=== PATIENT | male | born 1940 | race Caucasian/White ===

== ENCOUNTER → 2020-07-28 | Outpatient (CLI) | payer MEDICARE ==
--- NOTE | 2020-07-28 15:39 | CONS ---
CONSULTATION DATE OF SERVICE: 07/28/2020 This 79-year-old gentleman has been evaluated in [facility] for possible obstructive sleep apnea-hypopnea syndrome. HISTORY OF PRESENT ILLNESS/SLEEP-WAKE EVALUATION: Patient usual sleep schedule from 9 p.m. to 9 a.m. He has TV in bedroom, but usually no significant problems with falling asleep. He sleeps on the side position with snoring and multiple awakenings from sleep to 6 times and 5 episodes of nocturia at night. The patient wakes up with dry mouth and sweating. During the day, he feels sleepy, takes naps on afternoon. [place] Sleepiness Scale significantly increased to 14. No clear history of hypnagogic hallucinations, sleep paralysis or cataplexy. PAST MEDICAL HISTORY: Positive for stroke and TIAs, atrial fibrillation, hypertension, acid reflux, anxiety, depression, rhinitis problems. PAST SURGICAL HISTORY: Recent cardiac cath, which did not show significant coronary artery disease. MEDICATIONS: Atorvastatin 80 mg once a day, buspirone 5 mg once a day, valsartan 26 mg tablets, 5 mg once a day, furosemide 20 mg once a day, citalopram 20 mg once a day, metoprolol 50 mg once a day, pantoprazole 40 mg extended-release once a day, rivaroxaban 20 mg once a day, multivitamins. SOCIAL HISTORY: Positive for smoking in the past; quit 25 years ago. Alcohol consumption occasional. FAMILY HISTORY: Positive for bronchitis, lung problems. REVIEW OF SYSTEMS: Nocturia, sleepiness during the day. PHYSICAL EXAMINATION: GENERAL: A gentleman without distress, some times morning. VITAL SIGNS: BP 122/96, HR 84, RR 20, height 5 feet 7 inches, weight 175, temperature 96.7, oxygen saturation at room air 95%. HEENT: PERRLA, EOMI. Oropharynx low position of soft palate. NECK: Supple, no JVD. Thyroid is not palpable. LUNGS: Clear to percussion and to auscultation. Good air exchange. No wheezing or rhonchi. HEART: S1, S2. ABDOMEN: Soft and nontender. Bowel sounds are present. No organomegaly appreciated. EXTREMITIES: No clubbing or cyanosis. 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 Patient walks with very small steps. IMPRESSION: 1. Snoring, multiple awakenings from sleep with nocturia, low position of soft palate, obstructive sleep apnea-hypopnea syndrome. 2. Obesity. 3. Hypertension. 4. History of atrial fibrillation. 5. History of stroke and TIA. 6. Acid reflux. 7. History of anxiety. 8. History of depression. 9. Rhinitis. PLAN: 1. Polysomnography for evaluation of patient's breathing during sleep. 2. CPAP/BiPAP titration if sleep study confirms obstructive sleep apnea-hypopnea syndrome. 3. Preferable position during sleep on the side. 4. No driving if patient feels any sleepiness. 5. I will see patient for follow up visit to explain results of testing and following plan. Thank you very much for referring this patient for consultation. Sincerely, Navin Alexander MD, PhD, FAASM Diplomat of [employer] [facility] [place] MMODL / JOHANNY: [phone] /
== END ==
LOC: SLEEP 14:27
PROVIDERS: ATTEND Internal Medicine
DX: G47.33 Obstructive sleep apnea (adult) (pediatric) (principal); E66.9 Obesity, unspecified; I10 Essential (primary) hypertension; I48.91 Unspecified atrial fibrillation; K21.9 Gastro-esophageal reflux disease without esophagitis; F32.9 Major depressive disorder, single episode, unspecified; G45.9 Transient cerebral ischemic attack, unspecified; J31.0 Chronic rhinitis; F17.210 Nicotine dependence, cigarettes, uncomplicated
CPT/HCPCS: 99201

== ENCOUNTER 2020-09-26 10:54 | Inpatient (IN) | payer MEDICARE, OTHER ==
[2020-09-26] MEDS ORDERED: PANTOPRAZOLE 40 MG/10 ML VIAL IVP STA (11:24)
[2020-09-26 11:38] LABS: Basophils # (A) 0.1 k/uL (0-0.2); Basophils % (A) 1 %; Eosinophils # (A) 0.1 k/uL (0-0.7); Eosinophils % (A) 2 %; HCT 41.9 % (39.0-53.0); HGB 13.9 gm/dL (13.0-17.5); Lymphocytes # (A) 1.1 k/uL (1.0-4.8); Lymphocytes % (A) 14 %; MCH 29.5 pg (25.0-35.0); MCHC 33.1 g/dL (31.0-37.0); MCV 89.2 fL (80.0-100.0); Mean Platelet Volume 8.3; Monocytes # (A) 0.5 k/uL (0-1.0); Monocytes % (A) 6 %; Neutrophils % (A) 76 %; Platelet Count 133 k/uL (150-450); RBC 4.69 m/uL (4.30-5.90); RDW 14.9 % (11.5-15.5); WBC 7.9 k/uL (3.8-10.6)
[2020-09-26 11:46] LABS: Albumin 3.9 g/dL (3.5-5.0); Calcium 9.1 mg/dL (8.4-10.2); Potassium 4.3 mmol/L (3.5-5.1); Total Bilirubin 0.9 mg/dL (0.2-1.3)
--- NOTE | 2020-09-26 12:14 | ED ---
GI Bleed HPI - General Chief complaint: GI Bleed Stated complaint: GI Bleed Time Seen by Provider: 09/26/20 11:04 Source: patient, family Mode of arrival: wheelchair Limitations: no limitations - History of Present Illness Initial comments: 79-year-old male presenting today for chief complaint of dark stools. Patient states he had a loose stool that was very dark with some bright red blood in it. Patient is on a blood thinners are also for his atrial fibrillation. Patient denies abdominal pain chest pain shortness of breath he denies any weakness sensation deficit, nausea, vomiting or additional complaints pt on arrival is in good spirits no distress - Related Data Home Medications Medication Instructions Recorded Confirmed Atorvastatin Calcium [Lipitor] 40 mg PO HS 09/26/20 09/26/20 Colestipol HCl [Colestid] 2 gm PO W/LUNCH 09/26/20 09/26/20 Cyanocobalamin (Vitamin B-12) 1,000 mcg PO DAILY 09/26/20 09/26/20 [Vitamin B-12] Escitalopram [Lexapro] 20 mg PO DAILY 09/26/20 09/26/20 Fexofenadine HCl [Karolina Allergy] 180 mg PO DAILY PRN 09/26/20 09/26/20 Finasteride [Proscar] 5 mg PO DAILY 09/26/20 09/26/20 Furosemide [Lasix] 20 mg PO AC-BID PRN 09/26/20 09/26/20 Ipratropium [place] 0.06%Nasal 1 spray EA NOSTRIL TID PRN 09/26/20 09/26/20 [Atrovent Nasal 0.06%] Metoprolol Succinate (ER) [Toprol 25 mg PO DAILY 09/26/20 09/26/20 Xl] Pantoprazole Sodium [Protonix] 40 mg PO DAILY 09/26/20 09/26/20 Potassium Chloride [Klor-Con 10] 10 meq PO HS 09/26/20 09/26/20 Rivaroxaban [Xarelto] 20 mg PO HS 09/26/20 09/26/20 Sacubitril/Valsartan [Entresto 24 1 tab PO BID 09/26/20 09/26/20 mg-26 mg Tablet] Vit C/E/Zn/Coppr/Lutein/Zeaxan 1 cap PO BID 09/26/20 09/26/20 [Preservision Areds 2 Softgel] calcium polycarbophiL [Fibercon] 625 mg PO DAILY 09/26/20 09/26/20 Allergies Allergy/AdvReac Type Severity Reaction Status Date / Time trospium [From Sanctura] Allergy Unknown Verified 09/26/20 12:17 mirabegron [From Myrbetriq] AdvReac dark urine Verified 09/26/20 12:17 tamsulosin [From Flomax] AdvReac low blood Verified 09/26/20 12:17 pressure Review of Systems ROS Statement: Those systems with pertinent positive or pertinent negative responses have been documented in the HPI. ROS Other: All systems not noted in ROS Statement are negative. Past Medical History Past Medical History: Chest Pain / Angina, Heart Failure Additional Past Medical History / Comment(s): TIA History of Any Multi-Drug Resistant Organisms: None Reported Past Surgical History: Heart Catheterization Past Psychological History: Depression Smoking Status: Former smoker Past Alcohol Use History: Occasional Past Drug Use History: None Reported General Exam - General Exam Comments Initial Comments: General: The patient is awake and alert, in no distress, very hard of hearing Eye: Pupils are equal, round and reactive to light, extra-ocular movements are intact. No nystagmus. There is normal conjunctiva bilaterally. No signs of icterus. Ears, nose, mouth and throat: There are moist mucous membranes and no oral lesions. Neck: The neck is supple, there is no tenderness or JVD. Cardiovascular: There is a regular rate and rhythm. No murmur, rub or gallop is appreciated. Respiratory: Lungs are clear to auscultation, respirations are non-labored, breath sounds are equal. No wheezes, stridor, rales, or rhonchi. Gastrointestinal: Soft, non-distended, non-tender abdomen without masses or organomegaly noted. There is no rebound or guarding present. : dark stool per rectum no bright red bleeding. Musculoskeletal: Normal ROM, no tenderness. Strength 5/5. Sensation intact. radial pulses equal bilaterally 2+. Neurological: A&O x 3. CN II-XII intact grossly, There are no obvious motor or sensory deficits. Coordination appears grossly intact. Speech is normal. Skin: Skin is warm and dry and no rashes or lesions are noted. Psychiatric: Cooperative, appropriate mood & affect, normal judgment. Limitations: no limitations Course Vital Signs 09/26/20 09/26/20 10:55 12:06 Temperature 97.6 F Pulse Rate 78 106 H Respiratory 18 18 Rate Blood Pressure 110/67 132/90 O2 Sat by Pulse 97 97 Oximetry Medical Decision Making - Medical Decision Making Cr/BUn elevated. Hgb at this point stable. troponin mild elevation could be excretion with increased demand. pt denies chest pain. pt given protonix and will be admitted to Dr Valdez (who accepted admission) with GI on consults. Cardiology consult requested by Dr Valdez as well which was added. pt agreeable to admission, daughter bedside is agreeable to admission. - Lab Data Result diagrams: 09/26/20 11:23 09/26/20 11:25 Lab Results 09/26/20 09/26/20 09/26/20 Range/Units 11:23 11:25 11:25 WBC 7.9 (3.8-10.6) k/uL RBC 4.69 (4.30-5.90) m/uL Hgb 13.9 (13.0-17.5) gm/dL Hct 41.9 (39.0-53.0) % MCV 89.2 (80.0-100.0) fL MCH 29.5 (25.0-35.0) pg MCHC 33.1 (31.0-37.0) g/dL RDW 14.9 (11.5-15.5) % Plt Count 133 L (150-450) k/uL MPV 8.3 Neutrophils % 76 % Lymphocytes % 14 % Monocytes % 6 % Eosinophils % 2 % Basophils % 1 % Neutrophils # 6.0 (1.3-7.7) k/uL Lymphocytes # 1.1 (1.0-4.8) k/uL Monocytes # 0.5 (0-1.0) k/uL Eosinophils # 0.1 (0-0.7) k/uL Basophils # 0.1 (0-0.2) k/uL APTT 27.9 (22.0-30.0) sec Sodium (137-145) mmol/L Potassium (3.5-5.1) mmol/L Chloride (98-107) mmol/L Carbon Dioxide (22-30) mmol/L Anion Gap mmol/L BUN (9-20) mg/dL Creatinine (0.66-1.25) mg/dL Est GFR (CKD-EPI)AfAm (>60 ml/min/1.73 sqM) Est GFR (CKD-EPI)NonAf (>60 ml/min/1.73 sqM) Glucose (74-99) mg/dL Plasma Lactic Acid Jose Cruz (0.7-2.0) mmol/L Calcium (8.4-10.2) mg/dL Total Bilirubin (0.2-1.3) mg/dL AST (17-59) U/L ALT (4-49) U/L Alkaline Phosphatase (38-126) U/L Troponin I (0.000-0.034) ng/mL Total Protein (6.3-8.2) g/dL Albumin (3.5-5.0) g/dL Stool Occult Blood Positive (Negative) Blood Type Blood Type Recheck Bld Type Recheck Status Antibody Screen Spec Expiration Date 09/26/20 09/26/20 09/26/20 Range/Units 11:25 11:25 11:25 WBC (3.8-10.6) k/uL RBC (4.30-5.90) m/uL Hgb (13.0-17.5) gm/dL Hct (39.0-53.0) % MCV (80.0-100.0) fL MCH (25.0-35.0) pg MCHC (31.0-37.0) g/dL RDW (11.5-15.5) % Plt Count (150-450) k/uL MPV Neutrophils % % Lymphocytes % % Monocytes % % Eosinophils % % Basophils % % Neutrophils # (1.3-7.7) k/uL Lymphocytes # (1.0-4.8) k/uL Monocytes # (0-1.0) k/uL Eosinophils # (0-0.7) k/uL Basophils # (0-0.2) k/uL APTT (22.0-30.0) sec Sodium 145 (137-145) mmol/L Potassium 4.3 (3.5-5.1) mmol/L Chloride 111 H (98-107) mmol/L Carbon Dioxide 25 (22-30) mmol/L Anion Gap 9 mmol/L BUN 36 H (9-20) mg/dL Creatinine 1.32 H (0.66-1.25) mg/dL Est GFR (CKD-EPI)AfAm 58 (>60 ml/min/1.73 sqM) Est GFR (CKD-EPI)NonAf 51 (>60 ml/min/1.73 sqM) Glucose 92 (74-99) mg/dL Plasma Lactic Acid Jose Cruz 1.3 (0.7-2.0) mmol/L Calcium 9.1 (8.4-10.2) mg/dL Total Bilirubin 0.9 (0.2-1.3) mg/dL AST 22 (17-59) U/L ALT 25 (4-49) U/L Alkaline Phosphatase 91 (38-126) U/L Troponin I 0.039 H* (0.000-0.034) ng/mL Total Protein 6.0 L (6.3-8.2) g/dL Albumin 3.9 (3.5-5.0) g/dL Stool Occult Blood (Negative) Blood Type Blood Type Recheck Bld Type Recheck Status Antibody Screen Spec Expiration Date 09/26/20 Range/Units 11:25 WBC (3.8-10.6) k/uL RBC (4.30-5.90) m/uL Hgb (13.0-17.5) gm/dL Hct (39.0-53.0) % MCV (80.0-100.0) fL MCH (25.0-35.0) pg MCHC (31.0-37.0) g/dL RDW (11.5-15.5) % Plt Count (150-450) k/uL MPV Neutrophils % % Lymphocytes % % Monocytes % % Eosinophils % % Basophils % % Neutrophils # (1.3-7.7) k/uL Lymphocytes # (1.0-4.8) k/uL Monocytes # (0-1.0) k/uL Eosinophils # (0-0.7) k/uL Basophils # (0-0.2) k/uL APTT (22.0-30.0) sec Sodium (137-145) mmol/L Potassium (3.5-5.1) mmol/L Chloride (98-107) mmol/L Carbon Dioxide (22-30) mmol/L Anion Gap mmol/L BUN (9-20) mg/dL Creatinine (0.66-1.25) mg/dL Est GFR (CKD-EPI)AfAm (>60 ml/min/1.73 sqM) Est GFR (CKD-EPI)NonAf (>60 ml/min/1.73 sqM) Glucose (74-99) mg/dL Plasma Lactic Acid Jose Cruz (0.7-2.0) mmol/L Calcium (8.4-10.2) mg/dL Total Bilirubin (0.2-1.3) mg/dL AST (17-59) U/L ALT (4-49) U/L Alkaline Phosphatase (38-126) U/L Troponin I (0.000-0.034) ng/mL Total Protein (6.3-8.2) g/dL Albumin (3.5-5.0) g/dL Stool Occult Blood (Negative) Blood Type O Positive Blood Type Recheck No Previous Record Bld Type Recheck Status CABO Indicated Antibody Screen NEGATIVE Spec Expiration Date 09/29/20202324 Disposition Clinical Impression: GI bleed, Elevated troponin Disposition: ADMITTED IP TO THIS [facility] Condition: Stable Is patient prescribed a controlled substance at d/c from ED?: No Referrals: Rand Hilario MD [Primary Care Provider] - 1-2 days Time of Disposition: 12:37 Decision to Admit Reason: Admit from EC Decision Date: 09/26/20 Decision Time: 12:37
[2020-09-26] MEDS ORDERED: NALOXONE 0.4 MG/ML 1 ML VIAL IV PRN (12:30)
[2020-09-26] MEDS ORDERED: SODIUM CHLORIDE 0.9% 500 ML 500 ML IV ONE (12:37)
[2020-09-26] MEDS: SODIUM CHLORIDE 0.9% 1,000 ML IV SCH (13:00)
[2020-09-26] MEDS ORDERED: IPRATROPIUM BROMIDE 0.06% NASAL SPRAY (15 ML) EA NOSTRIL PRN (14:20)
[2020-09-26] MEDS ORDERED: FUROSEMIDE 20 MG TAB PO PRN (14:20)
[2020-09-26 15:34] LABS: Basophils # (A) 0.1 k/uL (0-0.2); Basophils % (A) 1 %; Eosinophils # (A) 0.1 k/uL (0-0.7); Eosinophils % (A) 2 %; HCT 37.4 % (39.0-53.0); HGB 12.6 gm/dL (13.0-17.5); Lymphocytes # (A) 0.9 k/uL (1.0-4.8); Lymphocytes % (A) 16 %; MCH 30.1 pg (25.0-35.0); MCHC 33.8 g/dL (31.0-37.0); MCV 89.3 fL (80.0-100.0); Mean Platelet Volume 8.5; Monocytes # (A) 0.3 k/uL (0-1.0); Monocytes % (A) 5 %; Neutrophils # (A) 4.4 k/uL (1.3-7.7); Neutrophils % (A) 75 %; Platelet Count 112 k/uL (150-450); RBC 4.19 m/uL (4.30-5.90); RDW 14.8 % (11.5-15.5); WBC 5.9 k/uL (3.8-10.6)
[2020-09-26] MEDS: ATORVASTATIN 40 MG TAB PO SCH (20:59)
[2020-09-26] MEDS: PANTOPRAZOLE 40 MG/10 ML VIAL IVP SCH (20:59)
--- NOTE | 2020-09-26 21:09 | P.HPIM ---
History of Present Illness This is a pleasant 79 years old male with past medical history of heart failure, TIA. Atrial fibrillation on Xarelto . [facility] because [place] from where he lives he follows also with [facility]. 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 Quiles. Also he follows up with power wood sawyer for sleep apnea presents because of possible GI bleed. Patient's poor historian and information obtained with the help of his daughter Olinda who lives with him. Patient presents because of lack her distal and blood-colored water in the toilet (daughter has a picture and her phone) Patient himself feels generally weak, patient was gradually getting weaker over the last 2 months however he denies abdominal pain, no nausea vomiting or diarrhea. He denies chest pain. No fever. No urinary complaints Patient has chronic dyspnea and uses CPAP. No smoking, alcohol or illicit tracts No signs or symptoms of depression On admission patient is tachycardic at 106, rest of vitals are unremarkable. CBC, BMP and liver enzymes were unremarkable except for slightly elevated creatinine at 1.3, unknown baseline Elevated troponin at 0.039. Cordarone virus not detected EKG showing atrial fibrillation with premature aberrantly conducted complexes. QTC is 464 Emergency room patient received Protonix 80 mg 1, normal sinus 75 mL/h besides bolus of 500 mL GI and cartilages services were consulted. Review of Systems CONSTITUTIONAL: No fever, no malaise, no fatigue. HEENT: No recent visual problems or hearing problems. Denied any sore throat. CARDIOVASCULAR: No orthopnea, PND, no palpitations, no syncope. PULMONARY: No shortness of breath, no cough, no hemoptysis. GASTROINTESTINAL: No diarrhea, no nausea, no vomiting, no abdominal pain. Normoactive bowel sounds. NEUROLOGICAL: No headaches, no weakness, no numbness. HEMATOLOGICAL: Denies any bleeding or petechiae. GENITOURINARY: Denies any burning micturition, frequency, or urgency. MUSCULOSKELETAL/RHEUMATOLOGICAL: Denies any joint pain, swelling, or any muscle pain. ENDOCRINE: Denies any polyuria or polydipsia. Past Medical History Past Medical History: Chest Pain / Angina, Heart Failure Additional Past Medical History / Comment(s): TIA History of Any Multi-Drug Resistant Organisms: None Reported Past Surgical History: Heart Catheterization Past Psychological History: Depression Smoking Status: Former smoker Past Alcohol Use History: Occasional Past Drug Use History: None Reported - Past Family History Father History Unknown: Yes Mother History Unknown: Yes Medications and Allergies Home Medications Medication Instructions Recorded Confirmed Type Atorvastatin Calcium [Lipitor] 40 mg PO HS 09/26/20 09/26/20 History Colestipol HCl [Colestid] 2 gm PO W/LUNCH 09/26/20 09/26/20 History Cyanocobalamin (Vitamin B-12) 1,000 mcg PO DAILY 09/26/20 09/26/20 History [Vitamin B-12] Escitalopram [Lexapro] 20 mg PO DAILY 09/26/20 09/26/20 History Fexofenadine HCl [Karolina Allergy] 180 mg PO DAILY PRN 09/26/20 09/26/20 History Finasteride [Proscar] 5 mg PO DAILY 09/26/20 09/26/20 History Furosemide [Lasix] 20 mg PO AC-BID PRN 09/26/20 09/26/20 History Ipratropium [place] 0.06%Nasal 1 spray EA NOSTRIL TID PRN 09/26/20 09/26/20 History [Atrovent Nasal 0.06%] Metoprolol Succinate (ER) [Toprol 25 mg PO DAILY 09/26/20 09/26/20 History Xl] Pantoprazole Sodium [Protonix] 40 mg PO DAILY 09/26/20 09/26/20 History Potassium Chloride [Klor-Con 10] 10 meq PO HS 09/26/20 09/26/20 History Rivaroxaban [Xarelto] 20 mg PO HS 09/26/20 09/26/20 History Sacubitril/Valsartan [Entresto 24 1 tab PO BID 09/26/20 09/26/20 History mg-26 mg Tablet] Vit C/E/Zn/Coppr/Lutein/Zeaxan 1 cap PO BID 09/26/20 09/26/20 History [Preservision Areds 2 Softgel] calcium polycarbophiL [Fibercon] 625 mg PO DAILY 09/26/20 09/26/20 History Allergies Allergy/AdvReac Type Severity Reaction Status Date / Time trospium [From Sanctura] Allergy Unknown Verified 09/26/20 12:17 mirabegron [From Myrbetriq] AdvReac dark urine Verified 09/26/20 12:17 tamsulosin [From Flomax] AdvReac low blood Verified 09/26/20 12:17 pressure Physical Exam Vitals: Vital Signs Temp Pulse Resp BP Pulse Ox 09/26/20 13:33 106 H 18 128/85 94 L 09/26/20 13:32 97.0 F L 09/26/20 12:06 106 H 18 132/90 97 09/26/20 10:55 97.6 F 78 18 110/67 97 Intake and Output 09/25/20 09/26/20 09/26/20 22:59 06:59 14:59 Other: Weight 80.286 kg -GENERAL: The patient is alert and oriented x3, drowsy, not in any acute distress. Generally weak HEENT: Pupils are round and equally reacting to light. EOMI. No scleral icterus. No conjunctival pallor. Normocephalic, atraumatic. No pharyngeal erythema. No thyromegaly. CARDIOVASCULAR: S1 and S2 present. No murmurs, rubs, or gallops. PULMONARY: Chest is clear to auscultation, no wheezing or crackles. ABDOMEN: Soft, nontender, nondistended, normoactive bowel sounds. No palpable organomegaly. MUSCULOSKELETAL: No joint swelling or deformity. EXTREMITIES: No cyanosis, clubbing, or pedal edema. NEUROLOGICAL: Gross neurological examination did not reveal any focal deficits. SKIN: No rashes. No petechiae Results CBC & Chem 7: 09/26/20 15:17 09/26/20 11:25 Labs: Abnormal Lab Results - Last 24 Hours (Table) 09/26/20 09/26/20 09/26/20 Range/Units 11:23 11:25 11:25 Plt Count 133 L (150-450) k/uL Chloride 111 H (98-107) mmol/L BUN 36 H (9-20) mg/dL Creatinine 1.32 H (0.66-1.25) mg/dL Troponin I 0.039 H* (0.000-0.034) ng/mL Total Protein 6.0 L (6.3-8.2) g/dL Assessment and Plan Assessment: Acute GI bleed Acute blood loss anemia Elevated troponin, rule out cardiac causes Acute kidney injury Possible metabolic encephalopathy paroxysmal A. fib on Xarelto with premature aberrantly conducted complexes. Hyperlipidemia History of depression Benign prostatic hypertrophy Plan: This is a pleasant 79 years old male who presents with acute GI bleed, elevated troponin with relation to A. fib and irregularly conducted complexes. Hold Xarelto. Continue with Protonix. Monitor hemoglobin. GI consult continue with telemetry, cardiology consult. Anticoagulation or aspirin cannot be given because of active GI bleed and risks more than benefits especially patient has symptoms mainly GI rather than cardiac Labs and medication were reviewed.. Continue same treatment. Continue with symptomatic treatment. Resume home medication. Monitor lytes and vitals. DVT and GI prophylaxis. Further recommendations depends on the clinical course of the patient DVT prophylaxis: No anticoagulation for GI bleed GI Prophylaxis: Ppi Prognosis is guarded
[2020-09-27] MEDS: SODIUM CHLORIDE 0.9% 1,000 ML IV SCH ×2 (03:28→20:39)
[2020-09-27 07:58] LABS: Basophils # (A) 0.1 k/uL (0-0.2); Basophils % (A) 1 %; Eosinophils # (A) 0.1 k/uL (0-0.7); Eosinophils % (A) 2 %; HCT 38.4 % (39.0-53.0); HGB 12.6 gm/dL (13.0-17.5); Lymphocytes % (A) 15 %; MCH 29.2 pg (25.0-35.0); MCHC 32.7 g/dL (31.0-37.0); MCV 89.2 fL (80.0-100.0); Mean Platelet Volume 8.5; Monocytes # (A) 0.4 k/uL (0-1.0); Monocytes % (A) 6 %; Neutrophils # (A) 4.7 k/uL (1.3-7.7); Neutrophils % (A) 75 %; Platelet Count 108 k/uL (150-450); RDW 14.7 % (11.5-15.5); WBC 6.3 k/uL (3.8-10.6)
[2020-09-27 08:00] LABS: Prothrombin Time 11.1 sec (9.0-12.0)
[2020-09-27 08:19] LABS: Albumin 3.2 g/dL (3.5-5.0); Calcium 8.3 mg/dL (8.4-10.2); Magnesium 2.1 mg/dL (1.6-2.3); Total Protein 5.3 g/dL (6.3-8.2)
[2020-09-27] MEDS: ESCITALOPRAM 20 MG TAB PO SCH (08:36)
[2020-09-27] MEDS: PANTOPRAZOLE 40 MG/10 ML VIAL IVP SCH ×2 (08:36→20:50)
[2020-09-27] MEDS: FINASTERIDE 5 MG TAB PO SCH (08:36)
[2020-09-27] MEDS ORDERED: METOPROLOL SUCCINATE (ER) 25 MG TAB.ER.24H PO SCH (09:00)
[2020-09-27] MEDS ORDERED: DRY MOUTH SPRAY 44.3 SPRAY/44.3 ML SPRAY MUCOUS MEM PRN (09:52)
[2020-09-27] MEDS: COLESTIPOL HCL 1 GM PO SCH (12:21)
--- NOTE | 2020-09-27 12:55 | P.PN ---
Subjective This is a pleasant 79 years old male with past medical history of heart failure, TIA. Atrial fibrillation on Xarelto . [facility] however because is far from where he lives he follows also with [facility]. His acid painter is Dr. Quiles. Also he follows up with babcock tester for sleep apnea presents because of possible GI bleed. Patient's poor historian and information obtained with the help of his daughter Olinda who lives with him. Patient presents because of lack her distal and blood-colored water in the toilet (daughter has a picture and her phone) Patient himself feels generally weak, patient was gradually getting weaker over the last 2 months however he denies abdominal pain, no nausea vomiting or diarrh ea. He denies chest pain. No fever. No urinary complaints Patient has chronic dyspnea and uses CPAP. No smoking, alcohol or illicit tracts No signs or symptoms of depression On admission patient is tachycardic at 106, rest of vitals are unremarkable. CBC, BMP and liver enzymes were unremarkable except for slightly elevated creatinine at 1.3, unknown baseline Elevated troponin at 0.039. Cordarone virus not detected EKG showing atrial fibrillation with premature aberrantly conducted complexes. QTC is 464 Emergency room patient received Protonix 80 mg 1, normal sinus 75 mL/h besides bolus of 500 mL GI and cartilages services were consulted. 09/27/2020 Patient today is more awake, sitting in bed, daughter at bedside. He is present with no complaint or distress. No more overt episodes of black stool. He is hemodynamically stable. Hemoglobin stable at 12.6 He is in normal sinus to milliliters per hour and IV Protonix His going to be evaluated by cardiology and GI team Objective - Vital Signs Vital signs: Vital Signs Temp 97.4 F L 09/27/20 08:32 Pulse 95 09/27/20 11:55 Resp 16 09/27/20 11:55 BP 151/106 09/27/20 11:55 Pulse Ox 98 09/27/20 11:55 Intake & Output 09/26/20 09/27/20 09/27/20 18:59 06:59 18:59 Intake Total 222 375 Output Total 200 500 125 Balance 22 -125 -125 Weight 80.286 kg Intake: Intake, IV Titration 375 Amount Sodium Chloride 0.9% 1, 375 000 ml @ 50 mls/hr IV . Q20H [facility] Rx#:[id number] Oral 222 Output: Urine 200 500 125 Other: Voiding Method Urinal Toilet Toilet Diaper Urinal Urinal # Voids 3 # Bowel Movements 1 - Exam GENERAL: The patient is alert and oriented x3, not in any acute distress. Well developed, well nourished. HEENT: Pupils are round and equally reacting to light. EOMI. No scleral icterus. No conjunctival pallor. Normocephalic, atraumatic. No pharyngeal erythema. No thyromegaly. CARDIOVASCULAR: S1 and S2 present. No murmurs, rubs, or gallops. PULMONARY: Chest is clear to auscultation, no wheezing or crackles. ABDOMEN: Soft, nontender, nondistended, normoactive bowel sounds. No palpable organomegaly. MUSCULOSKELETAL: No joint swelling or deformity. EXTREMITIES: No cyanosis, clubbing, or pedal edema. NEUROLOGICAL: Gross neurological examination did not reveal any focal deficits. SKIN: No rashes. no petechiae. - Labs CBC & Chem 7: 09/27/20 06:54 09/27/20 06:54 Labs: Abnormal Lab Results - Last 24 Hours (Table) 09/26/20 09/27/20 09/27/20 Range/Units 15:17 06:54 06:54 RBC 4.19 L (4.30-5.90) m/uL Hgb 12.6 L 12.6 L (13.0-17.5) gm/dL Hct 37.4 L 38.4 L (39.0-53.0) % Plt Count 112 L 108 L (150-450) k/uL Lymphocytes # 0.9 L (1.0-4.8) k/uL Chloride 112 H (98-107) mmol/L BUN 32 H (9-20) mg/dL Calcium 8.3 L (8.4-10.2) mg/dL Total Protein 5.3 L (6.3-8.2) g/dL Albumin 3.2 L (3.5-5.0) g/dL Assessment and Plan Assessment: Acute GI bleed Acute blood loss anemia Elevated troponin, rule out cardiac causes Acute kidney injury Possible metabolic encephalopathy paroxysmal A. fib on Xarelto with premature aberrantly conducted complexes. Hyperlipidemia History of depression Benign prostatic hypertrophy Plan: This is a pleasant 79 years old male who presents with acute GI bleed, elevated troponin with relation to A. fib and irregularly conducted complexes. Hold Xarelto. Continue with Protonix. Monitor hemoglobin. GI consult continue with telemetry, cardiology consult. Anticoagulation or aspirin cannot be given because of active GI bleed and risks more than benefits especially patient has symptoms mainly GI rather than cardiac Labs and medication were reviewed.. Continue same treatment. Continue with symptomatic treatment. Resume home medication. Monitor lytes and vitals. DVT and GI prophylaxis. Further recommendations depends on the clinical course of the patient DVT prophylaxis: No anticoagulation for GI bleed GI Prophylaxis: Ppi Prognosis is guarded
[2020-09-27] MEDS ORDERED: METOPROLOL SUCCINATE (ER) 25 MG TAB.ER.24H PO STA (13:08)
--- NOTE | 2020-09-27 13:14 | P.CRDCN ---
History of Present Illness History of present illness: HISTORY OF PRESENTING ILLNESS This is a pleasant 79-year-old male past medical history significant for coronary artery disease, chronic persistent atrial fibrillation on long-term anticoagulation, aortic stenosis, idiopathic non-ischemic cardiomyopathy, hypertension and dyslipidemia. He follows in the office with Dr. Quiles. We have been asked to see in consultation for elevated troponin and GI bleeding. He states yesterday he noticed bright red blood per rectum. He denies chest pain, shortness of breath, dizziness or palpitations. He states he feels tired and weak. Most recent echocardiogram obtained in the office April 2020 revealed preserved LV systolic function with ejection fraction 50-55%, severe LVH, mildly dilated right ventricle, severely dilated left atrium, moderately dilated right atrium, mild mitral regurgitation, mild to moderate aortic regurgitation, moderate aortic stenosis with a mean gradient of 24 mmHg and moderate tricuspid regurgitation. DIAGNOSTICS EKG reveals atrial fibrillation heart rate 95. Telemetry tracings indicate atrial fibrillation with non-sustained mono-morphic VT. Laboratory reviewed, WBC 6.3, hemoglobin 12.6, platelets 108, sodium 141, potassium 4.0, creatinine 1.22, magnesium 2.1, troponin 0.039 and stool positive for occult blood. Current cardiac medications include Lasix 20 mg twice a day as needed for lower extremity swelling, Toprol 25 mg daily, atorvastatin 40 mg daily, Xarelto 20 mg daily and entresto 24/26 mg BID. REVIEW OF SYSTEMS At the time of my exam: CONSTITUTIONAL: Complains of generalized weakness. Denies fever or chills. CARDIOVASCULAR: Denies chest pain, shortness of breath, orthopnea, PND or palpitations. RESPIRATORY: Denies cough. GASTROINTESTINAL: Denies abdominal pain, diarrhea, constipation, nausea or vomiting. MUSCULOSKELETAL: Denies myalgias. NEUROLOGIC: Denies numbness, tingling, headacbe or weakness. ENDOCRINE: Denies fatigue, weight change, polydipsia or polyurina. GENITOURINARY: Denies burning, hematuria or urgency with micturation. HEMATOLOGIC: Complains of bright red blood per rectum. PHYSICAL EXAMINATION Blood pressure 151/106 heart rate 95 afebrile and maintaining oxygen saturation on nasal cannula. CONSTITUTIONAL: No apparent distress. HEENT: Head is normocephalic. Pupils are equal, round. Sclerae anicteric. Mucous membranes of the mouth are moist. No JVD. No carotid bruit. CHEST EXAMINATION: Lungs are clear to auscultation. No chest wall tenderness is noted on palpation or with deep breathing. HEART EXAMINATION: Irregular rate and rhythm. S1, S2 heard. Systolic ejection murmur at the base, no gallops or rub. ABDOMEN: Soft, nontender. Positive bowel sounds. EXTREMITIES: 2+ peripheral pulses, no lower extremity edema and no calf tenderness. NEUROLOGIC EXAMINATION: Patient is awake, alert and oriented x3. ASSESSMENT Acute GI bleed Thrombocytopenia Chronic persistent atrial fibrillation on half-way anti-coagulation with xarelto Valvular heart disease, , MR and TR History of non-ischemic cardiomyopathy with improvement in LV function Hypertension Dyslipidemia PLAN Hold xarelto pending GI evaluation. Increase toprol to 50 mg daily. Continue entresto as previously ordered. Further recommendations to follow based on clinical course. Thank you kindly for this consultation. Nurse Practitioner note has been reviewed, I agree with a documented findings and plan of care. Patient was seen and examined. Past Medical History Past Medical History: Chest Pain / Angina, Heart Failure Additional Past Medical History / Comment(s): TIA History of Any Multi-Drug Resistant Organisms: None Reported Past Surgical History: Heart Catheterization Past Psychological History: Depression Smoking Status: Former smoker Past Alcohol Use History: Occasional Past Drug Use History: None Reported - Past Family History Father History Unknown: Yes Mother History Unknown: Yes Medications and Allergies Home Medications Medication Instructions Recorded Confirmed Type Atorvastatin Calcium [Lipitor] 40 mg PO HS 09/26/20 09/26/20 History Colestipol HCl [Colestid] 2 gm PO W/LUNCH 09/26/20 09/26/20 History Cyanocobalamin (Vitamin B-12) 1,000 mcg PO DAILY 09/26/20 09/26/20 History [Vitamin B-12] Escitalopram [Lexapro] 20 mg PO DAILY 09/26/20 09/26/20 History Fexofenadine HCl [Karolina Allergy] 180 mg PO DAILY PRN 09/26/20 09/26/20 History Finasteride [Proscar] 5 mg PO DAILY 09/26/20 09/26/20 History Furosemide [Lasix] 20 mg PO AC-BID PRN 09/26/20 09/26/20 History Ipratropium [place] 0.06%Nasal 1 spray EA NOSTRIL TID PRN 09/26/20 09/26/20 History [Atrovent Nasal 0.06%] Metoprolol Succinate (ER) [Toprol 25 mg PO DAILY 09/26/20 09/26/20 History Xl] Pantoprazole Sodium [Protonix] 40 mg PO DAILY 09/26/20 09/26/20 History Potassium Chloride [Klor-Con 10] 10 meq PO HS 09/26/20 09/26/20 History Rivaroxaban [Xarelto] 20 mg PO HS 09/26/20 09/26/20 History Sacubitril/Valsartan [Entresto 24 1 tab PO BID 09/26/20 09/26/20 History mg-26 mg Tablet] Vit C/E/Zn/Coppr/Lutein/Zeaxan 1 cap PO BID 09/26/20 09/26/20 History [Preservision Areds 2 Softgel] calcium polycarbophiL [Fibercon] 625 mg PO DAILY 09/26/20 09/26/20 History Allergies Allergy/AdvReac Type Severity Reaction Status Date / Time trospium [From Sanctura] Allergy Unknown Verified 09/26/20 12:17 mirabegron [From Myrbetriq] AdvReac dark urine Verified 09/26/20 12:17 tamsulosin [From Flomax] AdvReac low blood Verified 09/26/20 12:17 pressure Physical Exam Vitals: Vital Signs Temp Pulse Pulse Resp BP BP Pulse Ox 09/27/20 03:31 97.6 F 98 18 147/104 97 09/27/20 00:24 98 16 154/85 95 09/26/20 20:58 97.7 F 96 16 145/91 95 09/26/20 15:40 98.3 F 98 18 132/93 96 09/26/20 15:18 102 H 18 144/98 97 09/26/20 13:33 106 H 18 128/85 94 L 09/26/20 13:32 97.0 F L 09/26/20 12:06 106 H 18 132/90 97 09/26/20 10:55 97.6 F 78 18 110/67 97 Intake and Output 09/26/20 09/27/20 09/27/20 22:59 06:59 14:59 Intake Total 222 375 Output Total 200 500 Balance 22 -125 Intake: Intake, IV Titration 375 Amount Sodium Chloride 0.9% 1, 375 000 ml @ 75 mls/hr IV . [id number] [facility] Rx#:[id number] Oral 222 Output: Urine 200 500 Other: Voiding Method Toilet Urinal # Voids 3 # Bowel Movements 1 Weight 80.286 kg Results 09/27/20 06:54 09/27/20 06:54 Cardiac Enzymes 09/26/20 09/26/20 Range/Units 11:25 11:25 AST 22 (17-59) U/L Troponin I 0.039 H* (0.000-0.034) ng/mL Coagulation 09/26/20 09/27/20 Range/Units 11:25 06:54 PT 11.1 (9.0-12.0) sec APTT 27.9 (22.0-30.0) sec CBC 09/26/20 09/26/20 09/27/20 Range/Units 11:23 15:17 06:54 WBC 7.9 5.9 6.3 (3.8-10.6) k/uL RBC 4.69 4.19 L 4.30 (4.30-5.90) m/uL Hgb 13.9 12.6 L 12.6 L (13.0-17.5) gm/dL Hct 41.9 37.4 L 38.4 L (39.0-53.0) % Plt Count 133 L 112 L 108 L (150-450) k/uL Comprehensive Metabolic Panel 09/26/20 Range/Units 11:25 Sodium 145 (137-145) mmol/L Potassium 4.3 (3.5-5.1) mmol/L Chloride 111 H (98-107) mmol/L Carbon Dioxide 25 (22-30) mmol/L BUN 36 H (9-20) mg/dL Creatinine 1.32 H (0.66-1.25) mg/dL Glucose 92 (74-99) mg/dL Calcium 9.1 (8.4-10.2) mg/dL AST 22 (17-59) U/L ALT 25 (4-49) U/L Alkaline Phosphatase 91 (38-126) U/L Total Protein 6.0 L (6.3-8.2) g/dL Albumin 3.9 (3.5-5.0) g/dL Current Medications Generic Name Dose Route Start Last Admin Trade Name Freq PRN Reason Stop Dose Admin Atorvastatin Calcium 40 mg 09/26/20 21:00 09/26/20 20:59 Atorvastatin 40 Mg Tab PO 40 mg HS AMIE Administration Escitalopram Oxalate 20 mg 09/27/20 09:00 Escitalopram 20 Mg Tab PO DAILY AMIE Finasteride 5 mg 09/27/20 09:00 Finasteride 5 Mg Tab PO DAILY AMIE Furosemide 20 mg 09/26/20 14:20 Furosemide 20 Mg Tab PO AC-BID PRN Edema Sodium Chloride 1,000 mls @ 75 mls/hr 09/26/20 12:45 09/27/20 03:28 Saline 0.9% IV Not Given .[id number] [facility] Ipratropium [place] 1 spray 09/26/20 14:20 Ipratropium [place] 0.06% Nasal [place] (15 Ml) EA NOSTRIL TID PRN Congestion Metoprolol Succinate 25 mg 09/27/20 09:00 Metoprolol Succinate (Er) 25 Mg Tab.Er.24h PO DAILY [facility] Naloxone HCl 0.2 mg 09/26/20 12:30 Naloxone 0.4 Mg/Ml 1 Ml Vial IV Q2M PRN Opioid Reversal Non-Formulary Medication 2 gm 09/27/20 12:30 Colestipol Hcl [Colestid] PO W/LUNCH [facility] Pantoprazole Sodium 40 mg 09/26/20 21:00 09/26/20 20:59 Pantoprazole 40 Mg/10 Ml Vial IVP 40 mg BID AMIE Administration Intake and Output 09/26/20 09/27/20 09/27/20 22:59 06:59 14:59 Intake Total 222 375 Output Total 200 500 Balance 22 -125 Intake: Intake, IV Titration 375 Amount Sodium Chloride 0.9% 1, 375 000 ml @ 75 mls/hr IV . [id number] [facility] Rx#:[id number] Oral 222 Output: Urine 200 500 Other: Voiding Method Toilet Urinal # Voids 3 # Bowel Movements 1 Weight 80.286 kg 09/27/20 06:54 09/26/20 11:25
[2020-09-27] MEDS ORDERED: PEG 3350-NA SULF,BICARB,CL/KCL 4,000 ML BOTTLE PO ONE (15:41)
--- NOTE | 2020-09-27 17:19 | CONS ---
CONSULTATION DATE OF DICTATION: 09/27/2020 REASON FOR CONSULTATION: Acute GI bleed. HISTORY OF PRESENT ILLNESS: The patient is an 79-year-old pleasant white male with history of congestive heart failure, history of atrial fibrillation in the past, presently on Xarelto. Last dose was 2 days ago. He presented to the emergency room for acute GI bleed. Apparently his son noticed that he had some dark-colored stool with some maroon-colored stool on Saturday and became concerned and brought him to the emergency room. He had another episode of maroon-colored stool this morning. His initial hemoglobin was 13.5 g/dL and subsequently it dropped to 12.6 g/dL. The patient denies any abdominal pain. No nausea, no vomiting. He never had these symptoms in the past. He has a remote history of colonoscopy more than 10 years ago. He denies any recent NSAID use. He reports no prior history of peptic ulcer disease. PAST MEDICAL HISTORY: Significant for congestive heart failure, atrial fibrillation, TIA, CVA in the past and hypercholesterolemia. HOME MEDICATIONS: Lipitor, Colestid, vitamin B12, Lexapro, Karolina, Proscar, Lasix, Toprol, Protonix, K- Cheryl, Xarelto, Entresto, vitamin C and FiberCon. ALLERGIES: MYRBETRIQ, FLOMAX AND SANCTURA. SOCIAL HISTORY: No smoking. No alcohol use. FAMILY HISTORY: Unremarkable. PAST SURGICAL HISTORY: Cardiac catheterization. REVIEW OF SYSTEMS: CARDIOPULMONARY: He denies any chest pain. He denies any shortness of breath. GENITOURINARY: No dysuria or hematuria. MUSCULOSKELETAL: Some weakness. NEUROLOGY: Unremarkable. PSYCHIATRY: Unremarkable. ENT/VISION: Unremarkable. CONSTITUTIONAL: No recent weight loss. No fever, chills, night sweats. HEMATOLOGY: Mild anemia. ENT/VISION: Unremarkable. PHYSICAL EXAMINATION: He appears comfortable. No apparent distress. VITAL SIGNS: Stable. Blood pressure 151/106, 98, temperature 97.4. HEENT examination unremarkable. Conjunctivae pink. Sclerae anicteric. Oral cavity no lesions. NECK: No JVD or lymph node enlargement. CHEST: Clear to auscultation. HEART: Regular rate and rhythm. ABDOMEN: Soft. It was non-tender, non-distended. Bowel sounds are positive. No organomegaly. EXTREMITIES: No pedal edema. NEUROLOGIC: Alert and oriented x3. No focal deficits. LABS: WBC 7.9, hemoglobin 13.9. Today it is 12.6. BUN is 32, creatinine 1.22. Troponin 0.039. Stool occult blood is positive. IMPRESSION: 1. Acute gastrointestinal bleed. Patient presented with black tarry stools followed by maroon-colored stools for the last 2 days' duration. Hemoglobin stable at 12.9 g/dL. Yesterday it was 13.5 g/dL. He has been on Xarelto for atrial fibrillation, which is on hold for the last 2 days. Likely we are dealing with an upper GI source of bleeding, but possibility of colonic source cannot be excluded. 2. Mild elevation of troponin. Cardiology has been consulted. 3. History of atrial fibrillation, on Xarelto, currently on hold. 4. History of transient ischemic attack in the past. 5. History of congestive heart failure. RECOMMENDATIONS: 1. Continue with Protonix 40 mg daily. 2. Clear liquid diet. 3. Will proceed with EGD and colonoscopy tomorrow. 4. Continue to hold Xarelto. 5. Monitor CBC daily and we will follow with you closely. Thank you for this consultation. MMODL / IJN: [id number] /
[2020-09-27] MEDS: ATORVASTATIN 40 MG TAB PO SCH (20:50)
[2020-09-27] MEDS: SACUBITRIL/VALSARTAN 24 MG-26 MG TABLET PO SCH (20:50)
[2020-09-28 06:55] LABS: Basophils % (A) 1 %; Eosinophils # (A) 0.1 k/uL (0-0.7); Eosinophils % (A) 2 %; HCT 36.2 % (39.0-53.0); HGB 12.2 gm/dL (13.0-17.5); Lymphocytes # (A) 0.9 k/uL (1.0-4.8); Lymphocytes % (A) 14 %; MCH 29.9 pg (25.0-35.0); MCHC 33.8 g/dL (31.0-37.0); MCV 88.3 fL (80.0-100.0); Monocytes # (A) 0.4 k/uL (0-1.0); Monocytes % (A) 6 %; Neutrophils # (A) 4.8 k/uL (1.3-7.7); Neutrophils % (A) 77 %; Platelet Count 106 k/uL (150-450); RBC 4.09 m/uL (4.30-5.90); RDW 14.6 % (11.5-15.5); WBC 6.3 k/uL (3.8-10.6)
[2020-09-28] MEDS ORDERED: MAGNESIUM CITRATE 296 ML BOTTLE PO ONE (08:55)
[2020-09-28] MEDS: PANTOPRAZOLE 40 MG/10 ML VIAL IVP SCH ×2 (09:38→20:16)
[2020-09-28] MEDS: ESCITALOPRAM 20 MG TAB PO SCH (09:38)
[2020-09-28] MEDS: FINASTERIDE 5 MG TAB PO SCH (09:38)
[2020-09-28] MEDS: SACUBITRIL/VALSARTAN 24 MG-26 MG TABLET PO SCH ×2 (09:38→20:16)
[2020-09-28] MEDS: METOPROLOL SUCCINATE (ER) 50 MG TAB.ER.24H PO SCH (09:38)
--- NOTE | 2020-09-28 11:50 | P.PN ---
Subjective This is a pleasant 79 years old male with past medical history of heart failure, TIA. Atrial fibrillation on Xarelto . [facility] because is [place] from [place] he lives he follows also with [facility]. His forestry professor is Dr. Quiles. Also he follows up with tutoring clinician for sleep apnea presents because of possible GI bleed. Patient's poor historian and information obtained with the help of his daughter Olinda who lives with him. Patient presents because of lack her distal and blood-colored water in the toilet (daughter has a picture and her phone) Patient himself feels generally weak, patient was gradually getting weaker over the last 2 months however he denies abdominal pain, no nausea vomiting or diarrh ea. He denies chest pain. No fever. No urinary complaints Patient has chronic dyspnea and uses CPAP. No smoking, alcohol or illicit tracts No signs or symptoms of depression On admission patient is tachycardic at 106, rest of vitals are unremarkable. CBC, BMP and liver enzymes were unremarkable except for slightly elevated creatinine at 1.3, unknown baseline Elevated troponin at 0.039. Cordarone virus not detected EKG showing atrial fibrillation with premature aberrantly conducted complexes. QTC is 464 Emergency room patient received Protonix 80 mg 1, normal sinus 75 mL/h besides bolus of 500 mL GI and cartilages services were consulted. 09/27/2020 Patient today is more awake, sitting in bed, daughter at bedside. He is present with no complaint or distress. No more overt episodes of black stool. He is hemodynamically stable. Hemoglobin stable at 12.6 He is in normal sinus to milliliters per hour and IV Protonix His going to be evaluated by cardiology and GI team 09/28/2020 This is a pleasant 79 years old male who presents with possible GI bleed and elevated troponin and chronic kidney disease. He was on Xarelto for A. fib which is held on admission. Today was sitting in chair comfortable, no specific complaints. He is breathing quietly. He is hemodynamically stable. His been evaluated by forestry professor recommended to continue with same treatment with adjustment of Toprol only, while GI team are planning to do EGD/colonoscopy this morning. Hemodynamically and vitals are stable. Hemoglobin is stable at 12.6. Platelets slightly low at 106K. Objective - Vital Signs Vital signs: Vital Signs Temp 97.8 F 09/27/20 19:50 Pulse 97 09/28/20 04:00 Resp 18 09/28/20 04:00 BP 166/91 09/28/20 04:00 Pulse Ox 96 09/28/20 04:00 Intake & Output 09/27/20 09/28/20 09/28/20 18:59 06:59 18:59 Intake Total 1000 Output Total 125 400 Balance 875 -400 Intake: Intake, IV Titration 400 Amount Sodium Chloride 0.9% 1, 400 000 ml @ 50 mls/hr IV . Q20H [facility] Rx#:[id number] Oral 600 Output: Urine 125 400 Other: Voiding Method Toilet Toilet Urinal Urinal # Voids 1 # Bowel Movements 1 - Exam GENERAL: The patient is alert and oriented x3, not in any acute distress. Well developed, well nourished. HEENT: Pupils are round and equally reacting to light. EOMI. No scleral icterus. No conjunctival pallor. Normocephalic, atraumatic. No pharyngeal erythema. No thyromegaly. CARDIOVASCULAR: S1 and S2 present. No murmurs, rubs, or gallops. PULMONARY: Chest is clear to auscultation, no wheezing or crackles. ABDOMEN: Soft, nontender, nondistended, normoactive bowel sounds. No palpable organomegaly. MUSCULOSKELETAL: No joint swelling or deformity. EXTREMITIES: No cyanosis, clubbing, or pedal edema. NEUROLOGICAL: Gross neurological examination did not reveal any focal deficits. SKIN: No rashes. no petechiae. - Labs CBC & Chem 7: 09/28/20 06:18 09/27/20 06:54 Labs: Abnormal Lab Results - Last 24 Hours (Table) 09/28/20 Range/Units 06:18 RBC 4.09 L (4.30-5.90) m/uL Hgb 12.2 L (13.0-17.5) gm/dL Hct 36.2 L (39.0-53.0) % Plt Count 106 L (150-450) k/uL Lymphocytes # 0.9 L (1.0-4.8) k/uL Assessment and Plan Assessment: Acute GI bleed Acute blood loss anemia Elevated troponin, rule out cardiac causes Acute kidney injury Possible metabolic encephalopathy paroxysmal A. fib on Xarelto with premature aberrantly conducted complexes. Hyperlipidemia History of depression Benign prostatic hypertrophy Plan: This is a pleasant 79 years old male who presents with acute GI bleed, elevated troponin with relation to A. fib and irregularly conducted complexes. Hold Xarelto. Continue with Protonix. Monitor hemoglobin. GI consult continue with telemetry, cardiology consult. Anticoagulation or aspirin cannot be given because of active GI bleed and risks more than benefits especially patient has symptoms mainly GI rather than cardiac Labs and medication were reviewed.. Continue same treatment. Continue with symptomatic treatment. Resume home medication. Monitor lytes and vitals. DVT and GI prophylaxis. Further recommendations depends on the clinical course of the patient DVT prophylaxis: No anticoagulation for GI bleed GI Prophylaxis: Ppi Prognosis is guarded
[2020-09-28] MEDS ORDERED: PROPOFOL 10 MG/ML 20 ML VIAL IV ONE (12:26)
[2020-09-28] MEDS ORDERED: IV FLUID CONTINUATION 1,000 ML IV ONE (12:31)
[2020-09-28] MEDS ORDERED: SODIUM CHLORIDE 0.9% 500 ML 500 ML IV ONE (12:57)
--- NOTE | 2020-09-28 12:58 | P.PCN ---
Date of Procedure: 09/28/20 Procedure(s) Performed: Brief history: Patient is a pleasant 79-year-old white male with history of A. fib on Xarelto admitted hospital with acute GI bleed. He had multiple episodes of black tarry stools/maroon-colored stools for 2 days' duration. Hemoglobin is 11 g/dL. Xarelto has been on hold for the last 2 days. He is scheduled for an upper endoscopy as well as colonoscopy today. Procedure performed: Esophagogastroduodenoscopy with biopsy Colonoscopy with snare polypectomy Preoperative diagnosis: Acute GI bleeding Anesthesia: MAC Procedure: After informed consent was obtained from the patient was brought into the endoscopy unit and IV sedation was administered by anesthesia under continuous monitoring. Initially upper endoscopy was done. The Olympus GF 160 video endoscope was inserted inserted into the mouth and esophagus intubated without any difficulty and was gradually advanced into the stomach and duodenum and carefully examined. The bulb and second part of the duodenum appeared normal. The scope was then withdrawn into the stomach adequately insufflated with air and upon careful examination the antrum had mild diffuse gastritis and biopsies were done from this area. No was no active bleeding noted. No ulcerations noted. The body, cardia and fundus appeared normal. The scope was then withdrawn into the esophagus. The GE junction was located at 40 cm to the incisors. Small sliding type hiatal hernia noted It appeared regular with no erythema erosions or ulcerations. Rest of the esophagus appeared normal. Patient tolerated the procedure well. At this time the patient continued to remain sedation. Initial digital rectal examination was normal. Olympus CF 160 video colonoscope was then inserted into the rectum and gradually advanced to the cecum without any difficulty. Careful examination was performed as the scope was gradually being withdrawn. The prep was excellent. The cecum, a 1 cm polyp that was removed by snare polypectomy. Mucosa of the ascending ascending colon, transverse colon, descending colon, appeared normal. There was some old blood noted in the sigmoid colon and moderate sigmoid diverticulosis which appears to be the source of bleeding but no active bleeding currently. In the rectum appeared normal. Retroflexion was performed in the rectum and no lesions were noted. Patient tolerated the procedure well. Impression: 1. Upper endoscopy revealed mild diffuse gastritis and small hiatal hernia 2. Colonoscopy revealed1 cm cecal polyp that was snare polypectomy and left sided diverticulosis with some old blood suggestive of recent diverticular bleed Recommendations: Findings of this examination were discussed with the patient as well as his family. He was advised to follow with the biopsy results. We'll resume clear liquids for today. If no further bleeding tomorrow and can be advanced to soft diet.
--- NOTE | 2020-09-28 13:43 | P.PN ---
Subjective HISTORY OF PRESENTING ILLNESS This is a pleasant 79-year-old male past medical history significant for coronary artery disease, chronic persistent atrial fibrillation on long-term anticoagulation, aortic stenosis, idiopathic non-ischemic cardiomyopathy, hypertension and dyslipidemia. He follows in the office with Dr. Quiles. We have been asked to see in consultation for elevated troponin and GI bleeding. He states yesterday he noticed bright red blood per rectum. He denies chest pain, shortness of breath, dizziness or palpitations. He states he feels tired and weak. Most recent echocardiogram obtained in the office April 2020 revealed preserved LV systolic function with ejection fraction 50-55%, severe LVH, mildly dilated right ventricle, severely dilated left atrium, moderately dilated right atrium, mild mitral regurgitation, mild to moderate aortic regurgitation, moderate aortic stenosis with a mean gradient of 24 mmHg and moderate tricuspid regurgitation. 09/28/2020 Patient seen and examined sitting up on the commode in no acute distress. He has no symptoms of chest discomfort or shortness of breath. He is scheduled to undergo EGD colonoscopy today. Blood pressure 166/91 heart rate 97 afebrile maintaining oxygen saturation on room air. Laboratory data reviewed, WBC 6.3, hemoglobin 12.2 and platelets 106. PHYSICAL EXAMINATION CONSTITUTIONAL: No apparent distress. HEENT: Head is normocephalic. Pupils are equal, round. Sclerae anicteric. Mucous membranes of the mouth are moist. No JVD. No carotid bruit. CHEST EXAMINATION: Lungs are clear to auscultation. No chest wall tenderness is noted on palpation or with deep breathing. HEART EXAMINATION: Irregular rate and rhythm. S1, S2 heard. Systolic ejection murmur at the base, no gallops or rub. EXTREMITIES: 2+ peripheral pulses, no lower extremity edema and no calf tenderness. ASSESSMENT Acute GI bleed Thrombocytopenia Chronic persistent atrial fibrillation on jail anti-coagulation with xarelto Valvular heart disease, , MR and TR History of non-ischemic cardiomyopathy with improvement in LV function Hypertension Dyslipidemia PLAN Continue to hold Xarelto pending GI recommendations. Please resume if no active bleeding. Nurse Practitioner note has been reviewed, I agree with a documented findings and plan of care. Patient was seen and examined. Objective - Vital Signs Vital signs: Vital Signs Temp 97.8 F 09/27/20 19:50 Pulse 97 09/28/20 04:00 Resp 18 09/28/20 04:00 BP 166/91 05/26/21 04:00 Pulse Ox 96 09/28/20 04:00 Intake & Output 09/27/20 09/28/20 09/28/20 18:59 06:59 18:59 Intake Total 1000 Output Total 125 400 Balance 875 -400 Intake: Intake, IV Titration 400 Amount Sodium Chloride 0.9% 1, 400 000 ml @ 50 mls/hr IV . Q20H [facility] Rx#:[id number] Oral 600 Output: Urine 125 400 Other: Voiding Method Toilet Toilet Urinal Urinal # Voids 1 # Bowel Movements 1 - Labs CBC & Chem 7: 09/28/20 06:18 09/27/20 06:54 Labs: Abnormal Lab Results - Last 24 Hours (Table) 09/28/20 Range/Units 06:18 RBC 4.09 L (4.30-5.90) m/uL Hgb 12.2 L (13.0-17.5) gm/dL Hct 36.2 L (39.0-53.0) % Plt Count 106 L (150-450) k/uL Lymphocytes # 0.9 L (1.0-4.8) k/uL
[2020-09-28] MEDS: COLESTIPOL HCL 1 GM PO SCH (16:13)
--- NOTE | 2020-09-28 16:13 | P.PN ---
Subjective Progress Note Date: 09/28/20 Patient may be discharged home from a gastroenterology standpoint, recommend holding Xarelto for 72-[address] Debbie Roberts I agree with the dictator's note, documented as a scribe by Belinda Alonso NP- C. Objective - Vital Signs Vital signs: Vital Signs Temp 97.6 F 09/28/20 08:35 Pulse 110 H 09/28/20 12:15 Resp 18 09/28/20 12:15 BP 134/88 09/28/20 12:15 Pulse Ox 95 09/28/20 12:15 Intake & Output 09/27/20 09/28/20 09/28/20 18:59 06:59 18:59 Intake Total 1000 0 Output Total 125 400 Balance 875 -400 0 Intake: IV 0 Intake, IV Titration 400 Amount Sodium Chloride 0.9% 1, 400 000 ml @ 50 mls/hr IV . Q20H [facility] Rx#:[id number] Oral 600 Output: Urine 125 400 Other: Voiding Method Toilet Toilet Toilet Urinal Urinal Urinal # Voids 1 # Bowel Movements 1 - Labs CBC & Chem 7: 09/28/20 06:18 09/27/20 06:54 Labs: Abnormal Lab Results - Last 24 Hours (Table) 09/28/20 Range/Units 06:18 RBC 4.09 L (4.30-5.90) m/uL Hgb 12.2 L (13.0-17.5) gm/dL Hct 36.2 L (39.0-53.0) % Plt Count 106 L (150-450) k/uL Lymphocytes # 0.9 L (1.0-4.8) k/uL
[2020-09-28] MEDS: SODIUM CHLORIDE 0.9% 1,000 ML IV SCH (16:30)
[2020-09-28] MEDS: ATORVASTATIN 40 MG TAB PO SCH (20:16)
[2020-09-29 04:44] LABS: HCT 36.3 % (39.0-53.0); HGB 11.8 gm/dL (13.0-17.5); MCHC 32.3 g/dL (31.0-37.0); MCV 89.7 fL (80.0-100.0); Mean Platelet Volume 8.4; Platelet Count 117 k/uL (150-450); RBC 4.05 m/uL (4.30-5.90); RDW 15.1 % (11.5-15.5); WBC 5.6 k/uL (3.8-10.6)
--- NOTE | 2020-09-29 08:33 | P.PN ---
Subjective Progress Note Date: 09/29/20 Principal diagnosis: Lower GI bleed 79-year-old patient with history of atrial fibrillation on Xarelto, which is currently on hold. He presented to the emergency room for an acute GI bleed. He initially noticed some dark stool was maroon colored stool. Yesterday he underwent a colonoscopy and upper endoscopy. Upper endoscopy revealed mild diffuse gastritis and a small hiatal hernia. Colonoscopy revealed 1 cm cecal polyp that was is status post snare polypectomy and left-sided diverticulosis with some old blood suggestive of recent diverticular bleed. Yesterday evening he had 2 episodes of blood in his stool. He denies any abdominal pain, nausea, or vomiting. Objective - Vital Signs Vital signs: Vital Signs Temp 97.5 F L 09/29/20 08:00 Pulse 83 09/29/20 08:00 Resp 16 09/29/20 08:00 BP 144/99 09/29/20 08:00 Pulse Ox 98 09/29/20 08:00 Intake & Output 09/28/20 09/29/20 09/29/20 18:59 06:59 18:59 Intake Total 0 100 Output Total 177 351 100 Balance -177 -251 -100 Weight 73.5 kg Intake: IV 0 Intake, IV Titration 100 Amount Sodium Chloride 0.9% 1, 100 000 ml @ 50 mls/hr IV . Q20H [facility] Rx#:[id number] Output: Urine 175 350 Stool 2 1 Urine/Stool Mix 100 Other: Voiding Method Toilet Toilet Urinal Urinal # Bowel Movements 1 - Exam General appearance: The patient is alert, oriented, appears in no acute distress. HET: Head is normocephalic and atraumatic. Conjunctiva pink. Sclera anicteric. Neck: Supple without lymphadenopathy. Abdomen: Soft, nontender, nondistended with bowel sounds. No guarding or rigidity. Extremities: Normal skin color and turgor. No pedal edema Skin: No rashes, no jaundice Neurological: No focal deficits. Alert and oriented 3. - Labs CBC & Chem 7: 09/29/20 04:15 09/27/20 06:54 Labs: Abnormal Lab Results - Last 24 Hours (Table) 09/29/20 Range/Units 04:15 RBC 4.05 L (4.30-5.90) m/uL Hgb 11.8 L (13.0-17.5) gm/dL Hct 36.3 L (39.0-53.0) % Plt Count 117 L (150-450) k/uL Assessment and Plan (1) GI bleed Narrative/Plan: Acute gastrointestinal bleed. Patient presented with black tarry stools followed by maroon-colored stools for last 2-3 days duration. Initial hemoglobin was 13.5, which had dropped to 12.9. He had been on Xarelto atrial fibrillation. Likely dealing with an upper GI source of bleeding, the p ossibility of colonic source cannot be excluded therefore patient was scheduled for EGD and colonoscopy. The patient underwent an EGD and colonoscopy yesterday, EGD showed diffuse mild gastritis and is small hiatal hernia. Colonoscopy revealed a cecal polyp with snare polypectomy no left-sided div erticulosis with some old blood suggestive of recent diverticular bleed. Current Visit: Yes Status: Acute Code(s): K92.2 - GASTROINTESTINAL HEMORRHAGE, UNSPECIFIED SNOMED Code(s): 54256114 (2) Diverticulosis Current Visit: Yes Status: Acute Code(s): K57.90 - DVRTCLOS OF INTEST, PART UNSP, W/O PERF OR ABSCESS W/O BLEED SNOMED Code(s): 249999318 (3) History of atrial fibrillation Narrative/Plan: Patient was on Xarelto, currently on hold. Recommend holding 72-96 hours after colonoscopy Current Visit: Yes Status: Acute Code(s): Z86.79 - PERSONAL HISTORY OF OTHER DISEASES OF THE CIRCULATORY SYSTEM SNOMED Code(s): 196322459 Plan: 1. CBC was ordered 2. Clear liquid diet, advance if no further bleeding 3. Continue to holdXarelto for 72-96 hours 4. Patient is status post EGD and colonoscopy 5. No plans for further endoscopic evaluation Thank you for this consultation, patient may be discharged home from a gastroenterology standpoint if no further bleeding Dr. Castanon I agree with the dictator's note, documented as a scribe by Belinda Solis.
[2020-09-29] MEDS: SACUBITRIL/VALSARTAN 24 MG-26 MG TABLET PO SCH ×2 (09:44→20:36)
[2020-09-29] MEDS: PANTOPRAZOLE 40 MG/10 ML VIAL IVP SCH ×2 (09:45→20:36)
[2020-09-29] MEDS: ESCITALOPRAM 20 MG TAB PO SCH (09:45)
[2020-09-29] MEDS: SODIUM CHLORIDE 0.9% 1,000 ML IV SCH (09:45)
[2020-09-29] MEDS: FINASTERIDE 5 MG TAB PO SCH (09:45)
[2020-09-29] MEDS: METOPROLOL SUCCINATE (ER) 50 MG TAB.ER.24H PO SCH (09:49)
--- NOTE | 2020-09-29 11:33 | P.PN ---
Subjective HISTORY OF PRESENTING ILLNESS This is a pleasant 79-year-old male past medical history significant for coronary artery disease, chronic persistent atrial fibrillation on long-term anticoagulation, aortic stenosis, idiopathic non-ischemic cardiomyopathy, hypertension and dyslipidemia. He follows in the office with Dr. Quiles. We have been asked to see in consultation for elevated troponin and GI bleeding. He states yesterday he noticed bright red blood per rectum. He denies chest pain, shortness of breath, dizziness or palpitations. He states he feels tired and weak. Most recent echocardiogram obtained in the office April 2020 revealed preserved LV systolic function with ejection fraction 50-55%, severe LVH, mildly dilated right ventricle, severely dilated left atrium, moderately dilated right atrium, mild mitral regurgitation, mild to moderate aortic regurgitation, moderate aortic stenosis with a mean gradient of 24 mmHg and moderate tricuspid regurgitation. 09/29/2020 Pt underwent EGD colonoscopy yesterday revealing diffuse gastritis, small hiatal hernia, cecal polyp status post polypectomy and left-sided diverticulosis and some old blood suggestive of recent diverticular bleed. He had 2 more episodes of bright red blood per rectum overnight. Xarelto continues to be on hold per GI. Blood pressure 144/99 heart rate 93 afebrile maintaining oxygen saturation on room air. Laboratory data reviewed, WBC 5.6, hemoglobin 11.8, plt 117. PHYSICAL EXAMINATION CONSTITUTIONAL: No apparent distress. HEENT: Head is normocephalic. Pupils are equal, round. Sclerae anicteric. Mucous membranes of the mouth are moist. No JVD. No carotid bruit. CHEST EXAMINATION: Lungs are clear to auscultation. No chest wall tenderness is noted on palpation or with deep breathing. HEART EXAMINATION: Irregular rate and rhythm. S1, S2 heard. Systolic ejection murmur at the base, no gallops or rub. EXTREMITIES: 2+ peripheral pulses, no lower extremity edema and no calf tenderness. 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 Nurse Practitioner note has been reviewed, I agree with a documented findings and plan of care. Patient was seen and examined. Objective - Vital Signs Vital signs: Vital Signs Temp 97.5 F L 09/29/20 08:00 Pulse 83 09/29/20 08:00 Resp 16 09/29/20 08:00 BP 144/99 09/29/20 08:00 Pulse Ox 98 09/29/20 08:00 Intake & Output 09/28/20 09/29/20 09/29/20 18:59 06:59 18:59 Intake Total 0 100 240 Output Total 177 351 100 Balance -177 -251 140 Weight 73.5 kg Intake: IV 0 Intake, IV Titration 100 Amount Sodium Chloride 0.9% 1, 100 000 ml @ 50 mls/hr IV . Q20H [facility] Rx#:[id number] Oral 240 Output: Urine 175 350 Stool 2 1 Urine/Stool Mix 100 Other: Voiding Method Toilet Toilet Urinal Urinal # Bowel Movements 1 - Labs CBC & Chem 7: 09/29/20 04:15 09/27/20 06:54 Labs: Abnormal Lab Results - Last 24 Hours (Table) 09/29/20 Range/Units 04:15 RBC 4.05 L (4.30-5.90) m/uL Hgb 11.8 L (13.0-17.5) gm/dL Hct 36.3 L (39.0-53.0) % Plt Count 117 L (150-450) k/uL
[2020-09-29] MEDS: COLESTIPOL HCL 1 GM PO SCH (12:57)
--- NOTE | 2020-09-29 14:39 | P.PN ---
Subjective This is a pleasant 79 years old male with past medical history of heart failure, TIA. Atrial fibrillation on Xarelto . [facility] because [place] where he lives he follows also with [facility] clements. His dishcloth folder is Dr. Quiles. Also he follows up with supervisor sanding for sleep apnea presents because of possible GI bleed. Patient's poor historian and information obtained with the help of his daughter Olinda who lives with him. Patient presents because of lack her distal and blood-colored water in the toilet (daughter has a picture and her phone) Patient himself feels generally weak, patient was gradually getting weaker over the last 2 months however he denies abdominal pain, no nausea vomiting or diarrh ea. He denies chest pain. No fever. No urinary complaints Patient has chronic dyspnea and uses CPAP. No smoking, alcohol or illicit tracts No signs or symptoms of depression On admission patient is tachycardic at 106, rest of vitals are unremarkable. CBC, BMP and liver enzymes were unremarkable except for slightly elevated creatinine at 1.3, unknown baseline Elevated troponin at 0.039. Cordarone virus not detected EKG showing atrial fibrillation with premature aberrantly conducted complexes. QTC is 464 Emergency room patient received Protonix 80 mg 1, normal sinus 75 mL/h besides bolus of 500 mL GI and cartilages services were consulted. 09/27/2020 Patient today is more awake, sitting in bed, daughter at bedside. He is present with no complaint or distress. No more overt episodes of black stool. He is hemodynamically stable. Hemoglobin stable at 12.6 He is in normal sinus to milliliters per hour and IV Protonix His going to be evaluated by cardiology and GI team 09/28/2020 This is a pleasant 79 years old male who presents with possible GI bleed and elevated troponin and chronic kidney disease. He was on Xarelto for A. fib which is held on admission. Today was sitting in chair comfortable, no specific complaints. He is breathing quietly. He is hemodynamically stable. His been evaluated by dishcloth folder recommended to continue with same treatment with adjustment of Toprol only, while GI team are planning to do EGD/colonoscopy this morning. Hemodynamically and vitals are stable. Hemoglobin is stable at 12.6. Platelets slightly low at 106K. 09/29/2020 Clinically looks the same of yesterday. No new complaints. Hemodynamically stable. That showing improved platelets 117K, hemoglobin is 11.9. Creatinine improved yesterday to 1.2 Xarelto remains on hold per GI team recommendation for 72-96 hours. No need for endoscopy to be repeated now. GI team Keep monitoring Objective - Vital Signs Vital signs: Vital Signs Temp 97.5 F L 09/29/20 08:00 Pulse 72 09/29/20 12:00 Resp 16 09/29/20 12:00 BP 128/86 09/29/20 12:00 Pulse Ox 97 09/29/20 12:00 Intake & Output 09/28/20 09/29/20 09/29/20 18:59 06:59 18:59 Intake Total 0 100 480 Output Total 177 351 100 Balance -177 -251 380 Weight 73.5 kg Intake: IV 0 Intake, IV Titration 100 Amount Sodium Chloride 0.9% 1, 100 000 ml @ 50 mls/hr IV . Q20H [facility] Rx#:[id number] Oral 480 Output: Urine 175 350 Stool 2 1 Urine/Stool Mix 100 Other: Voiding Method Toilet Toilet Urinal Urinal # Bowel Movements 1 - Exam GENERAL: The patient is alert and oriented x3, not in any acute distress. Well developed, well nourished. HEENT: Pupils are round and equally reacting to light. EOMI. No scleral icterus. No conjunctival pallor. Normocephalic, atraumatic. No pharyngeal erythema. No thyromegaly. CARDIOVASCULAR: S1 and S2 present. No murmurs, rubs, or gallops. PULMONARY: Chest is clear to auscultation, no wheezing or crackles. ABDOMEN: Soft, nontender, nondistended, normoactive bowel sounds. No palpable organomegaly. MUSCULOSKELETAL: No joint swelling or deformity. EXTREMITIES: No cyanosis, clubbing, or pedal edema. NEUROLOGICAL: Gross neurological examination did not reveal any focal deficits. SKIN: No rashes. no petechiae. - Labs CBC & Chem 7: 09/29/20 04:15 09/27/20 06:54 Labs: Abnormal Lab Results - Last 24 Hours (Table) 09/29/20 Range/Units 04:15 RBC 4.05 L (4.30-5.90) m/uL Hgb 11.8 L (13.0-17.5) gm/dL Hct 36.3 L (39.0-53.0) % Plt Count 117 L (150-450) k/uL Assessment and Plan Assessment: Acute GI bleed Acute blood loss anemia Elevated troponin, rule out cardiac causes Acute kidney injury Possible metabolic encephalopathy paroxysmal A. fib on Xarelto with premature aberrantly conducted complexes. Hyperlipidemia History of depression Benign prostatic hypertrophy Plan: This is a pleasant 79 years old male who presents with acute GI bleed, elevated troponin with relation to A. fib and irregularly conducted complexes. Hold Xarelto. Continue with Protonix. Monitor hemoglobin. GI consult continue with telemetry, cardiology consult. Anticoagulation or aspirin cannot be given because of active GI bleed and risks more than benefits especially patient has symptoms mainly GI rather than cardiac Labs and medication were reviewed.. Continue same treatment. Continue with symptomatic treatment. Resume home medication. Monitor lytes and vitals. DVT and GI prophylaxis. Further recommendations depends on the clinical course of the patient DVT prophylaxis: No anticoagulation for GI bleed GI Prophylaxis: Ppi Prognosis is guarded
[2020-09-29] MEDS: ATORVASTATIN 40 MG TAB PO SCH (20:36)
[2020-09-30] MEDS: SODIUM CHLORIDE 0.9% 1,000 ML IV SCH (03:25)
[2020-09-30 05:09] VITALS: RESP 18
[2020-09-30] MEDS: ESCITALOPRAM 20 MG TAB PO SCH (07:44)
[2020-09-30] MEDS: FINASTERIDE 5 MG TAB PO SCH (07:44)
[2020-09-30] MEDS: METOPROLOL SUCCINATE (ER) 50 MG TAB.ER.24H PO SCH (07:44)
[2020-09-30] MEDS: SACUBITRIL/VALSARTAN 24 MG-26 MG TABLET PO SCH (07:45)
[2020-09-30] MEDS: PANTOPRAZOLE 40 MG/10 ML VIAL IVP SCH (07:45)
[2020-09-30 08:09] LABS: Basophils % (A) 1 %; Eosinophils # (A) 0.1 k/uL (0-0.7); Eosinophils % (A) 3 %; HCT 33.2 % (39.0-53.0); HGB 11.5 gm/dL (13.0-17.5); Lymphocytes # (A) 0.7 k/uL (1.0-4.8); Lymphocytes % (A) 16 %; MCH 30.6 pg (25.0-35.0); MCHC 34.6 g/dL (31.0-37.0); MCV 88.5 fL (80.0-100.0); Mean Platelet Volume 8.5; Monocytes # (A) 0.3 k/uL (0-1.0); Monocytes % (A) 6 %; Neutrophils # (A) 3.4 k/uL (1.3-7.7); Neutrophils % (A) 73 %; Platelet Count 106 k/uL (150-450); RBC 3.75 m/uL (4.30-5.90); RDW 14.7 % (11.5-15.5); WBC 4.7 k/uL (3.8-10.6)
[2020-09-30] MEDS: COLESTIPOL HCL 1 GM PO SCH (11:27)
[2020-09-30 11:30] VITALS: BP 143/81; PULSE 85; TEMP 97.4
--- NOTE | 2020-09-30 12:22 | P.CONS ---
History of Present Illness - Chief Complaint Medical debility - History of Present Illness I had the opportunity to see patient for inpatient rehab consultation with regard to medical debility. Patient admitted to [facility] September 26 with GI bleed, black tarry stools. Seen by cardiology known for CHF, CAD, atrial fibrillation and ischemic cardiomyopathy. Seen by Dr. Debbie Roberts who did perform upper and lower endoscopy. Has started therapy. PT reports minimal assistance functional mobility and gait 40 feet with roller walker. OT reports moderate assistance for upper dressing. Total Assistance for lower dressing max assistance for bathing and toileting and minimal moderate assistance functional mobility. Functional history as elicited from patient: Patient poor historian history elicited from chart inpatient, 79-year-old right-handed white male who is lives in daughter's home. Daughter does cooking, laundry, driving. Patient describes it is independent with his own bathing. PCP Dr. Rand santos. Review of Systems Review of systems: Lean from exam and review of chart. ENT: Denies sneezes or discharge. Eyes: Denies discharge or photophobia. Cardiac: Denies chest pain or palpitation. Pulmonary: Denies cough or shortness of breath. Breast: Denies discharge or lumps. Gastrointestinal: Denies nausea, emesis, constipation, diarrhea. Genitourinary: Denies discharge or frequency. Musculoskeletal: Denies muscle or bone aches. Neurologic: Confusion and generalized weakness. Endocrine: Denies shakes or sweats. Oncology: Denies cancers. Dermatologic: Denies rash, itching, pruritus. ALLERGY/immunology: Denies sneezes, rashes. Past Medical History Past Medical History: Chest Pain / Angina, Heart Failure Additional Past Medical History / Comment(s): TIA History of Any Multi-Drug Resistant Organisms: None Reported Past Surgical History: Heart Catheterization Past Psychological History: Depression Smoking Status: Former smoker Past Alcohol Use History: Occasional Past Drug Use History: None Reported - Past Family History Father History Unknown: Yes Mother History Unknown: Yes Medications and Allergies Home Medications Medication Instructions Recorded Confirmed Type Atorvastatin Calcium [Lipitor] 40 mg PO HS 09/26/20 09/26/20 History Colestipol HCl [Colestid] 2 gm PO W/LUNCH 09/26/20 09/26/20 History Cyanocobalamin (Vitamin B-12) 1,000 mcg PO DAILY 09/26/20 09/26/20 History [Vitamin B-12] Escitalopram [Lexapro] 20 mg PO DAILY 09/26/20 09/26/20 History Fexofenadine HCl [Karolina Allergy] 180 mg PO DAILY PRN 09/26/20 09/26/20 History Finasteride [Proscar] 5 mg PO DAILY 09/26/20 09/26/20 History Furosemide [Lasix] 20 mg PO AC-BID PRN 09/26/20 09/26/20 History Ipratropium [place] 0.06%Nasal 1 spray EA NOSTRIL TID PRN 09/26/20 09/26/20 History [Atrovent Nasal 0.06%] Metoprolol Succinate (ER) [Toprol 25 mg PO DAILY 09/26/20 09/26/20 History Xl] Pantoprazole Sodium [Protonix] 40 mg PO DAILY 09/26/20 09/26/20 History Potassium Chloride [Klor-Con 10] 10 meq PO HS 09/26/20 09/26/20 History Rivaroxaban [Xarelto] 20 mg PO HS 09/26/20 09/26/20 History Sacubitril/Valsartan [Entresto 24 1 tab PO BID 09/26/20 09/26/20 History mg-26 mg Tablet] Vit C/E/Zn/Coppr/Lutein/Zeaxan 1 cap PO BID 09/26/20 09/26/20 History [Preservision Areds 2 Softgel] calcium polycarbophiL [Fibercon] 625 mg PO DAILY 09/26/20 09/26/20 History Allergies Allergy/AdvReac Type Severity Reaction Status Date / Time trospium [From Sanctura] Allergy Unknown Verified 09/26/20 12:17 mirabegron [From Myrbetriq] AdvReac dark urine Verified 09/26/20 12:17 tamsulosin [From Flomax] AdvReac low blood Verified 09/26/20 12:17 pressure Physical Exam Vitals: Vital Signs Temp Pulse Resp BP Pulse Ox 09/30/20 11:27 97.4 F L 85 18 143/81 97 09/30/20 07:41 97.6 F 89 18 163/90 98 09/30/20 04:00 97.5 F L 100 18 148/96 95 09/29/20 23:00 98 F 86 17 144/86 97 09/29/20 19:40 97.5 F L 77 18 145/86 95 09/29/20 16:00 70 16 143/93 98 Intake and Output 09/29/20 09/30/20 09/30/20 22:59 06:59 14:59 Intake Total 200 Output Total 700 700 51 Balance -500 -700 -51 Intake: Oral 200 Output: Urine 200 700 Stool 51 Urine/Stool Mix 500 Other: Voiding Method Toilet Toilet Toilet Urinal Urinal Urinal # Voids 4 Skin: Atrophic, intact. General: Medium build and comfortable appearance. Head: Normocephalic, atraumatic. Eyes: Symmetric. Pupils equal round. Ears: Symmetric. Hearing within normal limits. Mouth: Clear. Neck: Supple. Carotid without bruit. Cardiac: Regular rate and rhythm. Lungs: Clear anteriorly and posteriorly. Abdomen: Soft active nontender. Extremities: Normal tone. Neurological: Mental status: Alert, cooperative, pleasant. Cranial nerves: Symmetric facial tone and trapezius. Motor: Active movement all 4 limbs. Sensation: Intact throughout. DTRs: Symmetric and equal throughout. Mobility: Requires physical assist for bed mobility. Results CBC & Chem 7: 09/30/20 07:45 09/27/20 06:54 Labs: Abnormal Lab Results - Last 24 Hours (Table) 09/30/20 Range/Units 07:45 RBC 3.75 L (4.30-5.90) m/uL Hgb 11.5 L (13.0-17.5) gm/dL Hct 33.2 L (39.0-53.0) % Plt Count 106 L (150-450) k/uL Lymphocytes # 0.7 L (1.0-4.8) k/uL Assessment and Plan (1) Diverticulosis Current Visit: Yes Status: Acute Code(s): K57.90 - DVRTCLOS OF INTEST, PART UNSP, W/O PERF OR ABSCESS W/O BLEED SNOMED Code(s): 720549441 (2) Elevated troponin Current Visit: Yes Status: Acute Code(s): R77.8 - OTHER SPECIFIED ABNORMALITIES OF PLASMA PROTEINS SNOMED Code(s): 586320896 (3) GI bleed Current Visit: Yes Status: Acute Code(s): K92.2 - GASTROINTESTINAL HEMORRHAGE, UNSPECIFIED SNOMED Code(s): 87531233 (4) History of atrial fibrillation Current Visit: Yes Status: Acute Code(s): Z86.79 - PERSONAL HISTORY OF OTHER DISEASES OF THE CIRCULATORY SYSTEM SNOMED Code(s): 535740132 Plan: Impression: 1. Medical debility due to GI bleed, diverticulosis with resultant encephalopathy. 2. Cardiac disease with CHF, CAD, atrial fibrillation and ischemic cardiomyopathy and history of angina. 3. Hypertension. 4. Dyslipidemia. Comments and plan: At this time PT and OT are going. Patient lives with daughter who is determined to take patient home. At this time patient demonstrated safety concerns with the ability tolerate minimum therapies and would except for inpatient rehab.
--- NOTE | 2020-09-30 12:54 | P.PN ---
Subjective HISTORY OF PRESENTING ILLNESS This is a pleasant 79-year-old male past medical history significant for coronary artery disease, chronic persistent atrial fibrillation on long-term anticoagulation, aortic stenosis, idiopathic non-ischemic cardiomyopathy, hypertension and dyslipidemia. He follows in the office with Dr. Quiles. We have been asked to see in consultation for elevated troponin and GI bleeding. He states yesterday he noticed bright red blood per rectum. He denies chest pain, shortness of breath, dizziness or palpitations. He states he feels tired and weak. Most recent echocardiogram obtained in the office April 2020 revealed preserved LV systolic function with ejection fraction 50-55%, severe LVH, mildly dilated right ventricle, severely dilated left atrium, moderately dilated right atrium, mild mitral regurgitation, mild to moderate aortic regurgitation, moderate aortic stenosis with a mean gradient of 24 mmHg and moderate tricuspid regurgitation. 09/30/2020 Patient is seeking examined resting comfortably laying flat in bed with daughter at the bedside. He has no symptoms of chest discomfort or shortness of breath. According to the daughter he had 2 episodes of bright red blood in the stool last evening. Xarelto continues to be on hold. Blood pressure 163/90 heart rate 89 afebrile maintaining oxygen saturation on room air. Laboratory data reviewed, WBC 4.7, hemoglobin 11.5 and platelets 106. GI is recommending holding Xarelto for 72-96 hours post discharge. PHYSICAL EXAMINATION CONSTITUTIONAL: No apparent distress. HEENT: Head is normocephalic. Pupils are equal, round. Sclerae anicteric. Mucous membranes of the mouth are moist. No JVD. No carotid bruit. CHEST EXAMINATION: Lungs are clear to auscultation. No chest wall tenderness is noted on palpation or with deep breathing. HEART EXAMINATION: Irregular rate and rhythm. S1, S2 heard. Systolic ejection murmur at the base, no gallops or rub. EXTREMITIES: 2+ peripheral pulses, no lower extremity edema and no calf tenderness. ASSESSMENT Acute GI bleed Thrombocytopenia Chronic persistent atrial fibrillation on residential anti-coagulation with xarelto Valvular heart disease, , MR and TR History of non-ischemic cardiomyopathy with improvement in LV function Hypertension Dyslipidemia PLAN Continue to hold Xarelto pending GI recommendations. We will follow along as needed. Follow-up with Dr. Quiles in the office in one to 2 weeks. Nurse Practitioner note has been reviewed, I agree with a documented findings and plan of care. Patient was seen and examined. Objective - Vital Signs Vital signs: Vital Signs Temp 97.6 F 09/30/20 07:41 Pulse 89 09/30/20 07:41 Resp 18 09/30/20 07:41 BP 163/90 09/30/20 07:41 Pulse Ox 98 09/30/20 07:41 Intake & Output 09/29/20 09/30/20 09/30/20 18:59 06:59 18:59 Intake Total 680 Output Total 800 700 51 Balance -120 -700 -51 Intake: Oral 680 Output: Urine 200 700 Stool 51 Urine/Stool Mix 600 Other: Voiding Method Toilet Toilet Urinal Urinal # Voids 4 - Labs CBC & Chem 7: 09/30/20 07:45 09/27/20 06:54 Labs: Abnormal Lab Results - Last 24 Hours (Table) 09/30/20 Range/Units 07:45 RBC 3.75 L (4.30-5.90) m/uL Hgb 11.5 L (13.0-17.5) gm/dL Hct 33.2 L (39.0-53.0) % Plt Count 106 L (150-450) k/uL Lymphocytes # 0.7 L (1.0-4.8) k/uL
--- NOTE | 2020-09-30 13:40 | P.DS ---
Providers Date of admission: 09/27/20 14:43 Attending physician: Filiberto Valdez MD Consults: 09/26/20 12:34 Consult Physician Routine Consulting Provider: Juancarlos Sandoval Consult Reason/Comments: elevated trop in GI bleed (per Dr Valdez) Do you want consulting provider notified?: Yes, Notify in am 09/30/20 11:08 Consult Physician Routine Consulting Provider: Drew Camarillo Consult Reason/Comments: [facility] inpatient rehab Do you want consulting provider notified?: Already Contacted Primary care physician: Rand Hilario Hospital Course: Diagnoses: Acute GI bleed, cleared by GI team for discharge. Resume Xarelto on Saturday with no bleeding and hemoglobin is stable Acute blood loss anemia, hemoglobin stable over the last 4-5 days Elevated troponin, rule out cardiac causes Acute kidney injury Possible metabolic encephalopathy paroxysmal A. fib on Xarelto with premature aberrantly conducted complexes. Cleared by rat trapper for discharge. Xarelto on hold till Saturday Hyperlipidemia History of depression Benign prostatic hypertrophy Hospital course: This is a pleasant 79 years old male with past medical history of heart failure, TIA. Atrial fibrillation on Xarelto . [facility] because [facility] he lives he follows also with Rand clements. His rat trapper is Dr. Quiles. Also he follows up with [facility] magistrate for sleep apnea presents because of acute GI bleed. Patient's poor historian and information obtained with the help of his daughter Olinda who lives with him. Patient presents because of black stool and blood-colored water in the toilet (daughter has a picture and her phone) Patient himself feels generally weak, patient was gradually getting weaker over the last 2 months however he denies abdominal pain, no nausea vomiting or diarrhea.He denies chest pain. No fever. No urinary complaints. Patient has chronic dyspnea and uses CPAP. Hemoglobin dropped to 12.6 but remained stable 11.5-12.6 over the last for 5 days. GI team evaluated the patient. He is status post EGD and colonoscopy on 09/28:The patient underwent an EGD and colonoscopy yesterday, EGD showed diffuse mild gastritis and is small hiatal hernia. Colonoscopy revealed a cecal polyp with snare polypectomy no left-sided diverticulosis with some old blood suggestive of recent diverticular bleed. Biopsy showing mild chronic gastritis and tubular adenoma Today patient has some blood in his stool however his hemoglobin and vitals remained stable. His hemoglobin today is 11.5, compared to 11.8 yesterday GI team still clear the patient be discharged with close outpatient follow-up. And the recommend to keep holding Xarelto till Saturday Patient is going to [facility] for inpatient rehab we Recommend check hemoglobin on Saturday and if no contraindication and then Xarelto can be started with close monitoring of vitals and hemoglobin as well Patient also evaluated by rat trapper for mildly elevated troponin, secondary to A. fib. His cleared by rat trapper team for discharge as well and follow-up with Dr. Quiles as an outpatient in 2 weeks Problems and management plan were discussed with the patient and he verbalized understanding and acceptance Patient was found stable and can be discharged home however he needs follow-up as an outpatient. Patient was instructed to follow up with PCP Dr. Rand clements within one week and patient agrees. Also patient was instructed to follow up with rat trapper Dr. Quiles in [address] Roberts N3 to 4 weeks\ Physical exam -Gen: patient is a alert and awake, no distress, generally weak CVS: S1-S2, RRR, no murmur Lungs: B/L CTA, no wheezing Abdomen: soft, no distention, no tenderness, positive bowel sounds Extremity: no leg edema or induration Time spent more than 35 minutes Patient Condition at Discharge: Stable Plan - Discharge Summary Discharge Rx Participant: Yes New Discharge Prescriptions: No Action Pantoprazole Sodium [Protonix] 40 mg PO DAILY Colestipol HCl [Colestid] 2 gm PO W/LUNCH Atorvastatin Calcium [Lipitor] 40 mg PO HS Ipratropium [place] 0.06%Nasal [Atrovent Nasal 0.06%] 1 spray EA NOSTRIL TID PRN PRN Reason: Congestion Sacubitril/Valsartan [Entresto 24 mg-26 mg Tablet] 1 tab PO BID Cyanocobalamin (Vitamin B-12) [Vitamin B-12] 1,000 mcg PO DAILY Vit C/E/Zn/Coppr/Lutein/Zeaxan [Preservision Areds 2 Softgel] 1 cap PO BID Potassium Chloride [Klor-Con 10] 10 meq PO HS Finasteride [Proscar] 5 mg PO DAILY Fexofenadine HCl [Karolina Allergy] 180 mg PO DAILY PRN PRN Reason: Allergy Symptoms Metoprolol Succinate (ER) [Toprol Xl] 25 mg PO DAILY Escitalopram [Lexapro] 20 mg PO DAILY calcium polycarbophiL [Fibercon] 625 mg PO DAILY Furosemide [Lasix] 20 mg PO AC-BID PRN PRN Reason: Edema Rivaroxaban [Xarelto] 20 mg PO HS Discharge Medication List Atorvastatin Calcium [Lipitor] 40 mg PO HS 09/26/20 [History] Colestipol HCl [Colestid] 2 gm PO W/LUNCH 09/26/20 [History] Cyanocobalamin (Vitamin B-12) [Vitamin B-12] 1,000 mcg PO DAILY 09/26/20 [History] Escitalopram [Lexapro] 20 mg PO DAILY 09/26/20 [History] Fexofenadine HCl [Karolina Allergy] 180 mg PO DAILY PRN 09/26/20 [History] Finasteride [Proscar] 5 mg PO DAILY 09/26/20 [History] Furosemide [Lasix] 20 mg PO AC-BID PRN 09/26/20 [History] Ipratropium [place] 0.06%Nasal [Atrovent Nasal 0.06%] 1 spray EA NOSTRIL TID PRN 09/26/20 [History] Metoprolol Succinate (ER) [Toprol Xl] 25 mg PO DAILY 09/26/20 [History] Pantoprazole Sodium [Protonix] 40 mg PO DAILY 09/26/20 [History] Potassium Chloride [Klor-Con 10] 10 meq PO HS 09/26/20 [History] Rivaroxaban [Xarelto] 20 mg PO HS 09/26/20 [History] Sacubitril/Valsartan [Entresto 24 mg-26 mg Tablet] 1 tab PO BID 09/26/20 [History] Vit C/E/Zn/Coppr/Lutein/Zeaxan [Preservision Areds 2 Softgel] 1 cap PO BID 09/26/20 [History] calcium polycarbophiL [Fibercon] 625 mg PO DAILY 09/26/20 [History] Follow up Appointment(s)/Referral(s): Mark Quiles MD [STAFF PHYSICIAN] - 2 Weeks Rand Hilario MD [Primary Care Provider] - 1-2 days [facility] Visiting Nurse, [NON-STAFF] -
[2020-10-01] MEDS ORDERED: DOCUSATE 100 MG CAP PO PRN (09:00)
--- NOTE | 2020-10-28 09:19 | CDI ---
Documentation Clarification Form Date: 10/28/20 From: Claire Colmenares Admit Date: 09/27/2020 02:43:00 PM Patient Name: Bogdan Javed Visit Number: [id number] Discharge Date: 09/30/2020 03:17:00 PM ATTENTION: The Clinical Documentation Specialists (CDI) and [facility] Coding Staff appreciate your assistance in clarifying documentation. Please respond to the clarification below the line at the bottom and electronically sign. The CDI & [facility] Coding staff will review the response and follow-up if needed. Please note: Queries are made part of the Legal Health Record. If you have any questions, please contact the author of this message via ITS. Dr. De Los Santos E Sheet, Your patient has the documented diagnosis of unspecified CHF in your H&P, PNs and DS.. Additional information regarding the [type, acuity] of CHF is requested. History/Risk Factors: HTN, CAD, non-ischemic cardiomyopathy, other persistent atrial fibrillation Clinical Indicators: History of CHF on medications. VS/Pulse OX: T-97.4, P-87, R-16, BP-151/106, O2 sat-98 BNP: none available 04/24 Echocardiogram Results: Preserved LV systolic function with ejection fraction 50-55%, Chest X Ray: none available Treatment: Lasix 20 mg AC-BID PRN, Entresto 2 mg-26mg one PO BID In your professional opinion, can you please clarify the [acuity and type] of CHF if known? [ ] Chronic Diastolic Heart Failure (preserved EF) [ ] Other, please specify [ ] Unable to determine Unable to determine MTDD
== END 2020-09-30 15:17 | DRG 377 ==
LOC: EC 10:54 → INTOOBSV 12:31 → 3SCARD 12:31 → OBSVTOIN 09-27 14:43
PROVIDERS: ADMIT Internal Medicine; ATTEND Internal Medicine
PROC: 0DB78ZX Excision of Stomach, Pylorus, Via Natural or Artificial Opening Endoscopic, Diagnostic (ICD-10-PCS; principal; 2020-09-28 07:30)
PROC: 0DBH8ZX Excision of Cecum, Via Natural or Artificial Opening Endoscopic, Diagnostic (ICD-10-PCS; principal; 2020-09-28 07:30)
DX: K57.31 Diverticulosis of large intestine without perforation or abscess with bleeding (principal); G93.41 Metabolic encephalopathy; D62 Acute posthemorrhagic anemia; N17.9 Acute kidney failure, unspecified; I42.8 Other cardiomyopathies; I48.19 Other persistent atrial fibrillation; D69.6 Thrombocytopenia, unspecified; I11.0 Hypertensive heart disease with heart failure; Z20.822 Contact with and (suspected) exposure to COVID-19; K29.50 Unspecified chronic gastritis without bleeding; D12.0 Benign neoplasm of cecum; K44.9 Diaphragmatic hernia without obstruction or gangrene; G47.30 Sleep apnea, unspecified; I08.3 Combined rheumatic disorders of mitral, aortic and tricuspid valves; I25.10 Atherosclerotic heart disease of native coronary artery without angina pectoris; F32.9 Major depressive disorder, single episode, unspecified; E78.5 Hyperlipidemia, unspecified; E78.00 Pure hypercholesterolemia, unspecified; N40.0 Benign prostatic hyperplasia without lower urinary tract symptoms; H91.90 Unspecified hearing loss, unspecified ear; Z79.01 Long term (current) use of anticoagulants; Z79.899 Other long term (current) drug therapy; Z86.73 Personal history of transient ischemic attack (TIA), and cerebral infarction without residual deficits; Z87.891 Personal history of nicotine dependence; Z88.8 Allergy status to other drugs, medicaments and biological substances; I50.9 Heart failure, unspecified
CPT/HCPCS: 36415; 43239; 45385; 80053; 82272; 83605; 83735; 84484; 85025; 85027; 85610; 85730; 86850; 86900; 86901; 87635; 88305; 93005; 96374; 99285

== ENCOUNTER 2020-10-13 14:59 | Inpatient (IN) | payer MEDICARE ==
--- NOTE | 2020-10-13 15:31 | ED ---
General Adult HPI - General Stated complaint: Seizures Time Seen by Provider: 10/13/20 15:06 Source: patient, EMS, RN notes reviewed, old records reviewed Mode of arrival: EMS - History of Present Illness Initial comments: 79-year-old male presenting with suspected seizure. Patient does not have known seizure history. He had 2 separate 1 minute episodes of generalized seizure activity [facility]. Patient has history of atrial fibrillation, recent be treated for diverticulitis. There is no reported fever. No vomiting. Patient does have some dysarthria which is at baseline according to EMS. History limited from the patient. - Related Data Home Medications Medication Instructions Recorded Confirmed Atorvastatin Calcium [Lipitor] 40 mg PO HS 09/26/20 09/26/20 Colestipol HCl [Colestid] 2 gm PO W/LUNCH 09/26/20 09/26/20 Cyanocobalamin (Vitamin B-12) 1,000 mcg PO DAILY 09/26/20 09/26/20 [Vitamin B-12] Escitalopram [Lexapro] 20 mg PO DAILY 09/26/20 09/26/20 Finasteride [Proscar] 5 mg PO DAILY 09/26/20 09/26/20 Furosemide [Lasix] 20 mg PO AC-BID PRN 09/26/20 09/26/20 Ipratropium [place] 0.06%Nasal 1 spray EA NOSTRIL TID PRN 09/26/20 09/26/20 [Atrovent Nasal 0.06%] Sacubitril/Valsartan [Entresto 24 1 tab PO BID 09/26/20 09/26/20 mg-26 mg Tablet] Previous Rx's Medication Instructions Recorded Docusate [Colace] 100 mg PO DAILY PRN cap 09/30/20 Metoprolol Succinate (ER) [Toprol 50 mg PO DAILY tab.er.24h 09/30/20 XL] Pantoprazole Sodium [Protonix] 40 mg PO BID #60 09/30/20 Allergies Allergy/AdvReac Type Severity Reaction Status Date / Time trospium [From [place]] Allergy Unknown Verified 10/13/20 16:16 mirabegron [From Myrbetriq] AdvReac dark urine Verified 10/13/20 16:16 tamsulosin [From Flomax] AdvReac low blood Verified 10/13/20 16:16 pressure Review of Systems ROS Statement: Those systems with pertinent positive or pertinent negative responses have been documented in the HPI. ROS Other: All systems not noted in ROS Statement are negative. Past Medical History Past Medical History: Atrial Fibrillation, Chest Pain / Angina, Heart Failure Additional Past Medical History / Comment(s): TIA History of Any Multi-Drug Resistant Organisms: None Reported Past Surgical History: Heart Catheterization Past Psychological History: Depression Smoking Status: Former smoker Past Alcohol Use History: Occasional Past Drug Use History: None Reported - Past Family History Father History Unknown: Yes Mother History Unknown: Yes General Exam General appearance: alert, in no apparent distress Head exam: Present: atraumatic, normocephalic Eye exam: Present: normal appearance, PERRL ENT exam: Present: mucous membranes dry Neck exam: Present: normal inspection. Absent: tenderness, meningismus Respiratory exam: Present: normal lung sounds bilaterally. Absent: respiratory distress, wheezes Cardiovascular Exam: Present: regular rate, irregular rhythm GI/Abdominal exam: Present: soft. Absent: distended, tenderness, guarding Extremities exam: Present: normal inspection, normal capillary refill. Absent: pedal edema Neurological exam: Present: alert, oriented X3 (Oriented but slow to respond) Skin exam: Present: warm, dry, intact. Absent: cyanosis, diaphoretic Course Vital Signs 10/13/20 15:05 Temperature 97.7 F Pulse Rate 70 Respiratory 16 Rate Blood Pressure 107/89 O2 Sat by Pulse 98 Oximetry - Reevaluation(s) Reevaluation #1: 10/13/20 16:[address] Roach who will admit. EKG Findings - EKG Comments: EKG Findings:: EKG: Atrial fibrillation, baseline artifact. Atrial fibrillation, rate of 88, QRS duration 98, QTC [address] segment elevation. Medical Decision Making - Medical Decision Making 79-year-old male with present with suspected seizure, no previous history of seizure. I did discuss the case at length with the patient's daughter who is present, and this did sound very suspicious for tonic-clonic seizure activity lasting approximately [address] is negative for scleral hemorrhage or mass effect. Patient has anemia which will be monitored. He has normal electrolytes. EKG showing atrial fibrillation. He is admitted to internal medicine with neurology on consult. - Lab Data Result diagrams: 10/13/20 15:21 10/13/20 15:21 Lab Results 10/13/20 10/13/20 10/13/20 Range/Units 15:21 15:21 15:21 WBC 7.1 (3.8-10.6) k/uL RBC 3.42 L (4.30-5.90) m/uL Hgb 9.9 L D (13.0-17.5) gm/dL Hct 29.1 L (39.0-53.0) % MCV 85.3 (80.0-100.0) fL MCH 29.0 (25.0-35.0) pg MCHC 34.0 (31.0-37.0) g/dL RDW 13.8 (11.5-15.5) % Plt Count 162 D (150-450) k/uL MPV 7.7 Neutrophils % 80 % Lymphocytes % 10 % Monocytes % 6 % Eosinophils % 2 % Basophils % 1 % Neutrophils # 5.7 (1.3-7.7) k/uL Lymphocytes # 0.7 L (1.0-4.8) k/uL Monocytes # 0.4 (0-1.0) k/uL Eosinophils # 0.2 (0-0.7) k/uL Basophils # 0.0 (0-0.2) k/uL Poikilocytosis Slight PT 11.6 (9.0-12.0) sec INR 1.1 (<1.2) APTT 29.3 (22.0-30.0) sec Sodium 141 (137-145) mmol/L Potassium 3.8 (3.5-5.1) mmol/L Chloride 106 (98-107) mmol/L Carbon Dioxide 28 (22-30) mmol/L Anion Gap 7 mmol/L BUN 21 H (9-20) mg/dL Creatinine 1.28 H (0.66-1.25) mg/dL Est GFR (CKD-EPI)AfAm 60 (>60 ml/min/1.73 sqM) Est GFR (CKD-EPI)NonAf 52 (>60 ml/min/1.73 sqM) Glucose 100 H (74-99) mg/dL Plasma Lactic Acid [place] (0.7-2.0) mmol/L Calcium 8.3 L (8.4-10.2) mg/dL Magnesium 2.0 (1.6-2.3) mg/dL Total Bilirubin 1.0 (0.2-1.3) mg/dL AST 19 (17-59) U/L ALT 8 (4-49) U/L Alkaline Phosphatase 86 (38-126) U/L Total Protein 5.3 L (6.3-8.2) g/dL Albumin 3.0 L (3.5-5.0) g/dL 10/13/20 Range/Units 15:21 WBC (3.8-10.6) k/uL RBC (4.30-5.90) m/uL Hgb (13.0-17.5) gm/dL Hct (39.0-53.0) % MCV (80.0-100.0) fL MCH (25.0-35.0) pg MCHC (31.0-37.0) g/dL RDW (11.5-15.5) % Plt Count (150-450) k/uL MPV Neutrophils % % Lymphocytes % % Monocytes % % Eosinophils % % Basophils % % Neutrophils # (1.3-7.7) k/uL Lymphocytes # (1.0-4.8) k/uL Monocytes # (0-1.0) k/uL Eosinophils # (0-0.7) k/uL Basophils # (0-0.2) k/uL Poikilocytosis PT (9.0-12.0) sec INR (<1.2) APTT (22.0-30.0) sec Sodium (137-145) mmol/L Potassium (3.5-5.1) mmol/L Chloride (98-107) mmol/L Carbon Dioxide (22-30) mmol/L Anion Gap mmol/L BUN (9-20) mg/dL Creatinine (0.66-1.25) mg/dL Est GFR (CKD-EPI)AfAm (>60 ml/min/1.73 sqM) Est GFR (CKD-EPI)NonAf (>60 ml/min/1.73 sqM) Glucose (74-99) mg/dL Plasma Lactic Acid [place] 1.0 (0.7-2.0) mmol/L Calcium (8.4-10.2) mg/dL Magnesium (1.6-2.3) mg/dL Total Bilirubin (0.2-1.3) mg/dL AST (17-59) U/L ALT (4-49) U/L Alkaline Phosphatase (38-126) U/L Total Protein (6.3-8.2) g/dL Albumin (3.5-5.0) g/dL Disposition Clinical Impression: New onset seizure, History of atrial fibrillation Disposition: ADMITTED IP TO THIS [facility] Condition: Stable Instructions (If sedation given, give patient instructions): Seizure/Epilepsy Discharge Instructions & Follow-Up Is patient prescribed a controlled substance at d/c from ED?: No Referrals: Rand Hilario MD [Primary Care Provider] - 1-2 days Decision to Admit Reason: Admit from EC Decision Date: 10/13/20 Decision Time: 16:25
[2020-10-13 15:32] LABS: Basophils % (A) 1 %; Eosinophils # (A) 0.2 k/uL (0-0.7); Eosinophils % (A) 2 %; HCT 29.1 % (39.0-53.0); Lymphocytes # (A) 0.7 k/uL (1.0-4.8); Lymphocytes % (A) 10 %; MCV 85.3 fL (80.0-100.0); Mean Platelet Volume 7.7; Monocytes # (A) 0.4 k/uL (0-1.0); Monocytes % (A) 6 %; Neutrophils # (A) 5.7 k/uL (1.3-7.7); Neutrophils % (A) 80 %; Platelet Count 162 k/uL (150-450); Poikilocytosis Slight; RBC 3.42 m/uL (4.30-5.90); RDW 13.8 % (11.5-15.5); WBC 7.1 k/uL (3.8-10.6)
[2020-10-13 15:33] LABS: HGB 9.9 gm/dL (13.0-17.5)
[2020-10-13 15:41] LABS: INR 1.1 (<1.2); Partial Thromboplastin Time 29.3 sec (22.0-30.0); Prothrombin Time 11.6 sec (9.0-12.0)
[2020-10-13 15:42] LABS: Calcium 8.3 mg/dL (8.4-10.2); Potassium 3.8 mmol/L (3.5-5.1); Total Protein 5.3 g/dL (6.3-8.2)
--- NOTE | 2020-10-13 16:09 | CT ---
EXAMINATION TYPE: CT brain wo con DATE OF EXAM: 10/13/2020 COMPARISON: INDICATION: slurred speech and sezuire activity DLP: 1100.4 mGycm, Automated exposure control for dose reduction was used. CONTRAST: None CT of the brain is performed utilizing 3 mm thick sections through the posterior fossa and 3 mm thick sections through the remaining calvarium. Study is performed within 24 hours of arrival to the hosp ital. No abnormal hyperdensity is present to suggest an acute intracranial hemorrhage. No mass lesion is evident. No acute infarcts are evident. Periventricular white matter hypodensity is present, likely on the bas is of chronic white matter ischemic changes. Ventricles and sulci are prominent for the patient age. Paranasal sinuses and mastoid air cells within the [id number] are clear. IMPRESSIONS: 1. Atrophy with chronic appearing periventricular white matter ischemic changes. 2. No acute intracranial process radiographically apparent
[2020-10-13] MEDS ORDERED: NALOXONE 0.4 MG/ML 1 ML VIAL IV PRN (16:24)
[2020-10-13] MEDS ORDERED: ACETAMINOPHEN TAB 325 MG TAB PO PRN (16:24)
[2020-10-13] MEDS ORDERED: IPRATROPIUM BROMIDE 0.06% NASAL SPRAY (15 ML) EA NOSTRIL PRN (16:38)
[2020-10-13] MEDS ORDERED: bisacodyL 10 MG SUPP RECTAL PRN (16:38)
[2020-10-13] MEDS ORDERED: LORATADINE 10 MG TAB PO PRN (16:38)
[2020-10-13] MEDS ORDERED: MAGNESIUM HYDROXIDE 2,400 MG/10 ML CUP PO PRN (16:38)
[2020-10-13] MEDS ORDERED: NA PHOS,M-B/NA PHOS,DI-BA 133 ML ENEMA RECTAL PRN (16:38)
[2020-10-13] MEDS: SODIUM CHLORIDE 0.9% 1,000 ML IV SCH (16:40)
[2020-10-13] MEDS: SACUBITRIL/VALSARTAN 24 MG-26 MG TABLET PO SCH (17:49)
[2020-10-13] MEDS: METOPROLOL TARTRATE 25 MG TAB PO SCH (17:49)
[2020-10-13] MEDS: VIT A,C & E-LUTEIN-MINERALS 1 EACH TAB PO SCH (17:50)
--- NOTE | 2020-10-13 19:36 | HP ---
HISTORY AND PHYSICAL DATE OF SERVICE: 10/13/2020. CHIEF COMPLAINT: Seizure disorder. HISTORY OF PRESENT ILLNESS: This 79-year-old gentleman with a past medical history of multiple medical problems including atrial fibrillation, history of CHF, TIA was recently living in [place]. The patient recently moved here and the daughter brought him up here. The patient admitted to [facility] with complaints of acute gastrointestinal bleed and Xarelto was resumed and the patient was sent to inpatient rehab at [facility] and subsequently because of lack of improvement the patient apparently was in [facility]. In [facility] after 1 day the patient developed episodes of what appears to be a generalized tonic seizures with the arching backwards and change in mental status. Patient taken to [facility] and was admitted to the hospital for further evaluation and treatment. On questioning, the daughter also said the patient apparently also had some sort of and as well as some weakness of the right upper limb also on several occasions consistently previously. This was thought to be secondary to lacunar stroke at that time. There is no history of any fever, rigors or chills at this time. Patient unable to give a coherent history. Most of the history taken from my discussion with staff, ER physician as well as discussion with daughter at bedside. PAST MEDICAL HISTORY: Atrial fibrillation, CHF, TIA, history of lacunar stroke, history of depression. MEDICATIONS: Home medications are: Milk of magnesia, loratadine, Atrovent, Bisacodyl, Fleet enema, Tylenol, vitamins, thiamine, Entresto, Xarelto, Seroquel, Protonix, Proscar, Lexapro, FiberCon, vitamin, BuSpar, Lipitor. ALLERGIES: SANCTURA. MYRBETRIQ, FLOMAX. FAMILY HISTORY: No family history of heart disease or strokes in the family. SOCIAL HISTORY: Previous history of smoking. REVIEW OF SYSTEMS: Review of systems could not be taken, the patient is having change in mental status. PHYSICAL EXAMINATION: Pulse is 70. Blood pressure 107/89, respirations 16, temperature 97.7. Pulse ox 98 percent on room air. HEENT: Conjunctivae normal. NECK: No JVD. CARDIOVASCULAR: S1, S2 muffled. RESPIRATION: Breath sounds diminished in the bases. A few scattered rhonchi. ABDOMEN: Soft, nontender. No mass palpable. LEGS: No edema. No swelling. NERVOUS SYSTEM: Higher functions as mentioned earlier. Diffusely weak. LYMPHATICS: No lymph nodes palpable in the neck, axillae or groin. SKIN: No ulcer, no rash and no bleeding. JOINTS: No active deforming arthropathy. LABS: At this time, WBC 7.3, hemoglobin 9.9, creatinine is 1.28. ASSESSMENT: 1. Seizure disorder possibly tonic seizure disorder for further evaluation. 2. History of possible focal seizures previously. 3. History of recent gastrointestinal bleed. 4. Increased creatinine with possibly chronic kidney disease stage 3. 5. Gait dysfunction. 6. Anemia, normocytic of chronic gastrointestinal bleed. 7. History of atrial fibrillation. 8. On blood thinners. 9. History of congestive heart failure. 10.History of chest pain. 11.History of transient ischemic attack. 12.History of cardiac catheterization. 13.History of depression. 14.History of remote history of nicotine dependence. 15.FULL CODE. CONDITION: In this 79-year-old gentleman who presented with multiple complex medical issues, we will monitor the patient closely. Continue the current medications, management and symptomatic treatment. Neurology consultation. Complete neurovascular evaluation and COVID-19 testing is also requested. Otherwise, resume the home medications. The patient will need further extensive workup, which I discussed at length with . Further recommendations to follow and once the patient is stabilized, the patient will be discharged back to [facility]. Recommend to follow up with Dr. Neri and Dr. Rand Hilario in the outpatient setting. A copy of this dictation is being forwarded to Dr. Rand Hilario and Dr. Neri. [id number] / IJN: [id number] / [facility]ITAL[facility]ari
--- NOTE | 2020-10-13 19:47 | P.CNNES ---
History of Present Illness Consult date: 10/13/20 Requesting physician: Cuco Ledesma Reason for Consult: new onset seizure History of Present Illness: This is an 79-year-old gentleman with medical history of atrial fibrillation on Xarelto, GI bleed, heart failure, sleep apnea, diverticulitis who presented to emergency department on 10/13/2020 with new onset seizure likely activity. History is obtained from the patient daughter (Lorin) who is at bedside and her brother (Oz) via phone and some from medical records. Per the daughter, her father was at nursing rehab ([facility]) then and was sitting down then all sudden his arms extended out. His eyes were closed during the episode. He was not foaming around the mouth. So she left scene. She was told by the staff that seems that that he had a seizure-like activity. Per the ED note the patient had 2 separate seizure seizures. Lasting 1 minute of generalized tonic-clonic seizure activity reported by staff at the retirement facility where he resides. Some of the patient home medication includes: Xarelto 25 mg daily at bedtime, vitamin B12 1000 g daily, BuSpar 5 mg daily, Lipitor 40 mg daily at bedtime, folic acid 1 mg daily, Seroquel 25 mg daily at bedtime, thiamine 100 mg daily, metoprolol, loratadine, magnesium hydroxide, Protonix, finasteride, Lexapro. Per family members they stated that the patient had an episode about a year and half ago where he was screaming that he was falling repeatedly and as a result EMS had to come and he had to be be taken to the hospital and there was told that he had a transischemic attack. 2 weeks after the episode that patient had weakness in the bilateral quadriceps and the patient had workup and the he was told that the he had polymyalgia rheumatica but was not the typical polymyalgia rheumatica and the was given steroids which improved his condition. At that time and was seen by collection card clerk and he stated that since his condition imp roved with the steroids is seeing the that he had polymyalgia rheumatica but was atypical ([employer] was out of state and was in [place]). Patient had similar episodes down the line where he would scream he is about to fall. Family noticed that he's been shuffling gait for the last 6-8 weeks and is progressively worsening and he's been having difficulty making turns. Patient does not have any resting tremor. Patient's family noticed that the patient has been having some raspy voice since March 2020. He has been using a walker or cane prolonged period of time. Patient daughter denies that the patient has any drooping of the eyes towards the end of the day or after prolonged activity. She denies noticing his voice becoming the more worse at the end of the day. But she stated that after some time he has generalized weakness. In the past the patient had blurry vision s lurred speech and the date and he was told that he had the lacunar stroke. It seems that the patient was seen by collection card clerk here in [place] and she notified his daughter he does not have polymalgia rheumatica and was stopped off steroid in 04/2020 or 05/2020. Per daughter since moving back with her in [place] in March 2020, she felt he was been declining in the last 2-3 month. Of note the patient had a GI bleed about 3-4 weeks ago Xarelto was stopped and he had a colonoscopy. Xarelto was held for 7 days then the was restarted then after that he was said taken to rehab afterwards. Seems that the patient had a sleep study in the past and was told he has sleep apnea but per daughter he does not uses lately. Patient does have a hard time hearing of both ears. Some other workup in the hospital consisted of: Initial vital signs: Blood pressure of 107/89, heart rate of 70, respiratory of 16, temperature of 97.7 Fahrenheit oral and pulse ox of 98% at room air. CT of the head is reported as atrophy with chronic appearing periventricular white matter ischemic changes. No acute intracranial process radiographically apparent. White blood cells 7.1 which is normal. Hemoglobin is 9.9 which is low. Creatinine is 1.28 which is slightly elevated. Plasma lactic acid is 1.0 which is normal and with somebody that had 2 seizure- like activity he would expect a lactic acid vein will be elevated. AST of 19 and ALT of 8 which are normal. Sodium of 141, initial serum glucose is 100 and it's unremarkable. Past Medical History Past Medical History: Atrial Fibrillation, Chest Pain / Angina, Heart Failure Additional Past Medical History / Comment(s): TIA History of Any Multi-Drug Resistant Organisms: None Reported Past Surgical History: Heart Catheterization Past Psychological History: Depression Smoking Status: Former smoker Past Alcohol Use History: Occasional Past Drug Use History: None Reported - Past Family History Father History Unknown: Yes Mother History Unknown: Yes Medications and Allergies Home Medications Medication Instructions Recorded Confirmed Type Atorvastatin Calcium [Lipitor] 40 mg PO HS@2100 09/26/20 10/13/20 History Colestipol HCl [Colestid] 2 gm PO DAILY@1200 09/26/20 10/13/20 History Cyanocobalamin (Vitamin B-12) 1,000 mcg PO DAILY@0800 09/26/20 10/13/20 History [Vitamin B-12] Escitalopram [Lexapro] 20 mg PO DAILY@0800 09/26/20 10/13/20 History Finasteride [Proscar] 5 mg PO DAILY@0800 09/26/20 10/13/20 History Ipratropium [place]afferty 0.06%Nasal 2 spray EA NOSTRIL TID PRN 09/26/20 10/13/20 History [Atrovent Nasal 0.06%] Sacubitril/Valsartan [Entresto 24 1 tab PO BID@0800,1700 09/26/20 10/13/20 History mg-26 mg Tablet] Acetaminophen Tab [Tylenol] 650 mg PO Q4H PRN 10/13/20 10/13/20 History Calcium Polycarbophil [Fibercon] 625 mg PO DAILY@0800 10/13/20 10/13/20 History Folic Acid 1 mg PO DAILY@0800 10/13/20 10/13/20 History Loratadine 10 mg PO DAILY PRN 10/13/20 10/13/20 History Magnesium Hydroxide [Milk of 7,200 mg PO DAILY PRN 10/13/20 10/13/20 History Magnesia Concentrate] Metoprolol Tartrate 25 mg PO BID@0800,1700 10/13/20 10/13/20 History Na Phos,M-B/Na Phos,Di-Ba [Fleet 133 ml RECTAL ONCE PRN 10/13/20 10/13/20 History Adult] Pantoprazole Sodium [Protonix] 40 mg PO DAILY@0800 10/13/20 10/13/20 History QUEtiapine [SEROquel] 25 mg PO HS@2100 10/13/20 10/13/20 History Rivaroxaban [Xarelto] 15 mg PO HS@2100 10/13/20 10/13/20 History Thiamine [Vitamin B-1] 100 mg PO DAILY@0800 10/13/20 10/13/20 History Vit C/E/Zn/Coppr/Lutein/Zeaxan 1 cap PO BID@0800,1700 10/13/20 10/13/20 History [Preservision Areds 2 Softgel] bisacodyL [Bisacodyl] 10 mg RECTAL DAILY PRN 10/13/20 10/13/20 History busPIRone HCl [Buspar] 5 mg PO DAILY@0800 10/13/20 10/13/20 History Allergies Allergy/AdvReac Type Severity Reaction Status Date / Time trospium [From Sanctura] Allergy Unknown Verified 10/13/20 16:16 mirabegron [From Myrbetriq] AdvReac dark urine Verified 10/13/20 16:16 tamsulosin [From Flomax] AdvReac low blood Verified 10/13/20 16:16 pressure Physical Examination - Vital Signs Vital Signs: Vital Signs Temp Pulse Resp BP Pulse Ox 10/13/20 16:35 99 18 124/90 95 10/13/20 15:05 97.7 F 70 16 107/89 98 Intake and Output 10/13/20 10/13/20 10/13/20 06:59 14:59 22:59 Other: Weight 85.275 kg GENERAL: The patient is lying in bed and does not seem is not in acute distress. CHEST: The heart rate is regular rate rhythm. No murmurs to auscultation. LUNG: Clear to auscultation bilaterally no wheezing noted throughout. Not labored breathing. ABDOMEN/GI: Bowel sounds present in all 4 quadrants. No tenderness to palpation throughout. NEUROLOGICAL: Higher mental function: The patient is awake, alert, oriented to self and time. He stated he is in the hospital rehab. Patient stated the correct name of current U.[place]. President. Patient is following simple commands. No aphasia from limited language. No neglect. Cranial nerves: The pupils are round, equal and reactive to light. Visual infante are hard to assess because of cooperation. Extraocular movement is intact no nystagmus is noted. I felt the he had proptosis of right eye. Facial sensation is normal to touch throughout. The facial strength is normal throughout. Hearing is severely decreased bilaterally. Tongue is midline and moved [id number] without any difficulty. Moderate dysarthria is noted. [place] patient has ?inappropriate laughter at times. Shoulder shrug is normal bilaterally. Motor: The strength is 5 over 5 throughout uppers While lowers is able to raise above gravity (limited because of pain). Normal tone and bulk. Cerebellum: Normal finger to nose bilaterally. Sensation: Sensation is normal to touch throughout. Reflexes (right/left): 2+ in uppers while 1+ in lowers. Plantars are mute bilaterally. Results Coagulation study: PT of 11.6, INR 1.1, PTT of 29.3 Hunt virus PCR was not detected - Laboratory Findings CBC and BMP: 10/13/20 15:21 10/13/20 15:21 Abnormal Lab Findings: Abnormal Labs 10/13/20 10/13/20 15:21 15:21 RBC 3.42 L Hgb 9.9 L D Hct 29.1 L Lymphocytes # 0.7 L BUN 21 H Creatinine 1.28 H Glucose 100 H Calcium 8.3 L Total Protein 5.3 L Albumin 3.0 L Assessment and Plan Assessment: * Questionable new onset seizure (reported at [facility] facility [facility] lasting 1 minutes and 2 episode) but per daughter he was asleep then had arm extended with eyes closed. Lactic acid and wbc are normal which in some seizure it would be elevated as reactive process. * Shuffling gait, dysarthria: Possible atypical Parkinson's disease * History of lacunar stroke * Chronic dysarthria * Acute on chronic anemia * Acute on chronic kidney insufficiency * Hard of hearing bilaterally * Atrial fibrillation on Xarelto * ?Polymalgia Rheumatica * Heart failure * Diverticulitis * Sleep apnea and per daughter not using CPAP machine Plan: CT of the head is reported as atrophy with chronic appearing periventricular white matter ischemic changes. No acute intracranial process radiographically apparent. AST of 19 and ALT of 8 which are normal. Sodium of 141, initial serum glucose is 100 and it's unremarkable. I ordered a routine EEG. Regarding these reported seizure like episodes at nursing rehab facility, the patient's daughter wants to hold on starting anti- epileptic drug for now. Family wants to hold off on MRI of the brain for now and I don't think the patient will lie still for the MRI. Patient is on seizure precaution as well as seizure pads. I started the patient on trial of Sinement of 25-100 1 tab bid (low dose) and will see how he responds. Ordered vitamin B12, folate, TSH level. Consulted physical therapy, occupational therapy and speech therapy. Started the patient on Melatonin 5mg daily. Patient is continued on his Lipitor for motor daily at bedtime. Patient is on Xarelto 50 mg daily at bedtime. Will defer the rest of medical management to the primary team. I notified the patient's family members that patient needs to follow-up with a neurologist as an outpatient for further workup: MRI of the brain, recommend EMG with nerve conduction study to rule out possible motor neuron disease especially, ?inaproppriate laughter on exam, dysarthria.Recommend a repeat sleep study to rule out REM behavioral sleep disorder. The plan is discussed in lenght with the patient Daughter (Lorin) who is at bedside and her brother (Oz) via phone. Thank you for the consultation. Gus Demarco MD Neuro-Hospitalist Time with Patient: Greater than 30
--- NOTE | 2020-10-13 20:18 | XR ---
EXAMINATION: XR chest 1V portable DATE AND TIME: 10/13/2020 5:56 PM CLINICAL INDICATION: PHH; chf TECHNIQUE: AP upright portable COMPARISON: None FINDINGS: The lungs are clear. The pleural spaces are negative. The cardiac silhouette is mildly enlarged. The remainder of the mediastinal silhouette is unremarkable. The skeletal structures and soft tissues are negative for acute findings. IMPRESSION: No definite acute radiographic process.
[2020-10-13] MEDS: RIVAROXABAN 15 MG TAB PO SCH (20:39)
[2020-10-13] MEDS: ATORVASTATIN 40 MG TAB PO SCH (20:39)
[2020-10-13] MEDS: QUEtiapine 25 MG TAB PO SCH (20:39)
[2020-10-13] MEDS: MELATONIN 5 MG TABLET PO SCH (20:39)
[2020-10-13] MEDS: CARBIDOPA-LEVODOPA 25-100 MG 1 EACH TAB PO SCH (21:43)
[2020-10-14 03:19] LABS: Hemoglobin A1C 5.4 % (4.0-6.0)
[2020-10-14 07:12] LABS: Basophils # (A) 0.1 k/uL (0-0.2); Basophils % (A) 1 %; Eosinophils # (A) 0.1 k/uL (0-0.7); Eosinophils % (A) 2 %; HCT 28.6 % (39.0-53.0); HGB 9.5 gm/dL (13.0-17.5); Hypochromasia Slight; Lymphocytes # (A) 0.8 k/uL (1.0-4.8); Lymphocytes % (A) 15 %; MCH 28.5 pg (25.0-35.0); MCHC 33.1 g/dL (31.0-37.0); Mean Platelet Volume 7.4; Monocytes # (A) 0.3 k/uL (0-1.0); Monocytes % (A) 6 %; Neutrophils # (A) 4.1 k/uL (1.3-7.7); Neutrophils % (A) 75 %; Platelet Count 155 k/uL (150-450); Poikilocytosis Slight; RBC 3.32 m/uL (4.30-5.90); RDW 13.8 % (11.5-15.5); WBC 5.5 k/uL (3.8-10.6)
[2020-10-14 08:10] LABS: Folate, Serum >24.0 ng/mL
[2020-10-14] MEDS: busPIRone HCl 5 MG TAB PO SCH (08:59)
[2020-10-14] MEDS: METOPROLOL TARTRATE 25 MG TAB PO SCH ×2 (09:00→18:43)
[2020-10-14] MEDS: FINASTERIDE 5 MG TAB PO SCH (09:00)
[2020-10-14] MEDS: CARBIDOPA-LEVODOPA 25-100 MG 1 EACH TAB PO SCH ×2 (09:00→20:21)
[2020-10-14] MEDS: VIT A,C & E-LUTEIN-MINERALS 1 EACH TAB PO SCH ×2 (09:00→18:43)
[2020-10-14] MEDS: PANTOPRAZOLE 40 MG TABLET PO SCH (09:00)
[2020-10-14] MEDS: ESCITALOPRAM 20 MG TAB PO SCH (09:00)
[2020-10-14] MEDS: CYANOCOBALAMIN 500 MCG TAB PO SCH (09:00)
[2020-10-14] MEDS: THIAMINE 100 MG TAB PO SCH (09:00)
[2020-10-14] MEDS: SACUBITRIL/VALSARTAN 24 MG-26 MG TABLET PO SCH ×2 (09:01→18:43)
[2020-10-14] MEDS: FOLIC ACID 1 MG TAB PO SCH (09:01)
[2020-10-14 12:25] LABS: African American GFR (CKD) 72.6 (60.0-200.0); Anion Gap 6.2 mmol/L (4.00-12.00); BUN/Creat Ratio 18.18 Ratio (12.00-20.00); Calcium 8.1 mg/dL (8.7-10.3); Carbon Dioxide 27.8 mmol/L (21.6-31.8); Non-African American GFR(CKD) 62.6 (60.0-200.0); Potassium 3.4 mmol/L (3.5-5.5)
[2020-10-14] MEDS: COLESTIPOL HCL 1 GM PO SCH (14:34)
--- NOTE | 2020-10-14 14:52 | P.PN ---
Subjective Progress Note Date: 10/14/20 Patient seen at bedside and he is about the same today compared to yesterday. Per the nurse he had an episode where he was reaching out of the bed hands with arms extended and stated he is going to fall but no jerking of any extremities, no foaming around the mouth, no rolling of eyes or gaze deviation. He was awake. Per the patient daughter she felt no further events. Per the patient's daughter, patient father had history of Parkinson's disease. Objective - Vital Signs Vital signs: Vital Signs Temp 98 F 10/14/20 07:45 Pulse 69 10/14/20 07:45 Resp 16 10/14/20 07:45 BP 140/91 10/14/20 07:45 Pulse Ox 94 L 10/14/20 07:45 Intake & Output 10/13/20 10/14/20 10/14/20 18:59 06:59 18:59 Intake Total 480 118 Balance 480 118 Weight 85.275 kg 85.275 kg Intake: Oral 480 118 Other: # Voids 2 - Exam GENERAL: The patient is lying in bed and does not seem is not in acute distress. NEUROLOGICAL: Higher mental function: The patient is awake, alert, oriented to self and time. He stated he is in the hospital rehab. Patient stated the correct name of current U.[place]. President. Patient is following simple commands. No aphasia from limited language. No neglect. Cranial nerves: The pupils are round, equal and reactive to light. Visual f ields are hard to assess because of cooperation. Extraocular movement is intact no nystagmus is noted. I felt the he had proptosis of right eye. Facial sensation is normal to touch throughout. The facial strength is normal throughout. Hearing is severely decreased bilaterally. Tongue is midline and moved [id number] without any difficulty. Moderate dysarthria is noted. [place] patient has ?inappropriate laughter at times. Shoulder shrug is normal bilaterally. Motor: The strength is 5 over 5 throughout uppers While lowers is able to raise above gravity (limited because of pain). Normal tone and bulk. Cerebellum: Normal finger to nose bilaterally. Sensation: Sensation is normal to touch throughout. Reflexes (right/left): 2+ in uppers while 1+ in lowers. Plantars are mute bilaterally. - Labs CBC & Chem 7: 10/14/20 06:21 10/14/20 06:21 Labs: Abnormal Lab Results - Last 24 Hours (Table) 10/13/20 10/13/20 10/14/20 Range/Units 15:21 15:21 06:21 RBC 3.42 L 3.32 L (4.30-5.90) m/uL Hgb 9.9 L D 9.5 L (13.0-17.5) gm/dL Hct 29.1 L 28.6 L (39.0-53.0) % Lymphocytes # 0.7 L 0.8 L (1.0-4.8) k/uL Potassium (3.5-5.5) mmol/L Chloride (96-109) mmol/L BUN 21 H (9-20) mg/dL Creatinine 1.28 H (0.66-1.25) mg/dL Glucose 100 H (74-99) mg/dL Calcium 8.3 L (8.4-10.2) mg/dL Total Protein 5.3 L (6.3-8.2) g/dL Albumin 3.0 L (3.5-5.0) g/dL 10/14/20 Range/Units 06:21 RBC (4.30-5.90) m/uL Hgb (13.0-17.5) gm/dL Hct (39.0-53.0) % Lymphocytes # (1.0-4.8) k/uL Potassium 3.4 L (3.5-5.5) mmol/L Chloride 110 H (96-109) mmol/L BUN (9-20) mg/dL Creatinine (0.66-1.25) mg/dL Glucose (74-99) mg/dL Calcium 8.1 L (8.4-10.2) mg/dL Total Protein (6.3-8.2) g/dL Albumin (3.5-5.0) g/dL Assessment and Plan Assessment: * Questionable new onset seizure (reported at [facility] facility [facility] lasting 1 minutes and 2 episode) but per daughter he was asleep then had arm extended with eyes closed. Lactic acid and wbc are normal which in some seizure it would be elevated as reactive process. Per nurse he had episode today with arms extended and stated he is about to fall. Does not seem seizure. * Shuffling gait, dysarthria: Possible atypical Parkinson's disease (Patient's father had Parkinson's disease per daughter). * History of lacunar stroke * Chronic dysarthria * Acute on chronic anemia * Acute on chronic kidney insufficiency * Hard of hearing bilaterally * Atrial fibrillation on Xarelto * ?Polymalgia Rheumatica * Heart failure * Diverticulitis * Sleep apnea and per daughter not using CPAP machine (since not fitting). Plan: * CT of the head is reported as atrophy with chronic appearing periventricular white matter ischemic changes. No acute intracranial process radiographically apparent. * AST of 19 and ALT of 8 which are normal. Sodium of 141, initial serum glucose is 100 and it's unremarkable. * Hemoglobin A1c is 5.4, TSH is 1.320 and both are within normal limits. * Serum Folate is more than 24.0 which is considered within normal limits. * Routine EEG today (preliminary report): The background slowing is suggestive of mild to moderate encephalopathy. There are no focal slowing, epileptiform discharges or seizure on the EEG. * Regarding these reported seizure like episodes at nursing rehab facility, the patient's daughter wants to hold on starting anti-epileptic drug for now. * Daughter want to pursue with MRI Brain. If he cannot tolerate it will abort it. * Patient is on seizure precaution as well as seizure pads. * I started the patient on trial of Sinement of 25-100 1 tab bid (low dose) and will see how he responds on 10/13/2020. * Pending vitamin B12 * Physical therapy, occupational therapy and speech therapy are consulted. * Continue Melatonin 5mg daily. * Consider Seroquel 25mg qhs if patient get agitated. * Patient is continued on his Lipitor for motor daily at bedtime. * Patient is on Xarelto 50 mg daily at bedtime. * Will defer the rest of medical management to the primary team. * I notified the patient's family members that patient needs to follow-up with a neurologist as an outpatient for further workup: Recommend EMG with nerve conduction study to rule out possible motor neuron disease especially, ?inaproppriate laughter on exam, dysarthria.Recommend a repeat sleep study to sleep disorder (unlikely). The plan is discussed in length with the patient Daughter (Lorin) who is at bedside and his nurse. Gus Demarco MD Neuro-Hospitalist Time with Patient: Less than 30
--- NOTE | 2020-10-14 17:31 | EEG ---
ELECTROENCEPHALOGRAM REPORT DATE OF SERVICE: 10/14/2020. CLINICAL HISTORY: This is an 79-year-old gentleman who presented to the emergency department because of two seizure-like activity at the rehab facility. The video EEG is evaluated to evaluate for seizure and epileptiform activity. RELEVANT MEDICATION: The patient is not on any antiepileptic drugs. EEG TYPE: The EEG type is a routine 21 channel EEG is performed with video using the 10/20 electrode placement system. DESCRIPTION: Wakefulness and drowsiness are obtained. During wakefulness, there is a posterior dominant rhythm of low to moderate voltage of 6 to 6.5 hertz activity that is well modulated, well sustained. During drowsiness there is slowing attenuation of the background activity. There is no physiological stage 2 sleep. There is no focal slowing. Interictal and ictal are none. ACTIVATION PROCEDURE: Photic stimulation did not evoke a posterior driving response. There is no abnormality during the photic stimulation. Hyperventilation is not performed. CLINICAL INTERPRETATION: This is an abnormal routine EEG. The generalized background slowing is suggestive of mild to moderate encephalopathy. There are no focal slowing, epileptiform discharges or seizure on the EEG. Clinical correlation is recommended. MMNERY / IJN: [id number] / MTDD
[2020-10-14] MEDS: SODIUM CHLORIDE 0.9% 1,000 ML IV SCH (19:28)
[2020-10-14] MEDS: MELATONIN 5 MG TABLET PO SCH (20:21)
[2020-10-14] MEDS: ATORVASTATIN 40 MG TAB PO SCH (20:21)
[2020-10-14] MEDS: RIVAROXABAN 15 MG TAB PO SCH (20:22)
[2020-10-14] MEDS: QUEtiapine 25 MG TAB PO SCH (20:22)
[2020-10-15] MEDS: ESCITALOPRAM 20 MG TAB PO SCH (08:52)
[2020-10-15] MEDS: PANTOPRAZOLE 40 MG TABLET PO SCH (08:52)
[2020-10-15] MEDS: CYANOCOBALAMIN 500 MCG TAB PO SCH (08:52)
[2020-10-15] MEDS: METOPROLOL TARTRATE 25 MG TAB PO SCH (08:52)
[2020-10-15] MEDS: FOLIC ACID 1 MG TAB PO SCH (08:53)
[2020-10-15] MEDS: busPIRone HCl 5 MG TAB PO SCH (08:53)
[2020-10-15] MEDS: FINASTERIDE 5 MG TAB PO SCH (08:53)
[2020-10-15] MEDS: CARBIDOPA-LEVODOPA 25-100 MG 1 EACH TAB PO SCH ×2 (08:54→19:57)
[2020-10-15] MEDS: SACUBITRIL/VALSARTAN 24 MG-26 MG TABLET PO SCH ×2 (08:54→16:26)
[2020-10-15] MEDS: THIAMINE 100 MG TAB PO SCH (08:54)
[2020-10-15] MEDS: VIT A,C & E-LUTEIN-MINERALS 1 EACH TAB PO SCH ×2 (08:54→16:25)
--- NOTE | 2020-10-15 09:20 | MR ---
EXAMINATION TYPE: MR brain wo con DATE OF EXAM: 10/15/2020 COMPARISON: CT 10/13/2020 HISTORY: 79-year-old male Dysarthria, ?seizure. TECHNIQUE: Multiplanar, multisequence images of the brain and brainstem were acquired without IV con trast. Diffusion weighted imaging is performed. Fast brain protocol was utilized. FINDINGS: No evidence for acute infarction, hemorrhage, mass, mass effect, midline shift, herniation, effacemen t of basal cisterns, or extra-axial fluid collection. There is moderate generalized atrophy. Mild ventriculomegaly secondary to central cerebral atrophy. E van's ratio of 0.38. Major intracranial flow voids are intact. T2/FLAIR weighted sequences show patchy confluent white matter bright signal change. Incidental small hippocampal sulcal remnant cysts on the right. No abnormal bright signal within the mesial temporal lobe on either side. Midline structures demonstrate normal morphology. The craniocervical junction is normal. The visualized sinuses are clear and the globes are intact. IMPRESSION: 1. Moderate generalized atrophy. There is mild hydrocephalus probably in part due to central cerebral atrophy. Imer's ratio is 0.38. Correlate to exclude a component of NPH. 2. Moderate confluent changes of chronic small vessel ischemic disease. 3. No acute intracranial abnormality seen.
--- NOTE | 2020-10-15 14:37 | ECHOF ---
Referral Reason:nsvt MEASUREMENTS -------- HEIGHT: 175.3 cm WEIGHT: 85.3 kg BP: IVSd: 1.3 cm (0.6 - 1.1) LVIDd: 4.1 cm (3.9 - 5.3) LVPWd: 1.0 cm (0.6 - 1.1) IVSs: 1.5 cm LVIDs: 3.6 cm LVPWs: 1.5 cm LAESV Index (A-L): 61.16 ml/m Ao Diam: 3.3 cm (2.0 - 3.7) AV Cusp: 0.7 cm (1.5 - 2.6) MV EXCURSION: 18.742 mm (> 18.000) MV EF SLOPE: 75 mm/s (70 - 150) EPSS: 0.2 cm AV maxP.10 mmHg AV meanP.92 mmHg AR PHT: 522 ms RAP: 5.00 mmHg RVSP: 25.51 mmHg FINDINGS -------- Atrial fibrillation. This was a technically good study. The left ventricular size is normal. There is mild concentric left ventricular hypertrophy. Overa ll left ventricular systolic function is mild-moderately impaired with, an EF between 40 - 45 %. The right ventricle is normal in size. LA is severely dilated >40 ml/m2 The right atrial size is normal. There is mild aortic regurgitation. There is [id number] aortic stenosis present. Peak/ashly n gradient across the Aortic Valve is 40.10mmHg / 25.92mmHg. Mild mitral annular calcification present. Mild mitral regurgitation is present. Mild tricuspid regurgitation present. Right ventricular systolic pressure is normal at < 35 mmHg. Trace/mild (physiologic) pulmonic regurgitation. The aortic root size is normal. There is no pericardial effusion. CONCLUSIONS -------- 1. The left ventricular size is normal. 2. There is mild concentric left ventricular hypertrophy. 3. Overall left ventricular systolic function is mild-moderately impaired with, an EF between 40 - 45 %. 4. The right ventricle is normal in size. 5. LA is severely dilated >40 ml/m2 6. The right atrial size is normal. 7. There is mild aortic regurgitation. 8. There is [id number] aortic stenosis present. 9. Peak/mean gradient across the Aortic Valve is 40.10mmHg / 25.92mmHg. 10. Mild mitral annular calcification present. 11. Mild mitral regurgitation is present. 12. Mild tricuspid regurgitation present. 13. Trace/mild (physiologic) pulmonic regurgitation. 14. The aortic root size is normal. 15. There is no pericardial effusion. OPEN CUT EXAMINER: Farzaneh Vaughan RDCS
[2020-10-15] MEDS: COLESTIPOL HCL 1 GM PO SCH (15:08)
[2020-10-15] MEDS: SODIUM CHLORIDE 0.9% 1,000 ML IV SCH (16:25)
--- NOTE | 2020-10-15 17:29 | P.PN ---
Subjective Progress Note Date: 10/15/20 The patient is an 79-year-old male who is seen in neurologic follow-up on October 15, 2020, via teleneurology. The patient states that he is sleepy today. He says that he slept very poorly last night. He is alone in the room at the time of the evaluation. Chart is reviewed. Recent imaging and labs are reviewed. Objective - Vital Signs Vital signs: Vital Signs Temp 97.9 F 10/15/20 05:00 Pulse 100 10/15/20 05:00 Resp 20 10/15/20 05:00 BP 150/97 10/15/20 05:00 Pulse Ox 96 10/15/20 05:00 Intake & Output 10/14/20 10/15/20 10/15/20 18:59 06:59 18:59 Intake Total 590 Balance 590 Intake: Oral 590 Other: # Voids 2 1 # Bowel Movements 1 1 - Exam Gen.: The patient is reclining in the bed. He is in no acute distress. He is very hard of hearing. HEENT: Head is atraumatic, normocephalic. Fundus not visualized. There is no scleral icterus. Neurological examination Mental status: The patient is awake and oriented to his name, date of , location and state of residence. He incorrectly reports his age to be 80. He says "I just had a birthday". Speech is dysarthric. Cranial nerves: Pupils are equal, round and reactive to light. Visual infante are not assessed. There is no obvious facial asymmetry. Hearing is diminished. Uvula and palate are midline. Tongue protrudes midline. Coordination: There is an essential tremor of the upper extremities, L>R. The patient is able to perform finger to nose testing. There is mild bradykinesia. - Labs CBC & Chem 7: 10/14/20 06:21 10/14/20 06:21 Labs: Abnormal Lab Results - Last 24 Hours (Table) 10/14/20 Range/Units 06:21 Potassium 3.4 L (3.5-5.5) mmol/L Chloride 110 H (96-109) mmol/L Calcium 8.1 L (8.7-10.3) mg/dL Assessment and Plan Assessment: 1. Reported possible seizure 2. 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 History of dysarthria Plan: 1. MRI of the brain has been reviewed. There is no sign of acute hemorrhage or infarct. 2. Continue current medications 3. Follow up with neurology as an outpatient for further workup regarding Parkinson's disease 4. The patient is neurologically stable for discharge
[2020-10-15] MEDS: MELATONIN 5 MG TABLET PO SCH (19:57)
[2020-10-15] MEDS: RIVAROXABAN 15 MG TAB PO SCH (19:57)
[2020-10-15] MEDS: QUEtiapine 25 MG TAB PO SCH (19:57)
[2020-10-15] MEDS: ATORVASTATIN 40 MG TAB PO SCH (19:57)
[2020-10-16] MEDS: busPIRone HCl 5 MG TAB PO SCH (08:48)
[2020-10-16] MEDS: FINASTERIDE 5 MG TAB PO SCH (08:49)
[2020-10-16] MEDS: FOLIC ACID 1 MG TAB PO SCH (08:49)
[2020-10-16] MEDS: CYANOCOBALAMIN 500 MCG TAB PO SCH (08:49)
[2020-10-16] MEDS: SACUBITRIL/VALSARTAN 24 MG-26 MG TABLET PO SCH ×2 (08:49→17:21)
[2020-10-16] MEDS: PANTOPRAZOLE 40 MG TABLET PO SCH (08:49)
[2020-10-16] MEDS: ESCITALOPRAM 20 MG TAB PO SCH (08:49)
[2020-10-16] MEDS: THIAMINE 100 MG TAB PO SCH (08:50)
[2020-10-16] MEDS: VIT A,C & E-LUTEIN-MINERALS 1 EACH TAB PO SCH ×2 (08:51→17:21)
[2020-10-16] MEDS: CARBIDOPA-LEVODOPA 25-100 MG 1 EACH TAB PO SCH ×2 (08:52→20:05)
[2020-10-16] MEDS: METOPROLOL SUCCINATE (ER) 50 MG TAB.ER.24H PO SCH (08:52)
--- NOTE | 2020-10-16 09:35 | P.PN ---
Subjective Progress Note Date: 10/16/20 Principal diagnosis: Nonsustained ventricular tachycardia This is a very pleasant 79-year-old gentleman with known permanent atrial fibrillation as well as cardiomyopathy who was admitted to the hospital from an extended care facility with a change in mental status and we consulted to see the patient for 1 episode of nonsustained ventricular tachycardia yesterday. At that point the patient was started on Toprol-XL. He was on metoprolol tartrate before. Also I obtain an echocardiogram which revealed mildly impaired LV function was EF around 40-45% with aortic stenosis. The patient was seen today as a follow-up. He continues to have a change in mental status. 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 At the same time his potassium came in to be low. I recommended continue the current medical regimen including the current dose of Toprol-XL and replace his potassium. No need for any further cardiac workup at this point. We'll follow-up with the patient on when necessary case Objective - Vital Signs Vital signs: Vital Signs Temp 98.3 F 10/16/20 05:00 Pulse 96 10/16/20 05:00 Resp 20 10/16/20 05:00 BP 179/90 10/16/20 05:00 Pulse Ox 97 10/16/20 05:00 Intake & Output 10/15/20 10/16/20 10/16/20 18:59 06:59 18:59 Intake Total 240 200 Balance 240 200 Intake: Oral 240 200 Other: # Voids 3 3 # Bowel Movements 1 - Constitutional General appearance: Present: no acute distress - Respiratory Respiratory: bilateral: diminished - Cardiovascular Rhythm: irregularly irregular Heart sounds: normal: S1, S2 Abnormal Heart Sounds: Present: systolic murmur - Labs CBC & Chem 7: 10/14/20 06:21 10/14/20 06:21 Assessment and Plan Assessment: Assessment #1 permanent atrial fibrillation was controlled heart rate #2 nonsustained ventricular tachycardia #3 multiple episodes of sinus pauses in the oil lease 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
[2020-10-16] MEDS: COLESTIPOL HCL 1 GM PO SCH (12:26)
--- NOTE | 2020-10-16 13:23 | P.PN ---
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 79-year-old male patient with history of atrial fibrillation, CHF/cardiomyopathy transferred to ER from [facility] facility after patient developed an episode of what appeared to be a generalized tonic seizure followed by change in mental status; family also reported weakness of right upper extremity consistent with history of lacunar infarct previously; patient was admitted to the hospital for further neurological evaluation 10/14/2020 Patient is seen and evaluated in room at bedside; per nursing staff patient had an episode of almost fall while he was reaching out of bed with arms extended but no reports of any seizure activity; patient did have an episode of nonsustained V. tach while sleeping; no further episodes on the monitor Vital signs are stable with a temperature of 98, pulse 69, respirations 16 and blood pressure 140/91 with SpO2 of 94% Lab review shows WBC of 5.5, hemoglobin of 9.5, hematocrit 98.6 platelet count o f 155; sodium 144, potassium 3.4, BUN of 20 with creatinine of 1.1 Neurology on board and recommending an EEG for questionable onset seizures Patient is started on a trial of Sinemet 18743 one tablet twice a day PT/OT recommendations are pending Objective - Vital Signs Vital signs: Vital Signs Temp 98 F 10/14/20 07:45 Pulse 69 10/14/20 07:45 Resp 16 10/14/20 07:45 BP 140/91 10/14/20 07:45 Pulse Ox 94 L 10/14/20 07:45 Intake & Output 10/13/20 10/14/20 10/14/20 18:59 06:59 18:59 Intake Total 480 118 Balance 480 118 Weight 85.275 kg 85.275 kg Intake: Oral 480 118 Other: # Voids 2 - Exam General appearance: Present: average body habitus, cooperative, no acute distress Neck: Present: normal ROM. Absent: lymphadenopathy, rigidity, thyromegaly Carotids: negative: bruit present Thyroid: bilateral: normal size, negative: enlarged, nodule Respiratory: bilateral: CTA, negative: rales, rhonchi, wheezing Cardiovascular : regular; normal: S1, S2 General gastrointestinal: Present: normal bowel sounds, soft. Absent: distended, organomegaly, tenderness Integumentary: Present: normal turgor. Absent: jaundiced, rash, ulcer Neurologic: Present: CNII-XII intact. Absent: focal deficits Musculoskeletal: Present: gait normal, strength equal bilaterally - Labs CBC & Chem 7: 10/14/20 06:21 10/14/20 06:21 Labs: Abnormal Lab Results - Last 24 Hours (Table) 10/13/20 10/13/20 10/14/20 Range/Units 15:21 15:21 06:21 RBC 3.42 L 3.32 L (4.30-5.90) m/uL Hgb 9.9 L D 9.5 L (13.0-17.5) gm/dL Hct 29.1 L 28.6 L (39.0-53.0) % Lymphocytes # 0.7 L 0.8 L (1.0-4.8) k/uL Potassium (3.5-5.5) mmol/L Chloride (96-109) mmol/L BUN 21 H (9-20) mg/dL Creatinine 1.28 H (0.66-1.25) mg/dL Glucose 100 H (74-99) mg/dL Calcium 8.3 L (8.4-10.2) mg/dL Total Protein 5.3 L (6.3-8.2) g/dL Albumin 3.0 L (3.5-5.0) g/dL 10/14/20 Range/Units 06:21 RBC (4.30-5.90) m/uL Hgb (13.0-17.5) gm/dL Hct (39.0-53.0) % Lymphocytes # (1.0-4.8) k/uL Potassium 3.4 L (3.5-5.5) mmol/L Chloride 110 H (96-109) mmol/L BUN (9-20) mg/dL Creatinine (0.66-1.25) mg/dL Glucose (74-99) mg/dL Calcium 8.1 L (8.4-10.2) mg/dL Total Protein (6.3-8.2) g/dL Albumin (3.5-5.0) g/dL Assessment and Plan Assessment: 1. Possible new onset seizure activity - Neurology is following and patient an event EEG which revealed background slowing suggestive of mild to moderate encephalopathy; no focal slowing or epileptiform discharges or seizures noted; family requesting to hold off on antiseizure medications at this time; MRI of the brain is ordered for further evaluation - Patient will remain on seizure precautions 2. Atypical Parkinson's disease; patient has been started on Sinemet 48621 one tablet twice a day with recommendations to escalate therapy after close monitoring as needed 3. Sleep disorder/agitation; patient has been started on melatonin 5 mg daily along with Seroquel 25 mg daily at bedtime; continue to monitor 4. Chronic atrial fibrillation; patient remains rate controlled on beta joe therapy; continue with anticoagulation with Xarelto 5. Acute on chronic kidney disease; patient remains on slow IV fluid hydration; we will monitor strict EDWARD's, daily weights, renal function and electrolytes; avoid nephrotoxic agents 6. Hyperlipidemia; continue with Lipitor 40 mg by mouth daily at bedtime 7. Hypertension; stable on metoprolol; Entresto 2426 one twice a day 8. BPH/urinary retention; Proscar 5 mg daily DVT prophylaxis; SCDs/Xarelto CODE STATUS; full code
--- NOTE | 2020-10-16 13:26 | P.PN ---
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 79-year-old male patient with history of atrial fibrillation, CHF/cardiomyopathy transferred to ER from [facility] facility after patient developed an episode of what appeared to be a generalized tonic seizure followed by change in mental status; family also reported weakness of right upper extremity consistent with history of lacunar infarct previously; patient was admitted to the hospital for further neurological evaluation 10/14/2020 Patient is seen and evaluated in room at bedside; per nursing staff patient had an episode of almost fall while he was reaching out of bed with arms extended but no reports of any seizure activity; patient did have an episode of nonsustained V. tach while sleeping; no further episodes on the monitor Vital signs are stable with a temperature of 98, pulse 69, respirations 16 and blood pressure 140/91 with SpO2 of 94% Lab review shows WBC of 5.5, hemoglobin of 9.5, hematocrit 98.6 platelet count of 155; sodium 144, potassium 3.4, BUN of 20 with creatinine of 1.1 Neurology on board and recommending an EEG for questionable onset seizures Patient is started on a trial of Sinemet 88330 one tablet twice a day PT/OT recommendations are pending 10/15/2020 Patient is seen and evaluated with daughter at bedside who had numerous questio ns about patient's workup and prognosis; all of family's questions were answered to their satisfaction; patient had an episode of nonsustained V. tach Vital signs are stable with a temperature of 97.9, pulse 100, respiration 20, blood pressure 150/97 and O2 saturation of 96% Patient evaluated by cardiology for nonsustained V. tach; echo reveals EF of 40- 45%; cardiology recommending to switch metoprolol tartrate to Toprol-XL and supplement potassium; continue with telemetry monitoring; no further workup is recommended Per patient's family, patient seems to have functional improvement with Sinemet; we will continue with current dose; MRI of the brain is unremarkable; patient is recommended EMG/nerve conduction study for further workup on motor neuron disease; this was discussed with patient's family at bedside Objective - Vital Signs Vital signs: Vital Signs Temp 97.9 F 10/15/20 05:00 Pulse 76 10/15/20 08:40 Resp 20 10/15/20 08:40 BP 150/97 10/15/20 05:00 Pulse Ox 96 10/15/20 05:00 Intake & Output 10/14/20 10/15/20 10/15/20 18:59 06:59 18:59 Intake Total 590 Balance 590 Intake: Oral 590 Other: # Voids 2 1 # Bowel Movements 1 1 - Exam General appearance: Present: average body habitus, cooperative, no acute distress Neck: Present: normal ROM. Absent: lymphadenopathy, rigidity, thyromegaly Carotids: negative: bruit present Thyroid: bilateral: normal size, negative: enlarged, nodule Respiratory: bilateral: CTA, negative: rales, rhonchi, wheezing Cardiovascular : regular; normal: S1, S2 General gastrointestinal: Present: normal bowel sounds, soft. Absent: distended, organomegaly, tenderness Integumentary: Present: normal turgor. Absent: jaundiced, rash, ulcer Neurologic: Present: CNII-XII intact. Absent: focal deficits Musculoskeletal: Present: gait normal, strength equal bilaterally - Labs CBC & Chem 7: 10/14/20 06:21 10/14/20 06:21 Assessment and Plan Assessment: 1. Possible new onset seizure activity - Neurology is following and patient an event EEG which revealed background slowing suggestive of mild to moderate encephalopathy; no focal slowing or epileptiform discharges or seizures noted; family requesting to hold off on antiseizure medications at this time; MRI of the brain is ordered for further evaluation - Patient will remain on seizure precautions 2. Atypical Parkinson's disease; patient has been started on Sinemet 16145 one tablet twice a day with recommendations to escalate therapy after close monitoring as needed 3. Sleep disorder/agitation; patient has been started on melatonin 5 mg daily along with Seroquel 25 mg daily at bedtime; continue to monitor 4. Chronic atrial fibrillation; patient remains rate controlled on beta joe therapy; continue with anticoagulation with Xarelto 5. Acute on chronic kidney disease; patient remains on slow IV fluid hydration; we will monitor strict EDWARD's, daily weights, renal function and electrolytes; avoid nephrotoxic agents 6. Hyperlipidemia; continue with Lipitor 40 mg by mouth daily at bedtime 7. Hypertension; stable on metoprolol; Entresto 2426 one twice a day 8. BPH/urinary retention; Proscar 5 mg daily DVT prophylaxis; SCDs/Xarelto CODE STATUS; full code
[2020-10-16 14:50] LABS: African American GFR (CKD) 80 (>60 ml/min/1.73 sqM); Anion Gap 7 mmol/L; Blood Urea Nitrogen 17 mg/dL (9-20); Calcium 8.6 mg/dL (8.4-10.2); Carbon Dioxide 29 mmol/L (22-30); Chloride 105 mmol/L (98-107); Glucose 90 mg/dL (74-99); Non-African American GFR(CKD) 70 (>60 ml/min/1.73 sqM); Potassium 3.6 mmol/L (3.5-5.1); Sodium 141 mmol/L (137-145)
[2020-10-16] MEDS: QUEtiapine 25 MG TAB PO SCH (17:21)
[2020-10-16] MEDS: MELATONIN 5 MG TABLET PO SCH (17:21)
[2020-10-16] MEDS: SODIUM CHLORIDE 0.9% 1,000 ML IV SCH (17:21)
[2020-10-16] MEDS: RIVAROXABAN 15 MG TAB PO SCH (20:05)
[2020-10-16] MEDS: ATORVASTATIN 40 MG TAB PO SCH (20:05)
--- NOTE | 2020-10-17 04:21 | P.PN ---
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 79-year-old male patient with history of atrial fibrillation, CHF/cardiomyopathy transferred to ER from [facility] facility after patient developed an episode of what appeared to be a generalized tonic seizure followed by change in mental status; family also reported weakness of right upper extremity consistent with history of lacunar infarct previously; patient was admitted to the hospital for further neurological evaluation 10/14/2020 Patient is seen and evaluated in room at bedside; per nursing staff patient had an episode of almost fall while he was reaching out of bed with arms extended but no reports of any seizure activity; patient did have an episode of nonsustained V. tach while sleeping; no further episodes on the monitor Vital signs are stable with a temperature of 98, pulse 69, respirations 16 and blood pressure 140/91 with SpO2 of 94% Lab review shows WBC of 5.5, hemoglobin of 9.5, hematocrit 98.6 platelet count of 155; sodium 144, potassium 3.4, BUN of 20 with creatinine of 1.1 Neurology on board and recommending an EEG for questionable onset seizures Patient is started on a trial of Sinemet 82099 one tablet twice a day PT/OT recommendations are pending 10/15/2020 Patient is seen and evaluated with daughter at bedside who had numerous questio ns about patient's workup and prognosis; all of family's questions were answered to their satisfaction; patient had an episode of nonsustained V. tach Vital signs are stable with a temperature of 97.9, pulse 100, respiration 20, blood pressure 150/97 and O2 saturation of 96% Patient evaluated by cardiology for nonsustained V. tach; echo reveals EF of 40- 45%; cardiology recommending to switch metoprolol tartrate to Toprol-XL and supplement potassium; continue with telemetry monitoring; no further workup is recommended Per patient's family, patient seems to have functional improvement with Sinemet; we will continue with current dose; MRI of the brain is unremarkable; patient is recommended EMG/nerve conduction study for further workup on motor neuron disease; this was discussed with patient's family at bedside 10/16/2020 The patient was seen and evaluated in room for follow-up. He continues to have a change in mental status. 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 Lab review reveals low potassium, which is supplemented. Cardiology aware and recommended to continue current medical regimen including the current dose of Toprol-XL and replace his potassium. No need for any further cardiac workup at this point. Patient has been cleared by Neurology for dc with out patient follow up. Objective - Vital Signs Vital signs: Vital Signs Temp 98.3 F 10/16/20 05:00 Pulse 96 10/16/20 05:00 Resp 20 10/16/20 05:00 BP 179/90 10/16/20 05:00 Pulse Ox 97 10/16/20 05:00 Intake & Output 10/15/20 10/16/20 10/16/20 18:59 06:59 18:59 Intake Total 240 200 Output Total 300 Balance 240 200 -300 Intake: Oral 240 200 Output: Urine 300 Other: # Voids 3 3 1 # Bowel Movements 1 1 - Exam General appearance: Present: average body habitus, cooperative, no acute distress Neck: Present: normal ROM. Absent: lymphadenopathy, rigidity, thyromegaly Carotids: negative: bruit present Thyroid: bilateral: normal size, negative: enlarged, nodule Respiratory: bilateral: CTA, negative: rales, rhonchi, wheezing Cardiovascular : regular; normal: S1, S2 General gastrointestinal: Present: normal bowel sounds, soft. Absent: distended, organomegaly, tenderness Integumentary: Present: normal turgor. Absent: jaundiced, rash, ulcer Neurologic: Present: CNII-XII intact. Absent: focal deficits Musculoskeletal: Present: gait normal, strength equal bilaterally - Labs CBC & Chem 7: 10/14/20 06:21 10/16/20 14:06 Assessment and Plan Assessment: 1. Possible new onset seizure activity - Neurology is following and patient an event EEG which revealed background slowing suggestive of mild to moderate encephalopathy; no focal slowing or epileptiform discharges or seizures noted; family requesting to hold off on antiseizure medications at this time; MRI of the brain is ordered for further evaluation - Patient will remain on seizure precautions 2. Atypical Parkinson's disease; patient has been started on Sinemet 58673 one tablet twice a day with recommendations to escalate therapy after close monitoring as needed 3. Sleep disorder/agitation; patient has been started on melatonin 5 mg daily along with Seroquel 25 mg daily at bedtime; continue to monitor 4. Chronic atrial fibrillation; patient remains rate controlled on beta joe therapy; continue with anticoagulation with Xarelto 5. Acute on chronic kidney disease; patient remains on slow IV fluid hydration; we will monitor strict EDWARD's, daily weights, renal function and electrolytes; avoid nephrotoxic agents 6. Hyperlipidemia; continue with Lipitor 40 mg by mouth daily at bedtime 7. Hypertension; stable on metoprolol; Entresto 2426 one twice a day 8. BPH/urinary retention; Proscar 5 mg daily DVT prophylaxis; SCDs/Xarelto CODE STATUS; full code
[2020-10-17 04:54] VITALS: BP 127/77; RESP 14; TEMP 97.7
[2020-10-17 06:05] LABS: Basophils # (A) 0.1 k/uL (0-0.2); Basophils % (A) 1 %; Eosinophils # (A) 0.1 k/uL (0-0.7); Eosinophils % (A) 2 %; HCT 30.4 % (39.0-53.0); HGB 9.8 gm/dL (13.0-17.5); Hypochromasia Moderate; Lymphocytes # (A) 0.9 k/uL (1.0-4.8); Lymphocytes % (A) 14 %; MCH 27.6 pg (25.0-35.0); MCHC 32.1 g/dL (31.0-37.0); MCV 85.9 fL (80.0-100.0); Mean Platelet Volume 7.6; Monocytes # (A) 0.3 k/uL (0-1.0); Monocytes % (A) 5 %; Neutrophils # (A) 4.9 k/uL (1.3-7.7); Neutrophils % (A) 77 %; Platelet Count 187 k/uL (150-450); Poikilocytosis Slight; RBC 3.54 m/uL (4.30-5.90); WBC 6.4 k/uL (3.8-10.6)
[2020-10-17] MEDS: busPIRone HCl 5 MG TAB PO SCH (08:21)
[2020-10-17] MEDS: FINASTERIDE 5 MG TAB PO SCH (08:21)
[2020-10-17] MEDS: THIAMINE 100 MG TAB PO SCH (08:21)
[2020-10-17] MEDS: METOPROLOL SUCCINATE (ER) 50 MG TAB.ER.24H PO SCH (08:22)
[2020-10-17] MEDS: VIT A,C & E-LUTEIN-MINERALS 1 EACH TAB PO SCH ×2 (08:22→17:43)
[2020-10-17] MEDS: ESCITALOPRAM 20 MG TAB PO SCH (08:22)
[2020-10-17] MEDS: PANTOPRAZOLE 40 MG TABLET PO SCH (08:22)
[2020-10-17] MEDS: CYANOCOBALAMIN 500 MCG TAB PO SCH (08:22)
[2020-10-17] MEDS: CARBIDOPA-LEVODOPA 25-100 MG 1 EACH TAB PO SCH (08:23)
[2020-10-17] MEDS: FOLIC ACID 1 MG TAB PO SCH (08:23)
[2020-10-17] MEDS: SACUBITRIL/VALSARTAN 24 MG-26 MG TABLET PO SCH ×2 (08:23→17:43)
[2020-10-17 09:25] LABS: African American GFR (CKD) 72.6 (60.0-200.0); Anion Gap 7.9 mmol/L (4.00-12.00); BUN/Creat Ratio 17.27 Ratio (12.00-20.00); Calcium 7.7 mg/dL (8.7-10.3); Carbon Dioxide 28.1 mmol/L (21.6-31.8); Non-African American GFR(CKD) 62.6 (60.0-200.0); Potassium 3.4 mmol/L (3.5-5.5)
[2020-10-17 11:09] VITALS: PULSE 87
[2020-10-17] MEDS ORDERED: POTASSIUM CHLORIDE ER 20 MEQ TAB.ER PO STA (11:40)
[2020-10-17] MEDS: COLESTIPOL HCL 1 GM PO SCH (11:55)
--- NOTE | 2020-10-17 13:39 | P.DS ---
Providers Date of admission: 10/13/20 16:24 Expected date of discharge: 10/17/20 Attending physician: Fitz Roach Consults: 10/13/20 16:25 Consult Physician Routine Consulting Provider: Gus Demarco Consult Reason/Comments: new onset seizure Do you want consulting provider notified?: Yes Primary care physician: Rand Hilario Hospital Course: Final diagnosis Nonsustained ventricular tachycardia Chronic atrial fibrillation Sleep disorder uses a CPAP Chronic right knee pain Possible New-onset seizure activity ruled out Possible atypical Parkinson's disease Acute on chronic kidney disease Hyperlipidemia Hypertension Benign prostatic hypertrophy/urinary retention DVT prophylaxis Full code Discharge disposition Patient is being discharged in a stable condition with guarded prognosis to [facility] for continued PT/OT therapy. Patient will follow-up with Dr. Neri in the outpatient setting upon discharge. Patient will also follow-up with primary care provider once discharged from [facility] with Dr. Rand hilario. Patient to follow up with neurology outpatient. Total time taken is greater than 35 minutes. Hospital course This is an 79-year-old male who was recently admitted with a possible episode of generalized tonic seizure along with change in mental status and weakness of the right upper extremity and was being closely monitored. Patient was seen and evaluated by neurology recommending outpatient neurological follow-up as needed. Patient underwent CT of the brain which was negative along with MRI of the brain showing moderate generalized atrophy, moderate confluent changes of chronic small vessel ischemic disease, and no acute intracranial abnormalities seen. Patient was also seen and evaluated by cardiology for an episode of non- sustained V. tach while sleeping and was asymptomatic and changes to metoprolol have been made and will continue current medications. Patient continues to be weak and needs continued PT/OT therapy. Patient continues to have generalized aches and pains secondary to osteoarthritis along with right knee pain and an x- ray was done which was negative for fractures. Patient is requesting to return home with daughter at the bedside. Currently no reports of chest pain, shortness of breath, or palpitations. Patient is afebrile. No reports of nausea or vomiting and patient is tolerating diet. Patient will be going to [facility] today. On exam vital signs are stable. Cardio S1, S2 are muffled. Respiratory system shows diminished breath sounds at the bases with no wheezing or rhonchi noted. Abdomen is soft and nontender. Nervous system shows diffuse weakness. Please refer to medication reconciliation sheet for a list of medications. Patient Condition at Discharge: Stable Plan - Discharge Summary Discharge Rx Participant: No New Discharge Prescriptions: New Carbidopa-Levodopa 25-100 mg [Sinemet 25-100 mg] 1 each PO BID tab Metoprolol Succinate (ER) [Toprol XL] 50 mg PO DAILY tab.er.24h Melatonin 5 mg PO DAILY@1800 tablet Continue Colestipol HCl [Colestid] 2 gm PO DAILY@1200 Atorvastatin Calcium [Lipitor] 40 mg PO HS@2100 Ipratropium [place] 0.06%Nasal [Atrovent Nasal 0.06%] 2 spray EA NOSTRIL TID PRN PRN Reason: Congestion Sacubitril/Valsartan [Entresto 24 mg-26 mg Tablet] 1 tab PO BID@0800,1700 Cyanocobalamin (Vitamin B-12) [Vitamin B-12] 1,000 mcg PO DAILY@0800 Na Phos,M-B/Na Phos,Di-Ba [Fleet Adult] 133 ml RECTAL ONCE PRN PRN Reason: Constipation Vit C/E/Zn/Coppr/Lutein/Zeaxan [Preservision Areds 2 Softgel] 1 cap PO BID@0800,1700 Thiamine [Vitamin B-1] 100 mg PO DAILY@0800 Folic Acid 1 mg PO DAILY@0800 Calcium Polycarbophil [Fibercon] 625 mg PO DAILY@0800 Finasteride [Proscar] 5 mg PO DAILY@0800 Escitalopram [Lexapro] 20 mg PO DAILY@0800 Loratadine 10 mg PO DAILY PRN PRN Reason: SNEEZING bisacodyL [Bisacodyl] 10 mg RECTAL DAILY PRN PRN Reason: Constipation Acetaminophen Tab [Tylenol] 650 mg PO Q4H PRN PRN Reason: Pain Or Fever > 100.5 Rivaroxaban [Xarelto] 15 mg PO HS@2100 QUEtiapine [SEROquel] 25 mg PO HS@2100 Pantoprazole Sodium [Protonix] 40 mg PO DAILY@0800 busPIRone HCl [Buspar] 5 mg PO DAILY@0800 Magnesium Hydroxide [Milk of Magnesia Concentrate] 7,200 mg PO DAILY PRN PRN Reason: Constipation Discontinued Metoprolol Tartrate 25 mg PO BID@0800,1700 Discharge Medication List Atorvastatin Calcium [Lipitor] 40 mg PO HS@2100 05/24/21 [History] Colestipol HCl [Colestid] 2 gm PO DAILY@1200 09/26/20 [History] Cyanocobalamin (Vitamin B-12) [Vitamin B-12] 1,000 mcg PO DAILY@0809/26/20 [History] Escitalopram [Lexapro] 20 mg PO DAILY@79909/26/20 [History] Finasteride [Proscar] 5 mg PO DAILY@79909/26/20 [History] Ipratropium [place] 0.06%Nasal [Atrovent Nasal 0.06%] 2 spray EA NOSTRIL TID PRN 09/26/20 [History] Sacubitril/Valsartan [Entresto 24 mg-26 mg Tablet] 1 tab PO BID@0800,1700 09/26/20 [History] Acetaminophen Tab [Tylenol] 650 mg PO Q4H PRN 10/13/20 [History] Calcium Polycarbophil [Fibercon] 625 mg PO DAILY@79910/13/20 [History] Folic Acid 1 mg PO DAILY@79910/13/20 [History] Loratadine 10 mg PO DAILY PRN 10/13/20 [History] Magnesium Hydroxide [Milk of Magnesia Concentrate] 7,200 mg PO DAILY PRN 10/13/20 [History] Na Phos,M-B/Na Phos,Di-Ba [Fleet Adult] 133 ml RECTAL ONCE PRN 10/13/20 [History] Pantoprazole Sodium [Protonix] 40 mg PO DAILY@79910/13/20 [History] QUEtiapine [SEROquel] 25 mg PO HS@209910/13/20 [History] Rivaroxaban [Xarelto] 15 mg PO HS@209910/13/20 [History] Thiamine [Vitamin B-1] 100 mg PO DAILY@79910/13/20 [History] Vit C/E/Zn/Coppr/Lutein/Zeaxan [Preservision Areds 2 Softgel] 1 cap PO BID@0800,1700 10/13/20 [History] bisacodyL [Bisacodyl] 10 mg RECTAL DAILY PRN 10/13/20 [History] busPIRone HCl [Buspar] 5 mg PO DAILY@0821 [History] Carbidopa-Levodopa 25-100 mg [Sinemet 25-100 mg] 1 each PO BID tab 10/17/20 [Rx] Melatonin 5 mg PO DAILY@1800 tablet 10/17/20 [Rx] Metoprolol Succinate (ER) [Toprol XL] 50 mg PO DAILY tab.er.24h 10/17/20 [Rx] Follow up Appointment(s)/Referral(s): Ene Roman MD [REFERRING] - 2 Weeks Rand Hilario MD [Primary Care Provider] - 1-2 days Patient Instructions/Handouts: Seizure/Epilepsy Discharge Instructions & Follow-Up Activity/Diet/Wound Care/Special Instructions: Patient is going to [facility] Continue with dysphagia 3 chopped diet and may have breads Activity as tolerated Follow-up with primary care provider upon discharge Follow-up neurology outpatient Continue medications as prescribed Discharge Disposition: TRANSFER TO SNF/ECF
--- NOTE | 2020-10-17 13:43 | XR ---
EXAMINATION TYPE: XR knee limited RT DATE OF EXAM: 10/17/2020 CLINICAL HISTORY: Pain. TECHNIQUE: Portable frontal and crosstable lateral views of the right knee are obtained. COMPARISON: None. FINDINGS: There is no acute fracture/dislocation evident in the right knee. Mild tricompartment join t space loss. Posterior arterial vascular calcification. Increased density suprapatellar bursa suspic ious for moderate to large joint effusion. IMPRESSION: As above.
[2020-10-17] MEDS ORDERED: traMADol 50 MG TAB PO STA (14:33)
[2020-10-17] MEDS: SODIUM CHLORIDE 0.9% 1,000 ML IV SCH (17:30)
[2020-10-17] MEDS: MELATONIN 5 MG TABLET PO SCH (17:43)
[2020-10-17] MEDS: QUEtiapine 25 MG TAB PO SCH (17:44)
== END 2020-10-17 19:00 | DRG 309 ==
LOC: EC 14:59 → 5NMEDONC 16:24
PROVIDERS: ADMIT Hospitalist; ATTEND Hospitalist
DX: I47.2 Ventricular tachycardia (principal); N17.9 Acute kidney failure, unspecified; I42.9 Cardiomyopathy, unspecified; I13.0 Hypertensive heart and chronic kidney disease with heart failure and stage 1 through stage 4 chronic kidney disease, or unspecified chronic kidney disease; G93.40 Encephalopathy, unspecified; I69.351 Hemiplegia and hemiparesis following cerebral infarction affecting right dominant side; D62 Acute posthemorrhagic anemia; I48.20 Chronic atrial fibrillation, unspecified; N18.30 Chronic kidney disease, stage 3 unspecified; G89.29 Other chronic pain; Z20.822 Contact with and (suspected) exposure to COVID-19; M35.3 Polymyalgia rheumatica; G20 Parkinson's disease; I49.5 Sick sinus syndrome; R47.1 Dysarthria and anarthria; N40.1 Benign prostatic hyperplasia with lower urinary tract symptoms; R33.8 Other retention of urine; E78.5 Hyperlipidemia, unspecified; G47.30 Sleep apnea, unspecified; H91.93 Unspecified hearing loss, bilateral; G31.89 Other specified degenerative diseases of nervous system; M25.561 Pain in right knee; I48.21 Permanent atrial fibrillation; I35.0 Nonrheumatic aortic (valve) stenosis; I50.9 Heart failure, unspecified; M19.90 Unspecified osteoarthritis, unspecified site; Z87.891 Personal history of nicotine dependence; Z79.01 Long term (current) use of anticoagulants; Z88.8 Allergy status to other drugs, medicaments and biological substances; W19.XXXA Unspecified fall, initial encounter; Z79.899 Other long term (current) drug therapy; Z87.19 Personal history of other diseases of the digestive system
CPT/HCPCS: 36415; 70450; 70551; 71045; 80048; 80053; 82607; 82746; 83036; 83605; 83735; 84443; 85025; 85610; 85730; 87635; 93005; 93306; 94760; 95819; 99285

== ENCOUNTER 2020-11-17 06:20 | Inpatient (IN) | payer OTHER, MEDICARE ==
[2020-11-17 06:50] LABS: Basophils % (A) 1 %; Eosinophils # (A) 0.1 k/uL (0-0.7); Eosinophils % (A) 2 %; HCT 30.7 % (39.0-53.0); HGB 10.4 gm/dL (13.0-17.5); Hypochromasia Slight; Lymphocytes # (A) 0.7 k/uL (1.0-4.8); Lymphocytes % (A) 12 %; MCH 26.5 pg (25.0-35.0); MCHC 33.7 g/dL (31.0-37.0); Mean Platelet Volume 7.9; Monocytes # (A) 0.3 k/uL (0-1.0); Monocytes % (A) 5 %; Neutrophils # (A) 4.7 k/uL (1.3-7.7); Neutrophils % (A) 80 %; Platelet Count 170 k/uL (150-450); Poikilocytosis Slight; RDW 14.3 % (11.5-15.5); WBC 5.9 k/uL (3.8-10.6)
--- NOTE | 2020-11-17 06:52 | ED ---
Fall HPI - General Chief Complaint: Fall Stated Complaint: Fall Time Seen by Provider: 11/17/20 06:21 Source: patient, EMS Mode of arrival: EMS - History of Present Illness Initial Comments: Patient is an 79-year-old male presenting to the emergency department via EMS from [facility] after an unwitnessed fall. Staff states they found him on the bathroom floor. Patient states he did not lose consciousness, he spends a lot of time walking around and has a very unsteady gait. He states he did hit his head a little bit. He is on blood thinners, Xarelto clear to A. fib. He is complaining of some left hip pain. No belly pain, no chest pain or shortness of breath. He does not feel dizzy or lightheaded. He denies any neck pain. He has no further complaints at this time. Upon arrival to the ER his vitals are stable. - Related Data Home Medications Medication Instructions Recorded Confirmed Atorvastatin Calcium [Lipitor] 40 mg PO HS@2100 09/26/20 10/13/20 Colestipol HCl [Colestid] 2 gm PO DAILY@1200 09/26/20 10/13/20 Cyanocobalamin (Vitamin B-12) 1,000 mcg PO DAILY@0800 09/26/20 10/13/20 [Vitamin B-12] Escitalopram [Lexapro] 20 mg PO DAILY@0800 09/26/20 10/13/20 Finasteride [Proscar] 5 mg PO DAILY@0800 09/26/20 10/13/20 Ipratropium [place] 0.06%Nasal 2 spray EA NOSTRIL TID PRN 09/26/20 10/13/20 [Atrovent Nasal 0.06%] Sacubitril/Valsartan [Entresto 24 1 tab PO BID@0800,1700 09/26/20 10/13/20 mg-26 mg Tablet] Acetaminophen Tab [Tylenol] 650 mg PO Q4H PRN 10/13/20 10/13/20 Calcium Polycarbophil [Fibercon] 625 mg PO DAILY@0800 10/13/20 10/13/20 Folic Acid 1 mg PO DAILY@0800 10/13/20 10/13/20 Loratadine 10 mg PO DAILY PRN 10/13/20 10/13/20 Magnesium Hydroxide [Milk of 7,200 mg PO DAILY PRN 10/13/20 10/13/20 Magnesia Concentrate] Na Phos,M-B/Na Phos,Di-Ba [Fleet 133 ml RECTAL ONCE PRN 10/13/20 10/13/20 Adult] Pantoprazole Sodium [Protonix] 40 mg PO DAILY@0800 10/13/20 10/13/20 QUEtiapine [SEROquel] 25 mg PO HS@209910/13/20 10/13/20 Rivaroxaban [Xarelto] 15 mg PO HS@2100 10/13/20 10/13/20 Thiamine [Vitamin B-1] 100 mg PO DAILY@0800 10/13/20 10/13/20 Vit C/E/Zn/Coppr/Lutein/Zeaxan 1 cap PO BID@0800,1700 10/13/20 10/13/20 [Preservision Areds 2 Softgel] bisacodyL [Bisacodyl] 10 mg RECTAL DAILY PRN 10/13/20 10/13/20 busPIRone HCl [Buspar] 5 mg PO DAILY@0800 10/13/20 10/13/20 Previous Rx's Medication Instructions Recorded Carbidopa-Levodopa 25-100 mg 1 each PO BID tab 10/17/20 [Sinemet 25-100 mg] Melatonin 5 mg PO DAILY@1800 tablet 10/17/20 Metoprolol Succinate (ER) [Toprol 50 mg PO DAILY tab.er.24h 10/17/20 XL] traMADol HCl [Ultram] 50 mg PO BID 3 Days #12 tab 10/17/20 Allergies Allergy/AdvReac Type Severity Reaction Status Date / Time trospium [From [place]] Allergy Unknown Verified 11/17/20 09:54 [email or web address] [From Myrbetriq] AdvReac dark urine Verified 11/17/20 09:54 tamsulosin [From Flomax] AdvReac low blood Verified 11/17/20 09:54 pressure Review of Systems ROS Statement: Those systems with pertinent positive or pertinent negative responses have been documented in the HPI. ROS Other: All systems not noted in ROS Statement are negative. Past Medical History Past Medical History: Atrial Fibrillation, Chest Pain / Angina, Heart Failure, Dementia Additional Past Medical History / Comment(s): TIA History of Any Multi-Drug Resistant Organisms: None Reported Past Surgical History: Heart Catheterization Past Psychological History: Depression Smoking Status: Former smoker Past Alcohol Use History: Occasional Past Drug Use History: None Reported - Past Family History Father History Unknown: Yes Mother History Unknown: Yes General Exam - General Exam Comments Initial Comments: GENERAL: Patient is well-developed and well-nourished. Patient is nontoxic and in no acute distress. HEAD: Atraumatic, normocephalic. There are no hematomas. EYES: Pupils equal round and reactive to light, extraocular movements intact, sclera anicteric, conjunctiva are normal. Eyelids were unremarkable. ENT: TMs normal, nares patent, oropharynx clear without exudates. Moist mucous membranes. NECK: Normal range of motion, supple without lymphadenopathy or JVD. He has no midline tenderness. LUNGS: Unlabored respirations. Breath sounds clear to auscultation bilaterally and equal. No wheezes rales or rhonchi. HEART: Regular rate and rhythm without murmurs, rubs or gallops. ABDOMEN: Soft, nontender, normoactive bowel sounds. No guarding, no rebound. No masses appreciated. : Deferred MUSCULOSKELETAL: Patient seems to have some discomfort with left hip range of motion. I see no obvious deformity, no leg length discrepancy, he is neurovascular intact bilateral lower extremity. No clubbing or cyanosis. NEUROLOGICAL: Patient is alert and oriented x 3. Motor and sensory are also intact. Cranial nerves II through XII grossly intact. Symmetrical smile. Normal speech. PSYCH: Normal mood, normal affect. SKIN: Warm, Dry, normal turgor, no rashes or lesions noted. Limitations: no limitations Course Vital Signs 11/17/20 11/17/20 06:22 07:53 Temperature 98.0 F Pulse Rate 85 83 Respiratory 20 16 Rate Blood Pressure 144/102 139/106 O2 Sat by Pulse 95 98 Oximetry Medical Decision Making - Medical Decision Making Patient is a 79-year-old male here via EMS from [facility] after an unwitnessed fall the bathroom. He denies loss of consciousness. He is complaining of left hip pain and he did hit his head. He is on xarlto. Initial vitals are within normal limits. Labs are within normal limits except for potassium was low at 2.9. Did give patient oral potassium here. CT of the brain, C-spine showed no acute fractures or intracranial hemorrhage. CT of the left hip is compatible with a subtle nondisplaced subcapital fracture. I did speak with CHIDI Dumas, who is agreeable to admission with surgery possibly tomorrow. I will order preop labs, chest x-ray EKG. I will put on Dr. Rosario for preop clearance and medical management. Patient's family is in agreement with this plan of care. Case discussed with Dr. Ledesma. - Lab Data Result diagrams: 11/17/20 06:38 11/17/20 06:38 Lab Results 11/17/20 11/17/20 Range/Units 06:38 06:38 WBC 5.9 (3.8-10.6) k/uL RBC 3.90 L (4.30-5.90) m/uL Hgb 10.4 L (13.0-17.5) gm/dL Hct 30.7 L (39.0-53.0) % MCV 78.8 L D (80.0-100.0) fL MCH 26.5 (25.0-35.0) pg MCHC 33.7 (31.0-37.0) g/dL RDW 14.3 (11.5-15.5) % Plt Count 170 (150-450) k/uL MPV 7.9 Neutrophils % 80 % Lymphocytes % 12 % Monocytes % 5 % Eosinophils % 2 % Basophils % 1 % Neutrophils # 4.7 (1.3-7.7) k/uL Lymphocytes # 0.7 L (1.0-4.8) k/uL Monocytes # 0.3 (0-1.0) k/uL Eosinophils # 0.1 (0-0.7) k/uL Basophils # 0.0 (0-0.2) k/uL Hypochromasia Slight Poikilocytosis Slight Sodium 140 (137-145) mmol/L Potassium 2.9 L (3.5-5.1) mmol/L Chloride 105 (98-107) mmol/L Carbon Dioxide 31 H (22-30) mmol/L Anion Gap 4 mmol/L BUN 18 (9-20) mg/dL Creatinine 0.99 (0.66-1.25) mg/dL Est GFR (CKD-EPI)AfAm 82 (>60 ml/min/1.73 sqM) Est GFR (CKD-EPI)NonAf 71 (>60 ml/min/1.73 sqM) Glucose 88 (74-99) mg/dL Calcium 7.9 L (8.4-10.2) mg/dL Total Bilirubin 0.9 (0.2-1.3) mg/dL AST 15 L (17-59) U/L ALT <6 (4-49) U/L Alkaline Phosphatase 97 (38-126) U/L Total Protein 5.1 L (6.3-8.2) g/dL Albumin 2.8 L (3.5-5.0) g/dL Disposition Clinical Impression: Fall, Subcapital fracture of left hip, Hypokalemia Disposition: ADMITTED IP TO THIS [facility] Condition: Stable Is patient prescribed a controlled substance at d/c from ED?: No Referrals: Rand Hilario MD [REFERRING] - 1-2 days Decision Date: 11/17/20 Decision Time: 10:05
[2020-11-17 06:54] LABS: MCV 78.8 fL (80.0-100.0)
[2020-11-17 07:01] LABS: ALT <6 U/L (4-49); AST 15 U/L (17-59); African American GFR (CKD) 82 (>60 ml/min/1.73 sqM); Albumin 2.8 g/dL (3.5-5.0); Alkaline Phosphatase 97 U/L (38-126); Anion Gap 4 mmol/L; Blood Urea Nitrogen 18 mg/dL (9-20); Calcium 7.9 mg/dL (8.4-10.2); Carbon Dioxide 31 mmol/L (22-30); Chloride 105 mmol/L (98-107); Glucose 88 mg/dL (74-99); Non-African American GFR(CKD) 71 (>60 ml/min/1.73 sqM); Potassium 2.9 mmol/L (3.5-5.1); Sodium 140 mmol/L (137-145); Total Bilirubin 0.9 mg/dL (0.2-1.3); Total Protein 5.1 g/dL (6.3-8.2)
--- NOTE | 2020-11-17 07:25 | CT ---
EXAMINATION TYPE: CT brain nette gardner con DATE OF EXAM: 11/17/2020 COMPARISON: 10/13/2020 HISTORY: Fall on thinners CT DLP: 1648.6 mGycm Automated exposure control for dose reduction was used. TECHNIQUE: CT scan of the head and cervical spine are performed without contrast. FINDINGS: There is no acute intracranial hemorrhage, mass effect, or midline shift identified. The ventricles and sulci are prominent, most consistent with age-related cortical atrophy. There is whit e matter hypodensity which is most consistent with chronic small vessel ischemic disease but is nonsp ecific. The globes are intact and the visualized sinuses are clear. There is reversal of the normal cervical lordosis with noninstrumented fusion of C5-6. Multilevel end plate sclerosis and osteophytosis is seen. Multilevel uncovertebral and facet arthropathy changes are noted. IMPRESSION: 1. There is no acute fracture or dislocation evident in the cervical spine. 2. No acute intracranial hemorrhage, mass effect, or midline shift is seen. 3. Chronic changes, as described.
--- NOTE | 2020-11-17 07:28 | XR ---
EXAMINATION TYPE: XR Hip LT and AP Pelvis DATE OF EXAM: 11/17/2020 COMPARISON: NONE HISTORY: Left hip pain status post fall TECHNIQUE: A single AP view of the pelvis is obtained. Two views of the left hip are obtained. FINDINGS: There is no acute fracture/dislocation evident in the pelvis. The hip and sacroiliac join ts appear symmetric and unremarkable. The overlying soft tissue appears unremarkable. Two views of left hip show no acute fracture or dislocation. Degenerative changes are seen in both hi ps. Vascular calcifications are seen. IMPRESSION: There is no acute fracture or dislocation in the pelvis or left hip. MRI or bone scan is more sensitive for fracture.
[2020-11-17] MEDS ORDERED: POTASSIUM CHLORIDE ER 20 MEQ TAB.ER PO STA (07:44)
--- NOTE | 2020-11-17 09:00 | CT ---
EXAMINATION TYPE: CT hip LT wo con DATE OF EXAM: 11/17/2020 COMPARISON: 11/17/2020 x-ray HISTORY: Fall, pain with movement CT DLP: 477 mGycm Automated exposure control for dose reduction was used. Contrast: None Technique: Axial images 3 mm thick sections. Reconstructed images in the coronal and sagittal planes. FINDINGS: There appears to be a very subtle subcapital fracture through the left femoral neck. Femoral head art iculates with the acetabulum. Joint space is moderately narrowed. Acetabular and femoral head spurrin g is noted. IMPRESSION: 1. FINDINGS CAN BE COMPATIBLE WITH SUBTLE NONDISPLACED SUBCAPITAL FRACTURE LEFT HIP
[2020-11-17] MEDS ORDERED: MORPHINE SULFATE 2 MG/ML SYRINGE IVP STA (09:06)
[2020-11-17] MEDS ORDERED: traMADol 50 MG TAB PO PRN (09:59)
[2020-11-17] MEDS ORDERED: NALOXONE 0.4 MG/ML 1 ML VIAL IV PRN (09:59)
[2020-11-17] MEDS ORDERED: SODIUM CHLORIDE 0.9% 1,000 ML IV SCH (10:00)
--- NOTE | 2020-11-17 11:09 | XR ---
EXAMINATION TYPE: XR chest 1V portable DATE OF EXAM: 11/17/2020 COMPARISON: 10/13/2020 HISTORY: Preoperative TECHNIQUE: Single frontal view of the chest is obtained. FINDINGS: There is no focal air space opacity, pleural effusion, or pneumothorax seen. The cardiac silhouette size is enlarged, unchanged. The osseous structures are intact. IMPRESSION: No acute process.
[2020-11-17 11:52] LABS: Appearance,Urine Clear (Clear); Bilirubin,Urine Negative (Negative); Blood,Urine Negative (Negative); Color,Urine Yellow; Glucose,Urine (UA) Negative (Negative); Ketones,Urine 1+ (Negative); Leukocyte Esterase,Urine Trace (Negative); Mucus,Urine Rare /hpf; Nitrite,Urine Negative (Negative); PH, Urine 5.5 (5.0-8.0); Protein,Urine 1+ (Negative); Specific Gravity,Urine 1.016 (1.001-1.035); Urobilinogen,Urine <2.0 mg/dL (<2.0); WBC,Urine 1 /hpf (0-5)
[2020-11-17 13:03] LABS: INR 1.2 (<1.2); Partial Thromboplastin Time 31.7 sec (22.0-30.0); Prothrombin Time 12.5 sec (9.0-12.0)
[2020-11-17] MEDS: MORPHINE SULFATE 4 MG/ML SYRINGE IV PRN (17:34)
[2020-11-17] MEDS ORDERED: bisacodyL 10 MG SUPP RECTAL PRN (18:37)
[2020-11-17] MEDS ORDERED: MAGNESIUM HYDROXIDE 2,400 MG/10 ML CUP PO PRN (18:37)
[2020-11-17] MEDS ORDERED: ACETAMINOPHEN TAB 325 MG TAB PO PRN (18:37)
[2020-11-17] MEDS ORDERED: IPRATROPIUM BROMIDE 0.06% NASAL SPRAY (15 ML) EA NOSTRIL PRN (18:37)
[2020-11-17] MEDS ORDERED: Potassium Replacement Protocol 1 EACH MISC MISCELLANE PRN (19:11)
[2020-11-17] MEDS ORDERED: Magnesium Replacement Protocol 1 EACH MISC MISCELLANE PRN (19:11)
[2020-11-17] MEDS ORDERED: SODIUM CHLORIDE 0.9% 1,000 ML with POTASSIUM CHLORIDE 20 MEQ IV SCH ×2 (19:51)
[2020-11-17] MEDS ORDERED: METOPROLOL SUCCINATE (ER) 50 MG TAB.ER.24H PO STA (20:13)
[2020-11-17 20:29] LABS: Potassium 3.3 mmol/L (3.5-5.1)
[2020-11-17] MEDS: ATORVASTATIN 40 MG TAB PO SCH (20:55)
[2020-11-17] MEDS: ALPRAZolam 0.25 MG TAB PO SCH (20:56)
[2020-11-17] MEDS: MELATONIN 5 MG TABLET PO SCH (20:56)
[2020-11-17] MEDS: 0.9% NACL WITH KCL 20 MEQ/L 1,000 ML IV SCH (22:15)
--- NOTE | 2020-11-17 22:25 | CONS ---
CONSULTATION REASON FOR CONSULTATION: Advice regarding atrial ablation and other medical issues, requested by Orthopedic surgery. HISTORY OF PRESENT ILLNESS: This 79-year-old gentleman with the past medical history of depression, history of CHF, history of dementia, TIA being followed Dr. Rand Hliario in the outpatient setting, is currently in [facility]. The patient also seen Dr. Bhavana Roman for evaluation of apparent normal-pressure hydrocephalus. The patient apparently had a fall and basically nondisplaced subcapital fracture of the left hip and the patient admitted for evaluation and treatment. The patient is mildly confused. Patient also had hypokalemia. There is no history of chest pain. No history of palpitations, headache, loss of conscious or seizures. An EKG done on admission showed atrial fibrillation with controlled ventricular rate. The patient was taking Xarelto also previously. The patient also has history of congestive heart failure with chronic systolic dysfunction ejection fraction 40-45 percent. PAST MEDICAL HISTORY: History of atrial fibrillation, history of CHF, dementia, TIA. MEDICATIONS: Medications prior to admission include home medications are: sprays, bisacodyl, loratadine, Tylenol, vitamin C, Entresto, Atrovent, carbidopa, L-dopa, BuSpar, Toprol- XL. Xanax, vitamin B1, Xarelto, Protonix, melatonin, folic acid, Proscar, FiberCon, Lexapro, vitamin B12, Colestid, and Lipitor. Doses are reviewed. ALLERGIES: SANCTURA, MYRBETRIQ. FLOMAX. FAMILY HISTORY: No history of heart disease or strokes in the family. SOCIAL HISTORY: Previous history of smoking. REVIEW OF SYSTEMS: Could not be taken, the patient is mildly confused. PHYSICAL EXAMINATION: Pulse is 99, blood pressure 154/85, respiration 20, temperature 98.2, pulse ox 98% on room air. HEENT: Conjunctivae normal. Oral mucosa moist. NECK is no jugular venous distention. No carotid bruit. No lymph node enlargement. CARDIOVASCULAR systems are S1, S2 irregular. Ejection systolic murmur. RESPIRATIONS: Breath sounds diminished in the bases. A few scattered rhonchi. No crackles. ABDOMEN: Soft, nontender. No mass palpable. LEGS: No edema. No swelling. NERVOUS SYSTEM: Higher functions as mentioned earlier. Moves all 4 limbs. No focal motor or sensory deficits. LYMPHATICS: No lymph nodes palpable in the neck, axillae or groin. SKIN: No ulcer, rashes or bleeding. JOINTS: No active deforming arthropathy. LABS: Hemoglobin 10.4, potassium 2.9. ASSESSMENT: 1. Status post left subcapital fracture of the hip, nondisplaced. 2. Hypokalemia. 3. Anemia microcytic of chronic in nature. 4. Moderate to severe aortic stenosis. 5. Mild lymphopenia. 6. History atrial fibrillation, controlled ventricular rate. 7. History of congestive heart failure. 8. History of dementia. 9. History of transient ischemic attack. 10.History of depression. 11.History of Parkinson's. 12.History of suspected seizures previously. 13.Gait dysfunction. 14.History of cardiac catheterization. 15.Remote history of nicotine dependence. 16.FULL CODE. RECOMMENDATIONS AND DISCUSSION: This 79-year-old gentleman who presented with multiple complex medical issues, at this time I recommend to continue the current medications, symptomatic treatment. Hold anticoagulants. Otherwise currently the patient is stable. Reviewed the EKG and chest x-ray also showed no evidence of CHF at this time. Lab-reza, the potassium is 2.9. I would recommend replacement of the potassium. Check magnesium and the patient is cleared for surgery with some added risk because of the above mentioned multiple medical issues and cardiology consultation also will be sought for continued followup. A 2D echo done last month revealed ejection fraction 40 to 45%. Prognosis guarded, but currently the patient is stable. Discussed with the daughter at the bedside, understands and agrees. Further recommendations to follow. MMODL / IJN: [id number] / KIM
[2020-11-18] MEDS ORDERED: HYDROmorphone 0.5 MG/0.5 ML SYRINGE IVP PRN ×2 (07:03→14:19)
[2020-11-18] MEDS ORDERED: ONDANSETRON 4 MG/2 ML VIAL IVP ONE ×2 (07:03→11:26)
[2020-11-18] MEDS ORDERED: TRANEXAMIC ACID 1,000 MG in SODIUM CHLORIDE 0.9% 100 ML IVPB PRN (09:06)
[2020-11-18] MEDS ORDERED: ceFAZolin 2 GM in SODIUM CHLORIDE 0.9% 100 ML IVPB ONE (09:06)
--- NOTE | 2020-11-18 09:06 | P.HPOR ---
History of Present Illness H&P Date: 11/18/20 Chief Complaint: Left hip pain Patient is an 79-year-old male presenting to the emergency department via EMS from [facility] after an unwitnessed fall. Staff states they found him on the bathroom floor. Patient stated in the ER he did not lose consciousness, he spends a lot of time walking around and has a very unsteady gait. He stated he did hit his head a little bit. He is on blood thinners, Xarelto clear to A. fib. He is complaining of some left hip pain. No belly pain, no chest pain or shortness of breath. He does not feel dizzy or lightheaded. He denies any neck pain. He has no further complaints at this time. Upon arrival to the ER his vitals are stable. The patient exam and this morning, he is sedated and unable to converse with me this morning. He is arousable but does not stay awake. I am unable to obtain history from him at this time. Past Medical History Past Medical History: Atrial Fibrillation, Chest Pain / Angina, Heart Failure, Dementia Additional Past Medical History / Comment(s): TIA History of Any Multi-Drug Resistant Organisms: None Reported Past Surgical History: Heart Catheterization Past Anesthesia/Blood Transfusion Reactions: No Reported Reaction Past Psychological History: Depression Smoking Status: Former smoker Past Alcohol Use History: Occasional Past Drug Use History: None Reported - Past Family History Father History Unknown: Yes Mother History Unknown: Yes Medications and Allergies Home Medications Medication Instructions Recorded Confirmed Type Atorvastatin Calcium [Lipitor] 40 mg PO HS@2100 09/26/20 11/17/20 History Colestipol HCl [Colestid] 2 gm PO DAILY@1200 09/26/20 11/17/20 History Cyanocobalamin (Vitamin B-12) 1,000 mcg PO DAILY@0800 09/26/20 11/17/20 History [Vitamin B-12] Escitalopram [Lexapro] 20 mg PO DAILY@0800 09/26/20 11/17/20 History Finasteride [Proscar] 5 mg PO DAILY@0800 09/26/20 11/17/20 History Ipratropium [place] 0.06%Nasal 2 spray EA NOSTRIL BID@0800,1700 09/26/20 11/17/20 History [Atrovent Nasal 0.06%] Sacubitril/Valsartan [Entresto 24 1 tab PO BID@0800,1700 09/26/20 11/17/20 H istory mg-26 mg Tablet] Acetaminophen Tab [Tylenol] 650 mg PO Q4H PRN 10/13/20 11/17/20 History Calcium Polycarbophil [Fibercon] 625 mg PO DAILY@0800 10/13/20 11/17/20 History Folic Acid 1 mg PO DAILY@0800 10/13/20 11/17/20 History Loratadine 10 mg PO DAILY PRN 10/13/20 11/17/20 History Magnesium Hydroxide [Milk of 7,200 mg PO DAILY PRN 10/13/20 11/17/20 History Magnesia Concentrate] Na Phos,M-B/Na Phos,Di-Ba [Fleet 133 ml RECTAL ONCE PRN 10/13/20 11/17/20 History Adult] Pantoprazole Sodium [Protonix] 40 mg PO DAILY@0800 10/13/20 11/17/20 History Rivaroxaban [Xarelto] 15 mg PO HS@209910/13/20 11/17/20 History Thiamine [Vitamin B-1] 100 mg PO DAILY@0800 10/13/20 11/17/20 History Vit C/E/Zn/Coppr/Lutein/Zeaxan 1 cap PO BID@0800,1700 10/13/20 11/17/20 History [Preservision Areds 2 Softgel] bisacodyL [Bisacodyl] 10 mg RECTAL DAILY PRN 10/13/20 11/17/20 History ALPRAZolam [Xanax] 0.25 mg PO HS 11/17/20 11/17/20 History Carbidopa-Levodopa 25-100 mg 1 tab PO BID@0800,1700 11/17/20 11/17/20 History [Sinemet 25-100 mg] Ipratropium [place] 0.06%Nasal 2 spray EA NOSTRIL TID PRN 11/17/20 11/17/20 History [Atrovent Nasal 0.06%] Melatonin 5 mg PO DAILY@2100 11/17/20 11/17/20 History Metoprolol Succinate (ER) [Toprol 50 mg PO DAILY@0811/17/20 11/17/20 History XL] Mupirocin 2% Oint [Bactroban 2% 1 applic TOPICAL DAILY 11/17/20 11/17/20 History Oint] busPIRone HCl [Buspar] 10 mg PO BID@0800,1700 11/17/20 11/17/20 History Allergies Allergy/AdvReac Type Severity Reaction Status Date / Time trospium [From Sanctura] Allergy Unknown Verified 11/17/20 09:54 mirabegron [From Myrbetriq] AdvReac dark urine Verified 11/17/20 09:54 tamsulosin [From Flomax] AdvReac low blood Verified 11/17/20 09:54 pressure Physical Examination This is an 79-year-old male who is sleeping soundly and appears to be sedated with pain medication. He is arousable but unable to stay awake for exam. Exam of the head neck. No obvious deformity. Exam of the upper extremities is unremarkable. He has multiple small bruises with very thin skin. No open wounds noted. No areas of swelling or deformity. Exam the lower extremities reveals shortening and external rotation to the left lower extremity. Pedal pulses are +2/4. Capillary refill is less than 3 seco nds. Results Pelvis and hip x-ray as well as computed tomography scan reveal a minimally displaced femoral neck fracture of the left hip. No other fractures identified. - Labs Labs: Abnormal Lab Results - Last 24 Hours (Table) 11/17/20 11/17/20 11/17/20 Range/Units 06:38 10:16 19:36 PT 12.5 H (9.0-12.0) sec INR 1.2 H (<1.2) APTT 31.7 H (22.0-30.0) sec Potassium 3.3 L (3.5-5.1) mmol/L Carbon Dioxide 34 H (22-30) mmol/L Urine Protein 1+ H (Negative) Urine Ketones 1+ H (Negative) Ur Leukocyte Esterase Trace H (Negative) Urine Mucus Rare H (None) /hpf H & H 11/17/20 Range/Units 06:38 Hgb 10.4 L (13.0-17.5) gm/dL Hct 30.7 L (39.0-53.0) % Coagulation 11/17/20 Range/Units 10:16 INR 1.2 H (<1.2) Result Diagrams: 11/17/20 06:38 11/17/20 19:36 Assessment and Plan (1) Fall Current Visit: Yes Status: Acute Code(s): W19.XXXA - UNSPECIFIED FALL, INITIAL ENCOUNTER SNOMED Code(s): 1703617 (2) Subcapital fracture of left hip Current Visit: Yes Status: Acute Code(s): S72.012A - UNSP INTRACAPSULAR FRACTURE OF LEFT FEMUR, INIT FOR CLOS FX SNOMED Code(s): 939076964 (3) History of atrial fibrillation Current Visit: No Status: Acute Code(s): Z86.79 - PERSONAL HISTORY OF OTHER DISEASES OF THE CIRCULATORY SYSTEM SNOMED Code(s): 104147638 Plan: The clinical and x-ray findings are discussed with the nursing staff. It is rec ommended he undergo cemented hemiarthroplasty of the left hip. The patient has been cleared by cardiology and internal medicine for surgery today. He will most likely remain inpatient for the weekend and return back to [facility] early next week.
[2020-11-18 09:29] LABS: Basophils # (A) 0.04 X 10*3/uL (0.00-0.10); Basophils % (A) 0.6 %; Eosinophils # (A) 0.04 X 10*3/uL (0.04-0.35); Eosinophils % (A) 0.6 %; HCT 31.2 % (39.6-50.0); HGB 9.3 g/dL (13.0-17.0); Lymphocytes # (A) 0.93 X 10*3/uL (0.90-5.00); Lymphocytes % (A) 14.6 %; MCH 24.9 pg (27.0-32.0); MCHC 29.8 g/dL (32.0-37.0); MCV 83.4 fL (80.0-97.0); Monocytes % (A) 9.4 %; Neutrophils # (A) 4.74 X 10*3/uL (1.80-7.70); Neutrophils % (A) 74.5 %; Platelet Count 185 X 10*3/uL (140-440); RBC 3.74 X 10*6/uL (4.40-5.60); RDW 14.6 % (11.5-14.5); WBC 6.37 X 10*3/uL (4.50-10.00)
[2020-11-18] MEDS: busPIRone HCl 10 MG TAB PO SCH ×2 (09:42→18:38)
[2020-11-18] MEDS: METOPROLOL SUCCINATE (ER) 50 MG TAB.ER.24H PO SCH (09:43)
[2020-11-18] MEDS: ESCITALOPRAM 20 MG TAB PO SCH (09:43)
[2020-11-18] MEDS: THIAMINE 100 MG TAB PO SCH (09:44)
--- NOTE | 2020-11-18 09:59 | P.CRDCN ---
History of Present Illness History of present illness: HISTORY OF PRESENTING ILLNESS This is a pleasant 79-year-old male past medical history significant for chronic persistent atrial fibrillation on long-term anticoagulation, ischemic cardiomyopathy, valvular heart disease, hypertension and dyslipidemia. He follows in the office with Dr. Quiles. We have been asked to see in consultation for preoperative evaluation. He was sent from [facility] where he was found on the bathroom floor. According to the patient he lost his balance and fell. There was no loss of consciousness that he can recall. He is seen and examined resting comfortably laying flat in bed in no acute distress. He denies symptoms of chest pain or shortness of breath. Diagnostic imaging reveals he suffered a left subcapital fracture and is scheduled to undergo surgical repair. DIAGNOSTICS EKG reveals atrial fibrillation heart rate of 104, PVC and nonspecific ST abnormalities. Chest xray negative for an acute cardiopulmonary process. Laboratory reviewed, WBC 6, hemoglobin 9.3, platelets 185, sodium 140, potassium on admission 2. 9 repeat yesterday after supplementation 3.3, creatinine 0.99. Current cardiac medications include atorvastatin 40 mg daily, Xarelto 50 mg daily, Toprol 50 mg daily and entresto 24/26 mg twice a day. Most recent echocardiogram obtained in the office April 2020 revealed preserved LV systolic function with ejection fraction 50%, moderate aortic stenosis, mild aortic regurgitation, mild mitral regurgitation and moderate tricuspid regurgitation. Most recent cardiac catheterization performed December 2019 revealed a lesion in the mid LAD 30%, proximal diagonal branch 80%, mid circumflex 15%, moderate aortic stenosis with a mean gradient of 22 mmHg. REVIEW OF SYSTEMS At the time of my exam: CONSTITUTIONAL: Denies fever or chills. CARDIOVASCULAR: Denies chest pain, shortness of breath, orthopnea, PND or palpitations. RESPIRATORY: Denies cough. GASTROINTESTINAL: Denies abdominal pain, diarrhea, constipation, nausea or vomiting. MUSCULOSKELETAL: Denies myalgias. NEUROLOGIC: Denies numbness, tingling, headacbe or weakness. ENDOCRINE: Denies fatigue, weight change, polydipsia or polyurina. GENITOURINARY: Denies burning, hematuria or urgency with micturation. HEMATOLOGIC: Denies history of anemia or bleeding. PHYSICAL EXAMINATION Blood pressure 149/106 heart rate 93 afebrile and maintaining oxygen saturation on room air. CONSTITUTIONAL: No apparent distress. Frail. HEENT: Head is normocephalic. Pupils are equal, round. Sclerae anicteric. Mucous membranes of the mouth are moist. No JVD. No carotid bruit. CHEST EXAMINATION: Lungs are clear to auscultation. No chest wall tenderness is noted on palpation or with deep breathing. HEART EXAMINATION: Regular rate and rhythm. S1, S2 heard. Systolic ejection murmur at the base, no gallops or rub. ABDOMEN: Soft, nontender. Positive bowel sounds. EXTREMITIES: 2+ peripheral pulses, no lower extremity edema and no calf tenderness. NEUROLOGIC EXAMINATION: Patient is awake, alert and oriented x3. ASSESSMENT Fall Left hip fracture Chronic persistent atrial fibrillation on xarelto Muli-vessel coronary artery disease Aortic stenosis, moderate Hypertension Dyslipidemia Chronic systolic heart failure, clinically euvolemic PLAN Clinically the patient has no symptoms of angina and is not in acute heart failure. Xarelto has been held, last dose was yesterday. Recommend cautious fluid administration and optimal blood pressure control intraoperatively. Given his risk factor profile he is at an increased risk however there are no absolute contraindications to undergo surgical intervention. Resume Xarelto after surgery. Continue entresto and toprol as previously ordered. Thank you kindly for this consultation. Nurse Practitioner note has been reviewed, I agree with a documented findings and plan of care. Patient was seen and examined. Past Medical History Past Medical History: Atrial Fibrillation, Chest Pain / Angina, Heart Failure, Dementia Additional Past Medical History / Comment(s): TIA History of Any Multi-Drug Resistant Organisms: None Reported Past Surgical History: Heart Catheterization Past Anesthesia/Blood Transfusion Reactions: No Reported Reaction Past Psychological History: Depression Smoking Status: Former smoker Past Alcohol Use History: Occasional Past Drug Use History: None Reported - Past Family History Father History Unknown: Yes Mother History Unknown: Yes Medications and Allergies Home Medications Medication Instructions Recorded Confirmed Type Atorvastatin Calcium [Lipitor] 40 mg PO HS@2100 09/26/20 11/17/20 History Colestipol HCl [Colestid] 2 gm PO DAILY@1200 09/26/20 11/17/20 History Cyanocobalamin (Vitamin B-12) 1,000 mcg PO DAILY@0809/26/20 11/17/20 History [Vitamin B-12] Escitalopram [Lexapro] 20 mg PO DAILY@0809/26/20 11/17/20 History Finasteride [Proscar] 5 mg PO DAILY@0800 09/26/20 11/17/20 History Ipratropium [place] 0.06%Nasal 2 spray EA NOSTRIL BID@0800,1700 09/26/20 11/17/20 History [Atrovent Nasal 0.06%] Sacubitril/Valsartan [Entresto 24 1 tab PO BID@0800,1700 09/26/20 11/17/20 History mg-26 mg Tablet] Acetaminophen Tab [Tylenol] 650 mg PO Q4H PRN 10/13/20 11/17/20 History Calcium Polycarbophil [Fibercon] 625 mg PO DAILY@0800 10/13/20 11/17/20 History Folic Acid 1 mg PO DAILY@0800 10/13/20 11/17/20 History Loratadine 10 mg PO DAILY PRN 10/13/20 11/17/20 History Magnesium Hydroxide [Milk of 7,200 mg PO DAILY PRN 10/13/20 11/17/20 History Magnesia Concentrate] Na Phos,M-B/Na Phos,Di-Ba [Fleet 133 ml RECTAL ONCE PRN 10/13/20 11/17/20 History Adult] Pantoprazole Sodium [Protonix] 40 mg PO DAILY@0800 10/13/20 11/17/20 History Rivaroxaban [Xarelto] 15 mg PO HS@2100 10/13/20 11/17/20 History Thiamine [Vitamin B-1] 100 mg PO DAILY@0800 10/13/20 11/17/20 History Vit C/E/Zn/Coppr/Lutein/Zeaxan 1 cap PO BID@0800,1700 10/13/20 11/17/20 History [Preservision Areds 2 Softgel] bisacodyL [Bisacodyl] 10 mg RECTAL DAILY PRN 10/13/20 11/17/20 History ALPRAZolam [Xanax] 0.25 mg PO HS 11/17/20 11/17/20 History Carbidopa-Levodopa 25-100 mg 1 tab PO BID@0800,1700 11/17/20 11/17/20 History [Sinemet 25-100 mg] Ipratropium [place] 0.06%Nasal 2 spray EA NOSTRIL TID PRN 11/17/20 11/17/20 History [Atrovent Nasal 0.06%] Melatonin 5 mg PO DAILY@2100 11/17/20 11/17/20 History Metoprolol Succinate (ER) [Toprol 50 mg PO DAILY@0800 11/17/20 11/17/20 History XL] Mupirocin 2% Oint [Bactroban 2% 1 applic TOPICAL DAILY 11/17/20 11/17/20 History Oint] busPIRone HCl [Buspar] 10 mg PO BID@0800,1700 11/17/20 11/17/20 History Allergies Allergy/AdvReac Type Severity Reaction Status Date / Time trospium [From Sanctura] Allergy Unknown Verified 11/17/20 09:54 mirabegron [From Myrbetriq] AdvReac dark urine Verified 11/17/20 09:54 tamsulosin [From Flomax] AdvReac low blood Verified 11/17/20 09:54 pressure Physical Exam Vitals: Vital Signs Temp Pulse Pulse Resp BP BP Pulse Ox 11/18/20 08:00 97.7 F 93 16 149/106 99 11/18/20 02:00 97.8 F 103 H 18 150/95 95 11/17/20 20:00 97.7 F 100 16 138/82 96 11/17/20 16:08 98.5 F 99 20 154/85 93 L 11/17/20 15:26 98.0 F 95 16 136/92 94 L 11/17/20 12:41 95 16 139/87 94 L Intake and Output 11/17/20 11/18/20 11/18/20 22:59 06:59 14:59 Intake Total 200 Output Total 200 400 200 Balance 0 -400 -200 Intake: Oral 200 Output: Urine 200 400 200 Uretheral (Fuentes) 200 Other: Voiding Method Indwelling Catheter Weight 81.647 kg Results 11/18/20 05:48 11/17/20 19:36 Coagulation 11/17/20 Range/Units 10:16 PT 12.5 H (9.0-12.0) sec APTT 31.7 H (22.0-30.0) sec CBC 11/18/20 Range/Units 05:48 WBC 6.37 (4.50-10.00) X 10*3/uL RBC 3.74 L (4.40-5.60) X 10*6/uL Hgb 9.3 L (13.0-17.0) g/dL Hct 31.2 L (39.6-50.0) % Plt Count 185 (140-440) X 10*3/uL Comprehensive Metabolic Panel 11/17/20 Range/Units 19:36 Sodium 140 (137-145) mmol/L Potassium 3.3 L (3.5-5.1) mmol/L Chloride 103 (98-107) mmol/L Carbon Dioxide 34 H (22-30) mmol/L Current Medications Generic Name Dose Route Start Last Admin Trade Name Freq PRN Reason Stop Dose Admin Acetaminophen 650 mg 11/17/20 09:59 Acetaminophen Tab 325 Mg Tab PO Q6HR PRN Mild Pain or Fever > 100.5 Acetaminophen 650 mg 11/17/20 18:37 Acetaminophen Tab 325 Mg Tab PO Q4H PRN Pain or Fever > 100.5 Alprazolam 0.25 mg 11/17/20 21:00 11/17/20 20:56 Alprazolam 0.25 Mg Tab PO 0.25 mg HS AMIE Administration Atorvastatin Calcium 40 mg 11/17/20 21:00 11/17/20 20:55 Atorvastatin 40 Mg Tab PO 40 mg HS@2100 AMIE Administration Bisacodyl 10 mg 11/17/20 18:37 Bisacodyl 10 Mg Supp RECTAL DAILY PRN Constipation Buspirone HCl 10 mg 11/18/20 08:00 11/18/20 09:42 Buspirone Hcl 10 Mg Tab PO 10 mg BID@0800,1700 [facility] Administration Calcium Polycarbophil 625 mg 11/18/20 08:00 Calcium Polycarbophil 625 Mg Tab PO DAILY@0800 [facility] Carbidopa/Levodopa 1 each 11/18/20 08:00 Carbidopa-Levodopa 25-100 Mg 1 Each Tab PO BID@0800,1700 [facility] Cyanocobalamin 1,000 mcg 11/18/20 08:00 Cyanocobalamin 500 Mcg Tab PO DAILY@0800 [facility] Escitalopram Oxalate 20 mg 11/18/20 08:00 11/18/20 09:43 Escitalopram 20 Mg Tab PO 20 mg DAILY@0800 [facility] Administration Finasteride 5 mg 11/18/20 08:00 Finasteride 5 Mg Tab PO DAILY@0800 [facility] Folic Acid 1 mg 11/18/20 08:00 Folic Acid 1 Mg Tab PO DAILY@0800 AMIE Hydromorphone HCl 0.5 mg 11/18/20 07:03 Hydromorphone 0.5 Mg/0.5 Ml Syringe IVP 11/18/20 20:00 Q5M PRN Pain Control Potassium Chloride/Sodium Chloride 1,000 mls @ 50 mls/hr 11/17/20 20:00 0709/23 22:15 Ns-Kcl 20 Meq/L Iv Solution IV 50 mls/hr .Q20H AMIE Administration Lactated Ringer's 1,000 mls @ 20 mls/hr 11/18/20 07:03 Lactated Ringers IV .Q24H AMIE Cefazolin Sodium 2 gm/ Sodium 100 mls @ 100 mls/hr 11/18/20 09:06 Chloride IVPB 11/18/20 10:05 ONCE ONE Tranexamic Acid 1,000 mg/ 110 mls @ 200 mls/hr 11/18/20 09:06 Sodium Chloride IVPB 11/18/20 21:00 Q2HR PRN Bleeding Protocol Ipratropium [place] 2 spray 11/18/20 08:00 Ipratropium [place] 0.06% Nasal [place] (15 Ml) EA NOSTRIL BID@0800,1700 [facility] Ipratropium [place] 2 spray 11/17/20 18:37 Ipratropium [place] 0.06% Nasal [place] (15 Ml) EA NOSTRIL TID PRN rhinitis Magnesium Hydroxide 2,400 mg 11/17/20 18:37 Magnesium Hydroxide 2,400 Mg/10 Ml Cup PO DAILY PRN Constipation Melatonin 5 mg 11/17/20 21:00 11/17/20 20:56 Melatonin 5 Mg Tablet PO 5 mg DAILY@2100 [facility] Administration Metoprolol Succinate 50 mg 11/18/20 08:00 11/18/20 09:43 Metoprolol Succinate (Er) 50 Mg Tab.Er.24h PO 50 mg DAILY@0800 [facility] Administration Miscellaneous Information 1 each 11/17/20 19:11 Magnesium Replacement Protocol 1 Each Misc MISCELLANE DAILY PRN Per Protocol Protocol Miscellaneous Information 1 each 11/17/20 19:11 Potassium Replacement Protocol 1 Each Misc MISCELLANE DAILY PRN Per Protocol Protocol Morphine Sulfate 4 mg 11/17/20 09:59 11/17/20 17:34 Morphine Sulfate 4 Mg/Ml Syringe IV 4 mg Q4HR PRN Administration Severe Pain Naloxone HCl 0.2 mg 11/17/20 09:59 Naloxone 0.4 Mg/Ml 1 Ml Vial IV Q2M PRN Opioid Reversal Colestipol Hcl [ 2 gm 11/18/20 12:00 Colestid] 1 Gm PO Tablet DAILY@1200 [facility] Pantoprazole Sodium 40 mg 11/18/20 08:00 Pantoprazole 40 Mg Tablet PO DAILY@0800 [facility] Sacubitril/Valsartan 1 each 11/18/20 08:00 Sacubitril/Valsartan 24 Mg-26 Mg Tablet PO BID@0800,1700 [facility] Thiamine HCl 100 mg 11/18/20 08:00 11/18/20 09:44 Thiamine 100 Mg Tab PO Not Given DAILY@0800 [facility] Tramadol HCl 50 mg 11/17/20 09:59 Tramadol 50 Mg Tab PO Q6H PRN Moderate Pain Intake and Output 11/17/20 11/18/20 11/18/20 22:59 06:59 14:59 Intake Total 200 Output Total 200 400 200 Balance 0 -400 -200 Intake: Oral 200 Output: Urine 200 400 200 Uretheral (Fuentes) 200 Other: Voiding Method Indwelling Catheter Weight 81.647 kg 11/18/20 05:48 11/17/20 19:36
[2020-11-18 10:02] LABS: African American GFR (CKD) 92.5 (60.0-200.0); Calcium 7.8 mg/dL (8.7-10.3); Magnesium 1.6 mg/dL (1.5-2.4); Non-African American GFR(CKD) 79.8 (60.0-200.0); Potassium 3.5 mmol/L (3.5-5.5)
[2020-11-18] MEDS: CYANOCOBALAMIN 500 MCG TAB PO SCH (11:09)
[2020-11-18] MEDS: FOLIC ACID 1 MG TAB PO SCH (11:10)
[2020-11-18] MEDS: LACTATED RINGERS 1,000 ML IV SCH (11:12)
[2020-11-18] MEDS: CARBIDOPA-LEVODOPA 25-100 MG 1 EACH TAB PO SCH ×2 (11:17→18:39)
[2020-11-18] MEDS: Colestipol Hcl [Colestid] 1 GM Tablet PO SCH (11:56)
[2020-11-18] MEDS ORDERED: TRANEXAMIC ACID 1,000 MG/10 ML VIAL ONE (12:29)
[2020-11-18] MEDS ORDERED: fentaNYL (PF) 50 MCG/ML 2 ML AMP ONE (12:29)
[2020-11-18] MEDS ORDERED: SUCCINYLCHOLINE CHLORIDE 100 MG/5 ML SYR IV ONE (12:29)
[2020-11-18] MEDS ORDERED: ePHEDrine SULFATE/0.9% NACL/PF 50 MG/5 ML SYRINGE IV ONE (12:29)
[2020-11-18] MEDS ORDERED: SODIUM CHLORIDE 0.9% 100 ML BAG ONE (12:29)
[2020-11-18] MEDS ORDERED: PHENYLEPHRINE-0.9% NACL SYG 1,000 MCG/10 ML SYRINGE ONE (12:29)
[2020-11-18] MEDS ORDERED: ETOMIDATE 2 MG/ML 10 ML VIAL ONE (12:29)
[2020-11-18] MEDS ORDERED: ceFAZolin 3,000 MG in SODIUM CHLORIDE 0.9% IRRIGATIO 3,000 ML IRRIGATION ONE (13:15)
--- NOTE | 2020-11-18 13:55 | P.OP ---
Date of Procedure: 11/18/20 Procedure(s) Performed: PREOPERATIVE DIAGNOSIS: Left hip femoral neck fracture POSTOPERATIVE DIAGNOSIS: Left hip femoral neck fracture OPERATION: Left hip cemented unipolar hemiarthroplasty. ANESTHESIA: Spinal ESTIMATED BLOOD LOSS: 100 ml. ASSISTANT CROSS COUNTRY COACH: Noelle De Jesus PA-C (assistance with: patient positioning, retraction, exposure, hemostasis, leg positioning, implantation, irrigation, closure, dressing) COMPLICATIONS: None apparent. COMPONENTS IMPLANTED: Dimitry LDFx cemented femoral stem; unipolar femoral head; neck extension augments as needed. INDICATIONS: Mr. Javed is an 79-year-old male with a history of falling and sustaining a femoral neck fracture. I have recommended surgical treatment with a cemented unipolar hemiarthroplasty. I have discussed this procedure in detail and explained the potential risks and complications as being inclusive of, but not limited to: Bleeding, infection, scarring, discomfort, blood vessel and/or nerve damage, limb length inequality, gait disturbance, blood clot, pulmonary embolism, , and other risks. The consent form has been signed. PROCEDURE: After appropriate consent was obtained, the patient was taken to the operating room and placed in supine position. General anesthetic was administered and after confirmation of adequate anesthesia, the patient was placed into the lateral decubitus position with the affected side up. Care was taken to make sure that all pressure points were adequately padded and a Emmanuel hip positioner was utilized for positioning. The hip was prepped and draped in the usual aseptic fashion using a combination of Chloraprep and alcohol. [place] drape was used for the case and the patient received intravenous antibiotics and 1 gram intravenous tranexamic acid prior to the incision. The incision was created directly over the greater trochanter and carried slightly posteriorly for a posterior approach to the hip. The incision was then deepened down to subcutaneous tissue and fascia ronal. Fascia ronal was split in line with the incision and split proximally along the fibers of the gluteus maxi mus. The underlying fibers of the muscle were teased apart using finger dissection and bleeding vessels were picked up and coagulated. Retractor was then placed posteriorly consisting of a blunt Ting. The short external rotators and capsule were exposed and good visualization of the attachment of the external rotators to the femur was established. The short external rotators and capsule were released using electrocautery from their femoral attachments. A hockey stick shaped incision was created in the capsule. Joint fluid and hemarthrosis was evacuated and the patient's hip was internally rotated to expose the fracture site. The femoral neck cut was created approximately 1 cm superior to the lesser trochanter using a reciprocating saw. The femoral head and neck fragment was removed and visualization and palpation of the acetabular vault showed intact hyaline cartilage with no bone exposure or significant degeneration. Attention was then directed back to the proximal femur. Retractors were placed around the proximal femur and box osteotome was used followed by canal finder and trochanteric reamer. Cylindrical reaming was performed. Progressive broaching was then performed starting with a #10 broach and progressing final size, in a position of 10-15 degrees anteversion. [place] anteversion was within 5 degrees of stem position. The final size broach had excellent fit and fill of the patient's metaphysis and diaphysis. Calcar planing was performed. Trial reduction was then performed starting with appropriately sized femoral head and various neck extensions to evaluate stability, limb length equality, and soft tissue tension. Once these parameters were satisfactory, the corresponding final components were then called for. Trial components were removed. The femoral canal was sized for the centralizer and cement plug. Once the cement plug had been inserted distal to the planned length of the femoral component, the canal was pulse lavaged and brushed to remove any unstable bone. It was then dried with a lap sponge. Cement was mixed under vacuum conditions to decrease porosity and inserted into a cement gun. Distal centralizer was placed onto the femoral component with a bit of cement. The cement was allowed to reach a slightly doughy consistency and then the canal was filled retrograde with the cement gun. Thumb pressurization was performed three times. The femoral component was then inserted with the previously determined degree of anteversion. Excess cement was removed before it hardened completely. The femoral head was then impacted onto the Dhillon taper. Blood and debris were removed from the acetabular socket and the hip was then reduced and checked for stability, limb length and soft tissue tension. These parameters were found to be satisfactory; the wound was then thoroughly irrigated with normal saline. Final hemostasis was obtained using electrocautery and IV tranexamic acid, 1 g given at the time of prepping and draping, and another 1 g given at the time of closure. Closure of the capsule was performed meticulously using #3 Vicryl suture. Four [id number] sutures were placed in the posterior capsule along with repair of the external rotators. The fascia ronal was then repaired using combination of #3 Vicryl suture in interrupted fashion and Quill and running fashion. 2-0 Vicryl suture was used for the subcutaneous tissues and 3-0 Quill for the skin. Dermabond or Steri-Strips were then applied. The patient tolerated the procedure well. There were no complications and the wound bed was dry and there was no need for drain placement. Sterile dressing was then applied and the patient was carefully removed from the operating room table, placed on the stretcher and was taken to the recovery room in stable condition. Sponge and needle counts were correct.
[2020-11-18] MEDS ORDERED: NALOXONE 0.4 MG/ML 1 ML VIAL IV PRN (14:19)
[2020-11-18] MEDS ORDERED: ONDANSETRON 4 MG/2 ML VIAL IVP PRN (14:19)
[2020-11-18] MEDS ORDERED: TEMAZEPAM 15 MG CAP PO PRN (14:19)
[2020-11-18] MEDS: LABETALOL SYRINGE 5 MG/ML IVP ONE ×2 (14:58→15:09)
--- NOTE | 2020-11-18 14:58 | XR ---
EXAMINATION TYPE: XR Hip Limited LT DATE OF EXAM: 11/18/2020 CLINICAL HISTORY: Left hip pain and osteoarthritis. TECHNIQUE: Single AP portable view of left hip is obtained immediately postoperatively. COMPARISON: None. FINDINGS: Metallic hardware from left hip hemiarthroplasty is seen and appears satisfactory in alignm ent and position. There is evidence of recent surgery with subcutaneous gas noted laterally. IMPRESSION: Metallic hardware from left hip arthroplasty is satisfactory in position.
[2020-11-18] MEDS: 0.9% NACL WITH KCL 20 MEQ/L 1,000 ML IV SCH (15:49)
[2020-11-18] MEDS: PANTOPRAZOLE 40 MG TABLET PO SCH (16:47)
[2020-11-18] MEDS: IPRATROPIUM BROMIDE 0.06% NASAL SPRAY (15 ML) EA NOSTRIL SCH (16:47)
[2020-11-18] MEDS: FINASTERIDE 5 MG TAB PO SCH (16:47)
[2020-11-18] MEDS: SACUBITRIL/VALSARTAN 24 MG-26 MG TABLET PO SCH ×2 (16:48→18:39)
[2020-11-18] MEDS ORDERED: AMIODARONE 360 MG in DEXTROSE 5% IN WATER 200 ML IV ONE ×2 (18:30)
[2020-11-18] MEDS ORDERED: Magnesium Replacement Protocol 1 EACH MISC MISCELLANE PRN ×2 (18:43→19:47)
[2020-11-18] MEDS ORDERED: Potassium Replacement Protocol 1 EACH MISC MISCELLANE PRN (19:47)
[2020-11-18] MEDS: MAGNESIUM SULFATE-D5W PMX 1 GM in DEXTROSE/WATER 1 100ML.BAG IVPB SCH ×2 (20:22→21:25)
[2020-11-18] MEDS: MELATONIN 5 MG TABLET PO SCH (20:23)
[2020-11-18] MEDS: ALPRAZolam 0.25 MG TAB PO SCH (20:23)
[2020-11-18] MEDS: SENNOSIDES-DOCUSATE SODIUM 1 EACH TAB PO SCH (20:23)
[2020-11-18] MEDS: ATORVASTATIN 40 MG TAB PO SCH (20:23)
[2020-11-18] MEDS ORDERED: METOPROLOL TARTRATE 25 MG TAB PO SCH (21:00)
[2020-11-18] MEDS: HYDROmorphone 0.5 MG/0.5 ML SYRINGE IVP PRN (21:36)
--- NOTE | 2020-11-18 21:36 | PN ---
PROGRESS NOTE DATE OF SERVICE: 11/18/2020. This 79-year-old gentleman who was admitted with left hip fracture underwent left hip cemented unipolar hemiarthroplasty by Dr. Zelaya. Postop the patient is suspected to have atrial fibrillation with fast ventricular rate. Patient monitored on telemetry. Heart rate is anywhere between 100-109. At this time, the patient monitored closely. The patient is sedated after surgery. PAST MEDICAL HISTORY: Could not be taken. CURRENT MEDICATIONS: Reviewed and include: Tylenol, Emerson 5 Lipitor, Dulcolax, BuSpar, Fibercon, Sinemet, Cefazolin, doses and other medications noted. PHYSICAL EXAMINATION: The patient is drowsy after surgery. Pulse 109 irregular. Blood pressure 127/66, respirations 18, temperature is normal. Pulse ox 97% on 3 L. HEENT: Conjunctivae normal. NECK: No JVD. CARDIOVASCULAR: S1, S2 irregular. RESPIRATIONS: Breath sounds diminished in the bases. ABDOMEN: Soft. LEGS status post surgery. NERVOUS SYSTEM: No focal deficits. LABS: WBC 6.37, hemoglobin 9.3, sodium 143, potassium 3.5. Other labs are noted. ASSESSMENT: 1. Status post left subcapital fracture of the hip, nondisplaced and status post left hip cemented unipolar hemiarthroplasty. 2. Hypokalemia, improved. 3. Anemia, normocytic anemia of chronic disease. 4. Atrial fibrillation. 5. Moderate to severe aortic stenosis in the 2D echo. 6. Mild lymphopenia. 7. History of atrial fibrillation. 8. History of congestive heart failure. 9. History of dementia. 10.History of transient ischemic attack. 11.History of depression. 12.History of Parkinson's. 13.History of suspected seizures previously. 14.Gait dysfunction. 15.History of cardiac catheterization. 16.Remote history of nicotine dependence. 17.FULL CODE. RECOMMENDATIONS AND DISCUSSION: I recommend to continue current medications, symptomatic treatment. Otherwise at this time I recommend continue the telemetry. Repeat labs. Continue rest of medications. DVT prophylaxis. Prognosis guarded. Further recommendations to follow. We will continue to monitor with orthopedic surgery. MMODL / IJN: [id number] /
[2020-11-19] MEDS: HYDROmorphone 0.5 MG/0.5 ML SYRINGE IVP PRN ×4 (04:39→21:24)
[2020-11-19] MEDS: LACTATED RINGERS 1,000 ML IV SCH (06:08)
--- NOTE | 2020-11-19 08:33 | P.PN ---
Subjective Progress Note Date: 11/19/20 This is a 79-year-old male who is status post left hip hemiarthroplasty. This is postoperative day #1 and patient is seen and evaluated at bedside today. Patient was transferred to for management of atrial fibrillation. Per nursing, the patient is doing well this morning, but is confused. Objective - Vital Signs Vital signs: Vital Signs Temp 97.8 F 11/18/20 15:30 Pulse 94 11/19/20 04:00 Resp 18 11/19/20 04:00 BP 142/78 11/19/20 04:00 Pulse Ox 94 L 11/19/20 04:00 Intake & Output 11/18/20 11/19/20 11/19/20 18:59 06:59 18:59 Intake Total 1001 Output Total 400 Balance 601 Weight 81.647 kg 81 kg Intake: IV 1001 Output: Urine 300 Uretheral (Fuentes) 200 Stool 0 Estimated Blood Loss 100 Other: Voiding Method Indwelling Catheter Indwelling Catheter # Voids 0 100 # Bowel Movements 0 - Exam Vital signs are stable. Patient is lying comfortably in bed in no acute distress. Calf is soft and nontender to palpation. Dressing is clean, dry, and intact. Patient has full foot and ankle motion without pain or difficulty. Sensation intact. Neurovascular status and circulatory status are intact. - Labs CBC & Chem 7: 11/18/20 05:48 11/18/20 05:48 Labs: Abnormal Lab Results - Last 24 Hours (Table) 11/18/20 11/18/20 Range/Units 05:48 05:48 RBC 3.74 L (4.40-5.60) X 10*6/uL Hgb 9.3 L (13.0-17.0) g/dL Hct 31.2 L (39.6-50.0) % MCH 24.9 L (27.0-32.0) pg MCHC 29.8 L (32.0-37.0) g/dL RDW 14.6 H (11.5-14.5) % Calcium 7.8 L (8.7-10.3) mg/dL Assessment and Plan (1) S/P hip hemiarthroplasty Current Visit: Yes Status: Acute Code(s): Z96.649 - PRESENCE OF UNSPECIFIED ARTIFICIAL HIP JOINT SNOMED Code(s): 250102162 (2) Atrial fibrillation Current Visit: Yes Status: Acute Code(s): I48.91 - UNSPECIFIED ATRIAL FIBRILLATION SNOMED Code(s): 02070254 (3) Fall Current Visit: Yes Status: Acute Code(s): W19.XXXA - UNSPECIFIED FALL, INITIAL ENCOUNTER SNOMED Code(s): 5547234 (4) Subcapital fracture of left hip Current Visit: Yes Status: Acute Code(s): S72.012A - UNSP INTRACAPSULAR FRACTURE OF LEFT FEMUR, INIT FOR CLOS FX SNOMED Code(s): 920542310 Plan: Continue routine postop care and pain control. Continue anticoagulation per medicine. Weightbearing as tolerated with a walker. Leave dressing in place for 10 days. Appreciate input from medicine. Anticipate discharge to rehab in the next 24-48 hours.
[2020-11-19 08:41] LABS: Magnesium 2.3 mg/dL (1.6-2.3); Potassium 4.6 mmol/L (3.5-5.1)
[2020-11-19 08:47] LABS: Basophils % (A) 0 %; Eosinophils % (A) 0 %; HCT 28.2 % (39.0-53.0); Hypochromasia Marked; Lymphocytes # (A) 0.6 k/uL (1.0-4.8); Lymphocytes % (A) 6 %; MCH 26.1 pg (25.0-35.0); MCHC 31.8 g/dL (31.0-37.0); MCV 82.1 fL (80.0-100.0); Mean Platelet Volume 8.2; Monocytes # (A) 0.4 k/uL (0-1.0); Monocytes % (A) 5 %; Neutrophils # (A) 8.2 k/uL (1.3-7.7); Neutrophils % (A) 88 %; Platelet Count 168 k/uL (150-450); Poikilocytosis Slight; RBC 3.44 m/uL (4.30-5.90); RDW 14.2 % (11.5-15.5); WBC 9.3 k/uL (3.8-10.6)
[2020-11-19] MEDS ORDERED: RIVAROXABAN 10 MG TAB PO SCH (09:00)
[2020-11-19] MEDS: FOLIC ACID 1 MG TAB PO SCH (09:20)
[2020-11-19] MEDS: METOPROLOL SUCCINATE (ER) 50 MG TAB.ER.24H PO SCH (09:20)
[2020-11-19] MEDS: CYANOCOBALAMIN 500 MCG TAB PO SCH (09:20)
[2020-11-19] MEDS: CARBIDOPA-LEVODOPA 25-100 MG 1 EACH TAB PO SCH ×2 (09:20→17:55)
[2020-11-19] MEDS: IPRATROPIUM BROMIDE 0.06% NASAL SPRAY (15 ML) EA NOSTRIL SCH ×3 (09:21→18:09)
[2020-11-19] MEDS: ESCITALOPRAM 20 MG TAB PO SCH (09:21)
[2020-11-19] MEDS: FINASTERIDE 5 MG TAB PO SCH (09:21)
[2020-11-19] MEDS: PANTOPRAZOLE 40 MG TABLET PO SCH (09:21)
[2020-11-19] MEDS: HYDROcodone/APAP 5-325MG 1 EACH TAB PO PRN ×2 (09:21→20:24)
[2020-11-19] MEDS: THIAMINE 100 MG TAB PO SCH (09:21)
[2020-11-19] MEDS: busPIRone HCl 10 MG TAB PO SCH ×2 (09:22→17:54)
[2020-11-19] MEDS: SACUBITRIL/VALSARTAN 24 MG-26 MG TABLET PO SCH ×2 (09:24→17:54)
[2020-11-19] MEDS: Colestipol Hcl [Colestid] 1 GM Tablet PO SCH (11:09)
[2020-11-19] MEDS: 0.9% NACL WITH KCL 20 MEQ/L 1,000 ML IV SCH (11:47)
--- NOTE | 2020-11-19 13:08 | P.PN ---
Subjective Progress Note Date: 11/19/20 HISTORY OF PRESENT ILLNESS: This is a pleasant 79-year-old male past medical history significant for chronic persistent atrial fibrillation on long-term anticoagulation, i schemic cardiomyopathy, valvular heart disease, hypertension and dyslipidemia. He follows in the office with Dr. Quiles. We have been asked to see in consultation for preoperative evaluation. He was sent from [facility] where he was found on the bathroom floor. According to the patient he lost his balance and fell. There was no loss of consciousness that he can recall. He is seen and examined resting comfortably laying flat in bed in no acute distress. He denies symptoms of chest pain or shortness of breath. Diagnostic imaging reveals he suffered a left subcapital fracture and is scheduled to undergo surgical repair. DIAGNOSTICS EKG reveals atrial fibrillation heart rate of 104, PVC and nonspecific ST abnormalities. Chest xray negative for an acute cardiopulmonary process. Laboratory reviewed, WBC 6, hemoglobin 9.3, platelets 185, sodium 140, potassium on admission 2. 9 repeat yesterday after supplementation 3.3, creatinine 0.99. Current cardiac medications include atorvastatin 40 mg daily, Xarelto 50 mg daily, Toprol 50 mg daily and entresto 24/26 mg twice a day. Most recent echocardiogram obtained in the office April 2020 revealed preserved LV systolic function with ejection fraction 50%, moderate aortic stenosis, mild aortic regurgitation, mild mitral regurgitation and moderate tricuspid regurgitation. Most recent cardiac catheterization performed December 2019 revealed a lesion in the mid LAD 30%, proximal diagonal branch 80%, mid circumflex 15%, moderate aortic stenosis with a mean gradient of 22 mmHg. 11/19/2020 Patient examined this morning at the bedside. Patient is status post left hip hemiarthroplasty. Postoperative day #1. Patient complains of pain at the surgical site. He denies chest pain or pressure. He denies shortness of breath. He denies palpitations. Telemetry reveals atrial fib ablation with controlled ventricular rate. PHYSICAL EXAM: VITAL SIGNS: Reviewed. GENERAL: Well-developed in no acute distress. NECK: Supple. No JVD or thyromegaly LUNGS: Respirations even and unlabored. Lungs essentially clear to auscultation bilaterally. HEART: Regular rate and rhythm. S1 and S2 heard. EXTREMITIES: Normal range of motion. No clubbing or cyanosis. Peripheral pulses intact. No lower extremity edema ASSESSMENT: Fall Left hip fracture Chronic persistent atrial fibrillation on xarelto Muli-vessel coronary artery disease Aortic stenosis, moderate Hypertension Dyslipidemia Chronic systolic heart failure, clinically euvolemic PLAN: Resume Xarelto tonight Continue telemetry monitoring Continue current dose of metoprolol No further inpatient recommendations from a cardiac standpoint We will sign off. Please reconsult if needed. Nurse practitioner note has been reviewed by physician. Signing provider agrees with the documented findings, assessment, and plan of care. Objective - Vital Signs Vital signs: Vital Signs Temp 98.1 F 11/19/20 08:25 Pulse 76 11/19/20 11:45 Resp 18 11/19/20 11:45 BP 129/79 11/19/20 11:45 Pulse Ox 94 L 11/19/20 11:45 Intake & Output 11/18/20 11/19/20 11/19/20 18:59 06:59 18:59 Intake Total 1001 240 Output Total 400 0 Balance 601 240 Weight 81.647 kg 81 kg Intake: IV 1001 Oral 240 Output: Urine 300 Uretheral (Fuentes) 200 Stool 0 0 Estimated Blood Loss 100 Other: Voiding Method Indwelling Catheter Indwelling Catheter Indwelling Catheter # Voids 0 100 # Bowel Movements 0 - Labs CBC & Chem 7: 11/19/20 08:04 11/19/20 08:04 Labs: Abnormal Lab Results - Last 24 Hours (Table) 11/19/20 11/19/20 Range/Units 08:04 08:04 RBC 3.44 L (4.30-5.90) m/uL Hgb 9.0 L (13.0-17.5) gm/dL Hct 28.2 L (39.0-53.0) % Neutrophils # 8.2 H (1.3-7.7) k/uL Lymphocytes # 0.6 L (1.0-4.8) k/uL Carbon Dioxide 31 H (22-30) mmol/L Glucose 111 H (74-99) mg/dL Calcium 8.0 L (8.4-10.2) mg/dL
[2020-11-19] MEDS: RIVAROXABAN 15 MG TAB PO SCH (17:54)
[2020-11-19] MEDS: ALPRAZolam 0.25 MG TAB PO SCH (20:24)
[2020-11-19] MEDS: MELATONIN 5 MG TABLET PO SCH (20:24)
[2020-11-19] MEDS: SENNOSIDES-DOCUSATE SODIUM 1 EACH TAB PO SCH (20:24)
[2020-11-19] MEDS: ATORVASTATIN 40 MG TAB PO SCH (20:25)
[2020-11-19] MEDS: risperiDONE 0.25 MG TAB PO PRN (20:25)
--- NOTE | 2020-11-19 22:18 | PN ---
PROGRESS NOTE DATE OF SERVICE: 11/19/2020. This 79-year-old gentleman who was admitted with left subcapital hip fracture, had hemiarthroplasty. The patient was much more alert this morning, but subsequently patient had progressive confusion and restlessness suggestive of acute delirium. Patient being closely monitored at this time. Orthopedics is following the patient closely. The patient is actually a resident of [facility]. PAST MEDICAL HISTORY: Reviewed. REVIEW OF SYSTEMS: Could not be taken. CURRENT MEDICATIONS: Reviewed and include: Tylenol, [place], Xanax, Lipitor, BuSpar, FiberCon, vitamin B12, Lexapro, Proscar, folic acid. Doses reviewed. PHYSICAL EXAMINATION: Patient is conscious, confused. Pulse 83, blood pressure 118/83, respirations 16, temperature 97.6, pulse ox 93% on 3 L. HEENT: Conjunctivae normal. Neck no JVD. Cardiovascular: S1, S2 muffled. Respirations: Breath sounds diminished in the bases. A few scattered rhonchi. Abdomen: Soft, nontender. Legs: No edema. Nervous system: No focal deficits. LAB STUDIES: WBC 9.3, hemoglobin is 9, sodium 141, potassium 4.6. ASSESSMENT: 1. Status post subcapital fracture of the hip, nondisplaced, status post left hip cemented unipolar hemiarthroplasty. 2. Hypokalemia, improved. 3. Change in mental status acute delirium, postoperative. 4. Anemia, normocytic anemia of chronic disease. 5. Atrial fibrillation. 6. Moderate to severe aortic stenosis in the 2D echo. 7. Mild lymphopenia. 8. History of atrial fibrillation. 9. History of congestive heart failure. 10.History of dementia. 11.History of transient ischemic attack. 12.History of depression. 13.History of Parkinson's. 14.History of suspected seizures previously. 15.Gait dysfunction. 16.History of cardiac catheterization. 17.Remote history of nicotine dependence. RECOMMENDATIONS AND DISCUSSION: Recommend to continue current medications, management and symptomatic treatment. Continue with delirium prevention protocols. See orders for details. Prognosis guarded. Further recommendations to follow. MMODL / IJN: [id number] /
[2020-11-19] MEDS: MORPHINE SULFATE 4 MG/ML SYRINGE IV PRN (22:30)
[2020-11-20] MEDS: LACTATED RINGERS 1,000 ML IV SCH (06:08)
[2020-11-20] MEDS: FOLIC ACID 1 MG TAB PO SCH (09:00)
[2020-11-20] MEDS: FINASTERIDE 5 MG TAB PO SCH (09:00)
[2020-11-20] MEDS: THIAMINE 100 MG TAB PO SCH (09:00)
[2020-11-20] MEDS: ESCITALOPRAM 20 MG TAB PO SCH (09:00)
[2020-11-20] MEDS: PANTOPRAZOLE 40 MG TABLET PO SCH (09:00)
[2020-11-20] MEDS: METOPROLOL SUCCINATE (ER) 50 MG TAB.ER.24H PO SCH (09:00)
[2020-11-20] MEDS: busPIRone HCl 10 MG TAB PO SCH ×2 (09:00→17:08)
[2020-11-20] MEDS: SACUBITRIL/VALSARTAN 24 MG-26 MG TABLET PO SCH ×2 (09:00→17:07)
[2020-11-20] MEDS: CARBIDOPA-LEVODOPA 25-100 MG 1 EACH TAB PO SCH ×2 (09:00→17:07)
[2020-11-20] MEDS: HYDROcodone/APAP 5-325MG 1 EACH TAB PO PRN (09:01)
[2020-11-20] MEDS: CYANOCOBALAMIN 500 MCG TAB PO SCH (09:04)
--- NOTE | 2020-11-20 09:27 | P.PN ---
Subjective Progress Note Date: 11/20/20 This is a 79-year-old male who is status post left hip hemiarthroplasty. This is postoperative day #2 and patient is seen and evaluated at bedside today. The patient is a poor historian and is confused this morning secondary to dementia. Objective - Vital Signs Vital signs: Vital Signs Temp 98.9 F 11/20/20 08:36 Pulse 95 11/20/20 08:36 Resp 16 11/20/20 08:36 BP 126/78 11/20/20 08:36 Pulse Ox 100 11/20/20 08:36 Intake & Output 11/19/20 11/20/20 11/20/20 18:59 06:59 18:59 Intake Total 660 100 Output Total 400 Balance 260 100 Weight 84.5 kg Intake: Oral 660 100 Output: Urine 400 Stool 0 Other: Voiding Method Indwelling Catheter Indwelling Catheter - Exam Vital signs are stable. Patient is lying comfortably in bed in no acute distress. Calf is soft and nontender to palpation. Dressing is clean, dry, and intact. Patient has full foot and ankle motion without pain or difficulty. Sensation intact. Neurovascular status and circulatory status are intact. - Labs CBC & Chem 7: 11/19/20 08:04 11/19/20 08:04 Assessment and Plan (1) S/P hip hemiarthroplasty Current Visit: Yes Status: Acute Code(s): Z96.649 - PRESENCE OF UNSPECIFIED ARTIFICIAL HIP JOINT SNOMED Code(s): 080740251 (2) Atrial fibrillation Current Visit: Yes Status: Acute Code(s): I48.91 - UNSPECIFIED ATRIAL FIBRILLATION SNOMED Code(s): 53094843 (3) Fall Current Visit: Yes Status: Acute Code(s): W19.XXXA - UNSPECIFIED FALL, INITIAL ENCOUNTER SNOMED Code(s): 6965474 (4) Subcapital fracture of left hip Current Visit: Yes Status: Acute Code(s): S72.012A - UNSP INTRACAPSULAR FRACTURE OF LEFT FEMUR, INIT FOR CLOS FX SNOMED Code(s): 195448400 Plan: Continue routine postop care and pain control. Continue anticoagulation per medicine. Weightbearing as tolerated with a walker. Leave dressing in place for 10 days. Appreciate input from medicine. Anticipate discharge to rehab in the next 24-48 hours.
[2020-11-20] MEDS: MORPHINE SULFATE 4 MG/ML SYRINGE IV PRN ×3 (09:45→19:51)
[2020-11-20] MEDS: 0.9% NACL WITH KCL 20 MEQ/L 1,000 ML IV SCH (09:45)
[2020-11-20] MEDS: IPRATROPIUM BROMIDE 0.06% NASAL SPRAY (15 ML) EA NOSTRIL SCH ×2 (09:49→16:51)
[2020-11-20] MEDS: Colestipol Hcl [Colestid] 1 GM Tablet PO SCH (11:17)
[2020-11-20] MEDS: KETOROLAC 15 MG/ML 1 ML VIAL IVP SCH ×2 (11:43→17:08)
[2020-11-20] MEDS: RIVAROXABAN 15 MG TAB PO SCH (17:07)
[2020-11-20] MEDS: ATORVASTATIN 40 MG TAB PO SCH (19:52)
[2020-11-20] MEDS: SENNOSIDES-DOCUSATE SODIUM 1 EACH TAB PO SCH (19:52)
[2020-11-20] MEDS: ALPRAZolam 0.25 MG TAB PO SCH (19:52)
[2020-11-20] MEDS: MELATONIN 5 MG TABLET PO SCH (19:52)
[2020-11-20] MEDS: DRY MOUTH SPRAY 44.3 SPRAY/44.3 ML SPRAY MUCOUS MEM PRN (19:53)
--- NOTE | 2020-11-20 20:45 | PN ---
PROGRESS NOTE DATE OF SERVICE: 11/20/2020 This 79-year-old gentleman who was admitted after left subcapital fracture, was confused. Patient has features of acute delirium, improving significantly. No chest pain, no palpitation. EXAM: The patient is confused. Pulse is 102, blood pressure 120/50, respiration 18, temperature 98.8, pulse ox 100 percent on room air. HEENT: Normal conjunctivae. NECK: No JVD. CARDIOVASCULAR: S1, S2 muffled. RESPIRATORY SYSTEM: Breath sounds diminished at the bases. No rhonchi. No crackles. ABDOMEN: Soft, nontender. LEGS: Status post left hip fracture. NERVOUS SYSTEM: Nonfocal. LABS: Hemoglobin is 9. Other labs are noted. ASSESSMENT: 1. Status post left subcapital fracture of the left hip, nondisplaced, status post left hip cemented unipolar hemiarthroplasty. 2. Hypokalemia, improved. 3. Change in mental status, acute delirium, postoperative. 4. Anemia, normocytic anemia of chronic disease. 5. Atrial fibrillation, chronic. 6. Moderate to severe aortic stenosis in the 2D echo. 7. Mild lymphopenia. 8. History atrial fibrillation. 9. History of CHF, ejection fraction unknown. 10.Dementia. 11.History of TIA. 12.History of depression. 13.History of Parkinson's. 14.Suspected seizures previously. 15.History of gait dysfunction. 16.History of cardiac catheterization. 17.Remote history of nicotine dependence. RECOMMENDATIONS AND DISCUSSION: Continue current medications, monitor symptomatic treatment at this time. Closely monitor the patient's delirium. Closely follow with orthopedic surgery. Further recommendations to follow. MMODL / IJN: [id number] /
[2020-11-21] MEDS: KETOROLAC 15 MG/ML 1 ML VIAL IVP SCH ×4 (00:05→18:32)
[2020-11-21] MEDS: 0.9% NACL WITH KCL 20 MEQ/L 1,000 ML IV SCH (04:15)
[2020-11-21] MEDS: LACTATED RINGERS 1,000 ML IV SCH (04:17)
[2020-11-21] MEDS: MORPHINE SULFATE 4 MG/ML SYRINGE IV PRN (04:18)
[2020-11-21 07:42] LABS: Basophils % (A) 0 %; Eosinophils # (A) 0.2 k/uL (0-0.7); Eosinophils % (A) 3 %; HCT 30.6 % (39.0-53.0); HGB 9.1 gm/dL (13.0-17.5); Hypochromasia Marked; Lymphocytes # (A) 0.6 k/uL (1.0-4.8); Lymphocytes % (A) 7 %; MCHC 29.9 g/dL (31.0-37.0); MCV 83.7 fL (80.0-100.0); Mean Platelet Volume 8.2; Monocytes # (A) 0.4 k/uL (0-1.0); Monocytes % (A) 5 %; Neutrophils # (A) 7.4 k/uL (1.3-7.7); Neutrophils % (A) 83 %; Platelet Count 193 k/uL (150-450); Poikilocytosis Slight; RBC 3.65 m/uL (4.30-5.90); RDW 14.4 % (11.5-15.5)
[2020-11-21] MEDS: IPRATROPIUM BROMIDE 0.06% NASAL SPRAY (15 ML) EA NOSTRIL SCH ×2 (08:00→18:32)
--- NOTE | 2020-11-21 09:11 | P.DS ---
Providers Date of admission: 11/17/20 09:23 Expected date of discharge: 11/21/20 Attending physician: Ronnie Zelaya Consults: 11/17/20 18:50 Consult Physician Urgent Consulting Provider: Fitz Roach Consult Reason/Comments: medical clearance for hip surgery (leobardo was dr only in [facility] ) Do you want consulting provider notified?: Yes Primary care physician: James Rosario - Discharge Diagnosis(es) (1) S/P hip hemiarthroplasty Current Visit: Yes Status: Acute (2) Atrial fibrillation Current Visit: Yes Status: Acute (3) Fall Current Visit: Yes Status: Acute (4) Subcapital fracture of left hip Current Visit: Yes Status: Acute Hospital Course: This is an 79-year-old male who sustained a fracture of the left hip after a fall. Patient was found down on 11/17/2020 at his care home. The patient presented for evaluation in the emergency room. After discussion and consideration left hip hemiarthroplasty is scheduled. The patient is seen preoperatively by Dr. Zelaya and medically cleared for surgery by internal medicine. Patient is admitted to [facility] on 11/17/2020 and left hip hemiarthroplasty is performed on 11/18/2020. The procedure is performed without complication or sequelae. The patient is doing well postoperatively. Labs and vital signs are stable on day of discharge. On day of discharge patient's hip incision is healing well. There is minimal erythema. There is no drainage noted at this time. There is minimal soft tissue swelling to the hip and thigh. Patient has full foot and ankle motion without difficulty or pain. Calf is soft and nontender to palpation. Neurovascular status to the left lower extremity is intact. Patient is disc harged to rehab in good condition. Please see med rec for accurate list of home medications. Patient Condition at Discharge: Stable Plan - Discharge Summary Discharge Rx Participant: No New Discharge Prescriptions: New HYDROcodone/APAP 5-325MG [[place] 5-325] 1 - 2 tab PO Q6HR PRN #30 tab PRN Reason: Pain Sennosides [Senokot] 2 tab PO DAILY PRN #60 tablet PRN Reason: Constipation No Action Colestipol HCl [Colestid] 2 gm PO DAILY@1200 Atorvastatin Calcium [Lipitor] 40 mg PO HS@2100 Ipratropium [place] 0.06%Nasal [Atrovent Nasal 0.06%] 2 spray EA NOSTRIL BID@0800,1700 Sacubitril/Valsartan [Entresto 24 mg-26 mg Tablet] 1 tab PO BID@0800,1700 Cyanocobalamin (Vitamin B-12) [Vitamin B-12] 1,000 mcg PO DAILY@0800 Na Phos,M-B/Na Phos,Di-Ba [Fleet Adult] 133 ml RECTAL ONCE PRN PRN Reason: Constipation Vit C/E/Zn/Coppr/Lutein/Zeaxan [Preservision Areds 2 Softgel] 1 cap PO BID@0800,1700 Thiamine [Vitamin B-1] 100 mg PO DAILY@0800 Folic Acid 1 mg PO DAILY@0800 Calcium Polycarbophil [Fibercon] 625 mg PO DAILY@0800 Carbidopa-Levodopa 25-100 mg [Sinemet 25-100 mg] 1 tab PO BID@0800,1700 Metoprolol Succinate (ER) [Toprol XL] 50 mg PO DAILY@0800 Mupirocin 2% Oint [Bactroban 2% Oint] 1 applic TOPICAL DAILY Ipratropium [place] 0.06%Nasal [Atrovent Nasal 0.06%] 2 spray EA NOSTRIL TID PRN PRN Reason: rhinitis Finasteride [Proscar] 5 mg PO DAILY@0800 Escitalopram [Lexapro] 20 mg PO DAILY@0800 Loratadine 10 mg PO DAILY PRN PRN Reason: SNEEZING bisacodyL [Bisacodyl] 10 mg RECTAL DAILY PRN PRN Reason: Constipation Acetaminophen Tab [Tylenol] 650 mg PO Q4H PRN PRN Reason: Pain Or Fever > 100.5 Rivaroxaban [Xarelto] 15 mg PO HS@2100 Pantoprazole Sodium [Protonix] 40 mg PO DAILY@0800 Magnesium Hydroxide [Milk of Magnesia Concentrate] 7,200 mg PO DAILY PRN PRN Reason: Constipation busPIRone HCl [Buspar] 10 mg PO BID@0800,1700 ALPRAZolam [Xanax] 0.25 mg PO HS Melatonin 5 mg PO DAILY@2100 Discharge Medication List Atorvastatin Calcium [Lipitor] 40 mg PO HS@2100 09/26/20 [History] Colestipol HCl [Colestid] 2 gm PO DAILY@1200 09/26/20 [History] Cyanocobalamin (Vitamin B-12) [Vitamin B-12] 1,000 mcg PO DAILY@0800 09/26/20 [History] Escitalopram [Lexapro] 20 mg PO DAILY@0800 09/26/20 [History] Finasteride [Proscar] 5 mg PO DAILY@0800 09/26/20 [History] Ipratropium [place] 0.06%Nasal [Atrovent Nasal 0.06%] 2 spray EA NOSTRIL BID@0800,1700 09/26/20 [History] Sacubitril/Valsartan [Entresto 24 mg-26 mg Tablet] 1 tab PO BID@0800,1700 09/26/20 [History] Acetaminophen Tab [Tylenol] 650 mg PO Q4H PRN 10/13/20 [History] Calcium Polycarbophil [Fibercon] 625 mg PO DAILY@0800 10/13/20 [History] Folic Acid 1 mg PO DAILY@0800 10/13/20 [History] Loratadine 10 mg PO DAILY PRN 10/13/20 [History] Magnesium Hydroxide [Milk of Magnesia Concentrate] 7,200 mg PO DAILY PRN 10/13/20 [History] Na Phos,M-B/Na Phos,Di-Ba [Fleet Adult] 133 ml RECTAL ONCE PRN 10/13/20 [History] Pantoprazole Sodium [Protonix] 40 mg PO DAILY@0800 10/13/20 [History] Rivaroxaban [Xarelto] 15 mg PO HS@2100 10/13/20 [History] Thiamine [Vitamin B-1] 100 mg PO DAILY@0810/13/20 [History] Vit C/E/Zn/Coppr/Lutein/Zeaxan [Preservision Areds 2 Softgel] 1 cap PO BID@0800,1700 10/13/20 [History] bisacodyL [Bisacodyl] 10 mg RECTAL DAILY PRN 10/13/20 [History] ALPRAZolam [Xanax] 0.25 mg PO HS 11/17/20 [History] Carbidopa-Levodopa 25-100 mg [Sinemet 25-100 mg] 1 tab PO BID@0800,1700 11/17/20 [History] Ipratropium [place] 0.06%Nasal [Atrovent Nasal 0.06%] 2 spray EA NOSTRIL TID PRN 11/17/20 [History] Melatonin 5 mg PO DAILY@2100 11/17/20 [History] Metoprolol Succinate (ER) [Toprol XL] 50 mg PO DAILY@0800 11/17/20 [History] Mupirocin 2% Oint [Bactroban 2% Oint] 1 applic TOPICAL DAILY 11/17/20 [History] busPIRone HCl [Buspar] 10 mg PO BID@0800,1700 11/17/20 [History] HYDROcodone/APAP 5-325MG [[place] 5-325] 1 - 2 tab PO Q6HR PRN #30 tab 11/21/20 [Rx] Sennosides [Senokot] 2 tab PO DAILY PRN #60 tablet 11/21/20 [Rx] Follow up Appointment(s)/Referral(s): Noelle Virk PAC [PHYSICIAN COMMUNITY PHARMACIST] - 3 Weeks Mark Quiles MD [STAFF PHYSICIAN] - 2 Weeks Rand Hilario MD [REFERRING] - 1-2 days Activity/Diet/Wound Care/Special Instructions: May bear wt as tolerated w walker. May shower. Leave Optifoam dressing intact 10 days. Medical to manage Xarelto. Discharge Disposition: TRANSFER TO SNF/ECF
[2020-11-21] MEDS: busPIRone HCl 10 MG TAB PO SCH (10:18)
[2020-11-21] MEDS: CARBIDOPA-LEVODOPA 25-100 MG 1 EACH TAB PO SCH ×2 (10:19→18:32)
[2020-11-21] MEDS: CYANOCOBALAMIN 500 MCG TAB PO SCH (10:20)
[2020-11-21] MEDS: ESCITALOPRAM 20 MG TAB PO SCH (10:20)
[2020-11-21] MEDS: METOPROLOL SUCCINATE (ER) 50 MG TAB.ER.24H PO SCH (10:21)
[2020-11-21] MEDS: FOLIC ACID 1 MG TAB PO SCH (10:21)
[2020-11-21] MEDS: FINASTERIDE 5 MG TAB PO SCH (10:21)
[2020-11-21] MEDS: PANTOPRAZOLE 40 MG TABLET PO SCH (10:22)
[2020-11-21] MEDS: SACUBITRIL/VALSARTAN 24 MG-26 MG TABLET PO SCH ×2 (10:23→18:33)
[2020-11-21] MEDS: THIAMINE 100 MG TAB PO SCH (10:23)
[2020-11-21] MEDS ORDERED: busPIRone HCl 10 MG TAB PO PRN (14:05)
--- NOTE | 2020-11-21 15:17 | P.PN ---
Subjective Progress Note Date: 11/21/20 This is an 79-year-old male who was recently admitted with a subcapital fracture of the left hip and is being closely monitored. Patient is status post left hip cemented unipolar hemiarthroplasty. Following closely along with orthopedic surgery. Patient is extremely lethargic and obtunded today and difficult to arouse with verbal stimuli. Patient per nursing staff was being assisted with eating breakfast and not swallowing and holding all of his food in his mouth. Speech consulted for swallow eval and medication adjustments have been made as TUB CHUCKER agents and narcotics will be when necessary as patient is quite sedated. Reveiw of systems: Unable to obtain as patient is confused and sedated Active Medications Acetaminophen (Acetaminophen Tab 325 Mg Tab) 650 mg PO Q6HR PRN PRN Reason: Mild Pain or Fever > 100.5 Acetaminophen (Acetaminophen Tab 325 Mg Tab) 650 mg PO Q4H PRN PRN Reason: Pain or Fever > 100.5 Hydrocodone Bitart/Acetaminophen (Hydrocodone/Apap 5-325mg 1 Each Tab) 1 each PO Q6HR PRN PRN Reason: Pain Last Admin: 11/20/20 09:01 Dose: 1 each Documented by: Alprazolam (Alprazolam 0.25 Mg Tab) 0.25 mg PO HS [facility] Last Admin: 11/20/20 19:52 Dose: 0.25 mg Documented by: Atorvastatin Calcium (Atorvastatin 40 Mg Tab) 40 mg PO HS@2100 [facility] Last Admin: 11/20/20 19:52 Dose: 40 mg Documented by: Bisacodyl (Bisacodyl 10 Mg Supp) 10 mg RECTAL DAILY PRN PRN Reason: Constipation Buspirone HCl (Buspirone Hcl 10 Mg Tab) 10 mg PO BID PRN PRN Reason: Anxiety Calcium Polycarbophil (Calcium Polycarbophil 625 Mg Tab) 625 mg PO DAILY@0800 [facility] Last Admin: 11/21/20 10:19 Dose: Not Given Documented by: Carbidopa/Levodopa (Carbidopa-Levodopa 25-100 Mg 1 Each Tab) 1 each PO BID@0800,1700 [facility] Last Admin: 11/21/20 10:19 Dose: Not Given Documented by: Cyanocobalamin (Cyanocobalamin 500 Mcg Tab) 1,000 mcg PO DAILY@0800 [facility] Last Admin: 11/21/20 10:20 Dose: Not Given Documented by: Escitalopram Oxalate (Escitalopram 20 Mg Tab) 20 mg PO DAILY@0800 [facility] Last Admin: 11/21/20 10:20 Dose: Not Given Documented by: Finasteride (Finasteride 5 Mg Tab) 5 mg PO DAILY@0800 [facility] Last Admin: 11/21/20 10:21 Dose: Not Given Documented by: Folic Acid (Folic Acid 1 Mg Tab) 1 mg PO DAILY@0800 [facility] Last Admin: 11/21/20 10:21 Dose: Not Given Documented by: Hydromorphone HCl (Hydromorphone 0.5 Mg/0.5 Ml Syringe) 0.125 mg IVP Q3HR PRN PRN Reason: Pain Scale 1 to 3 Hydromorphone HCl (Hydromorphone 0.5 Mg/0.5 Ml Syringe) 0.5 mg IVP Q3HR PRN PRN Reason: Pain Scale 7 to 10 Last Admin: 11/19/20 21:24 Dose: 0.5 mg Documented by: Potassium Chloride/Sodium Chloride (Ns-Kcl 20 Meq/L Iv Solution) 1,000 mls @ 50 mls/hr IV .Q20H [facility] Last Admin: 11/21/20 04:15 Dose: 50 mls/hr Documented by: Lactated Ringer's (Lactated Ringers) 1,000 mls @ 20 mls/hr IV .Q24H [facility] Last Admin: 11/21/20 04:17 Dose: Not Given Documented by: Ipratropium Gatzke (Ipratropium Gatzke 0.06% Nasal Larue (15 Ml)) 2 spray EA NOSTRIL BID@0800,1700 [facility] Last Admin: 11/20/20 16:51 Dose: Not Given Documented by: Ipratropium Gatzke (Ipratropium Gatzke 0.06% Nasal Larue (15 Ml)) 2 spray EA NOSTRIL TID PRN PRN Reason: rhinitis Ketorolac Tromethamine (Ketorolac 15 Mg/Ml 1 Ml Vial) 15 mg IVP Q6HR [facility] Stop: 11/23/20 11:26 Last Admin: 11/21/20 06:46 Dose: 15 mg Documented by: Magnesium Hydroxide (Magnesium Hydroxide 2,400 Mg/10 Ml Cup) 2,400 mg PO DAILY PRN PRN Reason: Constipation Melatonin (Melatonin 5 Mg Tablet) 5 mg PO DAILY@2100 [facility] Last Admin: 11/20/20 19:52 Dose: 5 mg Documented by: Metoprolol Succinate (Metoprolol Succinate (Er) 50 Mg Tab.Er.24h) 50 mg PO DAILY@0800 [facility] Last Admin: 11/21/20 10:21 Dose: Not Given Documented by: Miscellaneous Information (Magnesium Replacement Protocol 1 Each Misc) 1 each MISCELLANE DAILY PRN; Protocol PRN Reason: Per Protocol Miscellaneous Information (Potassium Replacement Protocol 1 Each Misc) 1 each MISCELLANE DAILY PRN; Protocol PRN Reason: Per Protocol Miscellaneous Information (Magnesium Replacement Protocol 1 Each Misc) 1 each MISCELLANE DAILY PRN; Protocol PRN Reason: Per Protocol Miscellaneous Information (Magnesium Replacement Protocol 1 Each Misc) 1 each MISCELLANE DAILY PRN; Protocol PRN Reason: Per Protocol Miscellaneous Information (Potassium Replacement Protocol 1 Each Misc) 1 each MISCELLANE DAILY PRN; Protocol PRN Reason: Per Protocol Morphine Sulfate (Morphine Sulfate 4 Mg/Ml Syringe) 4 mg IV Q4HR PRN PRN Reason: Severe Pain Last Admin: 11/21/20 04:18 Dose: 4 mg Documented by: Naloxone HCl (Naloxone 0.4 Mg/Ml 1 Ml Vial) 0.2 mg IV Q2M PRN PRN Reason: Opioid Reversal Colestipol Hcl [ Colestid] 1 Gm Tablet 2 gm PO DAILY@1200 [facility] Last Admin: 11/20/20 11:17 Dose: Not Given Documented by: Ondansetron HCl (Ondansetron 4 Mg/2 Ml Vial) 4 mg IVP Q6HR PRN PRN Reason: Nausea And Vomiting Pantoprazole Sodium (Pantoprazole 40 Mg Tablet) 40 mg PO DAILY@0800 [facility] Last Admin: 11/21/20 10:22 Dose: Not Given Documented by: Risperidone (Risperidone 0.25 Mg Tab) 0.25 mg PO HS PRN PRN Reason: Agitation or Acute Anxiety Last Admin: 11/19/20 20:25 Dose: 0.25 mg Documented by: Rivaroxaban (Rivaroxaban 15 Mg Tab) 15 mg PO W/SUPPER [facility]; Protocol Last Admin: 11/20/20 17:07 Dose: 15 mg Documented by: Sacubitril/Valsartan (Sacubitril/Valsartan 24 Mg-26 Mg Tablet) 1 each PO BID@0800,1700 [facility] Last Admin: 11/21/20 10:23 Dose: Not Given Documented by: Saliva Substitute (Dry Mouth Larue 44.3 Larue/44.3 Ml Larue) 1 spray MUCOUS MEM TID PRN PRN Reason: Dry Mouth Last Admin: 11/20/20 19:53 Dose: 1 spray Documented by: Senna/Docusate Sodium (Sennosides-Docusate Sodium 1 Each Tab) 2 each PO HS [facility] Last Admin: 11/20/20 19:52 Dose: 2 each Documented by: Temazepam (Temazepam 15 Mg Cap) 15 mg PO HS PRN PRN Reason: Insomnia Thiamine HCl (Thiamine 100 Mg Tab) 100 mg PO DAILY@0800 [facility] Last Admin: 11/21/20 10:23 Dose: Not Given Documented by: Tramadol HCl (Tramadol 50 Mg Tab) 50 mg PO Q6H PRN PRN Reason: Moderate Pain Objective - Vital Signs Vital signs: Vital Signs Temp 98.1 F 11/20/20 20:00 Pulse 104 H 11/21/20 04:00 Resp 20 11/21/20 04:00 BP 123/89 11/21/20 04:00 Pulse Ox 91 L 11/21/20 04:00 Intake & Output 11/20/20 11/21/20 11/21/20 18:59 06:59 18:59 Intake Total 120 300 Output Total 200 0 Balance -80 300 Weight 83 kg Intake: Intake, IV Titration 150 Amount Lactated Ringers 1,000 ml 150 @ 20 mls/hr IV .Q24H [facility] Rx#:[id number] Oral 120 150 Output: Urine 200 Stool 0 0 Other: Voiding Method Indwelling Catheter Indwelling Catheter - Exam Gen: This is a 79-year-old male lethargic, confused, difficult to arouse. Temp is 98 axillary, pulse is 98, respirations are 20, blood pressure is 127/86, oxygen saturation is 94% on 2 L via nasal cannula. HEENT: Head is atraumatic, normocephalic. Pupils equal, round. Sclerae is anicteric. NECK: Supple. No JVD. No lymphadenopathy. No thyromegaly. LUNGS: Diminished breath sounds bilaterally with no wheezing or rhonchi noted. No intercostal retractions. HEART: S1, S2 are muffled. ABDOMEN: Soft. Bowel sounds are present. No masses. No tenderness. EXTREMITIES: No pedal edema. No calf tenderness. Status post left hip fracture NEUROLOGICAL: Patient is lethargic, infused, diffusely weak. - Labs CBC & Chem 7: 11/21/20 07:10 11/19/20 08:04 Labs: Abnormal Lab Results - Last 24 Hours (Table) 11/21/20 Range/Units 07:10 RBC 3.65 L (4.30-5.90) m/uL Hgb 9.1 L (13.0-17.5) gm/dL Hct 30.6 L (39.0-53.0) % MCHC 29.9 L (31.0-37.0) g/dL Lymphocytes # 0.6 L (1.0-4.8) k/uL Assessment and Plan Assessment: Status post left subcapital fracture of the left hip, nondisplaced, status post left hip cemented unipolar hemiarthroplasty Hypokalemia, improved Change in mental status, acute delirium, postoperative Anemia, normocytic anemia of chronic disease atrial fibrillation, chronic Moderate to severe aortic stenosis and the 2-D echo Mild lymphopenia History of CHF, ejection fraction unknown Dementia history of TIA history of depression history of Parkinson's Suspected seizures previously History of Parkinson's Gait dysfunction history History of cardiac catheterization Remote history of nicotine dependence Full code Recommendations and discussion: Recommend to continue with current medications, management, and symptomatic treatment. Will continue to follow along closely during hospitalization with orthopedic surgery. Patient is quite lethargic and difficult to arouse and unable to follow simple commands or answer questions appropriately. Will hold TUB CHUCKER a narcotic agents and use as needed once mentation improves. Per nursing staff patient was holding all of his food in his mouth and unable to swallow and will have speech evaluate swallow and appreciate further recommendations. Patient is to return to [facility] as he is a resident there once more stable. Due to multiple complex medical issues, prognosis is guarded. Further recommendations to follow.
--- NOTE | 2020-11-21 16:19 | CDI ---
Documentation Clarification Form Date: 11/21/2020 04:09:15 PM From: Kenia CevallosCOSME ferrari, CCDS Admit Date: 11/17/2020 09:23:00 AM Patient Name: Bogdan Javed Visit Number: [id number] Discharge Date: ATTENTION: The Clinical Documentation Specialists (CDI) and [facility] Coding Staff appreciate your assistance in clarifying documentation. Please respond to the clarification below the line at the bottom and electronically sign. The CDI & [facility] Coding staff will review the response and follow-up if needed. Please note: Queries are made part of the Legal Health Record. If you have any questions, please contact the author of this message via ITS. Dr. Fitz Roach: Per the 11/19 Medical Management Progress Note and subsequent Progress Notes, the following is documented: Change in mental status, acute delirium, postoperative. Also documented confusion beginning in the 11/17 Medical Management Consult. Additional clarification regarding the patient's confusion and mental status changes requested. History/Risk Factors per the 11/18 Orthopedic/Attending H/P: Atrial Fibrillation, Chest Pain/Angina, CHF, Dementia, TIA. Clinical Indicators: Presented to the ED on 11/17 via EMS from a [facility] after an unwitnessed fall, patient was found on the bathroom floor. The patient did hit his head. Has an unsteady gait, on blood thinner (Xarelto) secondary to Atrial Fibrillation. ED Clinical Impression: Fall, Subcapital Fracture of Left Hip, Hypokalemia 11/17 VS: T 98.0, P 85, R 20, BP 144/102, PO 95 RA, BMI: 27.0 11/17 LAB: Hgb 10.4, Lymph 0.7, PT 12.5, INR 1.2, APTT 31.7, K 2.9, CO2 31, Calcium 7.9, AST 15, Total Protein 5.1, Albumin 2.8 11/17 UA: clear, 1+ Protein, 1+ Ketones, Negative Nitrite, Trace Esterase 11/17 CT Brain: No acute hemorrhage or mass of midline shift. Treatment 11/17: po Kcl, IV Morphine, IV fl Na Cl 1,000 mls @ 75 mls/hr q13Hr 11/18 Procedure: Left hip cemented unipolar hemiarthroplasty. Please clarify if the following diagnosis if known & if present on admission: [ ] Metabolic Encephalopathy [ ] Toxic Encephalopathy [ ] Other, please specify [ ] Unable to determine (Template Last Revised: July 2020) Metabolic Encephalopathy MTDD
[2020-11-21] MEDS: Colestipol Hcl [Colestid] 1 GM Tablet PO SCH (16:35)
[2020-11-21] MEDS: RIVAROXABAN 15 MG TAB PO SCH (18:33)
[2020-11-21] MEDS: MELATONIN 5 MG TABLET PO SCH (20:20)
[2020-11-21] MEDS: SENNOSIDES-DOCUSATE SODIUM 1 EACH TAB PO SCH (20:20)
[2020-11-21] MEDS: ATORVASTATIN 40 MG TAB PO SCH (20:20)
[2020-11-22] MEDS: DRY MOUTH SPRAY 44.3 SPRAY/44.3 ML SPRAY MUCOUS MEM PRN (00:21)
[2020-11-22] MEDS: KETOROLAC 15 MG/ML 1 ML VIAL IVP SCH ×4 (00:22→11:43)
[2020-11-22] MEDS: LACTATED RINGERS 1,000 ML IV SCH (05:06)
[2020-11-22 08:02] LABS: Calcium 7.9 mg/dL (8.4-10.2); Potassium 4.8 mmol/L (3.5-5.1)
[2020-11-22 08:14] LABS: Basophils % (A) 1 %; Eosinophils # (A) 0.1 k/uL (0-0.7); Eosinophils % (A) 3 %; HCT 28.6 % (39.0-53.0); HGB 8.5 gm/dL (13.0-17.5); Hypochromasia Marked; Lymphocytes # (A) 0.6 k/uL (1.0-4.8); Lymphocytes % (A) 13 %; MCH 24.5 pg (25.0-35.0); MCHC 29.7 g/dL (31.0-37.0); MCV 82.7 fL (80.0-100.0); Mean Platelet Volume 7.8; Monocytes # (A) 0.2 k/uL (0-1.0); Monocytes % (A) 5 %; Neutrophils # (A) 3.5 k/uL (1.3-7.7); Neutrophils % (A) 76 %; Platelet Count 200 k/uL (150-450); Poikilocytosis Slight; RBC 3.46 m/uL (4.30-5.90); RDW 14.4 % (11.5-15.5); WBC 4.6 k/uL (3.8-10.6)
[2020-11-22] MEDS: METOPROLOL SUCCINATE (ER) 50 MG TAB.ER.24H PO SCH (08:47)
[2020-11-22] MEDS: ESCITALOPRAM 20 MG TAB PO SCH (08:47)
[2020-11-22] MEDS: CARBIDOPA-LEVODOPA 25-100 MG 1 EACH TAB PO SCH ×2 (08:47→16:42)
[2020-11-22] MEDS: FOLIC ACID 1 MG TAB PO SCH (08:47)
[2020-11-22] MEDS: FINASTERIDE 5 MG TAB PO SCH (08:47)
[2020-11-22] MEDS: SACUBITRIL/VALSARTAN 24 MG-26 MG TABLET PO SCH ×2 (08:47→16:41)
[2020-11-22] MEDS: THIAMINE 100 MG TAB PO SCH (08:47)
[2020-11-22] MEDS: PANTOPRAZOLE 40 MG TABLET PO SCH (08:47)
[2020-11-22] MEDS: IPRATROPIUM BROMIDE 0.06% NASAL SPRAY (15 ML) EA NOSTRIL SCH ×2 (08:48→16:42)
[2020-11-22] MEDS: CYANOCOBALAMIN 500 MCG TAB PO SCH (08:50)
--- NOTE | 2020-11-22 08:57 | P.PN ---
Subjective Progress Note Date: 11/22/20 This is a 79-year-old male who is status post left hip hemiarthroplasty. This is postoperative day #4 and patient is seen and evaluated at bedside today. The patient is a poor historian and is confused this morning secondary to dementia. Patient's discharge was postponed for swallow study. Objective - Vital Signs Vital signs: Vital Signs Temp 98.0 F 11/22/20 08:19 Pulse 128 H 11/22/20 08:19 Resp 16 11/22/20 08:19 BP 139/92 11/22/20 08:19 Pulse Ox 98 11/22/20 08:19 Intake & Output 11/21/20 11/22/20 11/22/20 18:59 06:59 18:59 Output Total 450 400 Balance -450 -400 Weight 85 kg Output: Urine 450 400 Uretheral (Fuentes) 400 Other: Voiding Method Indwelling Catheter # Bowel Movements 1 - Exam Vital signs are stable. Patient is lying comfortably in bed in no acute distress. Calf is soft and nontender to palpation. Dressing is clean, dry, and intact. Patient has full foot and ankle motion without pain or difficulty. Sensation intact. Neurovascular status and circulatory status are intact. - Labs CBC & Chem 7: 11/22/20 07:22 11/22/20 07:22 Labs: Abnormal Lab Results - Last 24 Hours (Table) 11/22/20 11/22/20 Range/Units 07: 07:22 RBC 3.46 L (4.30-5.90) m/uL Hgb 8.5 L (13.0-17.5) gm/dL Hct 28.6 L (39.0-53.0) % MCH 24.5 L (25.0-35.0) pg MCHC 29.7 L (31.0-37.0) g/dL Lymphocytes # 0.6 L (1.0-4.8) k/uL Chloride 113 H (98-107) mmol/L BUN 32 H (9-20) mg/dL Calcium 7.9 L (8.4-10.2) mg/dL Assessment and Plan (1) S/P hip hemiarthroplasty Current Visit: Yes Status: Acute Code(s): Z96.649 - PRESENCE OF UNSPECIFIED ARTIFICIAL HIP JOINT SNOMED Code(s): 266437682 (2) Atrial fibrillation Current Visit: Yes Status: Acute Code(s): I48.91 - UNSPECIFIED ATRIAL FIBRILLATION SNOMED Code(s): 71269528 (3) Fall Current Visit: Yes Status: Acute Code(s): W19.XXXA - UNSPECIFIED FALL, I NITIAL ENCOUNTER SNOMED Code(s): 9158271 (4) Subcapital fracture of left hip Current Visit: Yes Status: Acute Code(s): S72.012A - UNSP INTRACAPSULAR FRACTURE OF LEFT FEMUR, INIT FOR CLOS FX SNOMED Code(s): 981905330 Plan: Continue routine postop care and pain control. Continue anticoagulation per medicine. Weightbearing as tolerated with a walker. Leave dressing in place for 10 days. Appreciate input from medicine. Anticipate discharge to rehab when cleared medically.
[2020-11-22] MEDS: QUEtiapine 25 MG TAB PO PRN (09:35)
[2020-11-22] MEDS: Colestipol Hcl [Colestid] 1 GM Tablet PO SCH (11:06)
--- NOTE | 2020-11-22 13:05 | P.PN ---
Subjective This is a pleasant 79 years old male with past medical history of dementia, TIA, heart failure, atrial fibrillation. He presents on 11/17 after he was found in the bathroom floor and hit his head while he is on blood thinner as an unwitnessed fall. Patient had left hip fracture status post left hip cemented hemiarthroplasty. Yesterday patient was brought to be discharged but he was found so confused and sleepy, Secondary to medication . His sedatives and narcotics were held. Today morning patient was awake and alert however he was still confused and just chart and help patient denies any pain. We did not provide any further information he does not look in distress. I talked to his daughter Olinda over the phone and she confirmed to me by baseline is more awake and alert although he is delusional and has dementia. CT of the head is negative for acute process. CT of the cervical spine showing no fracture. Also patient is tachycardic with heart rate 103-128. Esophagitis looks stable and he is afebrile. His CBC and BMP are not concerning. Patient also has been evaluated by private duty nurse for his moderate aortic stenosis and they recommended monitoring only for now. Patient also had a swallowing evaluation today and he is currently on a pured diet with the liquids Objective - Vital Signs Vital signs: Vital Signs Temp 98.7 F 11/22/20 12:10 Pulse 103 H 11/22/20 12:10 Resp 18 11/22/20 12:10 BP 136/75 11/22/20 12:10 Pulse Ox 97 11/22/20 12:10 Intake & Output 11/21/20 11/22/20 11/22/20 18:59 06:59 18:59 Output Total 450 1300 Balance -450 -1300 Weight 85 kg Output: Urine 450 1300 Uretheral (Fuentes) 850 Other: Voiding Method Indwelling Catheter Indwelling Catheter # Bowel Movements 1 - Exam -GENERAL: The patient is confused and does not follow commands x3, not in any acute distress. Well developed, well nourished. HEENT: Pupils are round and equally reacting to light. EOMI. No scleral icterus. No conjunctival pallor. Normocephalic, atraumatic. No pharyngeal erythema. No thyromegaly. CARDIOVASCULAR: S1 and S2 present. No murmurs, rubs, or gallops. PULMONARY: Chest is clear to auscultation, no wheezing or crackles. ABDOMEN: Soft, nontender, nondistended, normoactive bowel sounds. No palpable organomegaly. MUSCULOSKELETAL: No joint swelling or deformity. -EXTREMITIES: No cyanosis, clubbing, or pedal edema. Left hip wound is clean with dressing is in place NEUROLOGICAL: Gross neurological examination did not reveal any focal deficits. SKIN: No rashes. no petechiae. - Labs CBC & Chem 7: 11/22/20 07:22 11/22/20 07:22 Labs: Abnormal Lab Results - Last 24 Hours (Table) 11/22/20 11/22/20 Range/Units 07: 07:22 RBC 3.46 L (4.30-5.90) m/uL Hgb 8.5 L (13.0-17.5) gm/dL Hct 28.6 L (39.0-53.0) % MCH 24.5 L (25.0-35.0) pg MCHC 29.7 L (31.0-37.0) g/dL Lymphocytes # 0.6 L (1.0-4.8) k/uL Chloride 113 H (98-107) mmol/L BUN 32 H (9-20) mg/dL Calcium 7.9 L (8.4-10.2) mg/dL Assessment and Plan Assessment: unwitnessed fall Altered mental status could be metabolic and/or toxic encephalopathy left hip fracture status post left hip cemented hemiarthroplasty Moderate aortic stenosis Cardiomyopathy with ejection fraction 40-45% Chronic atrial fibrillation on Xarelto Plan: This is a pleasant 79 years old male who presents with hip fracture and fall. Now he is confused also. Understanding tachycardic We will do septic workup, chest x-ray, urinalysis, blood culture and procalcitonin. [facility] for agitation as needed Orthopedic team on the case, also private duty nurse evaluated the patient Labs and medication were reviewed.. Continue same treatment. Continue with symptomatic treatment. Resume home medication. Monitor lytes and vitals. DVT and GI prophylaxis. Further recommendationsas per clinical course of the denise ent DVT prophylaxis: Xarelto GI Prophylaxis: Ppi PT/OT: Pending Prognosis is guarded
[2020-11-22 14:02] LABS: Appearance,Urine Cloudy (Clear); Bacteria,Urine Rare /hpf; Bilirubin,Urine Negative (Negative); Blood,Urine Large (Negative); Color,Urine Yellow; Glucose,Urine (UA) Negative (Negative); Ketones,Urine 1+ (Negative); Leukocyte Esterase,Urine Small (Negative); Mucus,Urine Few /hpf; Nitrite,Urine Negative (Negative); Protein,Urine 1+ (Negative); RBC,Urine >182 /hpf (0-5); Specific Gravity,Urine 1.021 (1.001-1.035); Squamous Epithelial Cell,Urine 1 /hpf (0-4); Urobilinogen,Urine <2.0 mg/dL (<2.0); WBC,Urine 9 /hpf (0-5)
--- NOTE | 2020-11-22 14:39 | XR ---
EXAMINATION TYPE: XR chest 1V DATE OF EXAM: 11/22/2020 COMPARISON: 11/17/2020 HISTORY: Tachycardia TECHNIQUE: Single frontal view of the chest is obtained. FINDINGS: There is no focal air space opacity, pleural effusion, or pneumothorax seen. The cardiac silhouette size is within normal limits. The osseous structures are intact. IMPRESSION: No acute process.
[2020-11-22] MEDS: RIVAROXABAN 15 MG TAB PO SCH (16:41)
[2020-11-22] MEDS: ACETAMINOPHEN TAB 325 MG TAB PO PRN (16:42)
--- NOTE | 2020-11-22 19:33 | US ---
EXAMINATION TYPE: US renals and bladder DATE OF EXAM: 11/22/2020 COMPARISON: NONE CLINICAL HISTORY: hematuria. Hematuria per order. EXAM MEASUREMENTS: Right Kidney: 9.7 x 5.2 x 4.7 cm Left Kidney: 11.2 x 5.2 x 6.1 cm Right Kidney: Cortex appears thin. Hypoechoic area seen within the upper pole measuring 2.3 x 2.5 x 1 .9 cm. Hypoechoic area seen within the lower pole measuring 1.2 x 1.1 x 0.7 cm. Left Kidney: Cortex appears thin. Multiple hypoechoic areas seen. Largest two areas measured. #1: 3.1 x 3.5 x 3.0 cm. #2: 3.6 x 3.1 x 3.6 cm. Bladder: Unable to evaluate. Patient has catheter in place. Bilateral Jets seen: No IMPRESSION: There is mild renal atrophy. Multiple renal bilateral cortical cysts. No evidence of a solid renal ma ss. No hydronephrosis. There is Fuentes catheter in the urinary bladder. No evidence of a bladder mass. Bladder is empty. No ureteral jets were seen.
[2020-11-22] MEDS: MELATONIN 5 MG TABLET PO SCH (20:49)
[2020-11-22] MEDS: ATORVASTATIN 40 MG TAB PO SCH (20:49)
[2020-11-22] MEDS: SENNOSIDES-DOCUSATE SODIUM 1 EACH TAB PO SCH (20:49)
[2020-11-22] MEDS: 0.9% NACL WITH KCL 20 MEQ/L 1,000 ML IV SCH ×2 (20:55)
[2020-11-23] MEDS: HYDROmorphone 0.5 MG/0.5 ML SYRINGE IVP PRN (00:15)
[2020-11-23] MEDS: QUEtiapine 25 MG TAB PO PRN ×2 (03:05→15:24)
[2020-11-23] MEDS: LACTATED RINGERS 1,000 ML IV SCH ×2 (06:15→20:58)
[2020-11-23 06:47] LABS: Basophils % (A) 1 %; Eosinophils # (A) 0.1 k/uL (0-0.7); Eosinophils % (A) 3 %; HCT 28.5 % (39.0-53.0); HGB 8.5 gm/dL (13.0-17.5); Hypochromasia Marked; Lymphocytes # (A) 0.6 k/uL (1.0-4.8); Lymphocytes % (A) 12 %; MCHC 29.8 g/dL (31.0-37.0); MCV 83.9 fL (80.0-100.0); Mean Platelet Volume 8.1; Monocytes # (A) 0.3 k/uL (0-1.0); Monocytes % (A) 7 %; Neutrophils # (A) 3.6 k/uL (1.3-7.7); Neutrophils % (A) 76 %; Platelet Count 202 k/uL (150-450); Poikilocytosis Slight; RBC 3.39 m/uL (4.30-5.90); RDW 14.4 % (11.5-15.5); WBC 4.7 k/uL (3.8-10.6)
[2020-11-23 07:05] LABS: ALT <6 U/L (4-49); AST 16 U/L (17-59); African American GFR (CKD) 88 (>60 ml/min/1.73 sqM); Albumin 2.5 g/dL (3.5-5.0); Alkaline Phosphatase 82 U/L (38-126); Anion Gap 4 mmol/L; Blood Urea Nitrogen 33 mg/dL (9-20); Calcium 8.2 mg/dL (8.4-10.2); Carbon Dioxide 28 mmol/L (22-30); Chloride 113 mmol/L (98-107); Glucose 94 mg/dL (74-99); Magnesium 2.2 mg/dL (1.6-2.3); Non-African American GFR(CKD) 76 (>60 ml/min/1.73 sqM); Potassium 4.9 mmol/L (3.5-5.1); Sodium 145 mmol/L (137-145); Total Bilirubin 0.8 mg/dL (0.2-1.3); Total Protein 4.8 g/dL (6.3-8.2)
[2020-11-23] MEDS: MORPHINE SULFATE 4 MG/ML SYRINGE IV PRN ×3 (08:47→23:39)
[2020-11-23] MEDS: CYANOCOBALAMIN 500 MCG TAB PO SCH (08:50)
[2020-11-23] MEDS: FINASTERIDE 5 MG TAB PO SCH (08:50)
[2020-11-23] MEDS: CARBIDOPA-LEVODOPA 25-100 MG 1 EACH TAB PO SCH ×2 (08:50→17:37)
[2020-11-23] MEDS: SACUBITRIL/VALSARTAN 24 MG-26 MG TABLET PO SCH ×2 (08:50→18:19)
[2020-11-23] MEDS: THIAMINE 100 MG TAB PO SCH (08:50)
[2020-11-23] MEDS: PANTOPRAZOLE 40 MG TABLET PO SCH (08:50)
[2020-11-23] MEDS: ESCITALOPRAM 20 MG TAB PO SCH (08:50)
[2020-11-23] MEDS: FOLIC ACID 1 MG TAB PO SCH (08:50)
[2020-11-23] MEDS: METOPROLOL SUCCINATE (ER) 50 MG TAB.ER.24H PO SCH (08:50)
[2020-11-23] MEDS: IPRATROPIUM BROMIDE 0.06% NASAL SPRAY (15 ML) EA NOSTRIL SCH ×2 (08:51→17:37)
[2020-11-23] MEDS: Colestipol Hcl [Colestid] 1 GM Tablet PO SCH (11:15)
[2020-11-23] MEDS: 0.9% NACL WITH KCL 20 MEQ/L 1,000 ML IV SCH (12:45)
--- NOTE | 2020-11-23 13:37 | P.PN ---
Subjective This is a pleasant 79 years old male with past medical history of dementia, TIA, heart failure, atrial fibrillation. He presents on 11/17 after he was found in the bathroom floor and hit his head while he is on blood thinner as an unwitnessed fall. Patient had left hip fracture status post left hip cemented hemiarthroplasty. Yesterday patient was brought to be discharged but he was found so confused and sleepy, Secondary to medication . His sedatives and narcotics were held. Today morning patient was awake and alert however he was still confused and just chart and help patient denies any pain. We did not provide any further information he does not look in distress. I talked to his daughter Olinda over the phone and she confirmed to me by baseline is more awake and alert although he is delusional and has dementia. CT of the head is negative for acute process. CT of the cervical spine showing no fracture. Also patient is tachycardic with heart rate 103-128. Esophagitis looks stable and he is afebrile. His CBC and BMP are not concerning. Patient also has been evaluated by steam powerplant supervisor for his moderate aortic stenosis and they recommended monitoring only for now. Patient also had a swallowing evaluation today and he is currently on a pured diet with the liquids 11/23/2020 Patient remains confused and morning this morning, he follows simple commands. His morning improved with given heparin doses of morphine but not much improvement regarding his confusion. Patient usually more cooperative and oriented than usual per family CT of the head on admission was unremarkable. Her going to call for neurology consult patient mostly has metabolic encephalopathy. His urine analysis from yesterday was showing mild hematuria however he was pulling out his Fuentes catheter when he was confused yesterday which may contribute to multitrauma. start the patient empirically on ceftriaxone. Renal ultrasound showed no hydronephrosis, no masses. No stone. He is mildly tachycardic at 102 His hemoglobin is 8.5. Rest of labs are unremarkable. procalcitonin is negative at 0.10. chest x-ray: no acute process. He remains on Xarelto and Sinemet. Continue with pain management Objective - Vital Signs Vital signs: Vital Signs Temp 98.3 F 11/23/20 08:25 Pulse 102 H 11/23/20 12:00 Resp 16 11/23/20 12:00 BP 158/84 11/23/20 12:00 Pulse Ox 96 11/23/20 12:00 Intake & Output 11/22/20 11/23/20 11/23/20 18:59 06:59 18:59 Intake Total 120 725 120 Output Total 1800 625 0 Balance -1680 100 120 Weight 85.5 kg Intake: Intake, IV Titration 550 Amount 0.9% NaCl with KCl 20 Meq 550 /l 1,000 ml @ 50 mls/hr IV .Q20H [facility] Rx#: [id number] Oral 120 175 120 Output: Urine 1800 625 Uretheral (Fuentes) 850 Stool 0 0 Other: Voiding Method Indwelling Catheter Indwelling Catheter Indwelling Catheter # Voids 1 # Bowel Movements 1 - Exam -GENERAL: The patient is confused and does not follow commands x3, not in any acute distress. Well developed, well nourished. HEENT: Pupils are round and equally reacting to light. EOMI. No scleral icterus. No conjunctival pallor. Normocephalic, atraumatic. No pharyngeal erythema. No thyromegaly. CARDIOVASCULAR: S1 and S2 present. No murmurs, rubs, or gallops. PULMONARY: Chest is clear to auscultation, no wheezing or crackles. ABDOMEN: Soft, nontender, nondistended, normoactive bowel sounds. No palpable organomegaly. MUSCULOSKELETAL: No joint swelling or deformity. -EXTREMITIES: No cyanosis, clubbing, or pedal edema. Left hip wound is clean with dressing is in place NEUROLOGICAL: Gross neurological examination did not reveal any focal deficits. SKIN: No rashes. no petechiae. - Labs CBC & Chem 7: 11/23/20 06:04 11/23/20 06:04 Labs: Abnormal Lab Results - Last 24 Hours (Table) 11/22/20 11/22/20 11/23/20 Range/Units 13:00 13:04 06:04 RBC 3.39 L (4.30-5.90) m/uL Hgb 8.5 L (13.0-17.5) gm/dL Hct 28.5 L (39.0-53.0) % MCHC 29.8 L (31.0-37.0) g/dL Lymphocytes # 0.6 L (1.0-4.8) k/uL Chloride (98-107) mmol/L BUN (9-20) mg/dL Calcium (8.4-10.2) mg/dL AST (17-59) U/L Total Protein (6.3-8.2) g/dL Albumin (3.5-5.0) g/dL Procalcitonin 0.10 H (0.02-0.09) ng/mL Urine Protein 1+ H (Negative) Urine Ketones 1+ H (Negative) Urine Blood Large H (Negative) Ur Leukocyte Esterase Small H (Negative) Urine RBC >182 H (0-5) /hpf Urine WBC 9 H (0-5) /hpf Urine Bacteria Rare H (None) /hpf Urine Mucus Few H (None) /hpf 11/23/ Range/Units 06:04 RBC (4.30-5.90) m/uL Hgb (13.0-17.5) gm/dL Hct (39.0-53.0) % MCHC (31.0-37.0) g/dL Lymphocytes # (1.0-4.8) k/uL Chloride 113 H (98-107) mmol/L BUN 33 H (9-20) mg/dL Calcium 8.2 L (8.4-10.2) mg/dL AST 16 L (17-59) U/L Total Protein 4.8 L (6.3-8.2) g/dL Albumin 2.5 L (3.5-5.0) g/dL Procalcitonin (0.02-0.09) ng/mL Urine Protein (Negative) Urine Ketones (Negative) Urine Blood (Negative) Ur Leukocyte Esterase (Negative) Urine RBC (0-5) /hpf Urine WBC (0-5) /hpf Urine Bacteria (None) /hpf Urine Mucus (None) /hpf Assessment and Plan Assessment: unwitnessed fall Altered mental status could be metabolic and/or toxic encephalopathy left hip fracture status post left hip cemented hemiarthroplasty Traumatic hematuria from pulling his Fuentes catheter Moderate aortic stenosis Cardiomyopathy with ejection fraction 40-45% Chronic atrial fibrillation on Xarelto Plan: This is a pleasant 79 years old male who presents with hip fracture and fall. Now he is confused also. Understanding tachycardic We will do septic workup is negative and started on Rocephin empirically for his hematuria which is most likely traumatic. Monitor urine. Loop Tacker on the case. Consult Neurology service abs and medication were reviewed.. Continue same treatment. Continue with symptomatic treatment. Resume home medication. Monitor lytes and vitals. DVT and GI prophylaxis. Further recommendationsas per clinical course of the patient DVT prophylaxis: Xarelto GI Prophylaxis: Ppi PT/OT: Pending Prognosis is guarded
[2020-11-23] MEDS: HYDROcodone/APAP 5-325MG 1 EACH TAB PO PRN (15:24)
--- NOTE | 2020-11-23 16:20 | P.CNNES ---
History of Present Illness Consult date: 11/23/20 Requesting physician: Filiberto E Courtney Reason for Consult: altered mental status History of Present Illness: This is an 79-year-old gentleman medical history of lacunar stroke, questionable new onset seizure and then 10/14/2020, possible atypical Parkinson's disease, chronic dysarthria, hard of hearing bilaterally, atrial fibrillation on Xarelto, heart failure, sleep apnea, diverticulitis who presented to the emergency department on 11/17/2020 after being found in the bathroom floor and he hit his head. He had an unwitnessed fall. As a result he had a left hip fracture status post hemiarthroplasty. Neurology is consulted for altered mentation. His daughter is at bedside and stated patient had recent UTI. Per the patient's daughter, patient mentation has been fluctuation. Patient was getting Toradol 50 mg every 6 hours scheduled and the last dose was 1143 on the 11/22/2020. The last morphine was 847 this morning and was 4 mg. He has ordered for morphine 4 mg IV every 4 hours as needed, tramadol 50 mg every 6 hours as needed and Harper 0.125 mg IV every 3 hours when necessary as well as the Harper 1 tablet every 6 hours as needed. Some of the patient's home medication per EMR R Sinemet 25/100 one tablet twice a day, be placed prone 10 mg 1 tablet twice a day, metoprolol, Xanax 0.25 mg daily at bedtime, thiamine, Xarelto 50 mg at bedtime, melatonin, folic acid, Lexapro, vitamin B12, Lipitor 40 mg a daily at bedtime, Harper 1 tablet 1-2 tablet every 6 hours when necessary, magnesium hydroxide, I personally saw the patient on 10/13/2020 for consult for new onset seizure and spoke that in details with the patient's daughter as well as the son. Please refer to my note for further details but briefly regarding these questionable new onset seizure and the daughter wanted to hold off on the medication. Regarding the shuffling gait dysarthria seems like possible atypical Parkinson's disease. I started the patient on the sediment 25/100 one tablet twice a day. The EEG was mild to moderate encephalopathy. There is no focal slowing, epileptiform discharges or seizure in the EEG. I notified the patient's family that he needs to follow-up with a neurologist as an outpatient. He was then seen by Dr. Kraus on 10/15/2020 and stated the patient had reported possible seizure, possible atypical Parkinson's disease, history of dysarthria. She noted that the MRI the brain the there is no sign of acute hemorrhage or infarct. And to follow-up as outpatient for Parkinson's disease workup. Per the daughter, she stated since I saw the patient last in 10/2020, he followed-up with Dr. Roman and stated to continue the same dose of Sinement and she felt he had two differential diagnosis but the daughter does not recall the names. She wanted him to see Neal Macias for second opinoin which is pending to be done. He was not placed on seizure medication by Dr. Bhavana Roman and the differential was not seizure. Since I saw him last, the daughter did not feel his condition improved and has been about the same. Some of the workup in the hospital consisted of: Most recent vitals his blood pressure of 138/79, heart rate of 104, temperature of 98.3 Fahrenheit oral, respiratory of 18, pulse ox of 95% room air. CT of the head and cervical spine is reported as there is no acute fracture or dislocation evident in the cervical spine. No acute intracranial hemorrhage, mass effect or midline shift is seen. Chronic changes. CT of the left hip is reported as finding and can be compatible with subtle nondisplaced sup Ictal fracture of the left hip. Then x-ray of the hip on 11/18/20: Shows metallic hardware from the left hip arthroplasty is satisfactory in position. Since the patient has been in the hospital the patient has no leukocytosis Patient latest chemistry panel is the glucose is 94, sodium is 145, creatinine is 0.94, AST of 16 and ALT of less than 6 which is within normal limits. Magnesium is 2.2 which is within normal limits. Hunt virus was not detected. Blood cultures from 11/22/2020 shows no growth after 24 hours. Review of Systems Review of system is limited but the prone positive and negative aspiration. Past Medical History Past Medical History: Atrial Fibrillation, Chest Pain / Angina, Heart Failure, Dementia Additional Past Medical History / Comment(s): TIA History of Any Multi-Drug Resistant Organisms: None Reported Past Surgical History: Heart Catheterization Past Anesthesia/Blood Transfusion Reactions: No Reported Reaction Past Psychological History: Depression Smoking Status: Former smoker Past Alcohol Use History: Occasional Past Drug Use History: None Reported - Past Family History Father History Unknown: Yes Mother History Unknown: Yes Medications and Allergies Home Medications Medication Instructions Recorded Confirmed Type Atorvastatin Calcium [Lipitor] 40 mg PO HS@2100 09/26/20 11/17/20 History Colestipol HCl [Colestid] 2 gm PO DAILY@1200 09/26/20 11/17/20 History Cyanocobalamin (Vitamin B-12) 1,000 mcg PO DAILY@0800 09/26/20 11/17/20 History [Vitamin B-12] Escitalopram [Lexapro] 20 mg PO DAILY@0800 09/26/20 11/17/20 History Finasteride [Proscar] 5 mg PO DAILY@0800 09/26/20 11/17/20 History Ipratropium [place] 0.06%Nasal 2 spray EA NOSTRIL BID@0800,1700 09/26/20 11/17/20 History [Atrovent Nasal 0.06%] Sacubitril/Valsartan [Entresto 24 1 tab PO BID@0800,1700 09/26/20 11/17/20 History mg-26 mg Tablet] Acetaminophen Tab [Tylenol] 650 mg PO Q4H PRN 10/13/20 11/17/20 History Calcium Polycarbophil [Fibercon] 625 mg PO DAILY@0800 10/13/20 11/17/20 History Folic Acid 1 mg PO DAILY@0800 10/13/20 11/17/20 History Loratadine 10 mg PO DAILY PRN 10/13/20 11/17/20 History Magnesium Hydroxide [Milk of 7,200 mg PO DAILY PRN 10/13/20 11/17/20 History Magnesia Concentrate] Na Phos,M-B/Na Phos,Di-Ba [Fleet 133 ml RECTAL ONCE PRN 10/13/20 11/17/20 History Adult] Pantoprazole Sodium [Protonix] 40 mg PO DAILY@0800 10/13/20 11/17/20 History Rivaroxaban [Xarelto] 15 mg PO HS@2100 10/13/20 11/17/20 History Thiamine [Vitamin B-1] 100 mg PO DAILY@0800 10/13/20 11/17/20 History Vit C/E/Zn/Coppr/Lutein/Zeaxan 1 cap PO BID@0800,1700 10/13/20 11/17/20 History [Preservision Areds 2 Softgel] bisacodyL [Bisacodyl] 10 mg RECTAL DAILY PRN 10/13/20 11/17/20 History ALPRAZolam [Xanax] 0.25 mg PO HS 11/17/20 11/17/20 History Carbidopa-Levodopa 25-100 mg 1 tab PO BID@0800,1700 11/17/20 11/17/20 History [Sinemet 25-100 mg] Ipratropium [place] 0.06%Nasal 2 spray EA NOSTRIL TID PRN 11/17/20 11/17/20 History [Atrovent Nasal 0.06%] Melatonin 5 mg PO DAILY@2100 11/17/20 11/17/20 History Metoprolol Succinate (ER) [Toprol 50 mg PO DAILY@0800 11/17/20 11/17/20 History XL] Mupirocin 2% Oint [Bactroban 2% 1 applic TOPICAL DAILY 11/17/20 11/17/20 History Oint] busPIRone HCl [Buspar] 10 mg PO BID@0800,1700 11/17/20 11/17/20 History HYDROcodone/APAP 5-325MG [Harper 1 - 2 tab PO Q6HR PRN #30 tab 11/21/20 Rx 5-325] Sennosides [Senokot] 2 tab PO DAILY PRN #60 tablet 11/21/20 Rx Allergies Allergy/AdvReac Type Severity Reaction Status Date / Time trospium [From [place]] Allergy Unknown Verified 11/17/20 09:54 mirabegron [From Myrbetriq] AdvReac dark urine Verified 11/17/20 09:54 tamsulosin [From Flomax] AdvReac low blood Verified 11/17/20 09:54 pressure Physical Examination - Vital Signs Vital Signs: Vital Signs Temp Pulse Pulse Resp BP BP Pulse Ox 11/23/20 14:00 102 H 16 11/23/20 12:00 102 H 16 158/84 96 11/23/20 08:25 98.3 F 104 H 18 138/79 95 11/23/20 03:25 77 17 134/86 98 11/23/20 01:18 103 H 16 11/23/20 00:00 98.2 F 103 H 16 132/79 99 11/22/20 22:25 98 11/22/20 20:00 98.2 F 84 17 147/83 99 11/22/20 16:08 97.7 F 98 16 151/85 100 Intake and Output 11/23/20 11/23/20 11/23/20 06:59 14:59 22:59 Intake Total 725 120 Output Total 625 0 Balance 100 120 Intake: Intake, IV Titration 550 Amount 0.9% NaCl with KCl 20 Meq 550 /l 1,000 ml @ 50 mls/hr IV .Q20H [facility] Rx#: [id number] Oral 175 120 Output: Urine 625 Stool 0 0 Other: Voiding Method Indwelling Catheter Indwelling Catheter # Voids 1 # Bowel Movements 1 Weight 85.5 kg GENERAL: The patient is lying in bed and is in mild to moderate acute distress. CHEST: The heart rate is regular rate rhythm. No murmurs to auscultation. LUNG: Clear to auscultation bilaterally no wheezing noted throughout. Not labored breathing. ABDOMEN/GI: Bowel sounds present in all 4 quadrants. No tenderness to palpation throughout. NEUROLOGICAL: Higher mental function: The patient is drowsy and briefly is awakeable. He states his first name. He does not follow command. He states repeated "I love you". Could not assess language because of his condition. Cranial nerves: He opens his eyes brief, round. Could not assess size or to light. Could not assess EOM or visual field. No facial weakness. Has mild to moderate dysarthria (old). Rest of cranial nerves could not be assessed. Motor: Could not assess gait because of his condition. The strength is moving bilateral upper extremities above gravity and no focality seen. Moving the right lower extremity above gravity briefly while the left I did not see any movement. Normal tone and bulk. Cerebellum: Could not assess. Sensation: Could not assess. Reflexes (right/left): 2+ uppers and 1+ lowers Plantars are mute bilaterally. Results - Laboratory Findings CBC and BMP: 11/23/20 06:04 11/23/20 06:04 Abnormal Lab Findings: Abnormal Labs 11/17/20 11/17/20 11/17/20 06:38 06:38 06:38 RBC 3.90 L Hgb 10.4 L Hct 30.7 L MCV 78.8 L D MCH MCHC RDW Neutrophils # Lymphocytes # 0.7 L PT INR APTT Potassium 2.9 L Chloride Carbon Dioxide 31 H BUN Glucose Calcium 7.9 L AST 15 L Total Protein 5.1 L Albumin 2.8 L Procalcitonin Urine Protein 1+ H Urine Ketones 1+ H Urine Blood Ur Leukocyte Esterase Trace H Urine RBC Urine WBC Urine Bacteria Urine Mucus Rare H 11/17/20 11/17/20 11/18/20 10:16 19:36 05:48 RBC 3.74 L Hgb 9.3 L Hct 31.2 L MCV MCH 24.9 L MCHC 29.8 L RDW 14.6 H Neutrophils # Lymphocytes # PT 12.5 H INR 1.2 H APTT 31.7 H Potassium 3.3 L Chloride Carbon Dioxide 34 H BUN Glucose Calcium AST Total Protein Albumin Procalcitonin Urine Protein Urine Ketones Urine Blood Ur Leukocyte Esterase Urine RBC Urine WBC Urine Bacteria Urine Mucus 11/18/20 11/19/20 11/19/20 05:48 08:04 08:04 RBC 3.44 L Hgb 9.0 L Hct 28.2 L MCV MCH MCHC RDW Neutrophils # 8.2 H Lymphocytes # 0.6 L PT INR APTT Potassium Chloride Carbon Dioxide 31 H BUN Glucose 111 H Calcium 7.8 L 8.0 L AST Total Protein Albumin Procalcitonin Urine Protein Urine Ketones Urine Blood Ur Leukocyte Esterase Urine RBC Urine WBC Urine Bacteria Urine Mucus 11/21/20 11/22/20 11/22/20 07:10 07:22 07:22 RBC 3.65 L 3.46 L Hgb 9.1 L 8.5 L Hct 30.6 L 28.6 L MCV MCH 24.5 L MCHC 29.9 L 29.7 L RDW Neutrophils # Lymphocytes # 0.6 L 0.6 L PT INR APTT Potassium Chloride 113 H Carbon Dioxide BUN 32 H Glucose Calcium 7.9 L AST Total Protein Albumin Procalcitonin Urine Protein Urine Ketones Urine Blood Ur Leukocyte Esterase Urine RBC Urine WBC Urine Bacteria Urine Mucus 11/22/20 11/22/20 11/23/20 13:00 13:04 06:04 RBC 3.39 L Hgb 8.5 L Hct 28.5 L MCV MCH MCHC 29.8 L RDW Neutrophils # Lymphocytes # 0.6 L PT INR APTT Potassium Chloride Carbon Dioxide BUN Glucose Calcium AST Total Protein Albumin Procalcitonin 0.10 H Urine Protein 1+ H Urine Ketones 1+ H Urine Blood Large H Ur Leukocyte Esterase Small H Urine RBC >182 H Urine WBC 9 H Urine Bacteria Rare H Urine Mucus Few H 11/23/20 06:04 RBC Hgb Hct MCV MCH MCHC RDW Neutrophils # Lymphocytes # PT INR APTT Potassium Chloride 113 H Carbon Dioxide BUN 33 H Glucose Calcium 8.2 L AST 16 L Total Protein 4.8 L Albumin 2.5 L Procalcitonin Urine Protein Urine Ketones Urine Blood Ur Leukocyte Esterase Urine RBC Urine WBC Urine Bacteria Urine Mucus Assessment and Plan Assessment: Delerium due to underlying UTI, hospital stay, medication effect Encephalopathy seems due to toxic (medication induced (opiates/Narcotics), and underlying UTI. Unwitnessed fall as a result had left hip fracture status post left hip cemented hemiathroplasy Questionable seizure on 10/14/2020 left hip fracture status post left hip cemented hemiathroplasy Possible Atypical parkinsonian Chronic dysarthria Chronic atrial fibrillation on Xarelto Hard of hearing bilaterally Cardiomyopathy Plan: * I ordered a routine EEG. Likely will be done tomorrow. * Will get repeat CT head tomorrow. * TSH is 1.32 and that was done on 10/13/2020, hemoglobin A1c is 5.4 and that was done on 10/13/2020, vitamin B12 is 1211 on 10/21/2020, serum folate is more than 24 and that was on the 10/13/2020 and all of these are and are unremarkable and does not need to be repeated. * From a neurological perspective. The patient is going to have repeated falls and he is on anticoagulation and then that increases the risk of a bleed. Therefore I'll possibly consider avoiding any anticoagulation if the family agrees because of the risk would outweigh the benefits if he continues to fall. * Recommend the if possible holding off on the opiates/narcotics which can affect the patient's mentation. * We'll defer the rest of the medical management to primary team. * Recommend for patient to continues to follow-up with his neurologist (Dr. Bhavana Roman) within 1-2 weeks as outpatient and he will be getting a second opinoin at [facility] down the line as outpatient. The plan is discussed with the patient's daughter (Lorin) and his nurse. Thank you for the consultation. Gus Demarco M.D. Neuro-hospitalist Time with Patient: Greater than 30
[2020-11-23] MEDS: RIVAROXABAN 15 MG TAB PO SCH (17:37)
[2020-11-23] MEDS: ATORVASTATIN 40 MG TAB PO SCH (20:47)
[2020-11-23] MEDS: MELATONIN 5 MG TABLET PO SCH (20:47)
[2020-11-23] MEDS: SENNOSIDES-DOCUSATE SODIUM 1 EACH TAB PO SCH (20:47)
--- NOTE | 2020-11-23 23:51 | P.PN ---
Subjective Progress Note Date: 11/23/20 Principal diagnosis: Left hip fracture This is a 79-year-old male seen at bedside this morning. He is status post left hip hemiarthroplasty. This is postoperative day #5. The patient is a poor historian secondary to dementia.He is pending transfer to [facility]. He is NAD Objective - Vital Signs Vital signs: Vital Signs Temp 98.5 F 11/23/20 20:00 Pulse 93 11/23/20 20:00 Resp 22 11/23/20 20:00 BP 152/96 11/23/20 20:00 Pulse Ox 95 11/23/20 20:00 Intake & Output 11/23/20 11/23/20 11/24/20 06:59 18:59 06:59 Intake Total 725 120 Output Total 625 0 Balance 100 120 Weight 85.5 kg Intake: Intake, IV Titration 550 Amount 0.9% NaCl with KCl 20 Meq 550 /l 1,000 ml @ 50 mls/hr IV .Q20H [facility] Rx#: [id number] Oral 175 120 Output: Urine 625 Stool 0 0 Other: Voiding Method Indwelling Catheter Indwelling Catheter Indwelling Catheter # Voids 1 # Bowel Movements 1 2 - Exam Inspection reveals a benign surgical wound. There is no active bleeding or drainage. Neurovascular status is intact throughout the lower extremity with motor and sensation fully intact. Calf is soft and nontender. 2+ dorsalis pedis pulse and less than 2 second cap refill is present. - Constitutional General appearance: Present: no acute distress - Labs CBC & Chem 7: 11/23/20 06:04 11/23/20 06:04 Labs: Abnormal Lab Results - Last 24 Hours (Table) 11/22/20 11/23/20 11/23/20 Range/Units 13:04 06:04 06:04 RBC 3.39 L (4.30-5.90) m/uL Hgb 8.5 L (13.0-17.5) gm/dL Hct 28.5 L (39.0-53.0) % MCHC 29.8 L (31.0-37.0) g/dL Lymphocytes # 0.6 L (1.0-4.8) k/uL Chloride 113 H (98-107) mmol/L BUN 33 H (9-20) mg/dL Calcium 8.2 L (8.4-10.2) mg/dL AST 16 L (17-59) U/L Total Protein 4.8 L (6.3-8.2) g/dL Albumin 2.5 L (3.5-5.0) g/dL Procalcitonin 0.10 H (0.02-0.09) ng/mL Microbiology - Last 24 Hours (Table) 11/22/20 13:04 Blood Culture - Preliminary Blood No Growth after 24 hours Assessment and Plan (1) Subcapital fracture of left hip Narrative/Plan: He will continue with routine postop orthopedic protocol including pain management, wound care, PT, DVT prophylaxis and medical management. Expect that he will transfer to [facility] in next few days pending medical clearance. Current Visit: Yes Status: Acute Code(s): S72.012A - UNSP INTRACAPSULAR FRACTURE OF LEFT FEMUR, INIT FOR CLOS FX SNOMED Code(s): 970236608 Time with Patient: Less than 30
[2020-11-24] MEDS: HYDROmorphone 0.5 MG/0.5 ML SYRINGE IVP PRN (00:55)
[2020-11-24] MEDS: 0.9% NACL WITH KCL 20 MEQ/L 1,000 ML IV SCH (03:24)
[2020-11-24] MEDS: MORPHINE SULFATE 4 MG/ML SYRINGE IV PRN (06:09)
--- NOTE | 2020-11-24 08:21 | CT ---
EXAMINATION TYPE: CT brain wo con DATE OF EXAM: 11/24/2020 COMPARISON: 11/17/2020 HISTORY: altered mental status CT DLP: 1247.[address] of the brain was performed. The ventricles, basal cisterns and sulci overlying the cerebral convexities demonstrate moderate enla rgement. There is no evidence for intracranial hemorrhage or sulcal effacement. There is decreased attenuation about the periventricular white matter and deep white matter of both c erebral hemispheres, compatible with chronic small vessel ischemia. Differential diagnosis does inclu de demyelination. No mass effects are seen.No midline shift. Osseous calvarium is intact. If symptoms persist consider MRI. IMPRESSION: 1. Age related atrophic and chronic small vessel ischemic change without acute intracranial process s een at this time.
[2020-11-24] MEDS: METOPROLOL SUCCINATE (ER) 50 MG TAB.ER.24H PO SCH (08:55)
--- NOTE | 2020-11-24 09:50 | P.PN ---
Subjective Progress Note Date: 11/24/20 This is a 79-year-old male who is status post left hip hemiarthroplasty. This is postoperative day #6 and patient is seen and evaluated at bedside today. The patient is a poor historian and is confused this morning secondary to dementia. Patient is being followed closely by medicine and has started treatment for possible UTI. Objective - Vital Signs Vital signs: Vital Signs Temp 98 F 11/24/20 03:50 Pulse 113 H 11/24/20 03:50 Resp 20 11/24/20 03:50 BP 133/98 11/24/20 03:50 Pulse Ox 98 11/24/20 03:50 Intake & Output 11/23/20 11/24/20 11/24/20 18:59 06:59 18:59 Intake Total 120 20 0 Output Total 0 700 Balance 120 -680 0 Weight 88 kg Intake: Oral 120 20 0 Output: Urine 700 Stool 0 0 Other: Voiding Method Indwelling Catheter Indwelling Catheter # Bowel Movements 2 - Exam Vital signs are stable. Patient is lying comfortably in bed in no acute distress. Calf is soft and nontender to palpation. Dressing is clean, dry, and intact. Patient has full foot and ankle motion without pain or difficulty. Sensation intact. Neurovascular status and circulatory status are intact. - Labs CBC & Chem 7: 11/23/20 06:04 11/23/20 06:04 Labs: Microbiology - Last 24 Hours (Table) 11/22/20 13:04 Blood Culture - Preliminary Blood No Growth after 24 hours Assessment and Plan (1) S/P hip hemiarthroplasty Current Visit: Yes Status: Acute Code(s): Z96.649 - PRESENCE OF UNSPECIFIED ARTIFICIAL HIP JOINT SNOMED Code(s): 350202136 (2) Atrial fibrillation Current Visit: Yes Status: Acute Code(s): I48.91 - UNSPECIFIED ATRIAL FIBRILLATION SNOMED Code(s): 26548498 (3) Fall Current Visit: Yes Status: Acute Code(s): W19.XXXA - UNSPECIFIED FALL, INITIAL ENCOUNTER SNOMED Code(s): 5530236 (4) Subcapital fracture of left hip Current Visit: Yes Status: Acute Code(s): S72.012A - UNSP INTRACAPSULAR FRACTURE OF LEFT FEMUR, INIT FOR CLOS FX SNOMED Code(s): 667954913 Plan: Continue routine postop care and pain control. Continue anticoagulation per medicine. Weightbearing as tolerated with a walker. Leave dressing in place for 10 days. Appreciate input from medicine. Discharge to rehab when cleared medically.
[2020-11-24] MEDS ORDERED: MORPHINE SULFATE 2 MG/ML SYRINGE IVP PRN (11:04)
--- NOTE | 2020-11-24 11:49 | P.PN ---
Subjective This is a pleasant 79 years old male with past medical history of dementia, TIA, heart failure, atrial fibrillation. He presents on 11/17 after he was found in the bathroom floor and hit his head while he is on blood thinner as an unwitnessed fall. Patient had left hip fracture status post left hip cemented hemiarthroplasty. Yesterday patient was brought to be discharged but he was found so confused and sleepy, Secondary to medication . His sedatives and narcotics were held. Today morning patient was awake and alert however he was still confused and just chart and help patient denies any pain. We did not provide any further information he does not look in distress. I talked to his daughter Olinda over the phone and she confirmed to me by baseline is more awake and alert although he is delusional and has dementia. CT of the head is negative for acute process. CT of the cervical spine showing no fracture. Also patient is tachycardic with heart rate 103-128. Esophagitis looks stable and he is afebrile. His CBC and BMP are not concerning. Patient also has been evaluated by mountain bike guide for his moderate aortic stenosis and they recommended monitoring only for now. Patient also had a swallowing evaluation today and he is currently on a pured diet with the liquids 11/23/2020 Patient remains confused and morning this morning, he follows simple commands. His morning improved with given heparin doses of morphine but not much improvement regarding his confusion. Patient usually more cooperative and oriented than usual per family CT of the head on admission was unremarkable. Her going to call for neurology consult patient mostly has metabolic encephalopathy. His urine analysis from yesterday was showing mild hematuria however he was pulling out his Fuentes catheter when he was confused yesterday which may contribute to multitrauma. start the patient empirically on ceftriaxone. Renal ultrasound showed no hydronephrosis, no masses. No stone. He is mildly tachycardic at 102 His hemoglobin is 8.5. Rest of labs are unremarkable. procalcitonin is negative at 0.10. chest x-ray: no acute process. He remains on Xarelto and Sinemet. Continue with pain management 11/24/2020 Patient remains confused and actually he is more sleepy and open-ended today however he got Dilaudid 0.5 mg this morning and 50 mg of temazepam last night which will make him sleepy anyway. He was still confused and pulled through his Fuentes catheter showed distal hematuria. Vitals stable, is mildly tachycardic at 108. Hemoglobin is stable at 8.5, rest of the CBC and BMP are unremarkable. Pro- calcitonin only mildly up at 0.10. Urinalysis from today showing hematuria, most likely traumatic from pulling his Fuentes. CBC is only 9 per high power field Remains on ceftriaxone We discontinue its sedative medication like Lexapro 20 mg, BuSpar 10 mg, 0.125 and 0.5, melatonin 5 mg and temazepam 50 mg. This on [place] 5 mg, Ultram 50 mg and added morphine 2 mg for pain control Transferred to medical service upon request of orthopedic team today who accepted the patient upon admission Neurologist input is appreciated, CT of the brain is negative for acute process EEG is pending Objective - Vital Signs Vital signs: Vital Signs Temp 98.4 F 11/24/20 08:00 Pulse 108 H 11/24/20 08:00 Resp 20 11/24/20 08:00 BP 173/116 11/24/20 08:00 Pulse Ox 95 11/24/20 08:00 Intake & Output 11/23/20 11/24/20 11/24/20 18:59 06:59 18:59 Intake Total 120 20 0 Output Total 0 700 Balance 120 -680 0 Weight 88 kg Intake: Oral 120 20 0 Output: Urine 700 Stool 0 0 Other: Voiding Method Indwelling Catheter Indwelling Catheter Indwelling Catheter # Bowel Movements 2 - Exam -GENERAL: The patient is confused and does not follow commands x3, not in any acute distress. Well developed, well nourished. HEENT: Pupils are round and equally reacting to light. EOMI. No scleral icterus. No conjunctival pallor. Normocephalic, atraumatic. No pharyngeal erythema. No thyromegaly. CARDIOVASCULAR: S1 and S2 present. No murmurs, rubs, or gallops. PULMONARY: Chest is clear to auscultation, no wheezing or crackles. ABDOMEN: Soft, nontender, nondistended, normoactive bowel sounds. No palpable organomegaly. MUSCULOSKELETAL: No joint swelling or deformity. -EXTREMITIES: No cyanosis, clubbing, or pedal edema. Left hip wound is clean with dressing is in place NEUROLOGICAL: Gross neurological examination did not reveal any focal deficits. SKIN: No rashes. no petechiae. - Labs CBC & Chem 7: 11/23/20 06:04 11/23/20 06:04 Labs: Microbiology - Last 24 Hours (Table) 11/22/20 13:04 Blood Culture - Preliminary Blood No Growth after 24 hours Assessment and Plan Assessment: unwitnessed fall Altered mental status could be metabolic and/or toxic encephalopathy left hip fracture status post left hip cemented hemiarthroplasty Traumatic hematuria from pulling his Fuentes catheter Moderate aortic stenosis Cardiomyopathy with ejection fraction 40-45% Chronic atrial fibrillation on Xarelto Plan: This is a pleasant 79 years old male who presents with hip fracture and fall. Now he is confused also. Understanding tachycardic We will do septic workup is negative and started on Rocephin empirically for his hematuria which is most likely traumatic. Monitor urine. Florist Manager on the case. Consult Neurology service, her recommended EGD which is pending abs and medication were reviewed.. Continue same treatment. Continue with symptomatic treatment. Resume home medication. Monitor lytes and vitals. DVT and GI prophylaxis. Further recommendationsas per clinical course of the patient DVT prophylaxis: Xarelto GI Prophylaxis: Ppi PT/OT: Pending Prognosis is guarded
[2020-11-24] MEDS: PANTOPRAZOLE 40 MG TABLET PO SCH (12:40)
[2020-11-24] MEDS: SACUBITRIL/VALSARTAN 24 MG-26 MG TABLET PO SCH ×2 (12:40→17:26)
[2020-11-24] MEDS: CYANOCOBALAMIN 500 MCG TAB PO SCH (12:40)
[2020-11-24] MEDS: IPRATROPIUM BROMIDE 0.06% NASAL SPRAY (15 ML) EA NOSTRIL SCH ×2 (12:40→19:22)
[2020-11-24] MEDS: FOLIC ACID 1 MG TAB PO SCH (12:40)
[2020-11-24] MEDS: Colestipol Hcl [Colestid] 1 GM Tablet PO SCH (12:41)
[2020-11-24] MEDS: THIAMINE 100 MG TAB PO SCH (12:41)
[2020-11-24] MEDS: CARBIDOPA-LEVODOPA 25-100 MG 1 EACH TAB PO SCH ×2 (12:41→17:26)
[2020-11-24 13:18] LABS: ABG Base Excess -0.1 mmol/L; ABG HCO3 26 mmol/L (21-25); ABG Oxygen Saturation 96.7 % (94-97); ABG PCO2 48 mmHg (35-45); ABG PH 7.34 (7.35-7.45); ABG PO2 89 mmHg (83-108); ABG TCO2 27 mmol/L (19-24); Allen Test Performed? Yes
--- NOTE | 2020-11-24 14:23 | P.PN ---
Subjective Progress Note Date: 11/24/20 Patient was seen at bedside and per the patient nurse patient condition is slightly better today. No seizure-like activity. Per the EEG techs she tried the getting the EEG but he could not lie still so had to be aborted. Objective - Vital Signs Vital signs: Vital Signs Temp 98 F 11/24/20 12:42 Pulse 99 11/24/20 12:42 Resp 20 11/24/20 12:42 BP 165/82 11/24/20 12:42 Pulse Ox 93 L 11/24/20 12:42 Intake & Output 11/23/20 11/24/20 11/24/20 18:59 06:59 18:59 Intake Total 120 20 0 Output Total 0 700 Balance 120 -680 0 Weight 88 kg Intake: Oral 120 20 0 Output: Urine 700 Stool 0 0 Other: Voiding Method Indwelling Catheter Indwelling Catheter Indwelling Catheter # Bowel Movements 2 - Exam GENERAL: The patient is lying in bed and is in mild to moderate acute distress. NEUROLOGICAL: Higher mental function: The patient is awake, alert, oriented to self. He was able to name object (pen) and upon showing cup and watch. He has repeated laughs. Could not assess language because of his condition. Cranial nerves: Pupils are round, equal and reactive to light. EOM is able to track throughout the room. No facial weakness. Has moderate dysarthria (old). Rest of cranial nerves could not be assessed. Motor: Could not assess gait because of his condition. The strength is moving bilateral upper extremities above gravity and no focality seen. Normal tone and bulk. Cerebellum: Could not assess. Sensation: Could not assess. Reflexes (right/left): 2+ uppers and 1+ lowers Plantars are mute bilaterally. WORK-UP: CT of the head is reported as age-related atrophy and chronic small vessel i schemic change without acute intracranial process seen at this time. TSH is 1.32 and that was done on 10/13/2020, hemoglobin A1c is 5.4 and that was done on 10/13/2020, vitamin B12 is 1211 on 10/21/2020, serum folate is more than 24 and that was on the 10/13/2020 and all of these are and are unremarkable and does not need to be repeated. - Labs CBC & Chem 7: 11/23/20 06:04 11/23/20 06:04 Labs: Abnormal Lab Results - Last 24 Hours (Table) 11/24/20 Range/Units 12:56 ABG pH 7.34 L (7.35-7.45) ABG pCO2 48 H (35-45) mmHg ABG HCO3 26 H (21-25) mmol/L ABG Total CO2 27 H (19-24) mmol/L Microbiology - Last 24 Hours (Table) 11/22/20 13:04 Blood Culture - Preliminary Blood No Growth after 24 hours Assessment and Plan Assessment: Delerium due to underlying UTI, hospital stay, medication effect--IMPROVING Encephalopathy seems due to toxic (medication induced (opiates/Narcotics), and underlying UTI-IMPROVING. 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 This could be done as outpatient since seizure in unlikely (he had prior EEG on 10/14/2020 and no seizure or epileptiform discharges seen). * From a neurological perspective. The patient is going to have repeated falls and he is on anticoagulation and then that increases the risk of a bleed. Therefore I'll possibly consider avoiding any anticoagulation if the family agrees because of the risk would outweigh the benefits if he continues to fall. * Recommend the if possible holding off on the opiates/narcotics which can affect the patient's mentation. * We'll defer the rest of the medical management to primary team. * Recommend for patient to continues to follow-up with his neurologist (Dr. Bhavana Roman) within 1-2 weeks as outpatient and he will be getting a second opinoin at [facility] down the line as outpatient. The plan is discussed with the patient's nurse. There is no further neurological work-up. Gus Demarco M.D. Neuro-hospitalist Time with Patient: Less than 30
[2020-11-24] MEDS: RIVAROXABAN 15 MG TAB PO SCH (17:26)
[2020-11-24] MEDS: FINASTERIDE 5 MG TAB PO SCH (17:26)
[2020-11-24] MEDS: ESCITALOPRAM 20 MG TAB PO SCH (19:22)
[2020-11-24] MEDS: ATORVASTATIN 40 MG TAB PO SCH (20:29)
[2020-11-24] MEDS: SENNOSIDES-DOCUSATE SODIUM 1 EACH TAB PO SCH (20:29)
[2020-11-25] MEDS: LACTATED RINGERS 1,000 ML IV SCH (04:46)
[2020-11-25] MEDS: IPRATROPIUM BROMIDE 0.06% NASAL SPRAY (15 ML) EA NOSTRIL SCH ×2 (08:00→17:13)
[2020-11-25] MEDS: 0.9% NACL WITH KCL 20 MEQ/L 1,000 ML IV SCH (08:49)
[2020-11-25] MEDS: SACUBITRIL/VALSARTAN 24 MG-26 MG TABLET PO SCH ×2 (08:54→17:12)
[2020-11-25] MEDS: FOLIC ACID 1 MG TAB PO SCH (08:54)
[2020-11-25] MEDS: METOPROLOL SUCCINATE (ER) 50 MG TAB.ER.24H PO SCH (08:55)
[2020-11-25] MEDS: THIAMINE 100 MG TAB PO SCH (08:55)
[2020-11-25] MEDS: CYANOCOBALAMIN 500 MCG TAB PO SCH (08:55)
[2020-11-25] MEDS: FINASTERIDE 5 MG TAB PO SCH (08:55)
[2020-11-25] MEDS: CARBIDOPA-LEVODOPA 25-100 MG 1 EACH TAB PO SCH ×2 (08:55→17:12)
[2020-11-25] MEDS: PANTOPRAZOLE 40 MG TABLET PO SCH (08:55)
--- NOTE | 2020-11-25 09:32 | P.PN ---
Subjective Progress Note Date: 11/25/20 Principal diagnosis: Status post left hip arden arthroplasty. This is an 79 year-old male post left hip hemiarthroplasty. This is post-op day 7. The patient was evaluated at the bedside today. The patient is confused but seems to be improving with cognition this morning. He was sitting on the side of the bed with physical therapy and stood twice during my exam. The patient is being followed with internal medicine and neurology very closely. Objective - Vital Signs Vital signs: Vital Signs Temp 97.1 F L 11/25/20 04:00 Pulse 109 H 11/25/20 04:00 Resp 16 11/25/20 04:00 BP 164/88 11/25/20 04:00 Pulse Ox 92 L 11/25/20 04:00 Intake & Output 11/24/20 11/25/20 11/25/20 18:59 06:59 18:59 Intake Total 570 118 Output Total 475 Balance 570 -475 118 Weight 86 kg Intake: Intake, IV Titration 450 Amount cefTRIAXone 1 gm In 450 Sodium Chloride 0.9% 50 ml @ 100 mls/hr IVPB Q24HR [facility] Rx#:[id number] Oral 120 118 Output: Urine 475 Stool 0 Other: Voiding Method Indwelling Catheter Indwelling Catheter # Bowel Movements 1 - Exam The patient does not appear in acute distress. Alert and orientated x1. Dressing is clean dry and intact. Incision appears fine with no erythema or active drainage. Calf is soft and nontender. Good foot and ankle motion without difficulty. Sensation and circulatory status is intact. - Labs CBC & Chem 7: 11/23/20 06:04 11/23/20 06:04 Labs: Abnormal Lab Results - Last 24 Hours (Table) 11/24/20 Range/Units 12:56 ABG pH 7.34 L (7.35-7.45) ABG pCO2 48 H (35-45) mmHg ABG HCO3 26 H (21-25) mmol/L ABG Total CO2 27 H (19-24) mmol/L Microbiology - Last 24 Hours (Table) 11/22/20 13:04 Blood Culture - Preliminary Blood No Growth after 48 hours Assessment and Plan (1) Fall Current Visit: Yes Status: Acute Code(s): W19.XXXA - UNSPECIFIED FALL, INITIAL ENCOUNTER SNOMED Code(s): 1078264 (2) S/P hip hemiarthroplasty Current Visit: Yes Status: Acute Code(s): Z96.649 - PRESENCE OF UNSPECIFIED ARTIFICIAL HIP JOINT SNOMED Code(s): 601119985 (3) Subcapital fracture of left hip Current Visit: Yes Status: Acute Code(s): S72.012A - UNSP INTRACAPSULAR FRACTURE OF LEFT FEMUR, INIT FOR CLOS FX SNOMED Code(s): 361262218 Plan: 1. Continue pain control, avoid opioids if possible to avoid further confusion. 2. Anticoagulation with Xarelto 3. Continue physical therapy and ambulation 4. Anticipate discharge to skilled rehab when cleared by internal medicine. The patient is orthopedically stable for discharge today.
--- NOTE | 2020-11-25 12:31 | P.PN ---
Subjective This is a pleasant 79 years old male with past medical history of dementia, TIA, heart failure, atrial fibrillation. He presents on 11/17 after he was found in the bathroom floor and hit his head while he is on blood thinner as an unwitnessed fall. Patient had left hip fracture status post left hip cemented hemiarthroplasty. Yesterday patient was brought to be discharged but he was found so confused and sleepy, Secondary to medication . His sedatives and narcotics were held. Today morning patient was awake and alert however he was still confused and just chart and help patient denies any pain. We did not provide any further information he does not look in distress. I talked to his daughter Olinda over the phone and she confirmed to me by baseline is more awake and alert although he is delusional and has dementia. CT of the head is negative for acute process. CT of the cervical spine showing no fracture. Also patient is tachycardic with heart rate 103-128. Esophagitis looks stable and he is afebrile. His CBC and BMP are not concerning. Patient also has been evaluated by diesel engine engineer for his moderate aortic stenosis and they recommended monitoring only for now. Patient also had a swallowing evaluation today and he is currently on a pured diet with the liquids 11/23/2020 Patient remains confused and morning this morning, he follows simple commands. His morning improved with given heparin doses of morphine but not much improvement regarding his confusion. Patient usually more cooperative and oriented than usual per family CT of the head on admission was unremarkable. Her going to call for neurology consult patient mostly has metabolic encephalopathy. His urine analysis from yesterday was showing mild hematuria however he was pulling out his Fuentes catheter when he was confused yesterday which may contribute to multitrauma. start the patient empirically on ceftriaxone. Renal ultrasound showed no hydronephrosis, no masses. No stone. He is mildly tachycardic at 102 His hemoglobin is 8.5. Rest of labs are unremarkable. procalcitonin is negative at 0.10. chest x-ray: no acute process. He remains on Xarelto and Sinemet. Continue with pain management 11/24/2020 Patient remains confused and actually he is more sleepy and open-ended today however he got Dilaudid 0.5 mg this morning and 50 mg of temazepam last night which will make him sleepy anyway. He was still confused and pulled through his Fuentes catheter showed distal hematuria. Vitals stable, is mildly tachycardic at 108. Hemoglobin is stable at 8.5, rest of the CBC and BMP are unremarkable. Pro- calcitonin only mildly up at 0.10. Urinalysis from today showing hematuria, most likely traumatic from pulling his Fuentes. CBC is only 9 per high power field Remains on ceftriaxone We discontinue its sedative medication like Lexapro 20 mg, BuSpar 10 mg, 0.125 and 0.5, melatonin 5 mg and temazepam 50 mg. This on [place] 5 mg, Ultram 50 mg and added morphine 2 mg for pain control Transferred to medical service upon request of orthopedic team today who accepted the patient upon admission Neurologist input is appreciated, CT of the brain is negative for acute process EEG is pending 11/25/2020 Patient is more awake today but is still confused and less interactive, follow- up, and since I saw him and even today. Also he is drowsy but with To verbal stimuli before going back to sleep again. He is doing better all over compared to the last 2 days. He couldn't stand up with 80/OT therapy today he was doing better about 4 days ago. Pain is not an issue for him. Fuentes has yellow urine today. Orthopedic and neurological services cleared the patient for discharge with recommendation for outpatient follow-up with his neurologist .N We will checkLabs tomorrow Patient will Needs ECF for rehab upon discharge Objective - Vital Signs Vital signs: Vital Signs Temp 98.0 F 11/25/20 08:00 Pulse 82 11/25/20 08:00 Resp 18 11/25/20 08:00 BP 129/82 11/25/20 08:00 Pulse Ox 97 11/25/20 08:00 Intake & Output 11/24/20 11/25/20 11/25/20 18:59 06:59 18:59 Intake Total 570 118 Output Total 475 525 Balance 570 -475 -407 Weight 86 kg Intake: Intake, IV Titration 450 Amount cefTRIAXone 1 gm In 450 Sodium Chloride 0.9% 50 ml @ 100 mls/hr IVPB Q24HR [facility] Rx#:[id number] Oral 120 118 Output: Urine 475 525 Stool 0 Other: Voiding Method Indwelling Catheter Indwelling Catheter # Bowel Movements 1 - Exam -GENERAL: The patient is confused and does not follow commands x3, not in any acute distress. Well developed, well nourished. HEENT: Pupils are round and equally reacting to light. EOMI. No scleral icterus. No conjunctival pallor. Normocephalic, atraumatic. No pharyngeal erythema. No thyromegaly. CARDIOVASCULAR: S1 and S2 present. No murmurs, rubs, or gallops. PULMONARY: Chest is clear to auscultation, no wheezing or crackles. ABDOMEN: Soft, nontender, nondistended, normoactive bowel sounds. No palpable organomegaly. MUSCULOSKELETAL: No joint swelling or deformity. -EXTREMITIES: No cyanosis, clubbing, or pedal edema. Left hip wound is clean with dressing is in place NEUROLOGICAL: Gross neurological examination did not reveal any focal deficits. SKIN: No rashes. no petechiae. - Labs CBC & Chem 7: 11/23/20 06:04 11/23/20 06:04 Labs: Abnormal Lab Results - Last 24 Hours (Table) 11/24/20 Range/Units 12:56 ABG pH 7.34 L (7.35-7.45) ABG pCO2 48 H (35-45) mmHg ABG HCO3 26 H (21-25) mmol/L ABG Total CO2 27 H (19-24) mmol/L Microbiology - Last 24 Hours (Table) 11/22/20 13:04 Blood Culture - Preliminary Blood No Growth after 48 hours Assessment and Plan Assessment: unwitnessed fall Altered mental status could be metabolic and/or toxic encephalopathy left hip fracture status post left hip cemented hemiarthroplasty Traumatic hematuria from pulling his Fuentes catheter Moderate aortic stenosis Cardiomyopathy with ejection fraction 40-45% Chronic atrial fibrillation on Xarelto Plan: This is a pleasant 79 years old male who presents with hip fracture and fall. Now he is confused also. Understanding tachycardic We will do septic workup is negative and started on Rocephin empirically for his hematuria which is most likely traumatic. Monitor urine. Casting House Laborer on the case. Consult Neurology service who cleared the patient for discharge, she can be done as an outpatient. Orthopedic team also cleared the patient for discharge abs and medication were reviewed.. Continue same treatment. Continue with symptomatic treatment. Resume home medication. Monitor lytes and vitals. DVT and GI prophylaxis. Further recommendationsas per clinical course of the patient DVT prophylaxis: Xarelto GI Prophylaxis: Ppi PT/OT: Pending Prognosis is guarded
[2020-11-25] MEDS: Colestipol Hcl [Colestid] 1 GM Tablet PO SCH (12:48)
[2020-11-25] MEDS: RIVAROXABAN 15 MG TAB PO SCH (17:12)
[2020-11-25 17:32] LABS: Amorphous Sediment,Urine Rare /hpf; Appearance,Urine Cloudy (Clear); Bilirubin,Urine Negative (Negative); Blood,Urine Small (Negative); Color,Urine Yellow; Glucose,Urine (UA) Negative (Negative); Ketones,Urine 1+ (Negative); Leukocyte Esterase,Urine Negative (Negative); Mucus,Urine Rare /hpf; Nitrite,Urine Negative (Negative); Protein,Urine Trace (Negative); RBC,Urine 19 /hpf (0-5); Specific Gravity,Urine 1.014 (1.001-1.035); Squamous Epithelial Cell,Urine <1 /hpf (0-4); Urobilinogen,Urine <2.0 mg/dL (<2.0); WBC,Urine 1 /hpf (0-5)
[2020-11-25] MEDS: SENNOSIDES-DOCUSATE SODIUM 1 EACH TAB PO SCH (20:46)
[2020-11-25] MEDS: HYDROcodone/APAP 5-325MG 1 EACH TAB PO PRN (20:47)
[2020-11-25] MEDS: ATORVASTATIN 40 MG TAB PO SCH (20:47)
[2020-11-26] MEDS: 0.9% NACL WITH KCL 20 MEQ/L 1,000 ML IV SCH (05:30)
[2020-11-26] MEDS: LACTATED RINGERS 1,000 ML IV SCH (05:31)
[2020-11-26 07:56] LABS: Basophils % (A) 1 %; Eosinophils # (A) 0.2 k/uL (0-0.7); Eosinophils % (A) 4 %; HCT 28.1 % (39.0-53.0); HGB 8.6 gm/dL (13.0-17.5); Hypochromasia Marked; Lymphocytes # (A) 0.8 k/uL (1.0-4.8); Lymphocytes % (A) 14 %; MCH 25.4 pg (25.0-35.0); MCHC 30.5 g/dL (31.0-37.0); MCV 83.4 fL (80.0-100.0); Mean Platelet Volume 8.3; Monocytes # (A) 0.4 k/uL (0-1.0); Monocytes % (A) 6 %; Neutrophils # (A) 4.6 k/uL (1.3-7.7); Neutrophils % (A) 75 %; Platelet Count 275 k/uL (150-450); Poikilocytosis Slight; RBC 3.37 m/uL (4.30-5.90); RDW 15.1 % (11.5-15.5); WBC 6.1 k/uL (3.8-10.6)
[2020-11-26 08:13] LABS: ALT <6 U/L (4-49); AST 18 U/L (17-59); African American GFR (CKD) >90 (>60 ml/min/1.73 sqM); Albumin 2.6 g/dL (3.5-5.0); Alkaline Phosphatase 82 U/L (38-126); Anion Gap 6 mmol/L; Blood Urea Nitrogen 19 mg/dL (9-20); Calcium 8.4 mg/dL (8.4-10.2); Carbon Dioxide 25 mmol/L (22-30); Chloride 113 mmol/L (98-107); Glucose 87 mg/dL (74-99); Non-African American GFR(CKD) 81 (>60 ml/min/1.73 sqM); Potassium 4.2 mmol/L (3.5-5.1); Sodium 144 mmol/L (137-145); Total Bilirubin 0.6 mg/dL (0.2-1.3); Total Protein 4.8 g/dL (6.3-8.2)
[2020-11-26] MEDS: FINASTERIDE 5 MG TAB PO SCH (08:42)
[2020-11-26] MEDS: PANTOPRAZOLE 40 MG TABLET PO SCH (08:42)
[2020-11-26] MEDS: CARBIDOPA-LEVODOPA 25-100 MG 1 EACH TAB PO SCH ×2 (08:42→16:39)
[2020-11-26] MEDS: IPRATROPIUM BROMIDE 0.06% NASAL SPRAY (15 ML) EA NOSTRIL SCH ×2 (08:42→16:38)
[2020-11-26] MEDS: CYANOCOBALAMIN 500 MCG TAB PO SCH (08:42)
[2020-11-26] MEDS: THIAMINE 100 MG TAB PO SCH (08:43)
[2020-11-26] MEDS: SACUBITRIL/VALSARTAN 24 MG-26 MG TABLET PO SCH ×2 (08:43→16:39)
[2020-11-26] MEDS: METOPROLOL SUCCINATE (ER) 50 MG TAB.ER.24H PO SCH ×2 (08:43→20:30)
[2020-11-26] MEDS: FOLIC ACID 1 MG TAB PO SCH (08:43)
--- NOTE | 2020-11-26 09:18 | P.PN ---
Subjective Progress Note Date: 11/26/20 Principal diagnosis: Status post left hip arden arthroplasty. This is an 79 year-old male post left hip hemiarthroplasty. This is post-op day 8. The patient was evaluated at the bedside today. The patient is confused but sis aware and alert today. The patient is being followed with internal medicine and neurology very closely. We awaiting transfer to skilled rehab upon discharge. Objective - Vital Signs Vital signs: Vital Signs Temp 97.8 F 11/26/20 04:00 Pulse 95 11/26/20 04:00 Resp 18 11/26/20 04:00 BP 136/80 11/26/20 04:00 Pulse Ox 95 11/26/20 07:55 Intake & Output 11/25/20 11/26/20 11/26/20 18:59 06:59 18:59 Intake Total 476 540 Output Total 825 650 Balance -349 -110 Weight 86 kg 86 kg Intake: Intake, IV Titration 300 Amount 0.9% NaCl with KCl 20 Meq 300 /l 1,000 ml @ 50 mls/hr IV .Q20H [facility] Rx#: [id number] Oral 476 240 Output: Urine 825 650 Stool 0 Other: Voiding Method Indwelling Catheter - Exam The patient does not appear in acute distress. Alert and orientated x1. Dressing is clean dry and intact. Incision appears fine with no erythema or active drainage. Calf is soft and nontender. Good foot and ankle motion without difficulty. Sensation and circulatory status is intact. - Labs CBC & Chem 7: 11/26/20 07:17 11/26/20 07:17 Labs: Abnormal Lab Results - Last 24 Hours (Table) 11/25/20 11/26/20 11/26/20 Range/Units 12:57 07:17 07:17 RBC 3.37 L (4.30-5.90) m/uL Hgb 8.6 L (13.0-17.5) gm/dL Hct 28.1 L (39.0-53.0) % MCHC 30.5 L (31.0-37.0) g/dL Lymphocytes # 0.8 L (1.0-4.8) k/uL Chloride 113 H (98-107) mmol/L Total Protein 4.8 L (6.3-8.2) g/dL Albumin 2.6 L (3.5-5.0) g/dL Urine Protein Trace H (Negative) Urine Ketones 1+ H (Negative) Urine Blood Small H (Negative) Urine RBC 19 H (0-5) /hpf Amorphous Sediment Rare H (None) /hpf Urine Mucus Rare H (None) /hpf Microbiology - Last 24 Hours (Table) 11/22/20 13:04 Blood Culture - Preliminary Blood No Growth after 72 hours Assessment and Plan (1) Fall Current Visit: Yes Status: Acute Code(s): W19.XXXA - UNSPECIFIED FALL, INITIAL ENCOUNTER SNOMED Code(s): 7005256 (2) S/P hip hemiarthroplasty Current Visit: Yes Status: Acute Code(s): Z96.649 - PRESENCE OF UNSPECIFIED ARTIFICIAL HIP JOINT SNOMED Code(s): 851000892 (3) Subcapital fracture of left hip Current Visit: Yes Status: Acute Code(s): S72.012A - UNSP INTRACAPSULAR FRACTURE OF LEFT FEMUR, INIT FOR CLOS FX SNOMED Code(s): 337649938 Plan: 1. Continue pain control, avoid opioids if possible to avoid further confusion. 2. Anticoagulation with Xarelto 3. Continue physical therapy and ambulation 4. Anticipate discharge to skilled rehab when cleared by internal medicine. The patient is orthopedically stable for discharge today.
--- NOTE | 2020-11-26 12:48 | P.PN ---
Subjective Progress Note Date: 11/26/20 The patient seen at the side and per the patient nurse and his condition has been about the same. Objective - Vital Signs Vital signs: Vital Signs Temp 98.0 F 11/26/20 08:00 Pulse 99 11/26/20 08:00 Resp 18 11/26/20 08:00 BP 137/84 11/26/20 08:00 Pulse Ox 97 11/26/20 08:00 Intake & Output 11/25/20 11/26/20 11/26/20 18:59 06:59 18:59 Intake Total 476 540 Output Total 825 650 Balance -349 -110 Weight 86 kg 86 kg Intake: Intake, IV Titration 300 Amount 0.9% NaCl with KCl 20 Meq 300 /l 1,000 ml @ 50 mls/hr IV .Q20H [facility] Rx#: [id number] Oral 476 240 Output: Urine 825 650 Stool 0 Other: Voiding Method Indwelling Catheter - Exam GENERAL: The patient is lying in bed and is in mild to moderate acute distress. NEUROLOGICAL: Limited because of his condition. Higher mental function: The patient is awake, alert, oriented to self. He has repeated laughs (baseline). Could not assess language because of his condition. Cranial nerves: Pupils are round, equal and reactive to light. EOM is able to track throughout the room. No facial weakness. Has moderate to severe dy sarthria (old). Rest of cranial nerves could not be assessed. Motor: Could not assess gait because of his condition. The strength is moving bilateral upper extremities above gravity and no focality seen. Normal tone and bulk. Cerebellum: Could not assess. Sensation: Could not assess. Reflexes (right/left): 2+ uppers and 1+ lowers Plantars are mute bilaterally. WORK-UP: CT of the head is reported as age-related atrophy and chronic small vessel ischemic change without acute intracranial process seen at this time. TSH is 1.32 and that was done on 10/13/2020, hemoglobin A1c is 5.4 and that was done on 10/13/2020, vitamin B12 is 1211 on 10/21/2020, serum folate is more than 24 and that was on the 10/13/2020 and all of these are and are unremarkable and does not need to be repeated. - Labs CBC & Chem 7: 11/26/20 07:17 11/26/20 07:17 Labs: Abnormal Lab Results - Last 24 Hours (Table) 11/25/20 11/26/20 11/26/20 Range/Units 12:57 07:17 07:17 RBC 3.37 L (4.30-5.90) m/uL Hgb 8.6 L (13.0-17.5) gm/dL Hct 28.1 L (39.0-53.0) % MCHC 30.5 L (31.0-37.0) g/dL Lymphocytes # 0.8 L (1.0-4.8) k/uL Chloride 113 H (98-107) mmol/L Total Protein 4.8 L (6.3-8.2) g/dL Albumin 2.6 L (3.5-5.0) g/dL Urine Protein Trace H (Negative) Urine Ketones 1+ H (Negative) Urine Blood Small H (Negative) Urine RBC 19 H (0-5) /hpf Amorphous Sediment Rare H (None) /hpf Urine Mucus Rare H (None) /hpf Microbiology - Last 24 Hours (Table) 11/22/20 13:04 Blood Culture - Preliminary Blood No Growth after 72 hours Assessment and Plan Assessment: Delerium due to underlying UTI, hospital stay, medication effect Encephalopathy seems due to toxic-metabolic and recent fracture and hospital stay. 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 This could be done as outpatient since seizure in unlikely (he had prior EEG on 10/14/2020 and no seizure or epileptiform discharges seen). Seizure in not one of differentials. * From a neurological perspective. The patient is going to have repeated falls and he is on anticoagulation and then that increases the risk of a bleed. Therefore I'll possibly consider avoiding any anticoagulation if the family agrees because of the risk would outweigh the benefits if he continues to fall. * We'll defer the rest of the medical management to primary team. * Recommend for patient to continues to follow-up with his neurologist (Dr. Bhavana Roman) within 1-2 weeks as outpatient and he will be getting a second opinoin at [facility] down the line as outpatient. Most of his neurological work-up is an outpatient (he had MRI Brain (showed generalized atrophy. 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 Imer's ratio is 0.38. Correlate to exclude a component of NPH, EEG (abnormal: Mild to moderate encephalopathy. There are no focal slowing, epileptiform discharges or seizure) during his hospital visit on 10/2020). The plan is discussed with the patient's nurse. There is no further neurological work-up. Neurology will sign off. Please reconsult if needed. Gus Demarco M.D. Neuro-hospitalist Time with Patient: Less than 30
[2020-11-26] MEDS: Colestipol Hcl [Colestid] 1 GM Tablet PO SCH (13:00)
--- NOTE | 2020-11-26 13:21 | P.PN ---
Subjective This is a pleasant 79 years old male with past medical history of dementia, TIA, heart failure, atrial fibrillation. He presents on 11/17 after he was found in the bathroom floor and hit his head while he is on blood thinner as an unwitnessed fall. Patient had left hip fracture status post left hip cemented hemiarthroplasty. Yesterday patient was brought to be discharged but he was found so confused and sleepy, Secondary to medication . His sedatives and narcotics were held. Today morning patient was awake and alert however he was still confused and just chart and help patient denies any pain. We did not provide any further information he does not look in distress. I talked to his daughter Olinda over the phone and she confirmed to me by baseline is more awake and alert although he is delusional and has dementia. CT of the head is negative for acute process. CT of the cervical spine showing no fracture. Also patient is tachycardic with heart rate 103-128. Esophagitis looks stable and he is afebrile. His CBC and BMP are not concerning. Patient also has been evaluated by supervisor heading for his moderate aortic stenosis and they recommended monitoring only for now. Patient also had a swallowing evaluation today and he is currently on a pured diet with the liquids 11/23/2020 Patient remains confused and morning this morning, he follows simple commands. His morning improved with given heparin doses of morphine but not much improvement regarding his confusion. Patient usually more cooperative and oriented than usual per family CT of the head on admission was unremarkable. Her going to call for neurology consult patient mostly has metabolic encephalopathy. His urine analysis from yesterday was showing mild hematuria however he was pulling out his Fuentes catheter when he was confused yesterday which may contribute to multitrauma. start the patient empirically on ceftriaxone. Renal ultrasound showed no hydronephrosis, no masses. No stone. He is mildly tachycardic at 102 His hemoglobin is 8.5. Rest of labs are unremarkable. procalcitonin is negative at 0.10. chest x-ray: no acute process. He remains on Xarelto and Sinemet. Continue with pain management 11/24/2020 Patient remains confused and actually he is more sleepy and open-ended today however he got Dilaudid 0.5 mg this morning and 50 mg of temazepam last night which will make him sleepy anyway. He was still confused and pulled through his Fuentes catheter showed distal hematuria. Vitals stable, is mildly tachycardic at 108. Hemoglobin is stable at 8.5, rest of the CBC and BMP are unremarkable. Pro- calcitonin only mildly up at 0.10. Urinalysis from today showing hematuria, most likely traumatic from pulling his Fuentes. CBC is only 9 per high power field Remains on ceftriaxone We discontinue its sedative medication like Lexapro 20 mg, BuSpar 10 mg, 0.125 and 0.5, melatonin 5 mg and temazepam 50 mg. This on [place] 5 mg, Ultram 50 mg and added morphine 2 mg for pain control Transferred to medical service upon request of orthopedic team today who accepted the patient upon admission Neurologist input is appreciated, CT of the brain is negative for acute process EEG is pending 11/25/2020 Patient is more awake today but is still confused and less interactive, follow- up, and since I saw him and even today. Also he is drowsy but with To verbal stimuli before going back to sleep again. He is doing better all over compared to the last 2 days. He couldn't stand up with 80/OT therapy today he was doing better about 4 days ago. Pain is not an issue for him. Fuentes has yellow urine today. Orthopedic and neurological services cleared the patient for discharge with recommendation for outpatient follow-up with his neurologist .N We will checkLabs tomorrow Patient will Needs ECF for rehab upon discharge 11/26/2020 Patient is more awake and interactive today however he still confused, he is still pulling on his Fuentes catheter despite all measures taken. Therefore try to discontinue the Fuentes fact catheter and check a bladder scan Vitals and labs are stable and improved. Urine analysis is improving Continue with ceftriaxone for now and monitor bladder scan I discussed the case with the neurologist, neurology service signed off the case no further workup, follow-up as an outpatient Patient did for discharge by orthopedic team Discharge in 24-48 hours to ECF for rehab Objective - Vital Signs Vital signs: Vital Signs Temp 98.5 F 11/26/20 12:00 Pulse 98 11/26/20 12:00 Resp 18 11/26/20 12:00 BP 129/74 11/26/20 12:00 Pulse Ox 96 11/26/20 12:00 Intake & Output 11/25/20 11/26/2011/26/21 18:59 06:59 18:59 Intake Total 476 540 Output Total 825 650 Balance -349 -110 Weight 86 kg 86 kg Intake: Intake, IV Titration 300 Amount 0.9% NaCl with KCl 20 Meq 300 /l 1,000 ml @ 50 mls/hr IV .Q20H [facility] Rx#: [id number] Oral 476 240 Output: Urine 825 650 Stool 0 Other: Voiding Method Indwelling Catheter - Exam -GENERAL: The patient is confused and does not follow commands x3, not in any [place] distress. Well developed, well nourished. HEENT: Pupils are round and equally reacting to light. EOMI. No scleral icterus. No conjunctival pallor. Normocephalic, atraumatic. No pharyngeal erythema. No thyromegaly. CARDIOVASCULAR: S1 and S2 present. No murmurs, rubs, or gallops. PULMONARY: Chest is clear to auscultation, no wheezing or crackles. ABDOMEN: Soft, nontender, nondistended, normoactive bowel sounds. No palpable organomegaly. MUSCULOSKELETAL: No joint swelling or deformity. -EXTREMITIES: No cyanosis, clubbing, or pedal edema. Left hip wound is clean with dressing is in place NEUROLOGICAL: Gross neurological examination did not reveal any focal deficits. SKIN: No rashes. no petechiae. - Labs CBC & Chem 7: 11/26/20 07:17 11/26/20 07:17 Labs: Abnormal Lab Results - Last 24 Hours (Table) 11/25/20 11/26/20 11/26/20 Range/Units 12:57 07:17 07:17 RBC 3.37 L (4.30-5.90) m/uL Hgb 8.6 L (13.0-17.5) gm/dL Hct 28.1 L (39.0-53.0) % MCHC 30.5 L (31.0-37.0) g/dL Lymphocytes # 0.8 L (1.0-4.8) k/uL Chloride 113 H (98-107) mmol/L Total Protein 4.8 L (6.3-8.2) g/dL Albumin 2.6 L (3.5-5.0) g/dL Urine Protein Trace H (Negative) Urine Ketones 1+ H (Negative) Urine Blood Small H (Negative) Urine RBC 19 H (0-5) /hpf Amorphous Sediment Rare H (None) /hpf Urine Mucus Rare H (None) /hpf Microbiology - Last 24 Hours (Table) 11/22/20 13:04 Blood Culture - Preliminary Blood No Growth after 72 hours Assessment and Plan Assessment: unwitnessed fall Altered mental status could be metabolic and/or toxic encephalopathy left hip fracture status post left hip cemented hemiarthroplasty Traumatic hematuria from pulling his Fuentes catheter Moderate aortic stenosis Cardiomyopathy with ejection fraction 40-45% Chronic atrial fibrillation on Xarelto Plan: This is a pleasant 79 years old male who presents with hip fracture and fall. Now he is confused also. Improvement. Probably patient will have ongoing dementia which caused him to fall and this is a chronic and he could follow-up as an outpatient Possible UTI and is on Rocephin and improving. Discontinue Fuentes catheter and check a bladder scan [employer] on the case. Consult Neurology service who cleared the patient for discharge, she can be done as an outpatient. Orthopedic team also cleared the patient for discharge abs and medication were reviewed.. Continue same treatment. Continue with symptomatic treatment. Resume home medication. Monitor lytes and vitals. DVT and GI prophylaxis. Further recommendationsas per clinical course of the patient DVT prophylaxis: Xarelto GI Prophylaxis: Ppi PT/OT: Pending Prognosis is guarded
[2020-11-26] MEDS: RIVAROXABAN 15 MG TAB PO SCH (16:39)
[2020-11-26] MEDS: HYDROcodone/APAP 5-325MG 1 EACH TAB PO PRN (18:16)
[2020-11-26] MEDS: SENNOSIDES-DOCUSATE SODIUM 1 EACH TAB PO SCH (20:27)
[2020-11-26] MEDS: ATORVASTATIN 40 MG TAB PO SCH (20:28)
[2020-11-26] MEDS: QUEtiapine 25 MG TAB PO PRN (20:28)
[2020-11-27] MEDS: LACTATED RINGERS 1,000 ML IV SCH (04:04)
[2020-11-27] MEDS: 0.9% NACL WITH KCL 20 MEQ/L 1,000 ML IV SCH ×2 (05:45→20:00)
[2020-11-27] MEDS: CARBIDOPA-LEVODOPA 25-100 MG 1 EACH TAB PO SCH ×2 (09:22→16:49)
[2020-11-27] MEDS: SACUBITRIL/VALSARTAN 24 MG-26 MG TABLET PO SCH ×2 (09:22→16:50)
[2020-11-27] MEDS: FINASTERIDE 5 MG TAB PO SCH (09:22)
[2020-11-27] MEDS: CYANOCOBALAMIN 500 MCG TAB PO SCH (09:22)
[2020-11-27] MEDS: PANTOPRAZOLE 40 MG TABLET PO SCH (09:22)
[2020-11-27] MEDS: FOLIC ACID 1 MG TAB PO SCH (09:23)
[2020-11-27] MEDS: THIAMINE 100 MG TAB PO SCH (09:23)
--- NOTE | 2020-11-27 10:38 | P.PN ---
Subjective Progress Note Date: 11/27/20 Principal diagnosis: Status post left hip arden arthroplasty. This is an 79 year-old male post left hip hemiarthroplasty. This is post-op day 9. The patient was evaluated at the bedside today. The patient is confused but alert today. The patient is being followed with internal medicine and neurology very closely. We awaiting transfer to skilled rehab upon discharge. Objective - Vital Signs Vital signs: Vital Signs Temp 97.4 F L 11/27/20 04:00 Pulse 74 11/27/20 04:00 Resp 18 11/27/20 04:00 BP 164/100 11/27/20 04:00 Pulse Ox 97 11/27/20 04:00 Intake & Output 11/26/20 11/27/20 11/27/20 18:59 06:59 18:59 Intake Total 480 100 Output Total 0 Balance 480 0 100 Weight 85.6 kg Intake: Oral 480 100 Output: Stool 0 Other: Voiding Method Incontinent # Voids 2 1 - Exam The patient does not appear in acute distress. Alert and orientated x1. Dressing is clean dry and intact. Incision appears fine with no erythema or active drainage. Calf is soft and nontender. Good foot and ankle motion without difficulty. Sensation and circulatory status is intact. - Labs CBC & Chem 7: 11/26/20 07:17 11/26/20 07:17 Labs: Microbiology - Last 24 Hours (Table) 11/22/20 13:04 Blood Culture - Preliminary Blood No Growth after 96 hours Assessment and Plan (1) Fall Current Visit: Yes Status: Acute Code(s): W19.XXXA - UNSPECIFIED FALL, INITIAL ENCOUNTER SNOMED Code(s): 0004168 (2) S/P hip hemiarthroplasty Current Visit: Yes Status: Acute Code(s): Z96.649 - PRESENCE OF UNSPECIFIED ARTIFICIAL HIP JOINT SNOMED Code(s): 495847059 (3) Subcapital fracture of left hip Current Visit: Yes Status: Acute Code(s): S72.012A - UNSP INTRACAPSULAR FRACTURE OF LEFT FEMUR, INIT FOR CLOS FX SNOMED Code(s): 885336665 Plan: 1. Continue pain control, avoid opioids if possible to avoid further confusion. 2. Anticoagulation with Xarelto 3. Continue physical therapy and ambulation 4. Anticipate discharge to skilled rehab when cleared by internal medicine. The patient is orthopedically stable for discharge.
--- NOTE | 2020-11-27 11:03 | P.PN ---
Subjective This is a pleasant 79 years old male with past medical history of dementia, TIA, heart failure, atrial fibrillation. He presents on 11/17 after he was found in the bathroom floor and hit his head while he is on blood thinner as an unwitnessed fall. Patient had left hip fracture status post left hip cemented hemiarthroplasty. Yesterday patient was brought to be discharged but he was found so confused and sleepy, Secondary to medication . His sedatives and narcotics were held. Today morning patient was awake and alert however he was still confused and just chart and help patient denies any pain. We did not provide any further information he does not look in distress. I talked to his daughter Olinda over the phone and she confirmed to me by baseline is more awake and alert although he is delusional and has dementia. CT of the head is negative for acute process. CT of the cervical spine showing no fracture. Also patient is tachycardic with heart rate 103-128. Esophagitis looks stable and he is afebrile. His CBC and BMP are not concerning. Patient also has been evaluated by [facility] for his moderate aortic stenosis and they recommended monitoring only for now. Patient also had a swallowing evaluation today and he is currently on a pured diet with the liquids 11/23/2020 Patient remains confused and morning this morning, he follows simple commands. His morning improved with given heparin doses of morphine but not much improvement regarding his confusion. Patient usually more cooperative and oriented than usual per family CT of the head on admission was unremarkable. Her going to call for neurology consult patient mostly has metabolic encephalopathy. His urine analysis from yesterday was showing mild hematuria however he was pulling out his Funetes catheter when he was confused yesterday which may contribute to multitrauma. start the patient empirically on ceftriaxone. Renal ultrasound showed no hydronephrosis, no masses. No stone. He is mildly tachycardic at 102 His hemoglobin is 8.5. Rest of labs are unremarkable. procalcitonin is negative at 0.10. chest x-ray: no acute process. He remains on Xarelto and Sinemet. Continue with pain management 11/24/2020 Patient remains confused and actually he is more sleepy and open-ended today however he got Dilaudid 0.5 mg this morning and 50 mg of temazepam last night which will make him sleepy anyway. He was still confused and pulled through his Fuentes catheter showed distal hematuria. Vitals stable, is mildly tachycardic at 108. Hemoglobin is stable at 8.5, rest of the CBC and BMP are unremarkable. Pro- calcitonin only mildly up at 0.10. Urinalysis from today showing hematuria, most likely traumatic from pulling his Fuentes. CBC is only 9 per high power field Remains on ceftriaxone We discontinue its sedative medication like Lexapro 20 mg, BuSpar 10 mg, 0.125 and 0.5, melatonin 5 mg and temazepam 50 mg. This on [place] 5 mg, Ultram 50 mg and added morphine 2 mg for pain control Transferred to medical service upon request of orthopedic team today who accepted the patient upon admission Neurologist input is appreciated, CT of the brain is negative for acute process EEG is pending 11/25/2020 Patient is more awake today but is still confused and less interactive, follow- up, and since I saw him and even today. Also he is drowsy but with To verbal stimuli before going back to sleep again. He is doing better all over compared to the last 2 days. He couldn't stand up with 80/OT therapy today he was doing better about 4 days ago. Pain is not an issue for him. Fuentes has yellow urine today. Orthopedic and neurological services cleared the patient for discharge with recommendation for outpatient follow-up with his neurologist .N We will checkLabs tomorrow Patient will Needs ECF for rehab upon discharge 11/26/2020 Patient is more awake and interactive today however he still confused, he is still pulling on his Fuentes catheter despite all measures taken. Therefore try to discontinue the Fuentes fact catheter and check a bladder scan Vitals and labs are stable and improved. Urine analysis is improving Continue with ceftriaxone for now and monitor bladder scan I discussed the case with the neurologist, neurology service signed off the case no further workup, follow-up as an outpatient Patient did for discharge by orthopedic team Discharge in 24-48 hours to ECF for rehab 11/27/2020 Patient is awake, calm today, confused and does not follow commands. His vitals are stable. Also there is some evidence of cellulitis in the right forearm with some purulent discharge, discussed with staff to send culture Patient currently is on Rocephin, we will change antibiotics to Unasyn. Continue with Xarelto His Fuentes catheter was discontinued and his bladder scan was checked he has about 1 70 mL Objective - Vital Signs Vital signs: Vital Signs Temp 97.4 F L 11/27/20 04:00 Pulse 74 11/27/20 04:00 Resp 18 11/27/20 04:00 BP 164/100 11/27/20 04:00 Pulse Ox 97 11/27/20 04:00 Intake & Output 11/26/20 11/27/20 11/27/20 18:59 06:59 18:59 Intake Total 480 100 Output Total 0 Balance 480 0 100 Weight 85.6 kg Intake: Oral 480 100 Output: Stool 0 Other: Voiding Method Incontinent # Voids 2 1 - Exam -GENERAL: The patient is confused and does not follow commands x3, not in any acute distress. Well developed, well nourished. HEENT: Pupils are round and equally reacting to light. EOMI. No scleral icterus. No conjunctival pallor. Normocephalic, atraumatic. No pharyngeal erythema. No thyromegaly. CARDIOVASCULAR: S1 and S2 present. No murmurs, rubs, or gallops. PULMONARY: Chest is clear to auscultation, no wheezing or crackles. ABDOMEN: Soft, nontender, nondistended, normoactive bowel sounds. No palpable organomegaly. MUSCULOSKELETAL: No joint swelling or deformity. -EXTREMITIES: No cyanosis, clubbing, or pedal edema. Left hip wound is clean with dressing is in place NEUROLOGICAL: Gross neurological examination did not reveal any focal deficits. SKIN: No rashes. no petechiae. - Labs CBC & Chem 7: 11/26/20 07:17 11/26/20 07:17 Labs: Microbiology - Last 24 Hours (Table) 11/22/20 13:04 Blood Culture - Preliminary Blood No Growth after 96 hours Assessment and Plan Assessment: unwitnessed fall Altered mental status could be metabolic and/or toxic encephalopathy Right forearm cellulitis with purulent discharge from wound about 1 cm left hip fracture status post left hip cemented hemiarthroplasty Traumatic hematuria from pulling his Fuentes catheter Moderate aortic stenosis Cardiomyopathy with ejection fraction 40-45% Chronic atrial fibrillation on Xarelto Plan: This is a pleasant 79 years old male who presents with hip fracture and fall. Now he is confused also. Improvement. Probably patient will have ongoing dementia which caused him to fall and this is a chronic and he could follow-up as an outpatient Possible right forearm cellulitis, continue with Unasyn. UTI looks improved Discontinue Fuentes catheter and check a bladder scan Aromatherapist on the case. Consult Neurology service who cleared the patient for discharge, she can be done as an outpatient. Orthopedic team also cleared the patient for discharge abs and medication were reviewed.. Continue same treatment. Continue with symptomatic treatment. Resume home medication. Monitor lytes and vitals. DVT and GI prophylaxis. Further recommendationsas per clinical course of the patient DVT prophylaxis: Xarelto GI Prophylaxis: Ppi PT/OT: Pending Prognosis is guarded
[2020-11-27] MEDS: IPRATROPIUM BROMIDE 0.06% NASAL SPRAY (15 ML) EA NOSTRIL SCH ×2 (14:36→16:50)
[2020-11-27] MEDS: Colestipol Hcl [Colestid] 1 GM Tablet PO SCH (14:36)
[2020-11-27] MEDS: RIVAROXABAN 15 MG TAB PO SCH (16:49)
[2020-11-27] MEDS: AMPICILLIN-SULBACTAM 3 GM in SODIUM CHLORIDE 0.9% 100 ML IVPB SCH ×3 (16:50→23:16)
[2020-11-27] MEDS: QUEtiapine 25 MG TAB PO SCH (20:56)
[2020-11-27] MEDS: SENNOSIDES-DOCUSATE SODIUM 1 EACH TAB PO SCH (20:56)
[2020-11-27] MEDS: ATORVASTATIN 40 MG TAB PO SCH (20:56)
[2020-11-27] MEDS: risperiDONE 0.25 MG TAB PO PRN (22:12)
[2020-11-28] MEDS: LACTATED RINGERS 1,000 ML IV SCH (05:27)
[2020-11-28] MEDS: AMPICILLIN-SULBACTAM 3 GM in SODIUM CHLORIDE 0.9% 100 ML IVPB SCH ×2 (06:06→12:48)
[2020-11-28] MEDS: CYANOCOBALAMIN 500 MCG TAB PO SCH (08:32)
[2020-11-28] MEDS: CARBIDOPA-LEVODOPA 25-100 MG 1 EACH TAB PO SCH ×2 (08:32→18:07)
[2020-11-28] MEDS: FINASTERIDE 5 MG TAB PO SCH (08:32)
[2020-11-28] MEDS: FOLIC ACID 1 MG TAB PO SCH (08:32)
[2020-11-28] MEDS: SACUBITRIL/VALSARTAN 24 MG-26 MG TABLET PO SCH ×2 (08:32→18:07)
[2020-11-28] MEDS: PANTOPRAZOLE 40 MG TABLET PO SCH (08:32)
[2020-11-28] MEDS: QUEtiapine 25 MG TAB PO SCH ×2 (08:32→20:19)
[2020-11-28] MEDS: METOPROLOL SUCCINATE (ER) 50 MG TAB.ER.24H PO SCH (08:32)
[2020-11-28] MEDS: THIAMINE 100 MG TAB PO SCH (08:32)
[2020-11-28] MEDS: HYDROcodone/APAP 5-325MG 1 EACH TAB PO PRN (08:33)
[2020-11-28] MEDS: IPRATROPIUM BROMIDE 0.06% NASAL SPRAY (15 ML) EA NOSTRIL SCH ×2 (09:19→18:22)
--- NOTE | 2020-11-28 12:15 | P.PN ---
Subjective Progress Note Date: 11/28/20 Principal diagnosis: Left hip fracture. Status post hemiarthroplasty left hip. This is an 80 year-old male post left hip hemiarthroplasty. This is post-op day 10. The patient was evaluated at the bedside today. The patient is confused but alert today. The patient is being followed with internal medicine and neurology very closely. We awaiting transfer to skilled rehab upon discharge. Objective - Vital Signs Vital signs: Vital Signs Temp 98.0 F 11/28/20 08:05 Pulse 113 H 11/28/20 08:05 Resp 20 11/28/20 08:05 BP 125/78 11/28/20 08:05 Pulse Ox 94 L 11/28/20 08:05 Intake & Output 11/27/20 11/28/20 11/28/20 18:59 06:59 18:59 Intake Total 320 790 120 Output Total 0 0 0 Balance 320 790 120 Weight 90.5 kg Intake: Intake, IV Titration 550 Amount 0.9% NaCl with KCl 20 Meq 450 /l 1,000 ml @ 50 mls/hr IV .Q20H AMIE Rx#: [id number] Ampicillin-Sulbactam 3 gm 100 In Sodium Chloride 0.9% 100 ml @ 200 mls/hr IVPB Q6HR AMIE Rx#:[id number] Oral 320 240 120 Output: Stool 0 0 0 Other: Voiding Method Incontinent Incontinent Incontinent # Voids 1 4 1 # Bowel Movements 1 1 - Exam This is a pleasant 80-year-old male in no acute distress. He is confused. Family is present at bedside. Exam of the left hip reveals that his dressing is clean, dry and intact. The Optifoam dressing has been removed. Legs are equal length. Pedal pulse is +2/4. Neurovascular status to the lower extremity is intact. - Labs CBC & Chem 7: 11/26/20 07:17 11/26/20 07:17 Labs: Microbiology - Last 24 Hours (Table) 11/22/20 13:04 Blood Culture - Preliminary Blood No Growth after 120 hours Assessment and Plan (1) Fall Current Visit: Yes Status: Acute Code(s): W19.XXXA - UNSPECIFIED FALL, INITIAL ENCOUNTER SNOMED Code(s): 6060188 (2) Subcapital fracture of left hip Current Visit: Yes Status: Acute Code(s): S72.012A - UNSP INTRACAPSULAR FRACTURE OF LEFT FEMUR, INIT FOR CLOS FX SNOMED Code(s): 716949957 (3) History of atrial fibrillation Current Visit: No Status: Acute Code(s): Z86.79 - PERSONAL HISTORY OF OTHER DISEASES OF THE CIRCULATORY SYSTEM SNOMED Code(s): 534828893 Plan: The clinical Findings are discussed with the family. He may be transferred back to long-term when cleared medically. Follow-up x-ray in 3 weeks.
[2020-11-28] MEDS: Colestipol Hcl [Colestid] 1 GM Tablet PO SCH (12:49)
--- NOTE | 2020-11-28 12:55 | XR ---
EXAMINATION TYPE: XR chest 1V portable DATE OF EXAM: 11/28/2020 Comparison: 11/22/2020 Clinical History: 80-year-old male mild tachypnea Findings: Heart mildly enlarged. Mild patchy lower lung densities. Atherosclerotic calcification. No pleural ef fusion. Impression: 1. Mild cardiomegaly. 2. Mild patchy lower lung areas of atelectasis versus early infiltrate.
[2020-11-28 15:06] VITALS: BMI 29.5
[2020-11-28] MEDS: RIVAROXABAN 15 MG TAB PO SCH (18:07)
[2020-11-28] MEDS: ACETAMINOPHEN TAB 325 MG TAB PO PRN (18:07)
[2020-11-28] MEDS: 0.9% NACL WITH KCL 20 MEQ/L 1,000 ML IV SCH (18:22)
[2020-11-28] MEDS: SENNOSIDES-DOCUSATE SODIUM 1 EACH TAB PO SCH (20:18)
[2020-11-28] MEDS: ATORVASTATIN 40 MG TAB PO SCH (20:19)
[2020-11-28] MEDS: PIPERACILLIN-TAZOBACTAM 3.375 GM in SODIUM CHLORIDE 0.9% 100 ML IVPB SCH (20:19)
--- NOTE | 2020-11-28 21:27 | P.PN ---
Subjective This is a pleasant 79 years old male with past medical history of dementia, TIA, heart failure, atrial fibrillation. He presents on 11/17 after he was found in the bathroom floor and hit his head while he is on blood thinner as an unwitnessed fall. Patient had left hip fracture status post left hip cemented hemiarthroplasty. Yesterday patient was brought to be discharged but he was found so confused and sleepy, Secondary to medication . His sedatives and narcotics were held. Today morning patient was awake and alert however he was still confused and just chart and help patient denies any pain. We did not provide any further information he does not look in distress. I talked to his daughter Olinda over the phone and she confirmed to me by baseline is more awake and alert although he is delusional and has dementia. CT of the head is negative for acute process. CT of the cervical spine showing no fracture. Also patient is tachycardic with heart rate 103-128. Esophagitis looks stable and he is afebrile. His CBC and BMP are not concerning. Patient also has been evaluated by [facility] radiation oncology for his moderate aortic stenosis and they recommended monitoring only for now. Patient also had a swallowing evaluation today and he is currently on a pured diet with the liquids 11/23/2020 Patient remains confused and morning this morning, he follows simple commands. His morning improved with given heparin doses of morphine but not much improvement regarding his confusion. Patient usually more cooperative and oriented than usual per family CT of the head on admission was unremarkable. Her going to call for neurology consult patient mostly has metabolic encephalopathy. His urine analysis from yesterday was showing mild hematuria however he was pulling out his Fuentes catheter when he was confused yesterday which may contribute to multitrauma. start the patient empirically on ceftriaxone. Renal ultrasound showed no hydronephrosis, no masses. No stone. He is mildly tachycardic at 102 His hemoglobin is 8.5. Rest of labs are unremarkable. procalcitonin is negative at 0.10. chest x-ray: no acute process. He remains on Xarelto and Sinemet. Continue with pain management 11/24/2020 Patient remains confused and actually he is more sleepy and open-ended today however he got Dilaudid 0.5 mg this morning and 50 mg of temazepam last night which will make him sleepy anyway. He was still confused and pulled through his Fuentes catheter showed distal hematuria. Vitals stable, is mildly tachycardic at 108. Hemoglobin is stable at 8.5, rest of the CBC and BMP are unremarkable. Pro- calcitonin only mildly up at 0.10. Urinalysis from today showing hematuria, most likely traumatic from pulling his Fuentes. CBC is only 9 per high power field Remains on ceftriaxone We discontinue its sedative medication like Lexapro 20 mg, BuSpar 10 mg, 0.125 and 0.5, melatonin 5 mg and temazepam 50 mg. This on [place] 5 mg, Ultram 50 mg and added morphine 2 mg for pain control Transferred to medical service upon request of orthopedic team today who accepted the patient upon admission Neurologist input is appreciated, CT of the brain is negative for acute process EEG is pending 11/25/2020 Patient is more awake today but is still confused and less interactive, follow- up, and since I saw him and even today. Also he is drowsy but with To verbal stimuli before going back to sleep again. He is doing better all over compared to the last 2 days. He couldn't stand up with 80/OT therapy today he was doing better about 4 days ago. Pain is not an issue for him. Fuentes has yellow urine today. Orthopedic and neurological services cleared the patient for discharge with recommendation for outpatient follow-up with his neurologist .N We will checkLabs tomorrow Patient will Needs ECF for rehab upon discharge 11/26/2020 Patient is more awake and interactive today however he still confused, he is still pulling on his Fuentes catheter despite all measures taken. Therefore try to discontinue the Fuentes fact catheter and check a bladder scan Vitals and labs are stable and improved. Urine analysis is improving Continue with ceftriaxone for now and monitor bladder scan I discussed the case with the neurologist, neurology service signed off the case no further workup, follow-up as an outpatient Patient did for discharge by orthopedic team Discharge in 24-48 hours to ECF for rehab 11/27/2020 Patient is awake, calm today, confused and does not follow commands. His vitals are stable. Also there is some evidence of cellulitis in the right forearm with some purulent discharge, discussed with staff to send culture Patient currently is on Rocephin, we will change antibiotics to Unasyn. Continue with Xarelto His Fuentes catheter was discontinued and his bladder scan was checked he has about 1 70 mL 11/28/2020 Patient today is still confused and his slightly tachypneic with a breathing rate more than 20-22/m. Because of this we did repeat chest x-ray which showed right lower lobe infiltrate worse than couple days ago suspicious for aspiration pneumonia. Because of this his antibiotic change to Zosyn, keep head of bed more than 45. Repeat swallow evaluation tomorrow. Vitals and hemodynamically stable Check labs in the morning Patient can be transferred to [facility] floor Objective - Vital Signs Vital signs: Vital Signs Temp 98.0 F 11/28/20 08:05 Pulse 117 H 11/28/20 11:35 Resp 18 11/28/20 11:35 BP 165/102 11/28/20 11:35 Pulse Ox 97 11/28/20 11:35 Intake & Output 11/27/20 11/28/20 11/28/20 18:59 06:59 18:59 Intake Total 320 790 360 Output Total 0 0 0 Balance 320 790 360 Weight 90.5 kg Intake: Intake, IV Titration 550 Amount 0.9% NaCl with KCl 20 Meq 450 /l 1,000 ml @ 50 mls/hr IV .Q20H AMIE Rx#: [id number] Ampicillin-Sulbactam 3 gm 100 In Sodium Chloride 0.9% 100 ml @ 200 mls/hr IVPB Q6HR AMIE Rx#:[id number] Oral 320 240 360 Output: Stool 0 0 0 Other: Voiding Method Incontinent Incontinent Incontinent # Voids 1 4 1 # Bowel Movements 1 1 - Exam -GENERAL: The patient is confused and does not follow commands x3, not in any acute distress. Well developed, well nourished. HEENT: Pupils are round and equally reacting to light. EOMI. No scleral icterus. No conjunctival pallor. Normocephalic, atraumatic. No pharyngeal erythema. No thyromegaly. CARDIOVASCULAR: S1 and S2 present. No murmurs, rubs, or gallops. -PULMONARY: Chest is clear to auscultation, no wheezing or crackles. Tachypnea ABDOMEN: Soft, nontender, nondistended, normoactive bowel sounds. No palpable organomegaly. MUSCULOSKELETAL: No joint swelling or deformity. -EXTREMITIES: No cyanosis, clubbing, or pedal edema. Left hip wound is clean with dressing is in place NEUROLOGICAL: Gross neurological examination did not reveal any focal deficits. SKIN: No rashes. no petechiae. - Labs CBC & Chem 7: 11/26/20 07:17 11/26/20 07:17 Labs: Microbiology - Last 24 Hours (Table) 11/22/20 13:04 Blood Culture - Preliminary Blood No Growth after 120 hours Assessment and Plan Assessment: Right lower lobe aspiration pneumonia unwitnessed fall Altered mental status could be metabolic and/or toxic encephalopathy Right forearm cellulitis with purulent discharge from wound about 1 cm left hip fracture status post left hip cemented hemiarthroplasty Traumatic hematuria from pulling his Fuentes catheter Moderate aortic stenosis Cardiomyopathy with ejection fraction 40-45% Chronic atrial fibrillation on Xarelto Plan: This is a pleasant 79 years old male who presents with hip fracture and fall. Now he is confused also. Improvement. Probably patient will have ongoing dementia which caused him to fall and this is a chronic and he could follow-up as an outpatient Change antibiotics to Zosyn Total bit more than 45 Swallow evaluation Repeat chest x-ray in 2 days on 11/30 Cardiology, neurology and orthopedic team already cleared the patient for discharge Consult Neurology service who cleared the patient for discharge, she can be done as an outpatient. Orthopedic team also cleared the patient for discharge abs and medication were reviewed.. Continue same treatment. Continue with symptomatic treatment. Resume home medication. Monitor lytes and vitals. DVT and GI prophylaxis. Further recommendations as per clinical course of the patient DVT prophylaxis: Xarelto GI Prophylaxis: Ppi PT/OT: Need subacute rehab Prognosis is guarded, given multiple infections, slow to improve
[2020-11-28] MEDS: risperiDONE 0.25 MG TAB PO PRN (23:26)
[2020-11-29] MEDS: HYDROcodone/APAP 5-325MG 1 EACH TAB PO PRN ×2 (02:20→21:27)
[2020-11-29] MEDS: LACTATED RINGERS 1,000 ML IV SCH (05:20)
[2020-11-29] MEDS: PIPERACILLIN-TAZOBACTAM 3.375 GM in SODIUM CHLORIDE 0.9% 100 ML IVPB SCH ×3 (05:24→21:25)
[2020-11-29] MEDS: SACUBITRIL/VALSARTAN 24 MG-26 MG TABLET PO SCH ×2 (08:30→17:43)
[2020-11-29] MEDS: CYANOCOBALAMIN 500 MCG TAB PO SCH (08:30)
[2020-11-29] MEDS: FOLIC ACID 1 MG TAB PO SCH (08:30)
[2020-11-29] MEDS: THIAMINE 100 MG TAB PO SCH (08:30)
[2020-11-29] MEDS: METOPROLOL SUCCINATE (ER) 50 MG TAB.ER.24H PO SCH (08:30)
[2020-11-29] MEDS: PANTOPRAZOLE 40 MG TABLET PO SCH (08:30)
[2020-11-29] MEDS: CARBIDOPA-LEVODOPA 25-100 MG 1 EACH TAB PO SCH ×2 (08:30→17:43)
[2020-11-29] MEDS: FINASTERIDE 5 MG TAB PO SCH (08:30)
[2020-11-29] MEDS: QUEtiapine 25 MG TAB PO SCH ×2 (08:30→21:25)
[2020-11-29] MEDS: IPRATROPIUM BROMIDE 0.06% NASAL SPRAY (15 ML) EA NOSTRIL SCH ×2 (09:00→17:45)
[2020-11-29] MEDS: 0.9% NACL WITH KCL 20 MEQ/L 1,000 ML IV SCH ×2 (12:33→19:19)
--- NOTE | 2020-11-29 12:38 | P.PN ---
Subjective This is a pleasant 79 years old male with past medical history of dementia, TIA, heart failure, atrial fibrillation. He presents on 11/17 after he was found in the bathroom floor and hit his head while he is on blood thinner as an unwitnessed fall. Patient had left hip fracture status post left hip cemented hemiarthroplasty. Yesterday patient was brought to be discharged but he was found so confused and sleepy, Secondary to medication . His sedatives and narcotics were held. Today morning patient was awake and alert however he was still confused and just chart and help patient denies any pain. We did not provide any further information he does not look in distress. I talked to his daughter Olinda over the phone and she confirmed to me by baseline is more awake and alert although he is delusional and has dementia. CT of the head is negative for acute process. CT of the cervical spine showing no fracture. Also patient is tachycardic with heart rate 103-128. Esophagitis looks stable and he is afebrile. His CBC and BMP are not concerning. 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 Patient also had a swallowing evaluation today and he is currently on a pured diet with the liquids 11/23/2020 Patient remains confused and morning this morning, he follows simple commands. His morning improved with given heparin doses of morphine but not much improvement regarding his confusion. Patient usually more cooperative and oriented than usual per family CT of the head on admission was unremarkable. Her going to call for neurology consult patient mostly has metabolic encephalopathy. His urine analysis from yesterday was showing mild hematuria however he was pulling out his Fuentes catheter when he was confused yesterday which may contribute to multitrauma. start the patient empirically on ceftriaxone. Renal ultrasound showed no hydronephrosis, no masses. No stone. He is mildly tachycardic at 102 His hemoglobin is 8.5. Rest of labs are unremarkable. procalcitonin is negative at 0.10. chest x-ray: no acute process. He remains on Xarelto and Sinemet. Continue with pain management 11/24/2020 Patient remains confused and actually he is more sleepy and open-ended today however he got Dilaudid 0.5 mg this morning and 50 mg of temazepam last night which will make him sleepy anyway. He was still confused and pulled through his Fuentes catheter showed distal hematuria. Vitals stable, is mildly tachycardic at 108. Hemoglobin is stable at 8.5, rest of the CBC and BMP are unremarkable. Pro- calcitonin only mildly up at 0.10. Urinalysis from today showing hematuria, most likely traumatic from pulling his Fuentes. CBC is only 9 per high power field Remains on ceftriaxone We discontinue its sedative medication like Lexapro 20 mg, BuSpar 10 mg, 0.125 and 0.5, melatonin 5 mg and temazepam 50 mg. This on [place] 5 mg, Ultram 50 mg and added morphine 2 mg for pain control Transferred to medical service upon request of orthopedic team today who accepted the patient upon admission Neurologist input is appreciated, CT of the brain is negative for acute process EEG is pending 11/25/2020 Patient is more awake today but is still confused and less interactive, follow- up, and since I saw him and even today. Also he is drowsy but with To verbal stimuli before going back to sleep again. He is doing better all over compared to the last 2 days. He couldn't stand up with 80/OT therapy today he was doing better about 4 days ago. Pain is not an issue for him. Fuentes has yellow urine today. Orthopedic and neurological services cleared the patient for discharge with recommendation for outpatient follow-up with his neurologist .N We will checkLabs tomorrow Patient will Needs ECF for rehab upon discharge 11/26/2020 Patient is more awake and interactive today however he still confused, he is still pulling on his Fuentes catheter despite all measures taken. Therefore try to discontinue the Fuentes fact catheter and check a bladder scan Vitals and labs are stable and improved. Urine analysis is improving Continue with ceftriaxone for now and monitor bladder scan I discussed the case with the neurologist, neurology service signed off the case no further workup, follow-up as an outpatient Patient did for discharge by orthopedic team Discharge in 24-48 hours to ECF for rehab 11/27/2020 Patient is awake, calm today, confused and does not follow commands. His vitals are stable. Also there is some evidence of cellulitis in the right forearm with some purulent discharge, discussed with staff to send culture Patient currently is on Rocephin, we will change antibiotics to Unasyn. Continue with Xarelto His Fuentes catheter was discontinued and his bladder scan was checked he has about 1 70 mL 11/28/2020 Patient today is still confused and his slightly tachypneic with a breathing rate more than 20-22/m. Because of this we did repeat chest x-ray which showed right lower lobe infiltrate worse than couple days ago suspicious for aspiration pneumonia. Because of this his antibiotic change to Zosyn, keep head of bed more than 45. Repeat swallow evaluation tomorrow. Vitals and hemodynamically stable Check labs in the morning Patient can be transferred to [facility] floor 11/29/2020 Today patient is more awake and interactive, could attention span, his force are mumbled partly because lack of teeth, his worse are non-understandable, however he still looks confused and not follow commands appropriately his tachypnea is slightly better. he is hemodynamically stable. The chest x-ray tomorrow and if that is stable then may consider him for discharge to ECF and possible 24-48 hours Objective - Vital Signs Vital signs: Vital Signs Temp 97.7 F 11/29/20 08:17 Pulse 67 11/29/20 08:17 Resp 20 11/29/20 08:17 BP 150/108 11/29/20 08:17 Pulse Ox 97 11/29/20 08:17 Intake & Output 11/28/20 11/29/20 11/29/20 18:59 06:59 18:59 Intake Total 360 100 Output Total 350 Balance 10 100 Weight 90.5 kg 87.5 kg Intake: Intake, IV Titration 100 Amount Piperacillin-Tazobactam 3 100 .375 gm In Sodium Chloride 0.9% 100 ml @ 25 mls/hr IVPB Q8H [facility] Rx#: [id number] Oral 360 Output: Urine 350 Stool 0 Other: Voiding Method Incontinent Incontinent # Voids 1 1 # Bowel Movements 1 - Exam -GENERAL: The patient is confused and does not follow commands x3, not in any acute distress. Well developed, well nourished. HEENT: Pupils are round and equally reacting to light. EOMI. No scleral icterus. No conjunctival pallor. Normocephalic, atraumatic. No pharyngeal erythema. No th yromegaly. CARDIOVASCULAR: S1 and S2 present. No murmurs, rubs, or gallops. -PULMONARY: Chest is clear to auscultation, no wheezing or crackles. Tachypnea ABDOMEN: Soft, nontender, nondistended, normoactive bowel sounds. No palpable organomegaly. MUSCULOSKELETAL: No joint swelling or deformity. -EXTREMITIES: No cyanosis, clubbing, or pedal edema. Left hip wound is clean with dressing is in place NEUROLOGICAL: Gross neurological examination did not reveal any focal deficits. SKIN: No rashes. no petechiae. - Labs CBC & Chem 7: 11/26/20 07:17 11/26/20 07:17 Labs: Microbiology - Last 24 Hours (Table) 11/22/20 13:04 Blood Culture - Final Blood No Growth after 144 hours Assessment and Plan Assessment: Right lower lobe aspiration pneumonia unwitnessed fall Altered mental status could be metabolic and/or toxic encephalopathy Right forearm cellulitis with purulent discharge from wound about 1 cm left hip fracture status post left hip cemented hemiarthroplasty Traumatic hematuria from pulling his Fuentes catheter Moderate aortic stenosis Cardiomyopathy with ejection fraction 40-45% Chronic atrial fibrillation on Xarelto Plan: This is a pleasant 79 years old male who presents with hip fracture and fall. Now he is confused also. Improvement. Probably patient will have ongoing dementia which caused him to fall and this is a chronic and he could follow-up as an outpatient Change antibiotics to Zosyn Total bit more than 45 Swallow evaluation Repeat chest x-ray in 2 days on 11/30 Cardiology, neurology and orthopedic team already cleared the patient for discharge Consult Neurology service who cleared the patient for discharge, she can be done as an outpatient. Orthopedic team also cleared the patient for discharge abs and medication were reviewed.. Continue same treatment. Continue with symptomatic treatment. Resume home medication. Monitor lytes and vitals. DVT and GI prophylaxis. Further recommendations as per clinical course of the patient DVT prophylaxis: Xarelto GI Prophylaxis: Ppi PT/OT: Need subacute rehab Prognosis is guarded, given multiple infections, slow to improve
[2020-11-29] MEDS: Colestipol Hcl [Colestid] 1 GM Tablet PO SCH (12:42)
--- NOTE | 2020-11-29 13:18 | P.PN ---
Subjective Progress Note Date: 11/29/20 This is a 79-year-old male who is status post left hip hemiarthroplasty. Patient is seen and evaluated at bedside today. Patient's family is present at bedside today and state that Bogdan is doing well and they deny any new complaints. Objective - Vital Signs Vital signs: Vital Signs Temp 98.0 F 11/29/20 12:34 Pulse 106 H 11/29/20 12:34 Resp 18 11/29/20 12:34 BP 165/89 11/29/20 12:34 Pulse Ox 95 11/29/20 12:34 Intake & Output 11/28/20 11/29/20 11/29/20 18:59 06:59 18:59 Intake Total 360 100 Output Total 350 Balance 10 100 Weight 90.5 kg 87.5 kg Intake: Intake, IV Titration 100 Amount Piperacillin-Tazobactam 3 100 .375 gm In Sodium Chloride 0.9% 100 ml @ 25 mls/hr IVPB Q8H [facility] Rx#: [id number] Oral 360 Output: Urine 350 Stool 0 Other: Voiding Method Incontinent Incontinent # Voids 1 1 # Bowel Movements 1 - Exam Vital signs are stable. Patient is lying comfortably in bed in no acute distress. Calf is soft and nontender to palpation. Dressing is clean, dry, and intact. Patient has full foot and ankle motion without pain or difficulty. Sensation intact. Neurovascular status and circulatory status are intact. - Labs CBC & Chem 7: 11/26/20 07:17 11/26/20 07:17 Labs: Microbiology - Last 24 Hours (Table) 11/22/20 13:04 Blood Culture - Final Blood No Growth after 144 hours Assessment and Plan (1) S/P hip hemiarthroplasty Current Visit: Yes Status: Acute Code(s): Z96.649 - PRESENCE OF UNSPECIFIED ARTIFICIAL HIP JOINT SNOMED Code(s): 495415833 (2) Atrial fibrillation Current Visit: Yes Status: Acute Code(s): I48.91 - UNSPECIFIED ATRIAL FIBRILLATION SNOMED Code(s): 47952025 (3) Fall Current Visit: Yes Status: Acute Code(s): W19.XXXA - UNSPECIFIED FALL, INITIAL ENCOUNTER SNOMED Code(s): 0616829 (4) Subcapital fracture of left hip Current Visit: Yes Status: Acute Code(s): S72.012A - UNSP INTRACAPSULAR FRACTURE OF LEFT FEMUR, INIT FOR CLOS FX SNOMED Code(s): 076317450 Plan: Continue routine postop care and pain control. Continue anticoagulation per medicine. Weightbearing as tolerated with a walker. Leave dressing in place for 10 days. Appreciate input from medicine. Discharge to rehab when cleared medically.
--- NOTE | 2020-11-29 15:43 | CDI ---
Documentation Clarification Form Date: 11/29/2020 03:32:59 PM From: Carolyn Malik RN, CCDS Admit Date: 11/17/2020 09:23:00 AM Patient Name: Bogdan Javed Visit Number: [id number] ATTENTION: The Clinical Documentation Specialists (CDI) and [facility] Coding Staff appreciate your assistance in clarifying documentation. Please respond to the clarification below the line at the bottom and electronically sign. The CDI & [facility] Coding staff will review the response and follow-up if needed. Please note: Queries are made part of the Legal Health Record. If you have any questions, please contact the author of this message via ITS. Dr. De Los Santos E Courtney UTI is documented in the 11/23 Neurology Consult and progress notes and patient has a Fuentes Catheter. Additional clarification regarding the etiology of the UTI is requested. History/Risk Factors: Recent fall with Left hip fracture and left hip hemiarthroplasty, Toxic encephalopathy, dementia, atrial fib, TIA, heart failure Clinical Indicators: 11/23-11/26 Neurology Consult and Progress notes: "Delirium due to underlying UTI, hospital stay, medication effect Encephalopathy seems due to toxic (medication induced (opiates/Narcotics), and underlying UTI." 11/24 OA Progress note: "Patient is being followed closely by medicine and has started treatment for possible UTI." 11/26 Attending Progress note: "Traumatic hematuria from pulling his Fuentes catheter. Possible UTI and is on Rocephin and improving. Discontinue Fuentes catheter and check a bladder scan." 11/22 Urinalysis: +1 Protein, +1 Ketones, Large amount of blood, Small Leukocyte Esterase, >182 RBC, 9 WBC< rare bacteria, few mucus Urine culture: none done Lab results: WBC WNL Treatment: 11/22-11/27 Ceftriaxone 1gm IVPB Q 24 hrs. 11/28 to Current Zosyn 3.375 g, IVPB Q 8hrs Please clarify the etiology of the UTI, if known: [ ] Fuentes catheter related UTI [ ] UTI not related to catheter [ ] Other condition, please specify [ ] Unable to determine (Template Last Revised: July 2020) possible UTI, catheter related , resolved now MTDD
[2020-11-29] MEDS: RIVAROXABAN 15 MG TAB PO SCH (17:43)
[2020-11-29] MEDS: SENNOSIDES-DOCUSATE SODIUM 1 EACH TAB PO SCH (21:25)
[2020-11-29] MEDS: ATORVASTATIN 40 MG TAB PO SCH (21:25)
[2020-11-30] MEDS: LACTATED RINGERS 1,000 ML IV SCH (06:08)
[2020-11-30] MEDS: PIPERACILLIN-TAZOBACTAM 3.375 GM in SODIUM CHLORIDE 0.9% 100 ML IVPB SCH ×2 (06:08→13:13)
[2020-11-30] MEDS: QUEtiapine 25 MG TAB PO SCH (08:42)
[2020-11-30] MEDS: METOPROLOL SUCCINATE (ER) 50 MG TAB.ER.24H PO SCH (08:42)
[2020-11-30] MEDS: FOLIC ACID 1 MG TAB PO SCH (08:42)
[2020-11-30] MEDS: CARBIDOPA-LEVODOPA 25-100 MG 1 EACH TAB PO SCH (08:42)
[2020-11-30] MEDS: SACUBITRIL/VALSARTAN 24 MG-26 MG TABLET PO SCH (08:42)
[2020-11-30] MEDS: IPRATROPIUM BROMIDE 0.06% NASAL SPRAY (15 ML) EA NOSTRIL SCH (08:43)
[2020-11-30] MEDS: THIAMINE 100 MG TAB PO SCH (08:43)
[2020-11-30] MEDS: PANTOPRAZOLE 40 MG TABLET PO SCH (08:43)
[2020-11-30] MEDS: CYANOCOBALAMIN 500 MCG TAB PO SCH (08:43)
[2020-11-30] MEDS: FINASTERIDE 5 MG TAB PO SCH (08:43)
[2020-11-30 09:25] VITALS: RESP 18; TEMP 98.8
--- NOTE | 2020-11-30 10:21 | XR ---
EXAMINATION TYPE: XR chest 1V DATE OF EXAM: 11/30/2020 COMPARISON: 11/28/2020 INDICATION: Pneumonia TECHNIQUE: Single frontal view of the chest is obtained. FINDINGS: The heart size is prominent. The pulmonary vasculature is normal. The lungs are clear. Previous bibasilar infiltrates have resolved. IMPRESSION: 1. No acute pulmonary process. 2. Resolution previous basilar infiltrates. 3. Mild cardiomegaly
[2020-11-30] MEDS: Colestipol Hcl [Colestid] 1 GM Tablet PO SCH (10:44)
[2020-11-30] MEDS ORDERED: METOPROLOL SUCCINATE (ER) 50 MG TAB.ER.24H PO STA ×2 (12:09→15:45)
--- NOTE | 2020-11-30 12:41 | P.DS ---
Providers Date of admission: 11/17/20 09:23 Attending physician: Filiberto Valdez MD Consults: 11/17/20 18:50 Consult Physician Urgent Consulting Provider: Fitz Roach Consult Reason/Comments: medical clearance for hip surgery (leobardo was dr only in [facility] ) Do you want consulting provider notified?: Yes 11/23/20 13:29 Consult Physician Urgent Consulting Provider: Gus Demarco Consult Reason/Comments: ams Do you want consulting provider notified?: Yes Primary care physician: James Rosario Hospital Course: Diagnoses: Right lower lobe aspiration pneumonia unwitnessed fall Altered mental status could be metabolic and/or toxic encephalopathy . 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 Improved Moderate aortic stenosis Cardiomyopathy with ejection fraction 40-45% Chronic atrial fibrillation on Xarelto History of nonsustained V. tach History of dementia Multiple hospitalization, this is the third inpatient hospitalization for multiple issue, including neurological, GI bleed, infection and hip fracture Guarded overall prognosis Hospital course: This is a pleasant 80 years old male with past medical history of dementia, TIA, heart failure, atrial fibrillation, atypical Parkinson disease. He presents on 11/17 after he was found in the bathroom floor and hit his head while he is on blood thinner as an unwitnessed fall. Patient found left hip fracture status post left hip cemented hemiarthroplasty. Yesterday patient was brought to be discharged but he was found so confused and sleepy, Secondary to medication. Sedative medication was discontinued. Patient developed hematuria from pulling his Fuentes catheter, this is resolved after discontinuing the Fuentes. Bladder scan checked today and patient was not retaining any urine, there was 175 mL in the bladder. Patient Hospital course complicated by several infections, like UTI, cellulitis and aspiration pneumonia. Patient treated with antibiotics including Zosyn, repeat urine analysis showing improvement, cellulitis improved. Repeat chest x- ray today showing clearance of the consultation with no acute process. Patient's become more awake, however remains confused which looks like his baseline related to his dementia which looks gradually worsening She'll follow evaluation was done and patient was placed on a pured diet, see discharge instructions as well. Labs including CBC and BMP and liver enzymes were checked and the looks stable. Hemoglobin is stable around 8.5-8.6 Patient also has been evaluated by several consultants including neurologist, orthopedic team and sat math tutor and all consultants cleared him for discharge already Discussed the case with the daughter Mrs. Olinda Mckoy over the phone and discussed patient condition and management plan and she verbalized understanding and agreeable to the plan However I informed her that patient is high-risk for falling, currently he is on Xarelto and this needs to be addressed between the family and the primary care doctor wanted to continue or stop it as patient is at-risk of fall and brain bleed, she agreed and she will discussed with his PCP. Also I informed her that his at-risk of recurrent infections. Patient was found stable and can be discharged to [facility] in guarded prognosis however he needs follow-up as an outpatient. Patient was instructed to follow up with PCP Dr. Gordillo about within one week and patient agrees Physical exam -Gen: patient is a awake but confused which looks his baseline, no distress CVS: S1-S2, RRR, no murmur Lungs: B/L CTA, no wheezing Abdomen: soft, no distention, no tenderness, positive bowel sounds Extremity: no leg edema or induration Time spent more than 35 minutes Patient Condition at Discharge: Stable Plan - Discharge Summary Discharge Rx Participant: No New Discharge Prescriptions: New HYDROcodone/APAP 5-325MG [[place] 5-325] 1 - 2 tab PO Q6HR PRN #30 tab PRN Reason: Pain Sennosides [Senokot] 2 tab PO DAILY PRN #60 tablet PRN Reason: Constipation Acetaminophen Tab [Tylenol] 650 mg PO Q6H PRN #30 tab PRN Reason: Pain Amoxic-Pot Clav 500-125 mg [Augmentin 500-125 mg] 1 tab PO Q12HR 8 Days #16 tab QUEtiapine [SEROquel] 25 mg PO BID tab Continue Colestipol HCl [Colestid] 2 gm PO DAILY@1200 Atorvastatin Calcium [Lipitor] 40 mg PO HS@2100 Ipratropium [place] 0.06%Nasal [Atrovent Nasal 0.06%] 2 spray EA NOSTRIL BID@0800,1700 Sacubitril/Valsartan [Entresto 24 mg-26 mg Tablet] 1 tab PO BID@0800,1700 Cyanocobalamin (Vitamin B-12) [Vitamin B-12] 1,000 mcg PO DAILY@0800 Na Phos,M-B/Na Phos,Di-Ba [Fleet Adult] 133 ml RECTAL ONCE PRN PRN Reason: Constipation Vit C/E/Zn/Coppr/Lutein/Zeaxan [Preservision Areds 2 Softgel] 1 cap PO BID@0800,1700 Thiamine [Vitamin B-1] 100 mg PO DAILY@0800 Folic Acid 1 mg PO DAILY@0800 Calcium Polycarbophil [Fibercon] 625 mg PO DAILY@0800 Carbidopa-Levodopa 25-100 mg [Sinemet 25-100 mg] 1 tab PO BID@0800,1700 Mupirocin 2% Oint [Bactroban 2% Oint] 1 applic TOPICAL DAILY Ipratropium [place] 0.06%Nasal [Atrovent Nasal 0.06%] 2 spray EA NOSTRIL TID PRN PRN Reason: rhinitis Finasteride [Proscar] 5 mg PO DAILY@0800 Escitalopram [Lexapro] 20 mg PO DAILY@0800 bisacodyL [Bisacodyl] 10 mg RECTAL DAILY PRN PRN Reason: Constipation Acetaminophen Tab [Tylenol] 650 mg PO Q4H PRN PRN Reason: Pain Or Fever > 100.5 Rivaroxaban [Xarelto] 15 mg PO HS@2100 Pantoprazole Sodium [Protonix] 40 mg PO DAILY@0800 Magnesium Hydroxide [Milk of Magnesia Concentrate] 7,200 mg PO DAILY PRN PRN Reason: Constipation busPIRone HCl [Buspar] 10 mg PO BID@0800,1700 Changed Melatonin 5 mg PO DAILY@2100 PRN #0 PRN Reason: Insomnia Discontinued Metoprolol Succinate (ER) [Toprol XL] 50 mg PO DAILY@0800 Loratadine 10 mg PO DAILY PRN PRN Reason: SNEEZING ALPRAZolam [Xanax] 0.25 mg PO HS Discharge Medication List Atorvastatin Calcium [Lipitor] 40 mg PO HS@2100 09/26/20 [History] Colestipol HCl [Colestid] 2 gm PO DAILY@1200 09/26/20 [History] Cyanocobalamin (Vitamin B-12) [Vitamin B-12] 1,000 mcg PO DAILY@0800 09/26/20 [History] Escitalopram [Lexapro] 20 mg PO DAILY@0800 09/26/20 [History] Finasteride [Proscar] 5 mg PO DAILY@0809/26/20 [History] Ipratropium [place] 0.06%Nasal [Atrovent Nasal 0.06%] 2 spray EA NOSTRIL BID@0800,1700 09/26/20 [History] Sacubitril/Valsartan [Entresto 24 mg-26 mg Tablet] 1 tab PO BID@0800,1700 [History] Acetaminophen Tab [Tylenol] 650 mg PO Q4H PRN 10/13/20 [History] Calcium Polycarbophil [Fibercon] 625 mg PO DAILY@0810/13/20 [History] Folic Acid 1 mg PO DAILY@0810/13/20 [History] Magnesium Hydroxide [Milk of Magnesia Concentrate] 7,200 mg PO DAILY PRN 10/13/20 [History] Na Phos,M-B/Na Phos,Di-Ba [Fleet Adult] 133 ml RECTAL ONCE PRN 10/13/20 [History] Pantoprazole Sodium [Protonix] 40 mg PO DAILY@0810/13/20 [History] Rivaroxaban [Xarelto] 15 mg PO HS@2100 10/13/20 [History] Thiamine [Vitamin B-1] 100 mg PO DAILY@0810/13/20 [History] Vit C/E/Zn/Coppr/Lutein/Zeaxan [Preservision Areds 2 Softgel] 1 cap PO BID@0800,1700 10/13/20 [History] bisacodyL [Bisacodyl] 10 mg RECTAL DAILY PRN 10/13/20 [History] Carbidopa-Levodopa 25-100 mg [Sinemet 25-100 mg] 1 tab PO BID@0800,1700 11/17/20 [History] Ipratropium [place] 0.06%Nasal [Atrovent Nasal 0.06%] 2 spray EA NOSTRIL TID PRN 11/17/20 [History] Mupirocin 2% Oint [Bactroban 2% Oint] 1 applic TOPICAL DAILY 11/17/20 [History] busPIRone HCl [Buspar] 10 mg PO BID@0800,1700 11/17/20 [History] HYDROcodone/APAP 5-325MG [[place] 5-325] 1 - 2 tab PO Q6HR PRN #30 tab 11/21/20 [Rx] Sennosides [Senokot] 2 tab PO DAILY PRN #60 tablet 11/21/20 [Rx] Acetaminophen Tab [Tylenol] 650 mg PO Q6H PRN #30 tab 11/25/20 [Rx] Amoxic-Pot Clav 500-125 mg [Augmentin 500-125 mg] 1 tab PO Q12HR 8 Days #16 tab 11/30/20 [Rx] Melatonin 5 mg PO DAILY@2100 PRN #0 11/30/20 [Rx] QUEtiapine [SEROquel] 25 mg PO BID tab 11/30/20 [Rx] Follow up Appointment(s)/Referral(s): Noelle Virk PAC [PHYSICIAN BANK SALES AND SERVICE MANAGER] - 3 Weeks Mark Quiles MD [STAFF PHYSICIAN] - 2 Weeks Rand Hilario MD [REFERRING] - 1-2 days Activity/Diet/Wound Care/Special Instructions: May bear wt as tolerated w walker. May shower. Medical to manage Xarelto. Recommend PT and ambulation at least twice daily. Give [place] only if in severe pain. Use Tylenol first. keep head of bed more than 30-45 degree activity is restricted till you see your doctor diet : pureed diet/thin liquids as tolerated. aspiration precaution - sitting upright ( 90 degrees) - Liquids from cup - Liquids from straw - Small bites and sips - Direct supervision Medication administration: apple sauce/yogurt Discharge Disposition: TRANSFER TO SNF/ECF
[2020-11-30 14:41] VITALS: BP 167/115; PULSE 118
[2020-12-01] MEDS ORDERED: METOPROLOL SUCCINATE (ER) 100 MG TAB.ER.24H PO SCH (08:00)
== END 2020-11-30 16:40 | DRG 521 ==
LOC: EC 06:20 → 4SSUR 09:23 → 3SCARD 11-18 18:06
PROVIDERS: ADMIT Internal Medicine; ATTEND Internal Medicine
PROC: 0SRS0J9 Replacement of Left Hip Joint, Femoral Surface with Synthetic Substitute, Cemented, Open Approach (ICD-10-PCS; principal; 2020-11-18 12:00)
DX: S72.012A Unspecified intracapsular fracture of left femur, initial encounter for closed fracture (principal); G93.41 Metabolic encephalopathy; N39.0 Urinary tract infection, site not specified; T83.511A Infection and inflammatory reaction due to indwelling urethral catheter, initial encounter; G92 Toxic encephalopathy; J69.0 Pneumonitis due to inhalation of food and vomit; I48.19 Other persistent atrial fibrillation; I50.22 Chronic systolic (congestive) heart failure; L03.113 Cellulitis of right upper limb; I47.2 Ventricular tachycardia; K92.2 Gastrointestinal hemorrhage, unspecified; G91.2 (Idiopathic) normal pressure hydrocephalus; M25.00 Hemarthrosis, unspecified joint; I11.0 Hypertensive heart disease with heart failure; F02.80 Dementia in other diseases classified elsewhere, unspecified severity, without behavioral disturbance, psychotic disturbance, mood disturbance, and anxiety; G20 Parkinson's disease; D50.9 Iron deficiency anemia, unspecified; Z20.822 Contact with and (suspected) exposure to COVID-19; I08.3 Combined rheumatic disorders of mitral, aortic and tricuspid valves; D72.810 Lymphocytopenia; E87.6 Hypokalemia; W01.0XXA Fall on same level from slipping, tripping and stumbling without subsequent striking against object, initial encounter; Y92.129 Unspecified place in nursing home as the place of occurrence of the external cause; R31.9 Hematuria, unspecified; D63.8 Anemia in other chronic diseases classified elsewhere; E78.5 Hyperlipidemia, unspecified; I25.10 Atherosclerotic heart disease of native coronary artery without angina pectoris; R26.81 Unsteadiness on feet; F32.9 Major depressive disorder, single episode, unspecified; Z91.81 History of falling; Z88.8 Allergy status to other drugs, medicaments and biological substances; Z79.01 Long term (current) use of anticoagulants; Z79.899 Other long term (current) drug therapy; Z86.73 Personal history of transient ischemic attack (TIA), and cerebral infarction without residual deficits; Z87.891 Personal history of nicotine dependence; R47.1 Dysarthria and anarthria; H91.93 Unspecified hearing loss, bilateral; R56.9 Unspecified convulsions; G30.9 Alzheimer's disease, unspecified; Z96.642 Presence of left artificial hip joint; K20.90 Esophagitis, unspecified without bleeding; F41.9 Anxiety disorder, unspecified; G47.00 Insomnia, unspecified; I25.5 Ischemic cardiomyopathy; I49.3 Ventricular premature depolarization; J31.0 Chronic rhinitis; K59.00 Constipation, unspecified
CPT/HCPCS: 36415; 36600; 70450; 71045; 72125; 73501; 73502; 76770; 80048; 80051; 80053; 81001; 82805; 83735; 84145; 85025; 85610; 85730; 87040; 87635; 88305; 88311; 93005; 94760; 96374; 99285